=== PATIENT | female | born 2005 | race Caucasian/White ===

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

== ENCOUNTER 2024-01-24 08:57 | Outpatient (OUT) | payer OTHER, SELFPAY ==
--- NOTE | 2024-01-24 | US_ITS ---
[address] [address] Patient Name: FLAVIA TUCKER MRN: [id number] date: 2005 Sex: F Assigned Patient Location: Current Patient Location: Accession/Order Number: [id number] Exam Date: 01/24/2024 09:08 Report Date: 01/25/2024 08:09 At the request of: QUINTIN RAMIREZ Procedure: US pelvis transvaginal EXAM: Pelvic ultrasound HISTORY: . pelvic pain . COMPARISON: None. TECHNIQUE: Transvaginal scanning was performed FINDINGS: Scanning of the pelvis demonstrates a retroverted uterus measuring 7 x 5.2 x 3.6 cm. Endometrial complex measures 4 mm. Right ovary measures 3.7 x 1.7 x 1.5 cm. Color-flow is noted. No masses are noted. Small follicles are noted. Left ovary measures 2.7 x 1.1 x 1.4 cm. Color-flow is noted. Small follicles are noted. There is a small amount of free fluid in the cul-de-sac. US/US pelvis transvaginal IMPRESSION: 1. Normal-appearing uterus and endometrial complex. Uterus is retroverted. 2. Normal-appearing ovaries. The previously noted cystic area in the right ovary has resolved. 3. Small amount of fluid in the cul-de-sac. Electronically authenticated by: BRE MARADIAGA Date: 01/25/2024 08:09
== END 2024-01-24 08:58 | disposition home or self-care (01) ==
LOC: US 08:58
PROVIDERS: Visit Provider Obstetrics & Gynecology
DX: R10.2 Pelvic and perineal pain (principal)
CPT/HCPCS: 76830

== ENCOUNTER 2024-01-28 13:19 | Outpatient (OUT) | payer OTHER, SELFPAY ==
--- OUTSIDE RECORDS SUMMARY | 2024-01-28 13:39 | XMS_ITS | CCD ---
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 on 11/21/2023 10:59 AM INemesio MD have personally reviewed the image(s) and agree with and/or edited the report Finalized by Nemesio Thompson MD on 11/21/2023 11:32 AM Normal [facility] HCG ( test) Ql (U)o n 11-21-2023 Beta HCG ( test) Ql (U) Negative Normal NEG [facility] Comment on above: Performed By: #### C MARTY REED, 3040-3, 5643-2 #### [facility] ([id number]) [address] [place] [address] LIPASEon 11-21-2023 Lipase [Catalytic activity/Vol] 29 U/L Normal 17-40 [facility] Comment on above: Performed By: #### C MARTY REED, 3040-3, 5643-2 #### [facility] ([id number]) [address] [place] [address] 44929 MAGNESIUMon 11-21-2023 Magnesium [Mass/Vol] 2.2 mg/dL Normal 1.8-2.6 [facility] Comment on above: Performed By: #### C MARTY REED, 3040-3, 5643-2 #### [facility] ([id number]) [address] [place] [address] 96699 URINE CULTUREon 11-21-2023 Bacteria identified Cx Nom (U) CULTURE RESULTS 10-50,000 ORGANISMS/mL NORMAL UROGENITAL CHU Normal [facility] Comment on above: Performed By: #### C BCA, CMP, 3040-3, 5643-2 #### [facility] ([id number]) [address] [place] [address] 91453 URN MACROSCOPIC NURon 2023 BILIRUBIN JOHANA Negative Normal NEG [facility] Comment on above: Performed By: #### N UM #### [facility] ([id number]) [address] [place] [address] 20897 BLOOD/HGB JOHANA Negative Normal NEG [facility] Comment on above: Performed By: #### N UM #### [facility] ([id number]) [address] [place] [address] 88194 GLUCOSE JOHANA Negative Normal NEG [facility] Comment on above: Performed By: #### N UM #### [facility] ([id number]) [address] [place] [address] 73233 KETONES JOHANA Negative Normal NEG [facility] Comment on above: Performed By: #### N UM #### [facility] ([id number]) [address] [place] [address] 02872 LEUKOCYTE ESTERASE JOHANA Negative Normal NEG [facility] Comment on above: Performed By: #### N UM #### [facility] ([id number]) [address] [place] [address] [place] [address] NITRITE JOHANA Negative Normal NEG [facility] Comment on above: Performed By: #### N UM #### [facility] ([id number]) [address] [place] [address] 40037 PH JOHANA 6.5 Normal 5.0-8.5 [facility] Comment on above: Performed By: #### N UM #### [facility] ([id number]) [address] [place] [address] 62373 PROTEIN JOHANA Negative Normal NEG [facility] Comment on above: Performed By: #### N UM #### [facility] ([id number]) [address] [place] [address] 42869 SPECIFIC GRAVITY JOHANA 1.010 Normal 1.003-1.035 [facility] Comment on above: Performed By: #### N UM #### [facility] ([id number]) [address] [place] [address] 71907 UROBILINOGEN JOHANA 0.2 eu/dL Normal <1.1 [facility] Comment on above: Performed By: #### N UM #### [facility] ([id number]) [address] [place] [address] 51695 CBC AND AUTO DIFFon 06-21-19 24 ABSOLUTE BASOPHIL 0.1 X10E9/L Normal 0.0-0.2 [facility] Comment on above: Performed By: #### C BCA, CMP, 3040-3, 5643-2 #### [facility] ([id number]) [address] [place] [address] 31116 ABSOLUTE NEUTROPHIL 5.4 X10E9/L Normal 1.5-6.6 [facility] Comment on above: Performed By: #### C BCA, CMP, 3040-3, 5643-2 #### [facility] ([id number]) [address] [place] [address] 30903 Basophils/100 WBC (Bld) 0.6 % Normal [facility] Comment on above: Performed By: #### C BCA, CMP, 3040-3, 5643-2 #### [facility] ([id number]) [address] [place] [address] 12535 Eosinophils (Bld) [#/Vol] 0.1 10*3/uL Normal 0.0-0.4 [facility] Comment on above: Performed By: #### C BCA, CMP, 3040-3, 5643-2 #### [facility] ([id number]) [address] [place] [address] 18407 Eosinophils/100 WBC (Bld) 0.7 % Normal [facility] Comment on above: Performed By: #### Kailyn REED CMP, 3039-08, 5642-2 #### [facility] ([id number]) [address] [place] [address] 92671 Erythrocyte distribution width (RBC) [Ratio] 13.5 % Normal 11.5-15.0 [facility] Comment on above: Performed By: #### Kailyn REED [facility], 3039-08, 5642- #### [facility] ([id number]) [address] [place] [address] 97116 Hematocrit (Bld) [Volume fraction] 40.1 % Normal 35-47 [facility] Comment on above: Performed By: #### Kailyn REED CMP, 3039-08, 5642- #### [facility] ([id number]) [address] [place] [address] 23053 Hemoglobin (Bld) [Mass/Vol] 14.1 g/dL Normal 11.7-15.5 [facility] Comment on above: Performed By: #### Kailyn REED CMP, 3039-08, 5642- #### [facility] ([id number]) [address] [place] [address] 03806 Lymphocytes (Bld) [#/Vol] 4.5 10*3/uL High 1.0-3.5 [facility] Comment on above: Performed By: #### Kailyn REED CMP, 3039-08, 5642-2 #### [facility] ([id number]) [address] [place] [address] 81444 Lymphocytes/100 WBC (Bld) 43.0 % Normal [facility] Comment on above: Performed By: #### Kailyn REED CMP, 3039-08, 5642-2 #### [facility] ([id number]) [address] [place] [address] 10585 MCH (RBC) [Entitic mass] 30.1 pg Normal 27-34 [facility] Comment on above: Performed By: #### Kailyn REED, CMP, 0-3, 43-2 #### [facility] ([id number]) [address] [place] [address] 87707 MCHC (RBC) [Mass/Vol] 35.2 g/dL Normal 32-36 [facility] Comment on above: Performed By: #### Kailyn REED, CMP, 3039-, 5642-2 #### [facility] ([id number]) [address] [place] [address] 80104 MCV (RBC) [Entitic vol] 85 fL Normal 80-100 [facility] Comment on above: Performed By: #### Kailyn REED, CMP, 3039-08, 5642-2 #### [facility] ([id number]) [address] [place] [address] 62853 Monocytes (Bld) [#/Vol] 0.5 10*3/uL Normal 0-0.9 [facility] Comment on above: Performed By: #### Kailyn REED, CMP, 3039-08, 43-2 #### [facility] ([id number]) [address] [place] [address] 34318 Monocytes/100 WBC (Bld) 4.3 % Normal [facility] Comment on above: Performed By: #### Kailyn REED, CMP, 3039-08, 43-2 #### [facility] ([id number]) [address] [place] [address] 42089 Neutrophils/100 WBC (Bld) 51.4 % Normal [facility] Comment on above: Performed By: #### Kailyn BCA, CMP, 3039-3, 43-2 #### [facility] ([id number]) [address] [place] [address] 10311 Platelet mean volume (Bld) [Entitic vol] 6.5 fL Low 7-12 [facility] Comment on above: Performed By: #### C DEREK, CMP, 3040-3, 5643-2 #### [facility] ([id number]) [address] [place] [address] 90769 Platelets (Bld) [#/Vol] 286 10*3/uL Normal 150-450 [facility] Comment on above: Performed By: #### C DEREK CMP, 3040-3, 5643-2 #### [facility] ([id number]) [address] [place] [address] 18223 RBC COUNT 4.69 X10E12/L Normal 3.80-5.20 [facility] Comment on above: Performed By: #### C DEREK, CMP, 0-3, 5643-2 #### [facility] ([id number]) [address] [place] [address] 94327 WBC (Bld) [#/Vol] 10.6 10*3/uL Normal 4.0-11.0 [facility] Comment on above: Performed By: #### Kailyn REED, CMP, 3040-3, 5643-2 #### [facility] ([id number]) [address] [place] [address] 73599 COMPREHENSIVE METABOLIC PANE Grey 06-21-2023 Albumin [Mass/Vol] 4.2 g/dL Normal 3.2-5.3 [facility] Comment on above: Performed By: #### Kailyn BCA, CMP, 3040-3, 5643-2 #### [facility] ([id number]) [address] [place] [address] 00307 ALP [Catalytic activity/Vol] 69 U/L Normal 39-130 [facility] Comment on above: Performed By: #### C BCA, CMP, 3040-3, 5643-2 #### [facility] ([id number]) [address] [place] [address] 65847 ALT [Catalytic activity/Vol] 91 U/L High 0-31 [facility] Comment on above: Performed By: #### C BCA, CMP, 3040-3, 5643-2 #### [facility] ([id number]) [address] [place] [address] 02794 Anion gap [Moles/Vol] 6 mmol/L Normal 5-15 [facility] Comment on above: Performed By: #### C BCA, CMP, 0-3, 5643-2 #### [facility] ([id number]) [address] [place] [address] 34014 AST [Catalytic activity/Vol] 79 U/L High 0-41 [facility] Comment on above: Performed By: #### C BCA, CMP, 0-3, 43-2 #### [facility] ([id number]) [address] [place] [address] 64102 Bilirubin [Mass/Vol] 0.7 mg/dL Normal 0.3-1.2 [facility] Comment on above: Performed By: #### C BCA, CMP, 0-3, 5643-2 #### [facility] ([id number]) [address] [place] [address] 87081 Calcium [Mass/Vol] 8.6 mg/dL Normal 8.5-10.5 [facility] Comment on above: Performed By: #### C BCA, CMP, 0-3, 5643-2 #### [facility] ([id number]) [address] [place] [address] 82046 Chloride [Moles/Vol] 104 mmol/L Normal 98-109 [facility] Comment on above: Performed By: #### C BCA, CMP, 3040-3, 5643-2 #### [facility] ([id number]) [address] [place] [address] 52715 CO2 [Moles/Vol] 24 mmol/L Normal 22-32 [facility] Comment on above: Performed By: #### C DEREK [facility], 3039-3, 5643-2 #### [facility] ([id number]) [address] [place] [address] 65958 Creatinine [Mass/Vol] 0.70 mg/dL Normal 0.30-1.00 [facility] Comment on above: Result Comment: METH OD TRACEABLE TO IDMS STANDARD Performed By: #### C MARTY REED, 3039-08, 5643-2 #### [facility] ([id number]) [address] [place] [address] 34924 eGFR (CKD-EPI) NON-RACE DEPENDENT >90 Normal >59 [facility] Comment on above: Result Comment: Reported eGFR is based on the CKD-EPI 2020 equation that does not use a race coefficient. Performed By: #### C DEREK [facility], 3039-08, 5643-2 #### [facility] ([id number]) [address] [place] [address] 27429 Glucose [Mass/Vol] 127 mg/dL High 65-99 [facility] Comment on above: Performed By: #### C MARTY REED, 3039-08, 5643-2 #### [facility] ([id number]) [address] [place] [address] 19377 Potassium [Moles/Vol] 3.2 mmol/L Low 3.5-5.0 [facility] Comment on above: Performed By: #### C MARTY REED, 0-3, 5643-2 #### [facility] ([id number]) [address] [place] [address] 58567 Protein [Mass/Vol] 7.8 g/dL Normal 6.0-8.0 [facility] Comment on above: Performed By: #### C BCA, CMP, 3040-3, 5643-2 #### [facility] ([id number]) [address] [place] [address] 48548 Sodium [Moles/Vol] 134 mmol/L Normal 134-146 [facility] Comment on above: Performed By: #### C BCA, CMP, 3040-3, 5643-2 #### [facility] ([id number]) [address] [place] [address] 39231 Urea nitrogen [Mass/Vol] 10 mg/dL Normal 5-23 [facility] Comment on above: Performed By: #### C DEREK, CMP, 3040-3, 5643-2 #### [facility] ([id number]) [address] [place] [address] ABDOMEN AND PELVIS W CONT on 06-21-2023 CT ABDOMEN AND PELVIS W CONT CT ABDOMEN AND PELVIS W CONT CT ABDOMEN AND PELVIS W CONT HISTORY: Left lower quadrant abdominal pain COMPARISON: None TECHNIQUE: CT images of abdomen and pelvis obtained following administration of contrast. Automated exposure control was utilized. All CT scans at this facility use dose modulation, iterative reconstruction, and/or weight based dosing when appropriate to reduce radiation dose to as low as reasonably achievable. CONTRAST: Oral: 24 mL oral Omnipaque IV: 100 mL Omnipaque 300 FINDINGS: LOWER CHEST: Several subcentimeter pleural-based nodule in the bilateral lower lobes. Given patient's age and risk factors, no further imaging follow-up is required. LIVER AND BILIARY: Overall noncirrhotic liver morphology. No definite hepatic mass or lesion. The portal venous system appears patent. Gallbladder is unremarkable. PANCREAS: Unremarkable SPLEEN: Unremarkable. ADRENALS: No adrenal mass or lesion. KIDNEYS, URETERS, AND BLADDER: No renal mass or lesion. No evidence of collecting system dilatation. The ureters are unremarkable. The bladder is unremarkable. GI TRACT AND PERITONEUM: Oral contrast seen within the stomach and proximal small bowel. There is no evidence of bowel obstruction. Reduced aortomesenteric angle with narrowing of the crossing left renal vein and duodenum. The appendix is not well visualized. There is no pericolonic fat stranding or free intraperitoneal gas. Trace free fluid in the pelvis, possibly physiologic. VASCULATURE: The abdominal aorta is nonaneurysmal. LYMPH NODES: Prominent borderline enlarged mesenteric lymph nodes, predominantly in the ileocolic region. REPRODUCTIVE ORGANS: Retroverted uterus. No suspicious adnexal mass or lesion. MUSCULOSKELETAL: No acute abnormality. IMPRESSION: * No acute CT findings in the abdomen/pelvis. * Nonspecific borderline enlarged mesenteric lymph nodes, predominantly in the ileocolic region. This may be related to an underlying infectious/inflammat ory process versus mesenteric adenitis. * Diminished aortomesenteric angle with reduced caliber of the crossing left renal vein and duodenum. Correlate for symptoms suggestive of SMA syndrome. Approved by Resident Feliberto Fernandez DO on 06/21/2023 9:20 AM ISuhail MD have personally reviewed the image(s) and agree with and/or edited the report Finalized by Suhail Gamez MD on 06/21/2023 9:36 AM Normal [facility] ETHANOLon 06-21-2023 Ethanol [Mass/Vol] mg/dL Normal 0.00-0.08 [facility] Comment on above: Result Comment: This report is intended for use in clinical monitoring or management of patients. Performed By: #### C MARTY REED, 3040-3, 5643-2 #### [facility] ([id number]) [address] [place] [address] 54045 HCG ( test) Ql (U)o n 06-21-2023 Beta HCG ( test) Ql (U) Negative Normal NEG [facility] Comment on above: Performed By: #### 2 106-3 #### [facility] ([id number]) [address] [place] [address] 03508 LIPASEon 06-21-2023 Lipase [Catalytic activity/Vol] 36 U/L Normal 17-40 [facility] Comment on above: Performed By: #### C MARTY REED, 3040-3, 5643-2 #### [facility] ([id number]) [address] [facility] [address] [place] [address] SARS/FLU A+B/RSV by NAAT/Mol williamon 06-21-2023 SARS/FLU A+B/RSV by NAAT/Molecular FLU A PCR Negative (qualifier value) FLU B PCR Negative (qualifier value) RSV by PCR Negative (qualifier value) SARS CoV 2 Detected (qualifier value) NOTE The Xpert Xpress SARS-CoV-2/Flu/RSV Plus test is a rapid, multiplexed real-time RT-PCR test intended for the simultaneous qualitative detection and differentiation of SARS-CoV-2, influenza A, influenza B and respiratory syncytial virus (RSV) viral RNA from individuals suspected of respiratory viral infection consistent with COVID-19 by their healthcare provider. This test has not been validated in asymptomatic patients. The Xpert Xpress SARS-CoV-2 test is intended for use by qualified and trained operators who are performing tests using either [facility] or [facility] systems and is limited to laboratories that meet the CLIA requirements to perform high and moderate complexity tests. The Xpert Xpress SARS-CoV-2/Flu/RSV Plus is only for use under the Food and Drug Administration's Emergency Use Authorization. Results are for the simultaneous detection and differentiation of SARS-CoV-2, influenza A, influenza B and RSV nucleic acids in clinical specimens. SARS-CoV-2, influenza A, influenza B and RSV RNA identified by this test are generally detectable in upper respiratory samples during the acute phase of infection. Positive results are indicative of the presence of the identified virus, but do not rule out bacterial infection or co-infection with other pathogens not detected by this test. Clinical correlation with patient history and other diagnostic information is necessary to determine patient infection status. The agent detected may not be the definite cause of disease. Negative results do not preclude SARS-CoV-2, influenza A, influenza B and RSV infection and should not be used as the sole basis for treatment or other patient management decisions. Negative results must be combined with clinical observations, patient history and epidemiological information. An Invalid result may occur with specimen-associated inhibition unable to be resolved with specimen repeat. Fact Sheet for Healthcare Providers: https://www.fda.gov/ media/474842/[place] d Fact Sheet for Patients: https://www.fda.gov/ media/148515/downloa d Normal [facility] Comment on above: Performed By: #### C OVFLR #### [facility] ([id number]) [address] [place] [address] 43704 URN MACROSCOPIC NURon 2023 BILIRUBIN JOHANA Negative Normal NEG [facility] Comment on above: Performed By: #### N UM #### [facility] ([id number]) [address] [place] [address] 26142 BLOOD/HGB JOHANA Large Abnormal NEG [facility] Comment on above: Performed By: #### N UM #### [facility] ([id number]) [address] [place] [address] 97962 GLUCOSE JOHANA Negative Normal [facility] Comment on above: Performed By: #### N UM #### [facility] ([id number]) [address] [place] [address] 03009 KETONES JOHANA Negative Normal NEG [facility] Comment on above: Performed By: #### N UM #### [facility] ([id number]) [address] [place] [address] 08550 LEUKOCYTE ESTERASE JOHANA Negative Normal [facility] Comment on above: Performed By: #### N UM #### [facility] ([id number]) [address] [place] [address] 39797 NITRITE JOHANA Negative Normal NEG [facility] Comment on above: Performed By: #### N UM #### [facility] ([id number]) [address] [place] [address] 37469 PH JOHANA 8.5 Normal 5.0-8.5 [facility] Comment on above: Performed By: #### N UM #### [facility] ([id number]) [address] [place] [address] 67680 PROTEIN JOHANA 100 mg/dL Abnormal NEG [facility] Comment on above: Performed By: #### N UM #### [facility] ([id number]) [address] [place] [address] SPECIFIC GRAVITY JOHANA 1.015 Normal 1.003-1.035 [facility] Comment on above: Performed By: #### N UM #### [facility] ([id number]) [address] [place] [address] UROBILINOGEN JOHANA 0.2 eu/dL Normal <1.1 [facility] Comment on above: Performed By: #### N UM #### [facility] ([id number]) [address] [place] [id number] XR RIBS RT PA Chery 3 XR RIBS RT PA CH COMPARISON: Chest radiograph 09/07/2012. CLINICAL HISTORY: Pain after injury. TECHNIQUE: 2 views of the right ribs obtained with AP and oblique positioning. FINDINGS: There is no evidence of acute rib fracture. Underlying lung appears grossly normal, no significant pleural fluid or pneumothorax. IMPRESSION: No evidence of acute rib fracture. Electronically authenticated by: CATA HERNANDEZ Date: 2022-09-29 00:50 Normal [facility] XR wrist LT min 3V*on 2021 XR wrist LT min 3V* [facility] [place] [address] XRay Report Signed Patient: Flavia Tucker MR#: [id number] : 2005 Acct:[id number] Age/Sex: 16 / F ADM Date: 04/21/22 Loc: [facility] Room: Type: [facility] Attending Dr: Deb BRAN Copies to: DEB PRESSLEY Ordering Provider: DEB PRESSLEY Date of Service: 04/21/22 XR/XR wrist LT min 3V*: Injury of left wrist, subsequent encounter 4 viewsLEFT wrist plain film COMPARISON:None HISTORY:Follow-up assessment of LEFT wrist injury. No fracture, dislocation or focal soft tissue abnormality seen. XR/XR wrist LT min 3V* IMPRESSION:No acute findings. Impression dictated by: Jan Gastelum M.D.04/21/2022 4:02 PM Dictation Location: [place] [address] Transcribed By: [facility] 04/21/22 1602 Dictated By: Jan Gastelum DO 04/21/22 160 Signed By: 04/21/22 160 Normal [facility] XR wrist LT min 3V* [facility] [employer] Other XR wrist LT min 3V* [facility] [employer] Other XR wrist LT min 3V* [address] [place] [address] [employer] Other XR wrist LT min 3V* [place] [address] [employer] Other XR wrist LT min 3V* XRay Report [facility] [employer] Other XR wrist LT min 3V* Signed [employer] Other XR wrist LT min 3V* Patient: Flavia Tucker MR#: [id number] [employer] Other XR wrist LT min 3V* : 2005 Acct:[id number] [employer] Other XR wrist LT min 3V* Age/Sex: 16 / F ADM Date: 04/21/22 [employer] Other XR wrist LT min 3V* Loc: [facility] Room: Type: [facility] [employer] Other XR wrist LT min 3V* Attending Dr: Deb Pressley [employer] Other XR wrist LT min 3V* Copies to: DEB PRESSLEY [employer] Other XR wrist LT min 3V* Ordering Provider: DEB PRESSLEY [employer] Other XR wrist LT min 3V* Date of Service: 04/21/22 [employer] Other XR wrist LT min 3V* XR/XR wrist LT min 3V*: Injury of left wrist, subsequent encounter [employer] Other XR wrist LT min 3V* 4 viewsLEFT wrist plain film [employer] Other XR wrist LT min 3V* COMPARISON:None [employer] Other XR wrist LT min 3V* HISTORY:Follow-up assessment of LEFT wrist injury. [employer] Other XR wrist LT min 3V* No fracture, dislocation or focal soft tissue abnormality seen. [employer] Other XR wrist LT min 3V* XR/XR wrist LT min 3V* [employer] Other XR wrist LT min 3V* IMPRESSION:No acute findings. [employer] Other XR wrist LT min 3V* Impression dictated by: Jan Gastelum M.D.04/21/2022 4:02 PM [employer] Other XR wrist LT min 3V* Dictation Location: [place] [address] [employer] Other XR wrist LT min 3V* Transcribed By: [facility] 04/21/22 1602 [employer] Other XR wrist LT min 3V* Dictated By: Jan Gastelum DO 04/21/22 1601 [employer] Other XR wrist LT min 3V* Signed By: [employer] Other XR wrist LT min 3V* 04/21/22 1602 No [employer]Animating Touch Other Quick Strepon 03-24-2022 S. pyogenes Org specific cx Ql (Throat) Negative [employer] Other [employer] Other SARS-CoV-2 (COVID-19) RNA NA A+probe Ql (Resp)on 03-24-2022 SARS-CoV-2 (COVID-19) RNA KELLY+probe Ql (Unsp spec) Negative [employer] Other Progress Noteon 03-10-2018 HIM IP Note OR [employer] [facility] Progress Noteon 02-24-2018 HIM IP Note OR [employer] [facility] Progress Noteon 02-16-2018 HIM IP Note OR [employer] [facility] Vital Signs Date Time Vital Sign Value Performing Clinician Facility 12-27-2023 09:17-0400 Body height 165.1 cm [facility] 12-27-2023 09:17-0400 Body mass index (BMI) [Percentile] Per age and sex 31 % [facility] 12-27-2023 09:17-0400 Body mass index (BMI) [Ratio] 20.2 kg/m2 [facility] 12-27-2023 09:17-0400 Body temperature 100.3 [degF] [facility] 12-27-2023 09:17-0400 Body weight 55.05 kg [facility] 12-27-2023 09:17-0400 Heart rate 75 /min [facility] 12-27-2023 09:17-0400 Respiratory rate 18 /min [facility] 12-27-2023 09:17-0400 SaO2% (BldA) [Mass fraction] 99 % [facility] 04-21-2022 15:30-0400 Body height 162.56 cm Deb Pressley Other [employer] Other 04-21-2022 15:30-0400 Body mass index (BMI) [Ratio] 22.31 kg/m2 Deb Pressley Other [employer] Other 04-21-2022 15:30-0400 Body temperature 98.6 [degF] Deb Pressley Other [employer] Other 04-21-2022 15:30-0400 Body weight 58.97 kg Deb Pressley Other [employer] Other 04-21-2022 15:30-0400 Diastolic blood pressure 71 mm[Hg] Deb Pressley Other [employer] Other 04-21-2022 15:30-0400 Respiratory rate 18 /min Deb Pressley Other [employer] Other 04-21-2022 15:30-0400 SaO2% (BldA) [Mass fraction] 99 % Deb Pressley Other [employer] Other 04-21-2022 15:30-0400 Systolic blood pressure 114 mm[Hg] Deb Pressley Other [employer] Other 03-24-2022 16:00-0400 Body height 163.83 cm Deb Pressley Other [employer] Other 03-24-2022 16:00-0400 Body mass index (BMI) [Ratio] 22.64 kg/m2 Deb Pressley Other [employer] Other 03-24-2022 16:00-0400 Body temperature 98.2 [degF] Deb Almanzaault Other [employer] Other 03-24-2022 16:00-0400 Body weight 60.78 kg Deb Almanzaault Other [employer] Other 03-24-2022 16:00-0400 Diastolic blood pressure 79 mm[Hg] Deb Pressley Other [employer] Other 03-24-2022 16:00-0400 Respiratory rate 18 /min Deb Almanzaault Other [employer] Other 03-24-2022 16:00-0400 SaO2% (BldA) [Mass fraction] 100 % Deb Pressley Other [employer] Other 03-24-2022 16:00-0400 Systolic blood pressure 121 mm[Hg] Deb Pressley Other [employer] Other 04-29-2021 15:30-0500 Body height 163.83 cm Deb Almanzaault Other [employer] Other 04-29-2021 15:30-0500 Body mass index (BMI) [Ratio] 21.97 kg/m2 Deb Pressley Other [employer] Other 04-29-2021 15:30-0500 Body temperature 97.8 [degF] Deb Almanzaault Other [employer] Other 04-29-2021 15:30-0500 Body weight 58.97 kg Deb Almanzaault Other [employer] Other 04-29-2021 15:30-0500 Diastolic blood pressure 72 mm[Hg] Deb Wendie Other [employer] Other 04-29-2021 15:30-0500 Respiratory rate 18 /min Deb Pressley Other [employer] Other 04-29-2021 15:30-0500 SaO2% (BldA) [Mass fraction] 98 % Deb Pressley Other [employer] Other 04-29-2021 15:30-0500 Systolic blood pressure 130 mm[Hg] Deb Pressley Other [employer] Other Encounters Encounter Date Encounter Type Care Provider Facility Start: 01-25-2024 End: 01-25-2024 ambulatory QUINTIN ASHLEY Not Available Start: 12-27-2023 End: 12-27-2023 ambulatory [facility] Work Phone: Start: 12-27-2023 End: 12-27-2023 Patient encounter procedure [facility] Work Phone: Start: 12-24-2023 End: 12-24-2023 ambulatory [facility] Start: 12-24-2023 Encounter for genera l adult medical examination without abnormal findings [facility] Start: 12-21-2023 End: 12-21-2023 ambulatory QUINTIN ASHLEY Not Available Start: 12-20-2023 End: 12-20-2023 [facility] Start: 11-21-2023 End: 11-22-2023 Emergency department patient visit BALDOMERO SMITH [facility] Start: 11-10-2023 End: 11-10-2023 ambulatory [facility] Start: 06-21-2023 End: 06-22-2023 Emergency department patient visit JUAN DEE [facility] Start: 06-21-2023 End: 06-21-2023 Emergency department patient visit [facility] Start: 06-21-2023 End: 06-22-2023 Emergency department patient visit JUAN DEE [facility] Start: 09-29-2022 End: 09-29-[address] FRANCISCO PERSON . Facility: Start: 04-21-2022 End: 04-21-2022 ambulatory Deb Wendie Facility:[facility] Start: 04-21-2022 End: 04-21-2022 Patient encounter procedure [employer] Deb Pressley Work Phone: [facility] Start: 04-21-2022 End: 04-21-2022 ambulatory [employer] Debrosalba Pressley Work Phone: [facility] Work Phone: Start: 04-21-2022 Office outpatient vi sit 15 minutes Deb Wendie [facility] Start: 03-24-2022 End: 03-24-2022 ambulatory Deb Wendie Other [employer] Other Start: 03-24-2022 Office outpatient vi sit 15 minutes Deb Wendie [facility] Start: 02-06-2022 End: 02-06-2022 ambulatory Deb Wendie Other [employer] Other Start: 02-06-2022 Telephone encounter Deb Breaul t [facility] Start: 04-29-2021 End: 04-29-2021 ambulatory Deb Wendie Other [employer] Other Start: 04-29-2021 Office outpatient vi sit 15 minutes Deb Wendie [facility] Procedures Date Procedure Procedure Detail Performing Clinician Start: 04-21-2022 Plain X-ray of left wrist [employer] Debrosalba Pressley Work Phone: Payers Date Payer Category Payer Self-pay [id number] 2005 Unknown [id number] 2.16.84 [id number] 2004 Unknown [id number] 2.16.8 [id number] 2004 Unknown [id number] 2.16.8 40.1.341238.3.579.2.6 2004 Unknown [id number] 2.16.8 40.1.670660.3.579.2.6 2004 Unknown [id number] 2.16.8 [id number] 2004 Unknown [id number] 2.16.8 40.1.812044.3.579.2.6 2004 Unknown [id number] 2.16.8 40.1.763940.3.579.2.1285 2004 Unknown [id number] 2.16.84 0.1.679852.3.579.2.6 2004 Unknown [id number] 2.16.84 0.1.140556.3.579.2.1286 2004 Unknown [id number] 2.16.84 0.1.380640.3.579.2.6 2004 Unknown [id number] 2.16.84 0.1.150443.3.579.2.9 2004 Unknown [id number] 2.16.84 0.1.035245.3.579.2.1259 1959 Unknown [id number] 2.16.8 40.1.982909.19 Medicaid [id number] Unknown [id number] 2.16.8 [id number] Unknown [id number] Social History Date Type Detail Facility Sex Assigned At [employer] Other Start: 2005 Sex Assigned At Female F [facility] Start: 12-27-2023 Tobacco smoking stat us NJIS Never smoked tobacco (finding) [facility] Clinical Note 11-10-2023 Note Date & Type Note Facility 11-10-2023 Note XR CHEST 2 VWS Procedure: Chest x-ray performed Number of views:2 History:Shortness of breath Comparison:09/07/2012 Findings: The heart and lungs show no acute findings, and the mediastinum and fabienne are grossly negative . Impression: 1. No acute change. Finalized by Bola Dang MD on 11/10/2023 9:58 AM [facility] Evaluation note 04-21-2022 Note Date & Type Note Facility 04-21-2022 Evaluation note Encounter Date Diagnosis Assessment Notes Apr, Injury of left wrist, subsequent encounter (ICD-10 - S69.92XD) Use RICE therapy as discussed: Rest, Ice Compression, Elevate. Apply ice to affected area 3-4 times daily (Do not place ice source directly on skin, must cover with towel-like material). Use OTC as directed for pain if needed. Contact office if symptoms are not improved within the next few weeks and we will help you get into specialist. [employer] Other Evaluation note 03-24-2022 Note Date & Type Note Facility 03-24-2022 Evaluation note Encounter Date Diagnosis Assessment Notes Mar, Contact with and (suspected) exposure to other viral communicable diseases (ICD-10 - Z20.828) Your Covid PCR test is negative. This means at this time you do not have COVID. Mar, Seasonal allergic rhinitis, unspecified trigger (ICD-10 - J30.2) Take medication as directed. Use saline nasal spray may help with symptom relief. OTC medications such as Zyrtec, Deandra or Claritin can help with symptoms during the peak of allergy season. Follow up with primary care provider if symptoms persist as a therapy plan may need to be made. [employer] Other Evaluation note 04-29-2021 Note Date & Type Note Facility 04-29-2021 Evaluation note Encounter Date Diagnosis Assessment Notes Apr, Tinea pedis of both feet (ICD-10 - B35.3) Use medication as directed. Shows need to be cleaned and clean socks need to be worn daily. Education handout printed on [employer] Other Evaluation note Note Date & Type Note Facility Evaluation note No Information [facility] [employer] Other Evaluation note Note Date & Type Note Facility Evaluation note No assessment information availa ble [facility] Work Phone: Evaluation note Note Date & Type Note Facility Evaluation note Diagnosis Onset Date Acute bilateral otitis media acute [facility] Work Phone: History general Narrative - Reported Note Date & Type Note Facility History general Narrative - Reported Type Medical History acid reflux Surgical History caps on teeth when younger Hospitalization History [facility] Other History general Narrative - Reported Note Date & Type Note Facility History general Narrative - Reported Type Medical History acid reflux Medical History headache Medical History seizures Surgical History caps on teeth when younger Hospitalization History [facility] Other Summary Purpose Family History No Family History Records FoundNo Family History Records FoundNo Family History Records FoundNo Family History Records FoundNo Family History Records FoundNo Family History Records Found Advance Directives No Advanced Directives Records Found Advance Directive Response Recorded Date/ Time Advance Directives No April 27, 2022 2:57pm Chief Complaint and Reason for Visit Chief Complaint right ear pain, sore throat Reason for Visit Acute bilateral otit is media Additional Source Comments INFORMATION SOURCE (unrecogn ized section and content) DATE CREATED AUTHOR 04/09/[facility] DATE CREATED AUTHOR AUTHOR'S ORGANIZ ATION 04/27/2022 [facility] DATE CREATED AUTHOR AUTHOR'S ORGANIZ ATION 09/30/2022 [facility] DATE CREATED AUTHOR AUTHOR'S ORGANIZ ATION 12/21/2023 [facility] DATE CREATED AUTHOR AUTHOR'S ORGANIZ ATION 12/25/2023 [facility] DATE CREATED AUTHOR AUTHOR'S ORGANIZ ATION 01/27/2024 [facility] EPIC REASON FOR VISIT (unrecogniz ed section and content) PT GETTING CUTS IN [facility] LETTERSORE THROAT, NASAL CONGESTIONFOLLOW UP [facility] 04/09/2022, LEFT WRIST INJURY Care Teams (unrecognized sec tion and content) Team Status: Inactive Member Role Status Dates YINA Chua Attending Provider Active Team Status: Active Member Role Status Dates PHYSICIAN NO FAMILY Primary Care Provider Active Team Status: Inactive Member Role Status Dates PHYSICIAN NO FAMILY Primary Care Provider Active Start: December 27, 2023 End: December 27, 2023 Binta Joy APRN Attending Provider Active S tart: December 27, 2023 End: December 27, 2023 Goals (unrecognized section and content) Goals may be documented in a n alternate section FOR RECORDS PERTAINING TO PATIENTS WHO ARE OR HAVE BEEN ENROLLED IN A CHEMICAL DEPENDENCY/SUBSTANCEABUSE PROGRAM, SOME INFORMATION MAY BE OMITTED. This clinical summary was aggregated from multiple sources. Caution should be exercised in using it in the provision of clinical care. This summary normalizes information from multiple sources, and as a consequence, information in this document may materially change the coding, format and clinical context of patient data. In addition, data may be omitted in some cases. CLINICAL DECISIONS SHOULD BE BASED ON THE PRIMARY CLINICAL RECORDS. [facility]. provides no warranty or guarantee of the accuracy or completeness of information in this document.
== END 2024-01-28 13:20 | disposition home or self-care (01) ==
LOC: PST 13:20
PROVIDERS: Visit Provider Obstetrics & Gynecology
DX: Z01.818 Encounter for other preprocedural examination (principal); R10.2 Pelvic and perineal pain

== ENCOUNTER 2024-02-11 08:59 | Day surgery (SDC) | payer OTHER, SELFPAY ==
[2024-01-28 14:01] VITALS: BP 116/73; PULSE 68; TEMP 36.5; O2SAT 100; BMI 22.0
[2024-02-11] VITALS (15 sets, daily range): BP systolic 99–118; BP diastolic 62–81; PULSE 51–74; TEMP 36.4–36.9; O2SAT 98–100; BMI 22.6
--- OUTSIDE RECORDS SUMMARY | 2024-02-11 09:09 | XMS_ITS | CCD ---
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 ([id number]) [address] [place] [address] 81358 eGFR (CKD-EPI) NON-RACE DEPENDENT >90 Normal >59 [facility] Comment on above: Result Comment: Reported eGFR is based on the CKD-EPI 2020 equation that does not use a race coefficient. Performed By: #### C DEREK [facility], 3039-08, 5643-2 #### [facility] ([id number]) [address] [place] [address] 55773 Glucose [Mass/Vol] 127 mg/dL High 65-99 [place] Comment on above: Performed By: #### C MARTY REED, 3039-08, 5643-2 #### [facility] ([id number]) [address] [place] [address] 69863 Potassium [Moles/Vol] 3.2 mmol/L Low 3.5-5.0 [facility] Comment on above: Performed By: #### C MARTY REED, 0-3, 5643-2 #### [facility] ([id number]) [address] [place] [address] 17120 Protein [Mass/Vol] 7.8 g/dL Normal 6.0-8.0 [place] Comment on above: Performed By: #### C BCA, CMP, 3040-3, 5643-2 #### [facility] ([id number]) [address] [place] [address] 16648 Sodium [Moles/Vol] 134 mmol/L Normal 134-146 [place] Comment on above: Performed By: #### C BCA, CMP, 3040-3, 5643-2 #### [facility] ([id number]) [address] [place] [address] 49469 Urea nitrogen [Mass/Vol] 10 mg/dL Normal 5-23 [facility] Comment on above: Performed By: #### C DEREK, CMP, 3040-3, 5643-2 #### [facility] ([id number]) [address] [place] [address] ABDOMEN AND PELVIS W CONT on [...] Gamez MD on 06/21/2023 9:36 AM Normal [facility] ETHANOLon 06-21-2023 Ethanol [Mass/Vol] mg/dL Normal 0.00-0.08 [place] Comment on above: Result Comment: This report is intended for use in clinical monitoring or management of patients. Performed By: #### C MARTY REED, 3040-3, 5643-2 #### [facility] ([id number]) [address] [place] [address] 36174 HCG ( test) Ql (U)o n 06-21-2023 Beta HCG ( test) Ql (U) Negative Normal NEG [facility] Comment on above: Performed By: #### 2 106-3 #### [facility] ([id number]) [address] [place] [address] 53088 LIPASEon 06-21-2023 Lipase [Catalytic activity/Vol] 36 U/L Normal 17-40 [facility] Comment on above: Performed By: #### C MARTY REED, 3040-3, 5643-2 #### [facility] ([id number]) [address] [facility] [place] [address] SARS/FLU A+B/RSV by NAAT/Mol williamon 06-21-2023 SARS/FLU [...] operators who are performing tests using either [employer] or [employer] systems and is limited to laboratories that [...] repeat. Fact Sheet for Healthcare Providers: https://www.fda.gov/ media/452313/[place] d Fact Sheet for Patients: https://www.fda.gov/ media/467375/downloa d Normal [facility] Comment on above: Performed By: #### C OVFLR #### [facility] ([id number]) [address] [place] [address] 23251 URN MACROSCOPIC NURon 2023 BILIRUBIN JOHANA Negative Normal NEG [facility] Comment on above: Performed By: #### N UM #### [facility] ([id number]) [address] [place] [address] 51520 BLOOD/HGB JOHANA Large Abnormal NEG [facility] Comment on above: Performed By: #### N UM #### [facility] ([id number]) [address] [place] [address] 54681 GLUCOSE JOHANA Negative Normal [facility] Comment on above: Performed By: #### N UM #### [facility] ([id number]) [address] [place] [address] 97860 KETONES JOHANA Negative Normal NEG [facility] Comment on above: Performed By: #### N UM #### [facility] ([id number]) [address] [place] [address] 04789 LEUKOCYTE ESTERASE JOHANA Negative Normal [facility] Comment on above: Performed By: #### N UM #### [facility] ([id number]) [address] [place] [address] 78651 NITRITE JOHANA Negative Normal NEG [facility] Comment on above: Performed By: #### N UM #### [facility] ([id number]) [address] [place] [address] 00761 PH JOHANA 8.5 Normal 5.0-8.5 [facility] Comment on above: Performed By: #### N UM #### [facility] ([id number]) [address] [place] [address] 84074 PROTEIN JOHANA 100 mg/dL Abnormal NEG [facility] Comment on above: Performed By: #### N UM #### [facility] ([id number]) [address] [place] [address] SPECIFIC GRAVITY JOHANA 1.015 Normal 1.003-1.035 [facility] Comment on above: Performed By: #### N UM #### [facility] ([id number]) [address] [place] [address] UROBILINOGEN JOHANA 0.2 eu/dL Normal <1.1 [facility] Comment on above: Performed By: #### N UM #### [facility] ([id number]) [address] [place] [address] 24977 XR RIBS RT PA Chery 3 XR [...] CATA HERNANDEZ Date: 2022-09-29 00:50 Normal [facility] XR wrist LT min 3V*on 2021 XR wrist LT min 3V* [facility] [place] [address] XRay Report Signed Patient: Flavia Tucker MR#: [id number] : 2005 Acct:[id number] Age/Sex: 16 / F ADM Date: 04/21/22 [facility] Type[facility] Attending Dr: Deb BRAN Copies to: DEB [...] Jan Gastelum M.D.04/21/2022 4:02 PM Dictation Location: [place] [address] Transcribed By: [facility] 04/21/22 1602 Dictated By: Jan Gastelum DO 04/21/22 160 Signed By: 04/21/22 160 Normal [facility] XR wrist LT min 3V* [facility] [employer] Other XR wrist LT min 3V* [facility] [employer] Other XR wrist LT min 3V* [address] [place] [address] [employer] Other XR wrist LT min 3V* [place] [address] [employer] Other XR wrist LT min 3V* XRay Report [facility] [employer] Other XR wrist LT min 3V* Signed [employer] Other XR wrist LT min 3V* Patient: Flavia Tucker MR#: [id number] [employer] Other XR wrist LT min 3V* : 2005 Acct:[id number] [employer] Other XR wrist LT min 3V* Age/Sex: 16 / F ADM Date: 04/21/22 [employer] Other XR wrist LT min 3V* Loc: XDCLY Room: Type: [facility] [employer] Other XR wrist LT min 3V* Attending Dr: Deb Pressley DIRECTOR IT PROJECTLaticínios Bom Gosto/LBR [employer] Other XR wrist LT min 3V* Copies to: DEB PRESSLEY DIRECTOR IT PROJECTAttune RTD Other XR wrist LT min 3V* Ordering Provider: DEB PRESSLEY DIRECTOR IT PROJECT-C [employer] Other XR wrist LT min 3V* Date of Service: 04/21/22 [employer] Other XR wrist LT min 3V* XR/XR wrist LT min 3V*: Injury of left wrist, subsequent encounter [employer] Other XR wrist LT min 3V* 4 viewsLEFT wrist plain film [employer] Other XR wrist LT min 3V* COMPARISON:None [employer] Other XR wrist LT min 3V* HISTORY:Follow-up assessment of LEFT wrist injury. [employer] Other XR wrist LT min 3V* No fracture, dislocation or focal soft tissue abnormality seen. [employer] Other XR wrist LT min 3V* XR/XR wrist LT min 3V* [employer] Other XR wrist LT min 3V* IMPRESSION:No acute findings. [employer] Other XR wrist LT min 3V* Impression dictated by: Jan Gastelum M.D.04/21/2022 4:02 PM [employer] Other XR wrist LT min 3V* Dictation Location: [place] [address] [employer] Other XR wrist LT min 3V* Transcribed By: PWS 04/21/22 1602 [employer] Other XR wrist LT min 3V* Dictated By: Jan Gastelum DO 04/21/22 1601 [employer] Other XR wrist LT min 3V* Signed By: [employer] Other XR wrist LT min 3V* 04/21/22 1602 No [employer] Other [employer] St[employer] 03-24-2022 S. pyogenes Org specific cx Ql (Throat) Negative Yo que Vos [employer] Other [employer] Other SARS-CoV-2 (COVID-19) RNA NA A+probe Ql (Resp)on 03-24-2022 SARS-CoV-2 (COVID-19) RNA KELLY+probe Ql (Unsp spec) Negative [employer] Other Progress Noteon 03-10-2018 HIM IP Note OR Chemical Detection Expert Normal [facility] Progress Noteon 02-24-2018 HIM IP Note OR Chemical Detection Expert [facility] Progress Noteon 02-16-2018 HIM IP Note OR Chemical Detection Expert [facility] Vital Signs Date Time Vital Sign Value Performing Clinician Facility 12-27-2023 09:17-0400 Body height 165.1 cm [facility] 12-27-2023 09:17-0400 Body mass index (BMI) [Percentile] Per age and sex 31 % [facility] 12-27-2023 09:17-0400 Body mass index (BMI) [Ratio] 20.2 kg/m2 [facility] 12-27-2023 09:17-0400 Body temperature 100.3 [degF] [facility] 12-27-2023 09:17-0400 Body weight 55.05 kg [facility] 12-27-2023 09:17-0400 Heart rate 75 /min [facility] 12-27-2023 09:17-0400 Respiratory rate 18 /min [facility] 12-27-2023 09:17-0400 SaO2% (BldA) [Mass fraction] 99 % [facility] 04-21-2022 15:30-0400 Body height 162.56 cm Deb Pressley Other [employer] Other 04-21-2022 15:30-0400 Body mass index (BMI) [Ratio] 22.31 kg/m2 Deb Pressley Other [employer] Other 04-21-2022 15:30-0400 Body temperature 98.6 [degF] Deb Pressley Other [employer] Other 04-21-2022 15:30-0400 Body weight 58.97 kg Deb Pressley Other [employer] Other 04-21-2022 15:30-0400 Diastolic blood pressure 71 mm[Hg] Deb Pressley Other [employer] Other 04-21-2022 15:30-0400 Respiratory rate 18 /min Deb Pressley Other [employer] Other 04-21-2022 15:30-0400 SaO2% (BldA) [Mass fraction] 99 % Deb Pressley Other [employer] Other 04-21-2022 15:30-0400 Systolic blood pressure 114 mm[Hg] Deb Pressley Other [employer] Other 03-24-2022 16:00-0400 Body height 163.83 cm Deb Pressley Other [employer] Other 03-24-2022 16:00-0400 Body mass index (BMI) [Ratio] 22.64 kg/m2 Deb Pressley Other [employer] Other 03-24-2022 16:00-0400 Body temperature 98.2 [degF] Deb Almanzaault Other [employer] Other 03-24-2022 16:00-0400 Body weight 60.78 kg Deb Almanzaault Other [employer] Other 03-24-2022 16:00-0400 Diastolic blood pressure 79 mm[Hg] Deb Pressley Other [employer] Other 03-24-2022 16:00-0400 Respiratory rate 18 /min Deb Almanzaault Other [employer] Other 03-24-2022 16:00-0400 SaO2% (BldA) [Mass fraction] 100 % Deb Pressley Other [employer] Other 03-24-2022 16:00-0400 Systolic blood pressure 121 mm[Hg] Deb Pressley Other [employer] Other 04-29-2021 15:30-0500 Body height 163.83 cm Deb Almanzaault Other [employer] Other 04-29-2021 15:30-0500 Body mass index (BMI) [Ratio] 21.97 kg/m2 Deb Pressley Other [employer] Other 04-29-2021 15:30-0500 Body temperature 97.8 [degF] Deb Almanzaault Other [employer] Other 04-29-2021 15:30-0500 Body weight 58.97 kg Deb Almanzaault Other [employer] Other 04-29-2021 15:30-0500 Diastolic blood pressure 72 mm[Hg] Deb Wendie Other [employer] Other 04-29-2021 15:30-0500 Respiratory rate 18 /min Deb Pressley Other [employer] Other 04-29-2021 15:30-0500 SaO2% (BldA) [Mass fraction] 98 % Deb Pressley Other [employer] Other 04-29-2021 15:30-0500 Systolic blood pressure 130 mm[Hg] Deb Pressley Other [employer] Other Encounters Encounter Date Encounter Type Care Provider Facility Start: 01-25-2024 End: 01-25-2024 ambulatory QUINTIN ASHLEY Not Available Start: 12-27-2023 End: 12-27-2023 ambulatory [facility] Work Phone: Start: 12-27-2023 End: 12-27-2023 Patient encounter procedure [facility] Work Phone: Start: 12-24-2023 End: 12-24-2023 ambulatory [facility] Start: 12-24-2023 Encounter for genera l adult medical examination without abnormal findings [facility] Start: 12-21-2023 End: 12-21-2023 ambulatory QUINTIN ASHLEY Not Available Start: 12-20-2023 End: [facility] Start: 11-21-2023 End: 11-22-2023 Emergency department patient visit BALDOMERO SMITH [facility] Start: 11-10-2023 End: 11-10-2023 ambulatory [facility] Start: 06-21-2023 End: 06-22-2023 Emergency department patient visit JUAN DEE [facility] Start: 06-21-2023 End: 06-21-2023 Emergency department patient visit DEB [facility] Start: 06-21-2023 End: 06-22-2023 Emergency department patient visit JUAN DEE [facility] Start: 09-29-2022 End: 09-29-[address] FRANCISCO PERSON . Facility: Start: 04-21-2022 End: 04-21-2022 ambulatory Deb Wendie Facility:[facility] Start: 04-21-2022 End: 04-21-2022 Patient encounter procedure DIRECTOR IT PROJECT-C Deb Pressley Work Phone: [facility] Start: 04-21-2022 End: 04-21-2022 ambulatory DIRECTOR IT PROJECT-C Debrosalba Pressley Work Phone: [facility] Work Phone: Start: 04-21-2022 Office outpatient vi sit 15 minutes Deb Wendie [facility] Start: 03-24-2022 End: 03-24-2022 ambulatory Deb Wendie Other [employer] Other Start: 03-24-2022 Office outpatient vi sit 15 minutes Deb Wendie [facility] Start: 02-06-2022 End: 02-06-2022 ambulatory Deb Wendie Other [facility] Other Start: 02-06-2022 Telephone encounter Deb Breaul t [facility] Start: 04-29-2021 End: 04-29-2021 ambulatory Deb Wendie Other [facility] Other Start: 04-29-2021 Office outpatient vi sit 15 minutes Deb Wendie [facility] Procedures Date Procedure Procedure Detail Performing Clinician Start: 04-21-2022 Plain X-ray of left wrist DIRECTOR IT PROJECT-C Debrosalba Pressley Work Phone: Payers Date Payer Category Payer Self-pay [id number] 2005 Unknown [id number] 2.16.84 [id number] 2004 Unknown [id number] 2.16.8 40.1.790218.3.579.2.1286 2004 Unknown [id number] 2.16.8 40.1.769086.3.579.2.6 2004 Unknown [id number] 2.16.8 40.1.358249.3.579.2.6 2004 Unknown [id number] 2.16.8 40.1.102493.3.579.2.1285 2004 Unknown [id number] 2.16.8 40.1.415025.3.579.2.6 2004 Unknown [id number] 2.16.8 40.1.093685.3.579.2.1285 2004 Unknown [id number] 2.16.84 0.1.625240.3.579.2.6 2004 Unknown [id number] 2.16.84 0.1.180697.3.579.2.1286 2004 Unknown [id number] 2.16.84 0.1.510467.3.579.2.6 2004 Unknown [id number] 2.16.84 0.1.243173.3.579.2.9 2004 Unknown [id number] 2.16.84 0.1.678152.3.579.2.1259 1959 Unknown [id number] 2.16.8 40.1.662840.19 Medicaid [id number] Unknown [id number] 2.16.8 40.1.832767.3.579.2.531 Unknown [id number] Social History Date Type Detail Facility Sex Assigned At [employer] Other Start: 2005 Sex Assigned At Female F [facility] Start: 12-27-2023 Tobacco smoking stat us MOIS Never smoked tobacco (finding) [facility] Clinical Note 11-10-2023 Note Date & Type Note Facility 11-10-2023 Note XR CHEST 2 VWS Procedure: Chest x-ray performed Number of views:2 History:Shortness of breath Comparison:09/07/2012 Findings: The heart and lungs show no acute findings, and the mediastinum and fabienne are grossly negative . Impression: 1. No acute change. Finalized by Bola Dang MD on 11/10/2023 9:58 AM [facility] Evaluation note 04-21-2022 Note Date & Type [...] we will help you get into specialist. [employer] Other Evaluation note 03-24-2022 Note Date & [...] therapy plan may need to be made. [employer] Other Evaluation note 04-29-2021 Note Date & Type Note Facility 04-29-2021 Evaluation note Encounter Date Diagnosis Assessment Notes Apr, Tinea pedis of both feet (ICD-10 - B35.3) Use medication as directed. Shows need to be cleaned and clean socks need to be worn daily. Education handout printed on [employer] Other Evaluation note Note Date & Type Note Facility Evaluation note No Information [facility] [employer] Other Evaluation note Note Date & Type Note Facility Evaluation note No assessment information availa ble [facility] Work Phone: Evaluation note Note Date & Type Note Facility Evaluation note Diagnosis Onset Date Acute bilateral otitis media acute [facility] Work Phone: History general Narrative - Reported Note Date & Type Note Facility History general Narrative - Reported Type Medical History acid reflux Surgical History caps on teeth when younger Hospitalization History [facility] Other History general Narrative - Reported Note Date & Type Note Facility History general Narrative - Reported Type Medical History acid reflux Medical History headache Medical History seizures Surgical History caps on teeth when younger Hospitalization History [facility] Other Summary Purpose Family History No Family [...] section and content) DATE CREATED AUTHOR 04/09/2018 [facility] DATE CREATED AUTHOR AUTHOR'S ORGANIZ ATION 04/27/2022 [facility] DATE CREATED AUTHOR AUTHOR'S ORGANIZ ATION 09/30/2022 [facility] DATE CREATED AUTHOR AUTHOR'S ORGANIZ ATION 12/21/2023 [facility] DATE CREATED AUTHOR AUTHOR'S ORGANIZ ATION 12/25/2023 [facility] DATE CREATED AUTHOR AUTHOR'S ORGANIZ ATION 01/27/2024 [facility] EPIC REASON FOR VISIT (unrecogniz ed section and content) PT GETTING CUTS IN [facility] LETTERSORE THROAT, NASAL CONGESTIONFOLLOW UP [facility] 04/09/2022, LEFT WRIST INJURY Care Teams (unrecognized [...] BE BASED ON THE PRIMARY CLINICAL RECORDS. [facility]. provides no warranty or guarantee of the accuracy or completeness of information in this document.
[2024-02-11 09:10] LABS: Basophils Percent Auto 0.5 % (0.2-2.0); Eosinophils Absolute Auto 0.2 10^3/uL (0.0-0.7); Eosinophils Percent Auto 2.9 % (0.9-7.0); Hematocrit 40.2 % (36.0-48.0); Hemoglobin 14.1 g/dL (12.0-16.0); Immature Granulocytes Abs Auto 0.01 10^3/uL (0.00-0.03); Immature Granulocytes Pct Auto 0.2 % (0.0-0.5); Lymphocytes Absolute Auto 2.4 10^3/uL (1.2-3.8); Mean Corpuscular HGB Conc 35.1 g/dL (29.9-35.2); Mean Corpuscular Hemoglobin 30.8 pg (26.7-34.0); Mean Corpuscular Volume 87.8 fL (81.0-99.0); Mean Platelet Volume 8.6 fL (9.5-13.5); Monocytes Absolute Auto 0.4 10^3/uL (0.3-0.8); Monocytes Percent Auto 7.1 % (1.7-12.0); Neutrophils Absolute Auto 2.6 10^3/uL (1.4-6.5); Neutrophils Percent Auto 46.3 % (43.0-75.0); Platelet Count 232 10^3/uL (150-450); Red Blood Count 4.58 10^6/uL (4.20-5.40); White Blood Count 5.5 10^3/uL (4.0-11.0)
[2024-02-11] MEDS: LACTATED RINGER'S SOLUTION 1,000 ML 50 ML IV (09:36)
[2024-02-11 09:42] LABS: HCG Quantitative <1 mIU/mL
--- NOTE | 2024-02-11 10:46 | P.ON_ITS ---
Brief Operative Note Date of procedure: 02/11/24 Pre-op diagnosis general: pelvic pain Post-op diagnosis: same as pre-op Procedure: NAME OF PROCEDURE: [diagnostic laparoscopy ] PROCEDURE: The patient was taken back to the Operating Room where she was placed in dorsal lithotomy position after given general anesthesia. The patient was prepped and draped in normal sterile fashion. A sponge stick was placed into the patient's vagina. Attention was turned to the patient's abdomen, where a small umbilical incision was made. The fascia was tented using Vadim clamps and the fascia was entered sharply. Confirmation of intraabdominal placement of the 10 mm port was confirmed under direct visualization using a laparoscope. The patient's abdomen was then insufflated using CO2 gas with approximately 4 liters. A second port was placed left laterally, this was done under direct visualization with a 5 mm port. Survey of the patient's abdomen demonstrated normal liver and gallbladder. Survey of the patient's pelvic anatomy demonstrated normal appearing rt and lt ovary and tubes as well as normal appearing uterus. No endometrial implants could be noted, no evidence of any pelvic disease was seen, normal appearing pelvic cavity. All instruments were removed from the patient's abdomen. The patient's abdomen was deinsufflated of CO2 gas. The patient tolerated the procedure well. Sponge stick was removed from the patient's vagina. The patient's infraumbilical fascia was closed using #0 Vicryl on a GI needle. The patient's skin was closed laterally and infraumbilically using 4-0 Vicryl. The patient tolerated the procedure well. Sponge, lap and needle counts were correct x 2. The patient was taken to Recovery Room in stable condition. Anesthesia: DANNY Surgeon: Collin Barraza Journeyman Apprentice Electricians: Becky Eagle Estimated blood loss (mL): 5 Pathology: none sent Condition: stable Disposition: PACU
[2024-02-11] MEDS: HYDROMORPHONE HCL 0.5 MG/0.5 ML SYRINGE IV (11:50)
--- NOTE | 2024-02-11 12:37 | PC.NURSE ---
Patient was able to urinate post procedure at this time .
== END 2024-02-11 12:50 | disposition home or self-care (01) ==
PROVIDERS: Visit Provider Obstetrics & Gynecology
PROC: (CPT 840; principal; 2024-02-11 10:25)
DX: R10.2 Pelvic and perineal pain (principal)
CPT/HCPCS: 49320; 36415; 84702; 85025; J0131; J1100; J1170; J2250; J2405; J2704; J3010

== ENCOUNTER 2024-06-30 13:18 | Outpatient (OUT) | payer OTHER, SELFPAY ==
--- OUTSIDE RECORDS SUMMARY | 2024-06-30 13:37 | XMS_ITS | CCD ---
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 [address] 71685 Hemoglobin (Bld) [Mass/Vol] 13.7 g/dL Normal 11.7-15.5 [facility] Comment on above: Performed By: #### C DEREK, CMP, 3039-3, 5643-2 #### [facility] ([id number]) [address] [place] [address] 85982 Lymphocytes (Bld) [#/Vol] 2.3 10*3/uL Normal 1.0-3.5 [facility] Comment on above: Performed By: #### C BCA, CMP, 0-3, 5643-2 #### [facility] ([id number]) [address] [place] [address] 19009 Lymphocytes/100 WBC (Bld) 52.0 % Normal [facility] Comment on above: Performed By: #### C DEREK, CMP, 0-3, 5642-2 #### [facility] ([id number]) [address] [place] [address] 38136 MCH (RBC) [Entitic mass] 30.6 pg Normal 27-34 [facility] Comment on above: Performed By: #### C BCA, CMP, 0-3, 43-2 #### [facility] ([id number]) [address] [place] [address] 15544 MCHC (RBC) [Mass/Vol] 35.9 g/dL Normal 32-36 [facility] Comment on above: Performed By: #### Kailyn REED, CMP, 3039-3, 5642-2 #### [facility] ([id number]) [address] [place] [address] 44620 MCV (RBC) [Entitic vol] 85 fL Normal 80-100 [facility] Comment on above: Performed By: #### C BCA, CMP, 0-3, 43-2 #### [facility] ([id number]) [address] [place] [address] 16722 Monocytes (Bld) [#/Vol] 0.4 10*3/uL Normal 0-0.9 [facility] Comment on above: Performed By: #### Kailyn REED, CMP, 3039-3, 43-2 #### [facility] ([id number]) [address] [place] [address] 39049 Monocytes/100 WBC (Bld) 9.7 % Normal [facility] Comment on above: Performed By: #### Kailyn BCA, CMP, 0-3, 43-2 #### [facility] ([id number]) [address] [place] [address] 04285 Neutrophils/100 WBC (Bld) 33.4 % Normal [facility] Comment on above: Performed By: #### Kailyn BCA, CMP, 0-3, 43-2 #### [facility] ([id number]) [address] [place] [address] 80267 Platelet mean volume (Bld) [Entitic vol] 6.9 fL Low 7-12 [facility] Comment on above: Performed By: #### C DEREK, CMP, 3040-3, 5643-2 #### [facility] ([id number]) [address] [place] [address] 70016 Platelets (Bld) [#/Vol] 236 10*3/uL Normal 150-450 [facility] Comment on above: Performed By: #### Kailyn REED CMP, 0-3, 5643-2 #### [facility] ([id number]) [address] [place] [address] 87853 RBC COUNT 4.48 X10E12/L Normal 3.80-5.20 [facility] Comment on above: Performed By: #### C DEREK, CMP, 0-3, 5643-2 #### [facility] ([id number]) [address] [place] [address] 31638 WBC (Bld) [#/Vol] 4.5 10*3/uL Normal 4.0-11.[address] [facility] Comment on above: Performed By: #### Kailyn REED CMP, 0-3, 5643-2 #### [facility] ([id number]) [address] [place] [address] 12207 COMPREHENSIVE METABOLIC PANE Grey 11-21-2023 Albumin [Mass/Vol] 4.5 g/dL Normal 3.2-5.[address] [facility] Comment on above: Performed By: #### Kailyn REED, CMP, 3040-3, 5643-2 #### [facility] ([id number]) [address] [place] [address] 73793 ALP [Catalytic activity/Vol] 55 U/L Normal 39-130 [facility] Comment on above: Performed By: #### C BCA, CMP, 0-3, 5643-2 #### [facility] ([id number]) [address] [place] [address] 84382 ALT [Catalytic activity/Vol] 28 U/L Normal 0-31 [facility] Comment on above: Performed By: #### C BCA, CMP, 0-3, 5643-2 #### [facility] ([id number]) [address] [place] [address] 87338 Anion gap [Moles/Vol] 5 mmol/L Normal 5-15 [facility] Comment on above: Performed By: #### C BCA, CMP, 3, 5643-2 #### [facility] ([id number]) [address] [place] [address] 95676 AST [Catalytic activity/Vol] 22 U/L Normal 0-41 [facility] Comment on above: Performed By: #### C BCA, CMP, 3, 5643-2 #### [facility] ([id number]) [address] [place] [address] 66316 Bilirubin [Mass/Vol] 0.6 mg/dL Normal 0.3-1.2 [facility] Comment on above: Performed By: #### C BCA, CMP, 3, 5643-2 #### [facility] ([id number]) [address] [place] [address] 05106 Calcium [Mass/Vol] 8.9 mg/dL Normal 8.5-10.[address] [facility] Comment on above: Performed By: #### C BCA, CMP, 0-3, 5643-2 #### [facility] ([id number]) [address] [place] [address] 32711 Chloride [Moles/Vol] 104 mmol/L Normal 98-109 [facility] Comment on above: Performed By: #### C BCA, CMP, 3039-3, 5643-2 #### [facility] ([id number]) [address] [place] [address] 91652 CO2 [Moles/Vol] 24 mmol/L Normal 22-32 [facility] Comment on above: Performed By: #### C MARTY REED, 3039-3, 5643-2 #### [facility] ([id number]) [address] [place] [address] 01487 Creatinine [Mass/Vol] 0.69 mg/dL Normal 0.40-1.00 [facility] Comment on above: Result Comment: METH OD TRACEABLE TO IDMS STANDARD Performed By: #### C MARTY REED, 3039-08, 5643-2 #### [facility] ([id number]) [address] [place] [address] 73005 eGFR (CKD-EPI) NON-RACE DEPENDENT >90 Normal >59 [facility] Comment on above: Result Comment: Reported eGFR is based on the CKD-EPI 2020 equation that does not use a race coefficient. Performed By: #### C MARTY REED, 3039-08, 5643-2 #### [facility] ([id number]) [address] [place] [address] 73982 Glucose [Mass/Vol] 93 mg/dL Normal 65-[address] [facility] Comment on above: Performed By: #### C MARTY REED, 3039-08, 5643-2 #### [facility] ([id number]) [address] [place] [address] 81464 Potassium [Moles/Vol] 3.7 mmol/L Normal 3.5-5.0 [facility] Comment on above: Performed By: #### C MARTY REED, 0-3, 5643-2 #### [facility] ([id number]) [address] [place] [address] 23475 Protein [Mass/Vol] 7.6 g/dL Normal 6.0-8.[address] [facility] Comment on above: Performed By: #### C DEREK CMP, 3040-3, 5643-2 #### [facility] ([id number]) [address] [place] [address] 27940 Sodium [Moles/Vol] 133 mmol/L Low 134-[address] [facility] Comment on above: Performed By: #### C DEREK CMP, 3040-3, 5643-2 #### [facility] ([id number]) [address] [place] [address] 31874 Urea nitrogen [Mass/Vol] 9 mg/dL Normal 5-23 [facility] Comment on above: Performed By: #### C DEREK CMP, 3040-3, 5643-2 #### [facility] ([id number]) [address] [place] [address] ABDOMEN AND PELVIS WO CON Ton [...] Thompson MD on 11/21/2023 11:32 AM Normal [facility] HCG ( test) Ql (U)o n 11-21-2023 Beta HCG ( test) Ql (U) Negative Normal NEG [facility] Comment on above: Performed By: #### C MARTY REED, 3040-3, 5643-2 #### [facility] ([id number]) [address] [place] [address] LIPASEon 11-21-2023 Lipase [Catalytic activity/Vol] 29 U/L Normal 17-40 [facility] Comment on above: Performed By: #### Kailyn REED CMP, 3040-3, 5643-2 #### [facility] ([id number]) [address] [place] [address] MAGNESIUMon 11-21-2023 Magnesium [Mass/Vol] 2.2 mg/dL Normal 1.8-2.6 [facility] Comment on above: Performed By: #### C DEREK CMP, 3040-3, 5643-2 #### [facility] ([id number]) [address] [place] [address] URINE CULTUREon 11-21-2023 Bacteria identified Cx Nom (U) CULTURE RESULTS 10-50,000 ORGANISMS/mL NORMAL UROGENITAL CHU Normal [facility] Comment on above: Performed By: #### C DEREK CMP, 3040-3, 5643-2 #### [facility] ([id number]) [address] [place] [address] [place] [address] URN MACROSCOPIC NURon 2023 BILIRUBIN JOHANA Negative Normal NEG [facility] Comment on above: Performed By: #### N UM #### [facility] ([id number]) [address] [place] [address] 06191 BLOOD/HGB JOHANA Negative Normal NEG [facility] Comment on above: Performed By: #### N UM #### [facility] ([id number]) [address] [place] [address] [place] [address] GLUCOSE JOHANA Negative Normal NEG [facility] Comment on above: Performed By: #### N UM #### [facility] ([id number]) [address] [place] [address] [place] [address] KETONES JOHANA Negative Normal NEG [facility] Comment on above: Performed By: #### N UM #### [facility] ([id number]) [address] [place] [address] [place] [address] LEUKOCYTE ESTERASE JOHANA Negative Normal [facility] Comment on above: Performed By: #### N UM #### [facility] ([id number]) [address] [place] [address] [place] [address] NITRITE JOHANA Negative Normal NEG [facility] Comment on above: Performed By: #### N UM #### [facility] ([id number]) [address] [place] [address] [place] [address] PH JOHANA 6.5 Normal 5.0-8.5 [facility] Comment on above: Performed By: #### N UM #### [facility] ([id number]) [address] [place] [address] [place] [address] PROTEIN JOHANA Negative Normal [facility] Comment on above: Performed By: #### N UM #### [facility] ([id number]) [address] [place] [address] 82701 SPECIFIC GRAVITY JOHANA 1.010 Normal 1.003-1.035 [facility] Comment on above: Performed By: #### N UM #### [facility] ([id number]) [address] [place] [address] 50255 UROBILINOGEN JOHANA 0.2 eu/dL Normal <1.1 [facility] Comment on above: Performed By: #### N UM #### [facility] ([id number]) [address] [place] [address] 70338 CBC AND AUTO DIFFon 06-21-19 24 ABSOLUTE BASOPHIL 0.1 X10E9/L Normal 0.0-0.[address] [facility] Comment on above: Performed By: #### C DEREK CMP, 3040-3, 5643-2 #### [facility] ([id number]) [address] [place] [address] 23605 ABSOLUTE NEUTROPHIL 5.4 X10E9/L Normal 1.5-6.6 [facility] Comment on above: Performed By: #### C DEREK CMP, 3040-3, 5643-2 #### [facility] ([id number]) [address] [place] [address] 76807 Basophils/100 WBC (Bld) 0.6 % Normal [facility] Comment on above: Performed By: #### C DEREK, CMP, 3040-3, 5643-2 #### [facility] ([id number]) [address] [place] [address] 52903 Eosinophils (Bld) [#/Vol] 0.1 10*3/uL Normal 0.0-0.4 [facility] Comment on above: Performed By: #### C DEREK, CMP, 3040-3, 5643-2 #### [facility] ([id number]) [address] [place] [address] 38240 Eosinophils/100 WBC (Bld) 0.7 % Normal [facility] Comment on above: Performed By: #### Kailyn REED CMP, 0-3, 5643-2 #### [facility] ([id number]) [address] [place] [address] 50882 Erythrocyte distribution width (RBC) [Ratio] 13.5 % Normal 11.5-15.0 [facility] Comment on above: Performed By: #### Kailyn REED [facility], 0-3, 43-2 #### [facility] ([id number]) [address] [place] [address] 80588 Hematocrit (Bld) [Volume fraction] 40.1 % Normal 35-47 [facility] Comment on above: Performed By: #### Kailyn REED CMP, 3, 5643-2 #### [facility] ([id number]) [address] [place] [address] 20734 Hemoglobin (Bld) [Mass/Vol] 14.1 g/dL Normal 11.7-15.5 [facility] Comment on above: Performed By: #### Kailyn REED [facility], 3039-08, 5643-2 #### [facility] ([id number]) [address] [place] [address] 47927 Lymphocytes (Bld) [#/Vol] 4.5 10*3/uL High 1.0-3.5 [facility] Comment on above: Performed By: #### Kailyn REED CMP, 3, 5643-2 #### [facility] ([id number]) [address] [place] [address] 24711 Lymphocytes/100 WBC (Bld) 43.0 % Normal [facility] Comment on above: Performed By: #### Kailyn REED CMP, 0-3, 5643-2 #### [facility] ([id number]) [address] [place] [address] 77721 MCH (RBC) [Entitic mass] 30.1 pg Normal 27-34 [facility] Comment on above: Performed By: #### Kailyn REED CMP, 3, 5643-2 #### [facility] ([id number]) [address] [place] [address] 56868 MCHC (RBC) [Mass/Vol] 35.2 g/dL Normal 32-36 [facility] Comment on above: Performed By: #### Kailyn REED CMP, 3039-08, 43-2 #### [facility] ([id number]) [address] [place] [address] 36513 MCV (RBC) [Entitic vol] 85 fL Normal 80-100 [facility] Comment on above: Performed By: #### Kailyn REED CMP, 3039-08, 5642-2 #### [facility] ([id number]) [address] [place] [address] 32312 Monocytes (Bld) [#/Vol] 0.5 10*3/uL Normal 0-0.9 [facility] Comment on above: Performed By: #### Kailyn REED CMP, 3039-08, 5643-2 #### [facility] ([id number]) [address] [place] [address] 02042 Monocytes/100 WBC (Bld) 4.3 % Normal [facility] Comment on above: Performed By: #### Kailyn REED CMP, 3039-08, 5643-2 #### [facility] ([id number]) [address] [place] [address] 97228 Neutrophils/100 WBC (Bld) 51.4 % Normal [facility] Comment on above: Performed By: #### Kailyn REED CMP, 3039-08, 5643-2 #### [facility] ([id number]) [address] [place] [address] 78748 Platelet mean volume (Bld) [Entitic vol] 6.5 fL Low 7-12 [facility] Comment on above: Performed By: #### C BCA, CMP, 3040-3, 5643-2 #### [facility] ([id number]) [address] [place] [address] 69900 Platelets (Bld) [#/Vol] 286 10*3/uL Normal 150-450 [facility] Comment on above: Performed By: #### C BCA, CMP, 3040-3, 5643-2 #### [facility] ([id number]) [address] [place] [address] 93035 RBC COUNT 4.69 X10E12/L Normal 3.80-5.20 [facility] Comment on above: Performed By: #### C BCA, CMP, 3040-3, 5643-2 #### [facility] ([id number]) [address] [place] [address] 52059 WBC (Bld) [#/Vol] 10.6 10*3/uL Normal 4.0-11.0 [facility] Comment on above: Performed By: #### C BCA, CMP, 3040-3, 5643-2 #### [facility] ([id number]) [address] [place] [address] 00472 COMPREHENSIVE METABOLIC PANE Grey 06-21-2023 Albumin [Mass/Vol] 4.2 g/dL Normal 3.2-5.[address] [facility] Comment on above: Performed By: #### C BCA, CMP, 3040-3, 5643-2 #### [facility] ([id number]) [address] [place] [address] 26342 ALP [Catalytic activity/Vol] 69 U/L Normal 39-130 [facility] Comment on above: Performed By: #### C BCA, CMP, 3040-3, 5643-2 #### [facility] ([id number]) [address] [place] [address], [place] [address] ALT [Catalytic activity/Vol] 91 U/L High 0-31 [facility] Comment on above: Performed By: #### C BCA, CMP, 3040-3, 5643-2 #### [facility] ([id number]) [address] [place] [address] 07554 Anion gap [Moles/Vol] 6 mmol/L Normal 5-15 [facility] Comment on above: Performed By: #### C BCA, CMP, 3040-3, 5643-2 #### [facility] ([id number]) [address] [place] [address] 14033 AST [Catalytic activity/Vol] 79 U/L High 0-41 [facility] Comment on above: Performed By: #### C BCA, CMP, 0-3, 5643-2 #### [facility] ([id number]) [address] [place] [address] 50453 Bilirubin [Mass/Vol] 0.7 mg/dL Normal 0.3-1.2 [facility] Comment on above: Performed By: #### C BCA, CMP, 3040-3, 5643-2 #### [facility] ([id number]) [address] [place] [address] 89632 Calcium [Mass/Vol] 8.6 mg/dL Normal 8.5-10.[address] [facility] Comment on above: Performed By: #### C BCA, CMP, 3040-3, 5643-2 #### [facility] ([id number]) [address] [place] [address] 53810 Chloride [Moles/Vol] 104 mmol/L Normal 98-109 [facility] Comment on above: Performed By: #### C BCA, CMP, 3040-3, 5643-2 #### [facility] ([id number]) [address] [place] [address] 28222 CO2 [Moles/Vol] 24 mmol/L Normal 22-32 [facility] Comment on above: Performed By: #### C MARTY REED, 3040-3, 5643-2 #### [facility] ([id number]) [address] [place] [address] 35523 Creatinine [Mass/Vol] 0.70 mg/dL Normal 0.30-1.00 [facility] Comment on above: Result Comment: METH OD TRACEABLE TO IDMS STANDARD Performed By: #### C MARTY REED, 0-3, 5643-2 #### [facility] ([id number]) [address] [place] [address] 55309 eGFR (CKD-EPI) NON-RACE DEPENDENT >90 Normal >59 [facility] Comment on above: Result Comment: Reported eGFR is based on the CKD-EPI 2020 equation that does not use a race coefficient. Performed By: #### C MARTY REED, 0-3, 5643-2 #### [facility] ([id number]) [address] [place] [address] 15262 Glucose [Mass/Vol] 127 mg/dL High 65-[address] [facility] Comment on above: Performed By: #### C MARTY REED, 0-3, 5643-2 #### [facility] ([id number]) [address] [place] [address] 12467 Potassium [Moles/Vol] 3.2 mmol/L Low 3.5-5.0 [facility] Comment on above: Performed By: #### C MARTY REED, 3040-3, 5643-2 #### [facility] ([id number]) [address] [place] [address] 84022 Protein [Mass/Vol] 7.8 g/dL Normal 6.0-8.[address] [facility] Comment on above: Performed By: #### C MARTY REED, 3040-3, 5643-2 #### [facility] ([id number]) [address] [facility], [place] [address] Sodium [Moles/Vol] 134 mmol/L Normal 134-[address] [facility] Comment on above: Performed By: #### C BCA, CMP, 3040-3, 5643-2 #### [facility] ([id number]) [address] [facility], [place] [address] Urea nitrogen [Mass/Vol] 10 mg/dL Normal 5-23 [facility] Comment on above: Performed By: #### C BCA, CMP, 3040-3, 5643-2 #### [facility] ([id number]) [address] [facility], [place] [address] CT ABDOMEN AND PELVIS W CONT on [...] Gamez MD on 06/21/2023 9:36 AM Normal [facility] ETHANOLon 06-21-2023 Ethanol [Mass/Vol] mg/dL Normal 0.00-0.[address] [facility] Comment on above: Result Comment: This report is intended for use in clinical monitoring or management of patients. Performed By: #### C MARTY REED, 3040-3, 5643-2 #### [facility] ([id number]) [address] [place] [address] 42808 HCG ( test) Ql (U)o n 06-21-2023 Beta HCG ( test) Ql (U) Negative Normal NEG [facility] Comment on above: Performed By: #### 2 106-3 #### [facility] ([id number]) [address] [place] [address] 57986 LIPASEon 06-21-2023 Lipase [Catalytic activity/Vol] 36 U/L Normal 17-40 [facility] Comment on above: Performed By: #### C DEREK CMP, 3040-3, 5643-2 #### [facility] ([id number]) [address] [place] [address] SARS/FLU A+B/RSV by NAAT/Mol ecularon 06-21-2023 SARS/FLU A+B/RSV by NAAT/Molecular FLU A [...] operators who are performing tests using either [employer] or [employer] systems and is limited to laboratories that [...] repeat. Fact Sheet for Healthcare Providers: https://www.fda.gov/ media/631787/downloa d Fact Sheet for Patients: https://www.fda.gov/ media/332936/downloa d [facility] Comment on above: Performed By: #### C OVFLR #### [facility] ([id number]) [address] [place] [address] [place] [address] URN MACROSCOPIC NURon 2023 BILIRUBIN JOHANA Negative Normal NEG [facility] Comment on above: Performed By: #### N UM #### [facility] ([id number]) [address] [place] [address] [place] [address] BLOOD/HGB JOHANA Large Abnormal NEG [facility] Comment on above: Performed By: #### N UM #### [facility] ([id number]) [address] [place] [address] [place] [address] GLUCOSE JOHANA Negative Normal NEG [facility] Comment on above: Performed By: #### N UM #### [facility] ([id number]) [address] [place] [address] [place] [address] KETONES JOHANA Negative Normal NEG [facility] Comment on above: Performed By: #### N UM #### [facility] ([id number]) [address] [place] [address] [place] [address] LEUKOCYTE ESTERASE JOHANA Negative Normal NEG [facility] Comment on above: Performed By: #### N UM #### [facility] ([id number]) [address] [place] [address] NITRITE JOHANA Negative Normal NEG [facility] Comment on above: Performed By: #### N UM #### [facility] ([id number]) [address] [place] [address] [place] [address] PH JOHANA 8.5 Normal 5.0-8.5 [facility] Comment on above: Performed By: #### N UM #### [facility] ([id number]) [address] [place] [address] PROTEIN JOHANA 100 mg/dL Abnormal NEG [facility] Comment on above: Performed By: #### N UM #### [facility] ([id number]) [address] [place] [address] [place] [address] SPECIFIC GRAVITY JOHANA 1.015 Normal 1.003-1.035 [facility] Comment on above: Performed By: #### N UM #### [facility] ([id number]) [address] [place] [address] UROBILINOGEN JOHANA 0.2 eu/dL Normal <1.1 [facility] Comment on above: Performed By: #### N UM #### [facility] ([id number]) [address] [place] [address] XR RIBS RT PA Chery 3 XR [...] by: CATA HERNANDEZ Date: 2022-09-29 00:50 Normal [facility] XR wrist LT min 3V*on 2021 XR wrist LT min 3V* [facility] [place] [address] [place] [address] XRay Report Signed Patient: Lion Reynoso MR#: [id number] : 2005 Acct:[id number] Age/Sex: 16 / F ADM Date: 04/21/22 Loc: [facility] Room: Type: [facility] Attending Dr: Deb BRAN Copies to: DEB [...] Jan Gastelum M.D.04/21/2022 4:02 PM Dictation Location: [facility]--01 Transcribed By: [facility] 04/21/22 1602 Dictated By: Jan Gastelum DO 04/21/22 160 Signed By: 04/21/22 1602 Normal [facility] XR wrist LT min 3V* [facility] e-Tag Other XR wrist LT min 3V* [facility] e-Tag Other XR wrist LT min 3V* [address] [place] [address] [employer] Other XR wrist LT min 3V* [facility] [place] [id number] [id number] Other XR wrist LT min 3V* XRay Report [facility] [employer] Other XR wrist LT min 3V* Signed dot429 Other XR wrist LT min 3V* Patient: Lion Reynoso MR#: [id number] Other XR wrist LT min 3V* : 2005 Acct:[id number] dot429 Other XR wrist LT min 3V* Age/Sex: 16 / F ADM Date: 04/21/22 dot429 Other XR wrist LT min 3V* Loc: XDCLY Room: Type: [facility] dot429 Other XR wrist LT min 3V* Attending Dr: Deb BRAN dot429 Other XR wrist LT min 3V* Copies to: DEB PRESSLEY STEAM TABLE ASSOCIATE-C dot429 Other XR wrist LT min 3V* Ordering Provider: DEB PRESSLEY dot429 Other XR wrist LT min 3V* Date of Service: 04/21/22 dot429 Other XR wrist LT min 3V* XR/XR wrist LT min 3V*: Injury of left wrist, subsequent encounter dot429 Other XR wrist LT min 3V* 4 viewsLEFT wrist plain film dot429 Other XR wrist LT min 3V* COMPARISON:None dot429 Other XR wrist LT min 3V* HISTORY:Follow-up assessment of LEFT wrist injury. dot429 Other XR wrist LT min 3V* No fracture, dislocation or focal soft tissue abnormality seen. dot429 Other XR wrist LT min 3V* XR/XR wrist LT min 3V* dot429 Other XR wrist LT min 3V* IMPRESSION:No acute findings. dot429 Other XR wrist LT min 3V* Impression dictated by: Jan Gastelum M.D.04/21/2022 4:02 PM dot429 Other XR wrist LT min 3V* Dictation Location: [place] [address] dot429 Other XR wrist LT min 3V* Transcribed By: PWS 04/21/22 1602 dot429 Other XR wrist LT min 3V* Dictated By: Jan Gastelum DO 04/21/22 1601 dot429 Other XR wrist LT min 3V* Signed By: [id number] Other XR wrist LT min 3V* 04/21/22 1602 No rt [email or web address] Other Quick Strepon 03-24-2022 S. 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 Nurse [facility] 06-23-2024 09:14-0500 Body weight 61.[address] [facility] Nurse [facility] 05-22-2024 09:52-0500 Body height 165.1 cm Austin Beach MD Work Phone: [facility] 05-22-2024 09:52-0500 Body mass index (BMI) [Ratio] 22.83 kg/m2 Austin Beach MD Work Phone: [facility] 05-22-2024 09:52-0500 Body weight 62.23 kg Austin Beach MD Work Phone: [facility] 05-22-2024 09:52-0500 Diastolic blood pressure 72 mm[Hg] Austin Beach MD Work Phone: [facility] 05-22-2024 09:52-0500 Heart rate 88 /min Austin Beach MD Work Phone: [facility] 05-22-2024 09:52-0500 SaO2% (BldA) [Mass fraction] 99 % Austin Beach MD Work Phone: [facility] 05-22-2024 09:52-0500 Systolic blood pressure 111 mm[Hg] Austin Beach MD Work Phone: [facility] 04-22-2024 09:51-0400 Body height 165.1 cm [facility] 04-22-2024 09:51-0400 Body mass index (BMI) [Percentile] Per age and sex 66.8 % [facility] 04-22-2024 09:51-0400 Body mass index (BMI) [Ratio] 23.3 kg/m2 [facility] 04-22-2024 09:51-0400 Body temperature 98.8 [degF] [facility] 04-22-2024 09:51-0400 Body weight 63.5 kg [facility] 04-22-2024 09:51-0400 Diastolic blood pressure 79 mm[Hg] [facility] 04-22-2024 09:51-0400 Heart rate 71 /min [facility] 04-22-2024 09:51-0400 Respiratory rate 18 /min [facility] 04-22-2024 09:51-0400 SaO2% (BldA) [Mass fraction] 98 % [facility] 04-22-2024 09:51-0400 Systolic blood pressure 120 mm[Hg] [facility] 03-25-2024 09:30-0400 Body height 165.1 cm [facility] 03-25-2024 09:30-0400 Body mass index (BMI) [Percentile] Per age and sex 66.9 % [facility] 03-25-2024 09:30-0400 Body mass index (BMI) [Ratio] 23.3 kg/m2 [facility] 03-25-2024 09:30-0400 Body temperature 98.4 [degF] [facility] 03-25-2024 09:30-0400 Body weight 63.5 kg [facility] 03-25-2024 09:30-0400 Diastolic blood pressure 67 mm[Hg] [facility] 03-25-2024 09:30-0400 Heart rate 94 /min [facility] 03-25-2024 09:30-0400 Respiratory rate 18 /min [facility] 03-25-2024 09:30-0400 SaO2% (BldA) [Mass fraction] 98 % [facility] 03-25-2024 09:30-0400 Systolic blood pressure 107 mm[Hg] [facility] 02-22-2024 08:54-0400 Body height 165.1 cm Peggy ANDREWS Work Phone: [facility] 02-22-2024 08:54-0400 Body mass index (BMI) [Ratio] 23.13 kg/m2 Peggy ANDREWS Work Phone: [facility] 02-22-2024 08:54-0400 Body weight 63.05 kg Peggy ANDREWS Work Phone: [facility] 02-22-2024 08:54-0400 Diastolic blood pressure 68 mm[Hg] Peggy ANDREWS Work Phone: [facility] 02-22-2024 08:54-0400 Systolic blood pressure 110 mm[Hg] Peggy ANDREWS Work Phone: [facility] 12-27-2023 09:17-0400 Body height 165.1 cm [facility] 12-27-2023 09:17-0400 Body mass index (BMI) [Percentile] Per age and sex 31 % [facility] 12-27-2023 09:17-0400 Body mass index (BMI) [Ratio] 20.2 kg/m2 [facility] 12-27-2023 09:17-0400 Body temperature 100.3 [degF] [facility] 12-27-2023 09:17-0400 Body weight 55.05 kg [facility] 12-27-2023 09:17-0400 Heart rate 75 /min [facility] 12-27-2023 09:17-0400 Respiratory rate 18 /min [facility] 12-27-2023 09:17-0400 SaO2% (BldA) [Mass fraction] 99 % [facility] 04-21-2022 15:30-0400 Body height 162.56 cm Deb Pressley Other [id number] Other 04-21-2022 15:30-0400 Body mass index (BMI) [Ratio] 22.31 kg/m2 Deb Pressley Other dot429 Other 04-21-2022 15:30-0400 Body temperature 98.6 [degF] Deb Pressley Other dot429 Other 04-21-2022 15:30-0400 Body weight 58.97 kg Deb Pressley Other dot429 Other 04-21-2022 15:30-0400 Diastolic blood pressure 71 mm[Hg] Deb Pressley Other dot429 Other 04-21-2022 15:30-0400 Respiratory rate 18 /min Deb Pressley Other dot429 Other 04-21-2022 15:30-0400 SaO2% (BldA) [Mass fraction] 99 % Deb Pressley Other dot429 Other 04-21-2022 15:30-0400 Systolic blood pressure 114 mm[Hg] Deb Pressley Other dot429 Other 03-24-2022 16:00-0400 Body height 163.83 cm Deb Pressley Other dot429 Other 03-24-2022 16:00-0400 Body mass index (BMI) [Ratio] 22.64 kg/m2 Deb Pressley Other dot429 Other 03-24-2022 16:00-0400 Body temperature 98.2 [degF] Deb Pressley Other dot429 Other 03-24-2022 16:00-0400 Body weight 60.78 kg Deb Pressley Other dot429 Other 03-24-2022 16:00-0400 Diastolic blood pressure 79 mm[Hg] Deb Pressley Other dot429 Other 03-24-2022 16:00-0400 Respiratory rate 18 /min Deb Pressley Other dot429 Other 03-24-2022 16:00-0400 SaO2% (BldA) [Mass fraction] 100 % Deb Pressley Other dot429 Other 03-24-2022 16:00-0400 Systolic blood pressure 121 mm[Hg] Deb Pressley Other dot429 Other 04-29-2021 15:30-0500 Body height 163.83 cm Deb Pressley Other dot429 Other 04-29-2021 15:30-0500 Body mass index (BMI) [Ratio] 21.97 kg/m2 Deb Pressley Other dot429 Other 04-29-2021 15:30-0500 Body temperature 97.8 [degF] Deb Almanzaault Other dot429 Other 04-29-2021 15:30-0500 Body weight 58.97 kg Deb Almanzaault Other dot429 Other 04-29-2021 15:30-0500 Diastolic blood pressure 72 mm[Hg] Deb Almanzaault Other dot429 Other 04-29-2021 15:30-0500 Respiratory rate 18 /min Deb Pressley Other dot429 Other 04-29-2021 15:30-0500 SaO2% (BldA) [Mass fraction] 98 % Deb Pressley Other dot429 Other 04-29-2021 15:30-0500 Systolic blood pressure 130 mm[Hg] Deb Pressley Other dot429 Other Encounters Encounter Date Encounter Type Care Provider Facility Start: 06-23-2024 End: 06-23-2024 Office outpatient visit 5 minutes [facility] Comment on above: GA: 9w0d Start: 05-22-2024 End: 05-22-2024 Office outpatient visit 25 minutes Austin Beach MD Work Phone: [facility] Comment on above: Mild persistent asth ma without complication (Primary Dx); Multiple pulmonary nodules Start: 05-22-2024 End: [facility] Start: 04-22-2024 End: 04-22-2024 ambulatory [facility] Work Phone: Start: 04-22-2024 End: 04-22-2024 Patient encounter procedure [facility] Work Phone: Start: 03-25-2024 End: 03-25-2024 ambulatory [facility] Work Phone: Start: 03-25-2024 End: 03-25-2024 Patient encounter procedure [facility] Work Phone: Start: 02-22-2024 End: 02-22-2024 Jonatan ANDREWS Work Phone: [facility] Start: 02-22-2024 End: 02-22-2024 Bamboo flowsheet Peggy ANDREWS Work Phone: [facility] Start: 02-22-2024 End: 02-22-2024 Postop follow up visit related to original px Peggy ANDREWS Work Phone: [facility] Comment on above: Pelvic pain in femal e (Primary Dx) Start: 02-22-2024 End: 02-22-2024 ambulatory PEGGY RODRIGUEZ Not Available Start: 02-11-2024 End: 02-11-2024 Clinisync Result Encounter Quintin Christi DO Work Phone: [facility] Unsolicited Start: 02-11-2024 End: 02-11-2024 Clinisync Result Encounter Quintin Christi DO Work Phone: [facility] Unsolicited Start: 01-25-2024 End: 01-25-2024 ambulatory QUINTIN CHRISTI Not Available Start: 12-27-2023 End: 12-27-2023 ambulatory [facility] Work Phone: Start: 12-27-2023 End: 12-27-2023 Patient encounter procedure [facility] Work Phone: Start: 12-24-2023 End: 12-24-2023 ambulatory [facility] Start: 12-24-2023 Encounter for genera l adult medical examination without abnormal findings DEB PRESSLEY [facility] Start: 12-21-2023 End: 12-21-2023 ambulatory QUINTIN CHRISTI Not Available Start: 12-20-2023 End: 12-20-2023 [facility] Start: 11-21-2023 End: 11-22-2023 Emergency department patient visit BALDOMERO SMITH [facility] Start: 11-10-2023 End: 11-10-2023 ambulatory [facility] Start: 06-21-2023 End: 06-22-2023 Emergency department patient visit JUAN DEE [facility] Start: 06-21-2023 End: 06-21-2023 Emergency department patient visit DEB PRESSLEY [facility] Start: 06-21-2023 End: 06-22-2023 Emergency department patient visit JUAN Peterson LUIZ [facility] Start: 09-29-2022 End: 09-29-[address] FRANCISCO PERSON . Facility: Start: 04-21-2022 End: 04-21-2022 ambulatory Deb Almanzaault Facility:[facility] Start: 04-21-2022 End: 04-21-2022 Patient encounter procedure STE[employer] TABLE ASSOCIATE-C Deb Wendie Work Phone: [facility] Start: 04-21-2022 End: 04-21-2022 ambulatory [employer] ASSOCIATE-C Deb Almanzaault Work Phone: [facility] Work Phone: Start: 04-21-2022 Office outpatient vi sit 15 minutes Deb Wendie [facility] Start: 03-24-2022 End: 03-24-2022 ambulatory Deb Wendie Other [id number] Other Start: 03-24-2022 Office outpatient vi sit 15 minutes Deb Wendie [facility] Start: 02-06-2022 End: 02-06-2022 ambulatory Deb Wendie Other [id number] Other Start: 02-06-2022 Telephone encounter Deb Breaul t [facility] Start: 04-29-2021 End: 04-29-2021 ambulatory Deb Wendie Other [id number] Other Start: 04-29-2021 Office outpatient vi sit 15 minutes Debrosalba Pressley [facility] Procedures Date Procedure Procedure Detail Performing Clinician Start: 06-23-2024 End: 06-23-2024 Urnls dip stick/tablet rgnt non-auto w/o micrscp Quintin Christi DO Work Phone: Start: 05-22-2024 Follow-up visit Follow-up ZEN BEACH Start: 02-11-2024 ALL CBC WITH AUTO DIFF Quintin Christi DO Work Phone: Start: 04-21-2022 Plain X-ray of left wrist [employer]AM TABLE ASSOCIATE-C Deb Wendie Work Phone: Plan of Treatment Date Care Activity Detail Author Start: 12-23-2033 DTaP,Tdap and Td Vaccines (7 - Td or Tdap) DTaP,Tdap and Td Vaccines (7 - Td or Tdap) [facility] Start: 12-19-2024 Adult BMI Screening Adult BMI Screen ing [facility] Start: 11-20-2024 Tobacco Screening Tobacco Screening [facility] Start: 09-25-2024 End: 09-25-2024 Patient encounter procedure 09/25/2024 10:45 AM EDT Office Visit [facility] [address] [address] [place] [address] [place] [address], [address] [place] [address] [facility] Start: 07-13-2024 End: 07-13-2024 Patient encounter procedure 07/13/2024 8:50 AM EST Routine [facility] [address] [place] [address] Quintin Barraza, DO [address] [place], [place] [id number] [facility] Start: 06-23-2024 End: 06-23-2025 ABO/Rh ABO/Rh Lab Routine Missed menses , unspecified gestational age Expected: 06/23/2024 (Approximate), Expires: 06/23/2025 [facility] Comment on above: Expected: 06/23/2024 (Approximate), Expires: 06/23/2025 Start: 06-23-2024 End: 06-23-2025 Blood type and Indirect antibody screen panel - Blood Type and screen Lab Routine Missed menses , unspecified gestational age Expected: 06/23/2024 (Approximate), Expires: 06/23/2025 [facility] Work Phone: Comment on above: Expected: 06/23/2024 (Approximate), Expires: 06/23/2025 Start: 06-23-2024 End: 06-23-2025 Drugs of abuse panel - Urine by Screen method Rapid drug screen, urine Lab Routine , unspecified gestational age Encounter for supervision of normal first in first trimester Expected: 06/23/2024 (Approximate), Expires: 06/23/2025 [facility] Comment on above: Expected: 06/23/2024 (Approximate), Expires: 06/23/2025 Start: 03-21-2024 End: 03-21-2024 Patient encounter procedure 03/21/2024 8:50 AM EDT Office Visit [facility] [address] [place] [id number] Peggy Rodriguez PA [address] [place] [address] [facility] Start: 02-22-2024 End: 02-22-2024 Patient encounter procedure [facility] Comment on above: Arrived Start: 02-20-2024 Influenza vaccination Influenza Vacc ine [facility] Start: 2016 Depression Screening Depression Scre ening [facility] Start: 2004 Screening for Chlamy damon trachomatis Chlamydia Screening [facility] Bacteria identified in Urine by Culture Urine culture Microbiology Routine Missed menses Ordered: 06/23/2024 [facility] Comment on above: Ordered: 06/23/2024 CBC W Auto Different ial panel - Blood CBC and differential Lab Routine Missed menses , unspecified gestational age Ordered: 06/23/2024 [facility] Comment on above: Ordered: 06/23/2024 Hemoglobin A1c/Hemoglobin.total in Blood Hemoglobin A1c Lab Routine Missed menses , unspecified gestational age Ordered: 06/23/2024 [facility] Comment on above: Ordered: 06/23/2024 Hepatitis B virus surface Ag [Presence] in Serum or Plasma by Immunoassay Hepatitis B surface antigen Lab Routine Missed menses , unspecified gestational age Ordered: 06/23/2024 [facility] Comment on above: Ordered: 06/23/2024 Hepatitis C virus Ab [Presence] in Serum or Plasma by Immunoassay Hepatitis C antibody Lab Routine Missed menses , unspecified gestational age Ordered: 06/23/2024 [facility] Comment on above: Ordered: 06/23/2024 HIV-1/HIV-2 antigen/antibody combination immunoassay HIV-1 and HIV-2 antibodies Lab Routine Missed menses , unspecified gestational age Ordered: 06/23/2024 [facility] Comment on above: Ordered: 06/23/2024 Reagin Ab [Presence] in Serum by RPR RPR Lab Routine Missed menses , unspecified gestational age Ordered: 06/23/2024 [facility] Comment on above: Ordered: 06/23/2024 Rubella antibody, IgG Rubella an tibody, IgG Lab Routine Missed menses , unspecified gestational age Ordered: 06/23/2024 [facility] Comment on above: Ordered: 06/23/2024 [facility] Payers Date Payer Category Payer Self-pay [id number] 2019 Managed Care Other (unspecified) [facility] [id number] 2019 Private Health Insurance [id number] 2004 Unknown [id number] 2.16.840.1.615797.3.579.2. 593 2004 Unknown [id number] 2.16.840.1.560060.3.579.2. 6 2004 Unknown [id number] 2.16.840.1.157485.3.579.2. 128 2004 Unknown [id number] 2.16.840.1.458805.3.579.2. 1285 2004 Unknown [id number] 2.16.840.1.266200.3.579.2. 1285 2004 Unknown [id number] 2.16.840.1.037081.3.579.2. 1285 2004 Unknown [id number] 2.16.840.1.204370.3.579.2. 1285 2004 Unknown [id number] 2.16.840.1.298737.3.579.2. 1285 2004 Unknown [id number] 2.16.840.1.484489.3.579.2. 1286 2004 Unknown [id number] 2.16.840.1.860505.3.579.2. 9 2004 Unknown [id number] 2.16.840.1.231021.3.579.2. 9 2004 Unknown [id number] 2.16.840.1.774345.3.579.2. 9 2004 Unknown [id number] 2.16.840.1.456320.3.579.2. 6 2004 Unknown [id number] 2.16.840.1.583808.3.579.2. 1286 1959 Unknown [id number] 2.16.840.1.753463.19 Medicaid [id number] Unknown [id number] 2.16.840.1.611223.3.579.2. 531 Unknown [id number] Social History Date Type Detail Facility Start: 12-21-2023 End: 05-22-2024 Sex Assigned At [facility] Start: 2005 Sex Assigned At Female F [facility] Start: 12-21-2023 End: 12-27-2023 Tobacco smoking status NHIS Never smoked tobacco (finding) [facility] Start: 12-20-2023 End: 12-21-2023 Tobacco use and exposure Smokeless tobacco non-user [facility] Start: 05-22-2024 Alcoholic beverage intake Current non-drinker of alcohol (finding) [facility] Start: 12-21-2023 End: 05-22-2024 History of Social function [facility] Childcare Unknown [facility] Start: 2004 Sex assigned at Not on file [facility] Start: 01-28-2015 Sex Female (finding) [facility] Start: 01-25-2024 End: 06-23-2024 Alcoholic beverage intake Lifetime non-drinker (finding) [facility] Start: [facility] 04-29-2021 to 06-23-2024 Luciana Fisher LPN - 06/23/2024 9:00 AM Zeynep Beach MD - 05/22/2024 9:45 AM JULIANA Ridley - 02/22/2024 8:40 AM EDT Note Date & Type Note Facility 06-23-2024 History of Present illness Narrative Reason for Appointment: Patient ID: Lion Reynoso is a 18 y.o. female who presents for Amenorrhea Patient presents today for a Nurse OB Intake appointment. Patient is 9w0d with a Estimated Date of Delivery: 01/26/25 OB History Para Term AB Living 1 SAB IAB Ectopic Multiple Live Births # Outcome Date GA Lbr Buck/2nd Weight Sex Type Anes PTL Lv 1 Current Current Medications: has a current medication list which includes the following prescription(s): famotidine, albuterol hfa, ondansetron odt, and promethazine. Medical History: Active Ambulatory Problems Diagnosis Date Noted Nausea 05/29/2024 Resolved Ambulatory Problems Diagnosis Date Noted No Resolved Ambulatory Problems Past Medical History: Diagnosis Date Asthma (CMS/HCC) Lung nodules Family History Problem Relation Name Age of Onset Endometriosis Mother robyn Thyroid disease Mother robyn Breast cancer Maternal Grandmother alan Stroke Maternal Grandmother alan Cancer Paternal Grandmother september Social History Tobacco Use Smoking status: Never Smokeless tobacco: Never Substance Use Topics Alcohol use: Never Drug use: Never Past Surgical History: Procedure Laterality Date LAPAROSCOPY DIAGNOSTIC / BIOPSY / ASPIRATION / LYSIS Allergies Allergen Reactions Keflex [Cephalexin] Hives Mite (D. Farinae) Other Reaction(s): Unknown Sulfa Antibiotics Hives Cat Hair Extract Rash Other Reaction(s): Unknown Dust Mite Extract Rash Milk (Cow) Rash Other Rash Vitals: Estimated body mass index is 22.6 kg/m as calculated from the following: Height as of 02/22/24: 5' 5 . Weight as of this encounter: 135 lb 12.8 oz. BP: Patient's last menstrual period was 04/21/2024. Assessment/Plan Diagnoses and all orders for this visit: Missed menses - Type and screen; Future - ABO/Rh; Future - CBC and differential - Hemoglobin A1c - RPR - Rubella antibody, IgG - Hepatitis B surface antigen - Hepatitis C antibody - HIV-1 and HIV-2 antibodies - Urine culture - POCT , urine manually resulted - POCT urinalysis dipstick manually resulted , unspecified gestational age - Type and screen; Future - ABO/Rh; Future - CBC and differential - Hemoglobin A1c - RPR - Rubella antibody, IgG - Hepatitis B surface antigen - Hepatitis C antibody - HIV-1 and HIV-2 antibodies - Rapid drug screen, urine; Future Encounter for supervision of normal first in first trimester - Rapid drug screen, urine; Future Nausea and vomiting in - promethazine (Phenergan) 12.5 MG tablet; Take 1 tablet (12.5 mg) by mouth every 6 (six) hours if needed for nausea or vomiting for up to 30 doses Take 1 tablet by mouth every 6 hours as needed for nausea. Nurse Note: OB Intake: Patient presents today for first OB visit. Patients history has been reviewed in great detail including any potential risks. Patient signed consent forms and patient desires testing in both trimesters. Patient currently has no complaints and has been advised to drink 6-8 glasses of water a day, eat no raw or undercooked meat, and stay away from [facility]. Patient has also been advised to not change litter boxes and eat 6 small meals a day. Patient has been consulted regarding the do's and don'ts of . Patient was given labs and all questions and concerns were answered. Follow Up: Patient is to return in 4 weeks for routine OB appointment. Follow Up: Patient is to have labs drawn at directed and return to office for initial OB appointment with provider. Patient may call office as needed with any concerns or questions. Nurse Visit Completed by: Luciana Fisher LPN documented in this encounter [facility] 05-22-2024 History of Present illness Narrative Images from the original note were not included. [facility] [address] [address] Subjective: Chief Complaint Asthma HPI The patient is a 18-year-old female with past medical history of asthma since childhood. She was seen as a new patient in December 2023. She stated she was diagnosed at age of 2-3 and she continues to use breathing treatment until the age of 5. She stated that she was doing great since then with no significant respiratory issues until 2023. The patient started to have increasing shortness a breath.. She was given albuterol inhaler that she used very often before she sees us. She feels improvement with albuterol inhaler. She stated that she does not get wheezing unless it is hot and muggy outside when she starts to hear wheezing. She usually stays inside when the weather is hot and muggy. When it is called, she gets wheezing and shortness a breath when exposed to cold air. We started her on QVAR in December 2003. She felt improvement and back to normal during the summer, however now she is having more short of breath with a change of the weather and exposure to cold air. She gets short of breath when she goes outside. She is using albuterol now up to 4 times a day. The patient is concerned regarding the pulmonary nodules that appeared on the CT scan of the abdomen The patient had visit to the ER in June and had CT scan of the abdomen, the lower portion of the lungs showed small pulmonary nodules. She had also another visit recently and repeat CT scan of the abdomen showed resolution to these nodules and development of live near atelectasis. These changes are most likely secondary to mucus because of asthma Patient vaped for around 6 months and quit completely in June 2023 She had pulmonary function test, the results are difficult to interpret however there was no clear obstructive disease Absolute eosinophils 200 on 11/21/2023 Chest x-ray on 11/10/2023 is unremarkable. 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 She got SOB there. Now in cleaning services. Review of Systems Constitutional: Negative. Negative for appetite change, chills and fever. HENT: Negative for congestion and rhinorrhea. Eyes: Negative for itching. Respiratory: Negative for cough, chest tightness and shortness of breath. Genitourinary: Negative for dysuria. Musculoskeletal: Negative for back pain. Skin: Negative for color change and pallor. Neurological: Negative for dizziness. Psychiatric/Behavioral: Negative for agitation and confusion. Allergies: Keflex [cephalexin] and Sulfa (sulfonamide antibiotics) Past Medical History: Diagnosis Date Allergic Asthma Past Surgical History: Procedure Laterality Date DENTAL SURGERY ? Social History Tobacco Use Smoking Status Never Smokeless Tobacco Never Social History Substance and Sexual Activity Alcohol Use No Social History Substance and Sexual Activity Drug Use No Social History Substance and Sexual Activity Sexual Activity Yes Partners: Male control/protection: None ? Family History Problem Relation Age of Onset Asthma Mother Breast cancer Maternal Grandmother Stroke Maternal Grandmother Stroke Maternal Aunt Social History Tobacco Use Smoking status: Never Smokeless tobacco: Never Substance Use Topics Alcohol use: No Objective: There were no vitals filed for this visit. Physical Exam Vitals and nursing note reviewed. Constitutional: General: She is not in acute distress. Appearance: Normal appearance. She is not ill-appearing or toxic-appearing. HENT: Head: Normocephalic and atraumatic. Nose: Nose normal. No rhinorrhea. Mouth/Throat: Mouth: Mucous membranes are moist. Eyes: Extraocular Movements: Extraocular movements intact. Cardiovascular: Rate and Rhythm: Normal rate and regular rhythm. Heart sounds: Normal heart sounds. No murmur heard. Pulmonary: Effort: Pulmonary effort is normal. No respiratory distress. Breath sounds: Normal breath sounds. No stridor. No wheezing, rhonchi or rales. Chest: Chest wall: No tenderness. Abdominal: Palpations: Abdomen is soft. Musculoskeletal: Cervical back: Neck supple. Skin: General: Skin is warm and dry. Coloration: Skin is not jaundiced or pale. Neurological: Mental Status: She is alert. Most recent Labs, images were reviewed and independently verified. Assessment/Plan: Impression Mild persistent asthma Small bilateral pulmonary nodules. No need for follow-up Recommendations Discontinue QVAR. Start Dulera 100/5 twice a day. Continue albuterol inhaler 2 puffs q.6 hours p.r.n.. The patient was told if she does not improve in 1 months to give us a call back Discussed with the patient importance to stay away from smoking or vaping. Regarding the pulmonary nodules, no need to follow-up. These are most likely secondary to mucus. Patient was advised to stay active. Discussed the plan of care in details with the patient. Follow-up after 4 months. Thank you for involving me in this patient's care. Austin Beach MD. Pulmonary and Critical Care Physician 05/22/24. Please note that portions of this note were generated using voice recognition [employer] dictation software. Although every effort was made to ensure the accuracy of this automated terrazzo finisher, some errors in terrazzo finisher may have occurred. documented in this encounter [employer] 02-22-2024 History of Present illness Narrative Reason for Appointment: Patient ID: Lion Reynoso is a 18 y.o. female who presents for Post-op Visit Patient presents today for 1 Week Post Op Follow Up appointment. MEDICATIONS Current Outpatient Medications Medication Instructions albuterol HFA 90 mcg/act inhaler 2 puffs, Inhalation, Every 6 hours PRN Beclomethasone Diprop HFA (Qvar) 80 MCG/ACT inhaler 1 puff, Inhalation, 2 times daily doxycycline (Vibramycin) 100 MG capsule ALLERGIES Allergies Allergen Reactions Keflex [Cephalexin] Hives Sulfa Antibiotics Hives PROBLEMS Active Ambulatory Problems Diagnosis Date Noted No Active Ambulatory Problems Resolved Ambulatory Problems Diagnosis Date Noted No Resolved Ambulatory Problems Past Medical History: Diagnosis Date Asthma (CMS/HCC) Lung nodules HISTORY PAST MEDICAL HISTORY SOCIAL HISTORY Past Medical History: Diagnosis Date Asthma (CMS/HCC) Lung nodules Social History Tobacco Use Smoking status: Never Smokeless tobacco: Never Substance Use Topics Alcohol use: Never Drug use: Never FAMILY HISTORY Family History Problem Relation Name Age of Onset Endometriosis Mother robyn Thyroid disease Mother robyn Breast cancer Maternal Grandmother alan Stroke Maternal Grandmother alan Cancer Paternal Grandmother september SURGICAL HISTORY Past Surgical History: Procedure Laterality Date LAPAROSCOPY DIAGNOSTIC / BIOPSY / ASPIRATION / LYSIS REVIEW OF SYSTEMS Review of Systems: Review of Systems OBJECTIVE Objective: OBGyn Exam Vitals: Estimated body mass index is 23.13 kg/m as calculated from the following: Height as of this encounter: 5' 5 . Weight as of this encounter: 139 lb. BP: 110/68 Patient's last menstrual period was 12/31/2023. ASSESSMENT & PLAN No diagnosis found. Post Op Follow Up: Patient presents today for a postop follow up after having a Diagnostic laproscopy due to pelvic pain performed at [facility] with Dr. Barraza. Patient doing well, steri strips removed, restrictions lifted Follow Up: Patient is to return to the office for annual exam unless needed otherwise. Documented by JULIANA Dubois on behalf of: JULIANA Dubois documented in this encounter [facility] 11-10-2023 Note XR CHEST 2 VWS Procedure: Chest x-ray performed Number of views:2 History:Shortness of breath Comparison:09/07/2012 Findings: The heart and lungs show no acute findings, and the mediastinum and fabienne are grossly negative . Impression: 1. No acute change. Finalized by Bola Dang MD on 11/10/2023 9:58 AM [facility] 04-21-2022 Evaluation note Encounter Date Diagnosis Assessment [...] we will help you get into specialist. [id number] Other 10-04-2022 Evaluation note* Encounter Date Diagnosis Assessment Notes Treatment Notes Treatment Clinical Notes Mar, Contact with and (suspected) exposure [...] therapy plan may need to be made. [id number] Other 11-09-2021 Evaluation note* Encounter Date Diagnosis Assessment Notes Treatment Notes Treatment Clinical Notes Apr, Tinea pedis of both feet (ICD-10 - B35.3) Use medication as directed. Shows need to be cleaned and clean socks need to be worn daily. Education handout printed on [id number] Other evaluklruz noteNo InformationNort hurleypalmerflatt Other evaluzjtct noteNo assessment information available [facility] Work Phone: evaluation note* Diagnosis Onset Date Resolution Status Acute bilateral otitis media acute [facility] Work Phone: Evaluation note* Diagnosis Onset Date Resolution Status Acute bilateral otitis media acute Acute maxillary sinusitis, unspecified acute [facility] Work Phone: Evaluation note* Diagnosis Onset Date Resolution Status Acute maxillary sinusitis, unspecified acute [facility] Work Phone: Evaluation note* Diagnosis Mild persistent asthma without complication- Primary Multiple pulmonary nodules Other diseases of lung, not elsewhere classified [facility] Diagnosis Pelvic pain in female- Primary Unspecified symptom associated with female genital organs documented in this encounter [facility]* Diagnosis Missed menses , unspecified gestational age Encounter for supervision of normal first in first trimester Nausea and vomiting in Unspecified vomiting of , unspecified as to episode of care documented in this encounter [facility] Healthcare[facility] general Narrative - Reported* Type Description Date Medical History acid reflux Surgical History caps on teeth when younger Hospitalization History [facility] Other History general Narrative - Reported* Type Description Date Medical History acid reflux Medical History headache Medical History seizures Surgical History caps on teeth when younger Hospitalization History [facility] Other InstructionsNot on filedocumented in this encounter [facility] Summary Purpose Family History No Family History Records FoundNo Family History Records FoundNo Family History Records FoundNo Family History Records FoundNo Family History Records FoundNo Family History Records Found Advance Directives Advance Directive Response Recorded Date/ Time Advance Directives No April 27, 2022 2:57pm Chief Complaint and Reason for Visit Chief Complaint right ear pain, sore throat Reason for Visit Acute bilateral otit is media Chief Complaint right ear pain, sore throat Sore throat, ear pain Reason for Visit Acute bilateral otit is media Acute maxillary sinusitis, unspecified Chief Complaint Sore throat, ear lazara n stomach ache for a week Reason for Visit Acute maxillary sinu sitis, unspecified Additional Source Comments INFORMATION SOURCE (unrecogn ized section and content) DATE CREATED AUTHOR 04/09/2018 [facility] DATE CREATED AUTHOR AUTHOR'S ORGANIZ ATION 04/27/2022 [facility] DATE CREATED AUTHOR AUTHOR'S ORGANIZ ATION 09/30/2022 [facility] DATE CREATED AUTHOR AUTHOR'S ORGANIZ ATION 12/25/2023 [facility] DATE CREATED AUTHOR AUTHOR'S ORGANIZ ATION 02/22/[address] [facility] DATE CREATED AUTHOR AUTHOR'S ORGANIZ ATION 05/23/2024 [facility] REASON FOR VISIT (unrecogniz ed section and content) Reason Comments Follow-up Asthma CXR 11/10/23PF T 11/10/23 Reason Comments Post-op Visit Reason Comments Amenorrhea Care Teams (unrecognized sec tion and content) [...] December 27, 2023 End: December 27, 2023 Team Status: Inactive Member Role Status Dates PHYSICIAN NO FAMILY Primary Care Provider Active Start: March 25, 2024 End: March 25, 2024 Shey Garay APRN Attending Provider Active Start: March 25, 2024 End: March 25, 2024 Team Status: Inactive Member Role Status Dates PHYSICIAN NO FAMILY Primary Care Provider Active Start: April 22, 2024 End: April 22, 2024 Shey Garay APRN Attending Provider Active Start: April 22, 2024 End: April 22, 2024 Shirt Folding Machine Operator Relationship Specialty Start Date End Date Virginia Robins APRN-ESTELLE [address] [place] [address] PCP - General Family Medicine 11/21/23 Goals (unrecognized section and content) Goals may [...] BE BASED ON THE PRIMARY CLINICAL RECORDS. [facility]. provides no warranty or guarantee of the accuracy or completeness of information in this document.
[2024-06-30 14:05] LABS: BOX Test Reference Lab UNITY; BOX Test Sent Out UNITY
== END 2024-06-30 13:19 | disposition home or self-care (01) ==
LOC: LAB 13:18
PROVIDERS: Visit Provider Obstetrics & Gynecology
DX: Z36.0 Encounter for antenatal screening for chromosomal anomalies (principal)
CPT/HCPCS: 36415

== ENCOUNTER 2024-08-23 12:26 | Outpatient (OUT) | payer OTHER, SELFPAY ==
--- NOTE | 2024-08-23 | US_ITS ---
The [address] [address] Patient Name: FLAVIA TUCKER MRN: [id number] date: 2005 Sex: F Assigned Patient Location: US Current Patient Location: US Accession/Order Number: [id number] Exam Date: 08/23/2024 22:46 Report Date: 08/23/2024 22:55 At the request of: QUINTIN RAMIREZ DO Procedure: US OB anatomy Anatomy ultrasound. Cervical length ultrasound. Reason for exam: Anatomy survey. COMPARISON: None. TECHNIQUE: Transabdominal as well as transvaginal imaging of the gravid uterus was obtained. FINDINGS: Single live intrauterine 18 weeks 4 days by anatomic measurements. Appropriate growth by dating. heart rate 149 bpm. JOYCELYN is subjectively normal. Placenta is posterior in location with tip approximately 1.3 cm from the internal os. Cervical length measures 4 cm without evidence of funneling. Anatomic survey demonstrates no abnormality of the cranial structures. Four-chamber heart is noted. Outflow tracts are grossly unremarkable. Normal Three-vessel umbilical cord is noted. Kidneys appear unremarkable. 4 extremities are noted. Nasal bone appears present. No gross spinal abnormality is seen. US/US OB cervical length IMPRESSION: Normal anatomic survey. Single live intrauterine 18 weeks 4 days by anatomic measurements. Cervical length measures 4 cm without evidence of funneling. Tip of the placenta is approximately 1.3 cm from the internal os. Attention on follow-up is suggested. Impression dictated by: Idris Rivera Jr., D.O.08/23/2024 10:55 PM Dictation Location: [employer] Electronically authenticated by: [id number] Y Date: 08/23/2024 22:55
--- NOTE | 2024-08-23 | US_ITS ---
The [address] [address] Patient Name: FLAVIA TUCKER MRN: [id number] date: 2005 Sex: F Assigned Patient Location: US Current Patient Location: US Accession/Order Number: [id number] Exam Date: 08/23/2024 22:46 Report Date: 08/23/2024 22:55 At the request of: QUINTIN RAMIREZ DO Procedure: US OB anatomy Anatomy ultrasound. Cervical length ultrasound. Reason for exam: Anatomy survey. COMPARISON: None. TECHNIQUE: Transabdominal as well as transvaginal imaging of the gravid uterus was obtained. FINDINGS: Single live intrauterine 18 weeks 4 days by anatomic measurements. Appropriate growth by dating. heart rate 149 bpm. JOYCELYN is subjectively normal. Placenta is posterior in location with tip approximately 1.3 cm from the internal os. Cervical length measures 4 cm without evidence of funneling. Anatomic survey demonstrates no abnormality of the cranial structures. Four-chamber heart is noted. Outflow tracts are grossly unremarkable. Normal Three-vessel umbilical cord is noted. Kidneys appear unremarkable. 4 extremities are noted. Nasal bone appears present. No gross spinal abnormality is seen. US/US OB anatomy IMPRESSION: Normal anatomic survey. Single live intrauterine 18 weeks 4 days by anatomic measurements. Cervical length measures 4 cm without evidence of funneling. Tip of the placenta is approximately 1.3 cm from the internal os. Attention on follow-up is suggested. Impression dictated by: Idris Rivera Jr., D.O.08/23/2024 10:55 PM Dictation Location: [employer] Electronically authenticated by: [id number] Y Date: 08/23/2024 22:55
[2024-08-25 02:07] LABS: AFP Value 38.7 ng/mL (.); Gest. Age on Collection Date 17.7 weeks (.); Insulin Dep Diabetes No (.); Maternal Age At EDD 20.5 yr (.); OSBR Risk 1 IN 10000 (.); Results Report (.)
== END 2024-08-23 12:27 | disposition home or self-care (01) ==
LOC: US 12:28
PROVIDERS: Visit Provider Obstetrics & Gynecology
DX: Z34.92 Encounter for supervision of normal pregnancy, unspecified, second trimester (principal); Z36.1 Encounter for antenatal screening for raised alphafetoprotein level; Z36.89 Encounter for other specified antenatal screening; Z3A.18 18 weeks gestation of pregnancy
CPT/HCPCS: 36415; 76805; 76817; 82105

== ENCOUNTER 2024-09-19 10:36 | Outpatient (OUT) | payer OTHER, SELFPAY ==
--- NOTE | 2024-09-19 | US_ITS ---
[address] [address] Patient Name: FLAVIA TUCKER MRN: [id number] date: 2005 Sex: F Assigned Patient Location: US Current Patient Location: US Accession/Order Number: [id number] Exam Date: 09/19/2024 11:48 Report Date: 09/19/2024 11:53 At the request of: QUINTIN RAMIREZ DO Procedure: US OB cervical length CLINICAL DATA: Low lying placenta OB ULTRASOUND PLACENTA COMPARISON: 08/23/2024 There is a single live intrauterine gestation in cephalic presentation. There is cardiac and somatic activity with heart rate of 153 bpm. There is a posterior placenta which is within normal limits for appearance and position. The placenta is approximately 3 cm from the internal cervical os. The amniotic fluid volume appears subjectively normal. US/US OB cervical length IMPRESSION: NO SIGNIFICANT PLACENTAL ABNORMALITIES. OB ULTRASOUND CERVIX COMPARISON: 08/23/2024 The cervix is closed. The estimated length with the transvaginal probe is approximately 5.9 cm. IMPRESSION: NORMAL CLOSED CERVIX. Impression dictated by: Clarisse Reza M.D.09/19/2024 11:53 AM Dictation Location: [place] [address] Electronically authenticated by: [id number] Y Date: 09/19/2024 11:53
--- NOTE | 2024-09-19 10:40 | US_ITS ---
The [address] [address] Patient Name: FLAVIA TUCKER MRN: [id number] date: 2005 Sex: F Assigned Patient Location: US Current Patient Location: US Accession/Order Number: [id number] Exam Date: 09/19/2024 11:48 Report Date: 09/19/2024 11:53 At the request of: QUINTIN RAMIREZ DO Procedure: US OB cervical length CLINICAL DATA: Low lying placenta OB ULTRASOUND PLACENTA COMPARISON: 08/23/2024 There is a single live intrauterine gestation in cephalic presentation. There is cardiac and somatic activity with heart rate of 153 bpm. There is a posterior placenta which is within normal limits for appearance and position. The placenta is approximately 3 cm from the internal cervical os. The amniotic fluid volume appears subjectively normal. US/US OB placenta IMPRESSION: NO SIGNIFICANT PLACENTAL ABNORMALITIES. OB ULTRASOUND CERVIX COMPARISON: 08/23/2024 The cervix is closed. The estimated length with the transvaginal probe is approximately 5.9 cm. IMPRESSION: NORMAL CLOSED CERVIX. Impression dictated by: Clarisse Reza M.D.09/19/2024 11:53 AM Dictation Location: [place] [address] Electronically authenticated by: [id number] Y Date: 09/19/2024 11:53
== END 2024-09-19 10:37 | disposition home or self-care (01) ==
LOC: US 10:37
PROVIDERS: Visit Provider Obstetrics & Gynecology
DX: O44.42 Low lying placenta NOS or without hemorrhage, second trimester (principal)
CPT/HCPCS: 76815; 76817

== ENCOUNTER 2024-11-10 07:40 | Outpatient (RCR) | payer OTHER, SELFPAY ==
[2024-11-10 09:18] VITALS: BP 130/76; PULSE 82; TEMP 36.9; O2SAT 98
[2024-11-10] MEDS: RHO(D) IMMUNE GLOBULIN 1,500 UNIT SYRINGE 1500 UNIT IM (09:24)
== END 2024-11-14 07:52 | disposition home or self-care (01) ==
LOC: INF 07:40
PROVIDERS: Visit Provider Obstetrics & Gynecology
DX: O26.893 Other specified pregnancy related conditions, third trimester (principal); Z67.41 Type O blood, Rh negative; Z3A.00 Weeks of gestation of pregnancy not specified
CPT/HCPCS: 36415; 86850; 86900; 86901; 96372; J2791

== ENCOUNTER 2025-01-02 19:44 | Outpatient (REF) | payer OTHER, SELFPAY ==
--- OUTSIDE RECORDS SUMMARY | 2024-12-25 08:30 | XMS_ITS | Encounter Summary ---
Author Organization [facility] Address [address] [place] [address] Care Team Providers Care Counter Tacker Name Role Phone Unavailable Primary Care Provider Unavailabl e Reason for Visit * Reason Comments Routine Visit Encounter Details Date Type Department Care Team (Late st Contact Info) Description 12/25/2024 8:30 AM EDT Routine [facility] [address] [place] [address] Collin Barraza, DO [address] [place] [address] Third trimester ([facility]); 35 weeks gestation of ([facility]) Social History Tobacco Use Types Packs/Day Years Used Date Smoking Tobacco: Never Smokeless Tobacco: Never Alcohol Use Standard Drinks/Week Comments Never 0 (1 standard drink = 0.6 oz pur e alcohol) Estimated Date of Delivery Comme nts Yes 01/26/2025 Based on last me nstrual period of 04/21/2024 Sex and Gender Information Value Date Recorded Sex Assigned at Not on file Legal Sex Female 6:53 PM EDT Gender Identity Not on file Sexual Orientation Not on file documented as of this encounter Progress Notes * Rox Ferreira NP - 12/25/2024 8:30 AM EDT Reason for Appointment: Patient ID: Lion Reynoso is a 19 y.o. female who presents for Routine Visit Patient presents today for Return OB appointment. MEDICATIONS Current Outpatient Medications Medication Instructions albuterol HFA 90 mcg/act inhaler 2 puffs, Every 6 hours PRN ondansetron ODT (ZOFRAN-ODT) 4 mg, Oral, Every 6 hours PRN promethazine (PHENERGAN) 12.5 mg, Oral, Every 6 hours PRN, Take 1 tablet by mouth every 6 hours as needed for nausea. ALLERGIES Allergies Allergen Reactions Cephalexin Hives Other Reaction(s): Unknown Other Rash and Hives Mother states child has an allergy to seafood, cheese ball, cat and some dogs, dust mites. Mite (D. Farinae) Other Reaction(s): Unknown Soybean-Containing Drug Products Other Reaction(s): Unknown Sulfa Antibiotics Hives Other Reaction(s): Unknown Cat Dander Rash Other Reaction(s): Unknown Dust Mite Extract Rash Milk (Cow) Rash PROBLEMS Active Ambulatory Problems Diagnosis Date Noted Nausea 05/29/2024 Resolved Ambulatory Problems Diagnosis Date Noted No Resolved Ambulatory Problems Past Medical History: Diagnosis Date Asthma (HCC) Lung nodules HISTORY PAST MEDICAL HISTORY SOCIAL HISTORY Past Medical History: Diagnosis Date Asthma (HCC) Lung nodules Social History Tobacco Use Smoking status: Never Smokeless tobacco: Never Substance Use Topics Alcohol use: Never Drug use: Never FAMILY HISTORY Family History Problem Relation Name Age of Onset Endometriosis Mother raffi Thyroid disease Mother raffi Breast cancer Maternal Grandmother alan Stroke Maternal Grandmother alan Cancer Paternal Grandmother september SURGICAL HISTORY Past Surgical History: Procedure Laterality Date LAPAROSCOPY DIAGNOSTIC / BIOPSY / ASPIRATION / LYSIS REVIEW OF SYSTEMS Review of Systems: Review of Systems Constitutional: Negative. HENT: Negative. Eyes: Negative. Respiratory: Negative. Cardiovascular: Negative. Gastrointestinal: Negative. Genitourinary: Negative. Musculoskeletal: Negative. Skin: Negative. Neurological: Negative. All other systems reviewed and are negative. Hematological: Negative. Endocrine: Negative. Allergic/Immunologic: Negative. OBJECTIVE Objective: Physical Exam Constitutional: Appearance: Normal appearance. She is well-developed. Cardiovascular: Rate and Rhythm: Normal rate and regular rhythm. Pulmonary: Effort: Pulmonary effort is normal. Breath sounds: Normal breath sounds. Abdominal: General: Bowel sounds are normal. There is no distension. Palpations: Abdomen is soft. Tenderness: There is no abdominal tenderness. There is no guarding or rebound. Musculoskeletal: General: No swelling. Normal range of motion. Right lower leg: No edema. Left lower leg: No edema. Neurological: Mental Status: She is alert and oriented to person, place, and time. Skin: General: Skin is warm and dry. Psychiatric: Mood and Affect: Mood normal. Behavior: Behavior normal. Vitals and nursing note reviewed. Exam conducted with a head silverman present. Vitals: Estimated body mass index is 26.96 kg/m?? as calculated from the following: Height as of 02/22/24: 5' 5 . Weight as of 12/18/24: 162 lb. BP: Patient's last menstrual period was 04/21/2024. ASSESSMENT & PLAN ICD-10-CM 1. Third trimester ([facility]) Z34.93 POCT urinalysis dipstick manually resulted CANCELED: CULTURE, GROUP B STREP WITH SUSCEPTIBLITY CANCELED: CULTURE, GROUP B STREP WITH SUSCEPTIBLITY 2. 35 weeks gestation of ([facility]) Z3A.35 Return OB: Patient presents today for a routine obstetrics appointment. Patient is currently 35w3d . Patient states she is doing well but has complaints of being tired due to current . Patient has verbalizes frequent movement. labor precautions was discussed/given and patient was instructed to perform kick counts three times a day. Orders Placed This Encounter Procedures POCT urinalysis dipstick manually resulted Follow Up: Patient is to return to office in 1 week for routine OB appointment. Documented by Rox Ferreira NP on behalf of: Collin Barraza DO documented in this encounter Plan of Treatment Upcoming Encounters Date Type Department Care Team (Late st Contact Info) Description 01/09/2025 8:40 AM EDT Routine [facility] [address] [place] [address] Peggy Morgan PA [address] [place] [address] documented as of this encounter Procedures Procedure Name Priority Date/Time Associated Diagnosis Comments POCT URINALYSIS DIPSTICK Routine 12/25/2024 9:02 AM EDT Third trimester ([facility]) documented in this encounter Results * POCT urinalysis dipstick manually resulted (12/25/2024 9:02 AM EDT) Color, UA Yellow Clarity, UA Clear Glucose, UA Negative Negative - 2000(110) ++++ mg/dL Bilirubin, UA Negative Negative - 4(70) +++ mg/dL Ketones, UA Negative Negative - 160(16) ++++ mg/dL Spec Grav, UA 1.010 1 - 1.03 Blood, UA Negative Negative - 50 Francois/mcL pH, UA 7.0 5 - 9 Protein, UA Negative Negative - 2000(20) ++++ mg/dL Urobilinogen, UA 0.2 0.2 - 12 mg/dL Leukocytes, UA Positive Negative - 500+++ Héctor/mcL Nitrite, UA Negative Negative - Positive Urine 12/25/2024 9:02 AM EDT Collin Barraza DO POINT OF CARE TEST ENTER/EDIT OR DERABLES Final Result documented in this encounter Visit Diagnoses Diagnosis Third trimester ([facility]) state, incidental 35 weeks gestation of ([facility]) documented in this encounter
--- OUTSIDE RECORDS SUMMARY | 2025-01-02 11:40 | XMS_ITS | Encounter Summary ---
Author Organization [facility] Address [address] [place] [address] Care Team Providers Care Aircraft Pneudraulic Systems Mechanic Name Role Phone Unavailable Primary Care Provider Unavailabl e Reason for Visit * Reason Comments Routine Visit Encounter Details Date Type Department Care Team (Late st Contact Info) Description 01/02/2025 11:40 AM EDT Routine [facility] [address] [place] [address] Collin Barraza, DO [address] [place] [address] Third trimester ([facility]); 36 weeks gestation of ([facility]) Social History Tobacco Use Types Packs/Day Years [...] on file documented as of this encounter Last Filed Vital Signs Vital Sign Reading Time Taken Comments Blood Pressure 112/60 01/02/2025 11:38 AM EDT Pulse - - Temperature - - Respiratory Rate - - Oxygen Saturation - - Inhaled Oxygen Concentration - - Weight 74.4 kg (164 lb) 01/02/2025 11:38 AM EDT Height - - Body Mass Index 27.29 02/22/2024 8:54 AM EDT documented in this encounter Plan of Treatment Upcoming Encounters Date Type Department Care Team (Late st Contact Info) Description 01/09/2025 8:40 AM EDT Routine [facility] [address] [place] [phone] Peggy Morgan PA [address] [place], [place] [id number] Scheduled Orders Name Type Priority Associated Diagnoses Orde r Schedule CULTURE, GROUP B STREP WITH SUSCEPTIBLITY Lab Routine Third trimester ([facility]) Expected: 01/02/2025, Expires: 01/02/2026 documented as of this encounter Procedures Procedure Name Priority Date/Time Associated Diagnosis Comments POCT URINALYSIS DIPSTICK Routine 01/02/2025 11:39 AM EDT Third trimester ([facility]) documented in this encounter Results * POCT urinalysis dipstick manually resulted (01/02/2025 11:39 AM EDT) Color, UA Yellow Clarity, UA Clear Glucose, UA Negative Negative - 2000(110) ++++ mg/dL Bilirubin, UA Negative Negative - 4(70) +++ mg/dL Ketones, UA Negative Negative - 160(16) ++++ mg/dL Spec Grav, UA 1.000 1 - 1.03 Blood, UA Negative Negative - 50 Francois/mcL pH, UA 6.5 5 - 9 Protein, UA Negative Negative - 2000(20) ++++ mg/dL Urobilinogen, UA 0.2 0.2 - 12 mg/dL Leukocytes, UA Negative Negative - 500+++ Héctor/mcL Nitrite, UA Negative Negative - Positive Urine 01/02/2025 11:3 9 AM EDT Collin Barraza DO POINT OF CARE TEST ENTER/EDIT OR DERABLES Final Result documented in this encounter Visit Diagnoses Diagnosis Third trimester ([facility]) state, incidental 36 weeks gestation of ([facility]) documented in this encounter
--- OUTSIDE RECORDS SUMMARY | 2025-01-02 19:52 | XMS_ITS | Encounter Summary ---
Author Organization [facility] Address [address] [place] [address] Care Team Providers Care Transfer Iron Operator Name Role Phone Unavailable Primary Care Provider Unavailabl e Encounter Details Date Type Department Care Team (Late st Contact Info) Description 10/24/2024 Abstract [facility] [address] [place] [address] Collin Barraza DO [address] [place], [facility] Social History Tobacco Use Types Packs/Day Years [...] on file documented as of this encounter Plan of Treatment Upcoming Encounters Date Type Department Care Team (Late st Contact Info) Description 01/09/2025 8:40 AM EDT Routine [facility] OB [address] [place] [address] Peggy Morgan PA [address] [place], [place] [id number] documented as of this encounter Visit Diagnoses Not on filedocumented in this encounter
--- OUTSIDE RECORDS SUMMARY | 2025-01-02 19:52 | XMS_ITS | Encounter Summary ---
Author Organization [facility] Address [address] [place] [address] Care Team Providers Care Video Game Programmer Name Role Phone Unavailable Primary Care Provider Unavailabl e Encounter Details Date Type Department Care Team (Late st Contact Info) Description 12/25/2024 Bamboo flowsheet [facility] [address] [place] [address] Collin Barraza DO [address] [place], [place] [address] Social History Tobacco Use Types Packs/Day Years [...] [address] [place] [address] Peggy Morgan PA [address] [place], [place] [address] documented as of this encounter Visit Diagnoses Not on filedocumented in this encounter
--- OUTSIDE RECORDS SUMMARY | 2025-01-02 19:52 | XMS_ITS | Encounter Summary ---
Author Organization [facility] Address [address] [place] [address] Care Team Providers Care Import Manager Name Role Phone Unavailable Primary Care Provider Unavailabl e Encounter Details Date Type Department Care Team (Late Contact Info) Description 12/23/2023 Clinisync Result Encounter [facility] External Department Unsolicited Quintin Barraza DO [address] [place], [place] [address] Social History Tobacco Use Types Packs/Day Years Used Date Smoking Tobacco: Never Smokeless Tobacco: Never Alcohol Use Standard Drinks/Week Comments Never 0 (1 standard drink = 0.6 oz pur e alcohol) Comments No Sex and Gender Information Value Date Recorded Sex Assigned at Not on file Legal Sex Female 6:53 PM EDT Gender Identity Not on file Sexual Orientation Not on file documented as of this encounter Plan of Treatment Upcoming Encounters Date Type Department Care Team (Late st Contact Info) Description 01/09/2025 8:40 AM EDT Routine [facility] [address] [place] [address] Peggy Morgan PA [address] [place] [address] documented as of this encounter Procedures Procedure Name Priority Date/Time Associated Diagnosis Comments US PELVIS W/ TRANSVAGINAL 12/23/2023 6:21 AM EDT documented in this encounter Results * US PELVIS W/ TRANSVAGINAL (12/23/2023 6:21 AM EDT) Anatomical Region Laterality Modality Other 12/23/2023 6:21 AM EDT Narrative 12/23/2023 6:23 AM EDT [address] [address] Ultrasound Report Signed Patient: Flavia Reynoso MR#: [id number] : 2005 Acct:[id number] Age/Sex: 18 / F ADM Date: 12/22/23 Loc: US Attending Dr: Quintin Barraza D.O. Ordering Physician: Quintin Barraza D.O. Date of Service: 12/22/23 Procedure(s): US pelvis w/ transvaginal Accession Number(s): [id number] cc: Quintin Barraza D.O.; Physician,Non-Staff Marquez [address] [address] Patient Name: FLAVIA REYNOSO MRN: [id number] date: 2005 Sex: F Assigned Patient Location: US Current Patient Location: Accession/Order Number: [id number] Exam Date: 12/22/2023 11:00 Report Date: 12/23/2023 06:21 At the request of: QUINTIN BARRAZA Procedure: US pelvis w/ transvaginal EXAMINATION: US pelvis w/ transvaginal HISTORY: Pelvic Pain R10.2 COMPARISON: No relevant comparison available. TECHNIQUE: Transabdominal and/or transvaginal sonographic examination was performed as indicated by examination type. FINDINGS: UTERUS: Normal size and appearance. Uterus size: 6.9 x 4.9 x 3.8 cm ENDOMETRIUM: Normal homogeneous appearance. Endometrial thickness: 4 mm RIGHT OVARY: Contains a 2.3 x 1.3 x 1.1 cm hypoechoic complex cyst versus mass with surrounding ring of increased blood flow; nonspecific. Benign-appearing 1.4 cm cyst within ovary. Trace amount of free fluid adjacent the ovary. Duplex Doppler demonstrates normal waveform and flow; resistive index 0.6. Ovary size: 3.8 x 3.1 x 1.9 cm LEFT OVARY: Normal size and appearance. Duplex Doppler demonstrates normal waveform and flow; resistive index 0.6. Ovary size: 2.6 x 1.5 x 1.2 cm CUL-DE-SAC: Unremarkable. No significant free fluid. BLADDER: Unremarkable. OTHER: None. US/US pelvis w/ transvaginal IMPRESSION: 1. Complex cyst versus mass within right ovary of uncertain etiology. Follow-up ultrasound evaluation in 6 weeks is recommended to document regression. Electronically authenticated by: BULMARO ASH Date: 12/23/2023 06:21 Dictated By: Bulmaro Ash M.D. Signed By: 12/23/23622 DD/ 0 TD/TT: Design Eng: Procedure Note Radiology, Radiologist, MD - 12/23/2023 [place] [address] Ultrasound Report Signed Patient: Flavia Reynoso MMR#: [id number] : 2005Acct:[id number] Age/Sex: 18 / FADM Date: 12/22/23 Loc: US Attending Dr: Quintin Barraza D.O. Ordering Physician: Quintin Barraza D.O. Date of Service: 12/22/23 Procedure(s): US pelvis w/ transvaginal Accession Number(s): [id number] cc: Quintin Barraza D.O.; Physician,Non-Staff [place] [id number] Patient Name: FLAVIA REYNOSO MRN: [id number] date: 2005 Sex: F Assigned Patient Location: Current Patient Location: Accession/Order Number: [id number] Exam Date: 12/22/2023 11:00 Report Date: 12/23/2023 06:21 At the request of: QUINTIN BARRAZA Procedure: US pelvis w/ transvaginal EXAMINATION: US pelvis w/ transvaginal HISTORY: Pelvic Pain R10.2 COMPARISON: No relevant comparison available. TECHNIQUE: Transabdominal and/or transvaginal sonographic examination was performed as indicated by examination type. FINDINGS: UTERUS: Normal size and appearance. Uterus size: 6.9 x 4.9 x 3.8 cm ENDOMETRIUM: Normal homogeneous appearance. Endometrial thickness: 4 mm RIGHT OVARY: Contains a 2.3 x 1.3 x 1.1 cm hypoechoic complex cyst versusmass with surrounding ring of increased blood flow; nonspecific.Benign-appearing 1.4 cm cyst within ovary. Trace amount of free fluid adjacent the ovary. Duplex Doppler demonstrates normal waveform and flow; resistive index 0.6. Ovary size: 3.8 x 3.1 x 1.9 cm LEFT OVARY: Normal size and appearance. Duplex Doppler demonstrates normal waveform and flow; resistive index 0.6. Ovary size: 2.6 x 1.5 x 1.2 cm CUL-DE-SAC: Unremarkable. No significant free fluid. BLADDER: Unremarkable. OTHER: None. US/US pelvis w/ transvaginal IMPRESSION: 1. Complex cyst versus mass within right ovary of uncertain etiology. Follow-up ultrasound evaluation in 6 weeks is recommended to document regression. Electronically authenticated by: BULMARO ASH Date: 12/23/2023 06:21 Dictated By: Bulmaro Ash M.D. Signed By:12/23/23 0623 DD/ 0621 TD/TT: Design Eng: [facility] Final Result documented in this encounter Visit Diagnoses Not on filedocumented in this encounter
--- OUTSIDE RECORDS SUMMARY | 2025-01-02 19:52 | XMS_ITS | Clinical Summary ---
Author Organization [facility] Address [address] [place] [address] Care Team Providers Care Teller Head Name Role Phone Unavailable Primary Care Provider Unavailabl e Allergies Active Allergy Reactions Criticality Noted Date Comments Cat Dander Rash Low 02/18/2005 Other Reaction(s): Unknown Cephalexin Hives High 02/24/2018 Other Reaction(s): Unknown Dust Mite Extract Rash Low 02/18/2005 Milk (Cow) Rash Low 02/18/2005 Mite (D. Farinae) 06/23/2024 Other Reaction(s): Unknown Other Rash,Hives High 02/18/2005 Mother states child has an allergy to seafood, cheese ball, cat and some dogs, dust mites. Soybean-Containing Drug Products 11/16/2024 Other Reaction(s): Unknown Sulfa Antibiotics Hives 12/23/2022 Other Reaction(s): Unknown Medications albuterol HFA 90 mcg/act inhaler Inhale 2 puffs every 6 (six) hours if needed 4 Active ondansetron ODT (Zofran-ODT) 4 MG disintegrating tabletIndications:N ausea Take 1 tablet (4 mg) by mouth every 6 (six) hours if needed for nausea or vomiting for up to 30 doses 30 tablet 3 4 Active promethazine (Phenergan) 12.5 MG tabletIndications:N ausea and vomiting in ([facility]) Take 1 tablet (12.5 mg) by mouth every 6 (six) hours if needed for nausea or vomiting for up to 30 doses Take 1 tablet by mouth every 6 hours as needed for nausea. 30 tablet 2 Active Active Problems Problem Noted Date Diagnosed Date Nausea 05/29/2024 Estimated Date of Delivery Comme nts Yes 01/26/2025 Based on last me nstrual period of 04/21/2024 Encounters Date Type Department Care Team Description 01/02/2025 11:40 AM EDT Routine [facility] [address] [place] [address] Collin Barraza DO Third trimester ([facility]); 36 weeks gestation of ([facility]) 01/02/2025 Bamboo flowsheet [facility] [address] [place] [address] Collin Barraza DO 12/25/2024 8:30 AM EDT Routine [facility] [address] [facility] [place] [address] Collin Barraza, Third trimester ([facility]); 35 weeks gestation of ([facility]) 12/25/2024 Bamboo flowsheet [facility] [address] [facility] [place] [address] Collin Barraza DO 12/18/2024 8:50 AM EDT Routine [facility] OB [address] [place] [address] Peggy Morgan PA Third trimester ([facility]); 34 weeks gestation of ([facility]) 12/18/2024 Bamboo flowsheet [facility] OB [address] [facility] [place] [address] Peggy Morgan PA 12/04/2024 11:10 AM EDT Routine [facility] OB [address] [place] [address] [place] [address] Collin Barraza DO Third trimester ([facility]); 31 weeks gestation of ([facility]) 12/04/2024 10:30 AM EDT Ancillary Procedure [facility] [address] [facility] [place] [address] Size of fetus inconsistent with dates in first trimester ([facility]) 11/16/2024 9:30 AM EDT Routine [facility] [address] [place] [address] Peggy Morgan PA Size of fetus inconsistent with dates in first trimester ([facility]) (Primary Dx); Third trimester ([facility]); 29 weeks gestation of ([facility]) 11/16/2024 Bamboo flowsheet [facility] [address] [place] [address] Peggy Morgan PA 10/31/2024 10:30 AM EDT Routine [facility] [address] [place] [address] Collin Barraza, 27 weeks gestation of ([facility]); Second trimester ([facility]) 10/31/2024 Telephone [facility] [address] [place] [address] Claire Mccray MA 10/25/2024 Abstract [facility] [address] [place] [address] Collin Barraza, 10/24/2024 Abstract [facility] [address] [place] [address] Collin Barraza, 10/17/2024 11:20 AM EDT Routine [facility] [address] [place] [address] Collin Barraza, Second trimester ([facility]); 25 weeks gestation of ([facility]); Diabetes mellitus screening 10/17/2024 Bamboo flowsheet [facility] [address] [place] [address] Collin Barraza, 10/13/2024 Abstract [facility] [address] [place] [phone] Collin Barraza DO 10/03/2024 Telephone [facility] [address] [facility] [place] [address] Collin Barraza DO from Last 3 Months Family History Medical History Relation Name Comments Breast cancer Maternal Grandmother alan Stroke Maternal Grandmother alan Endometriosis Mother robyn Thyroid disease Mother robyn Cancer Paternal Grandmother september Relation Name Status Comments Maternal Grandmother alan Mother robyn Paternal Grandmother september Social History Tobacco Use Types Packs/Day Years Used Date Smoking Tobacco: Never Smokeless Tobacco: Never Tobacco Cessation:Counseling Given: Not Answered Alcohol Use Standard Drinks/Week Comments Never 0 (1 standard drink = 0.6 oz pur e alcohol) Estimated Date of Delivery Comme nts Yes 01/26/2025 Based on last me nstrual period of 04/21/2024 Sex and Gender Information Value Date Recorded Sex Assigned at Not on file Legal Sex Female 6:53 PM EDT Gender Identity Not on file Sexual Orientation Not on file Last Filed Vital Signs Vital Sign Reading Time Taken Comments Blood Pressure 112/60 01/02/2025 11:38 AM EDT Pulse - - Temperature - - Respiratory Rate - - Oxygen Saturation - - Inhaled Oxygen Concentration - - Weight 74.4 kg (164 lb) 01/02/2025 11:38 AM EDT Height 165.1 cm (5' 5 ) 02/22/2024 8:54 AM EDT Body Mass Index 27.29 02/22/2024 8:54 AM EDT Plan of Treatment Upcoming Encounters Date Type Department Care Team (Late st Contact Info) Description 01/09/2025 8:40 AM EDT Routine [facility] OB [address] [place] [phone] Peggy Morgan PA [facility] [address] [place], [place] [phone] Procedures Procedure Name Priority Date/Time Associated Diagnosis Comments POCT URINALYSIS DIPSTICK Routine 01/02/2025 11:39 AM EDT Third trimester ([facility]) POCT URINALYSIS DIPSTICK Routine 12/25/2024 9:02 AM EDT Third trimester ([facility]) POCT URINALYSIS DIPSTICK Routine 12/18/2024 9:09 AM EDT Third trimester ([facility]) POCT URINALYSIS DIPSTICK Routine 12/04/2024 11:37 AM EDT Third trimester ([facility]) US OB FOLLOW UP TRANSABDOMINAL APPROACH Routine 12/04/2024 10:53 AM EDT Size of fetus inconsistent with dates in first trimester ([facility]) CBC WITH AUTO DIFFERENTIAL STAT 10/24/2024 1:02 PM EDT POCT URINALYSIS DIPSTICK Routine 10/17/2024 2:06 PM EDT Second trimester ([facility]) from Last 3 Months Results * POCT urinalysis dipstick manually resulted (01/02/2025 11:39 AM EDT) Only the most recent of5 resultswithin the time period is included. Color, UA Yellow Clarity, UA Clear Glucose, [...] Positive Urine 01/02/2025 11:3 9 AM EDT us Collin Christi DO POINT OF CARE TEST ENTER/EDIT OR DERABLES Final Result * US OB follow up transabdominal approach (12/04/2024 10:53 AM EDT) Anatomical Region Laterality Modality Body Ultrasound 12/05/2024 8:13 AM EDT Narrative 12/05/2024 8:13 AM EDT EXAM: US OB FOLLOW UP TRANSABDOMINAL APPROACH HISTORY: Inconsistent size. COMPARISON: Ob ultrasound 08/23/2024. TECHNIQUE: Two-dimensional transabdominal grayscale ultrasound imaging of the pelvis was performed. FINDINGS: Gestation: Single Presentation: Cephalic Cardiac Activity: 148 beats per minute Amniotic Fluid Index: 10.2 cm MEASUREMENTS: BPD: 8.5 cm EGA: 34 weeks 1 days HC: 30.7 cm EGA: 34 weeks 1 days AC: 29.5 cm EGA: 33 weeks 3 days FL: 6.3 cm EGA: 32 weeks 4 days HC/AC Ratio: 1.04 The gestational age by today's ultrasound is 33 weeks 4 days (+/- 16 days gestation). Estimated Weight: 2172 grams, +/- 326 grams ( 4 lb 13 oz). Weight Percentile for gestational age: 69 % IMPRESSION: 1. Single, live intrauterine gestation 32 weeks, 3 days by LMP. Today's ultrasound measurements correlate with a gestational age of 33 weeks 4 days. Estimated weight is 2172 grams, +/- 326 grams ( 4 lb 13 oz) which correlates to 69 %. BERT is 01/18/2025. Interpreted by: Electronically signed by MANJU MORALES II, MD, PHD at 05-Dec-2024 08:12:35 AM [facility] Procedure Note Manju Morales MD - 12/05/2024 EXAM: US OB FOLLOW UP TRANSABDOMINAL APPROACH HISTORY: Inconsistent size. COMPARISON: Ob ultrasound 08/23/2024. TECHNIQUE: Two-dimensional transabdominal grayscale ultrasound imaging ofthe pelvis was performed. FINDINGS: Gestation: Single Presentation: Cephalic Cardiac Activity: 148 beats per minute Amniotic Fluid Index: 10.2 cm MEASUREMENTS: BPD: 8.5 cm EGA: 34 weeks 1 days HC: 30.7 cm EGA: 34 weeks 1 days AC: 29.5 cm EGA: 33 weeks 3 days FL: 6.3 cm EGA: 32 weeks 4 days HC/AC Ratio: 1.04 The gestational age by today's ultrasound is 33 weeks 4 days (+/- 16 daysgestation). Estimated Weight: 2172 grams, +/- 326 grams ( 4 lb 13 oz). Weight Percentile for gestational age: 69 % IMPRESSION: 1. Single, live intrauterine gestation 32 weeks, 3 days by LMP. Today'sultrasound measurements correlate with a gestational age of 33 weeks 4days. Estimated weight is 2172 grams, +/- 326 grams ( 4 lb 13 oz)which correlates to 69 %. BERT is 01/18/2025. Interpreted by: Electronically signed by MANJU MORALES II, MD, PHD 08:12:35 AM [facility] us Peggy ANDREWS IMG OB US PROCEDURES Final Resul t * (ABNORMAL) CBC auto differential (10/24/2024 1:02 PM EDT) WHITE BLOOD CELL COUNT, WBC 11.7(H) 4 - 11 x10E9/L [facility] RED BLOOD CELL COUNT, RBC 3.67(L) 3.8 - 5.2 X10E12/L [facility] HEMOGLOBIN 12.1 11.7 - 15.5 g/dL [facility] HEMATOCRIT 33.7(L) 35 - 47 % [facility] MEAN CELL VOLUME, MCV 92 80 - 100 fL [facility] MEAN CELL HEMOGLOBIN, MCH 33.0 27 - 34 pg [facility] MEAN CELL HEMOGLOGIN CONCENTRATION, MCHC 36.0 32 - 36 g/dL [facility] RED CELL DISTRIBUTION WIDTH, RDW 12.9 11.5 - 15 % [facility] PLATELET COUNT 226 150 - 450 X10E9/L [facility] MEAN PLATELET VOLUME, MPV 8.4 7 - 12 fL [facility] % NEUTROPHILS 76.1 % [facility] % LYMPHOCYTES 18.1 % [facility] % MONOCYTES 4.9 % [facility] % EOSINOPHILS 0.8 % [facility] % BASOPHILS 0.1 % [facility] ABSOLUTE NEUTROPHIL 8.9 10*3/uL [facility] ABSOLUTE LYMPHOCYTE 2.1 10*3/uL [facility] ABSOLUTE MONOCYTE 0.6 10*3/uL [facility] ABSOLUTE EOSINOPHIL 0.1 10*3/uL [facility] ABSOLUTE BASOPHIL 0.0 10*3/uL [facility] DIFFERENTIAL TYPE AUTOMATED DIFFERENTIAL [facility] Comment: PERFORMED AT [address] [place] [address] 10/24/2024 1:02 PM EDT 10/24/2024 1:02 PM EDT us Collin Christi DO LAB BLOOD ORDERABLES Final Resul t [facility] from Last 3 Months Insurance
--- OUTSIDE RECORDS SUMMARY | 2025-01-02 19:52 | XMS_ITS | Encounter Summary ---
Author Organization [facility] Address [address] [place] [address] Care Team Providers Care Teaching Manager Name Role Phone Unavailable Primary Care Provider Unavailabl e Encounter Details Date Type Department Care Team (Late st Contact Info) Description 06/01/2024 Abstract [facility] [address] [facility] [address] Collin Barraza DO [address] [place] [address] Dr Kayy Mark, [facility] Social History Tobacco Use Types Packs/Day Years [...] AM EDT Routine [facility] [address] [facility] [address] Peggy Morgan PA [address] [place], [place] [phone] documented as of this encounter Visit Diagnoses Not on filedocumented in this encounter
--- OUTSIDE RECORDS SUMMARY | 2025-01-02 19:52 | XMS_ITS | Encounter Summary ---
Author Organization [facility] Address [address] [place] [address] Care Team Providers Care Electric Car Operator Name Role Phone Unavailable Primary Care Provider Unavailabl e Encounter Details Date Type Department Care Team (Late Contact Info) Description 01/25/2024 Clinisync Result Encounter [facility] External Department Unsolicited Quintin Barraza DO [address], [place] [address] Social History Tobacco Use Types Packs/Day Years [...] AM EDT Routine [facility] [address] [facility] [place] [address] Peggy Morgan PA [address] [facility] [place] [address] documented as of this encounter Procedures Procedure Name Priority Date/Time Associated Diagnosis Comments US PELVIS TRANSVAGINAL 01/25/2024 8:09 AM EDT documented in this encounter Results * US PELVIS TRANSVAGINAL (01/25/2024 8:09 AM EDT) Anatomical Region Laterality Modality Other 01/25/2024 8:09 AM EDT Narrative 01/25/2024 8:11 AM EDT [address] [address] Ultrasound Report Signed Patient: Flavia Reynoso MR#: [id number] : 2005 Acct:[id number] Age/Sex: 18 / F ADM Date: 01/24/24 Loc: US Attending Dr: Quintin Barraza D.O. Ordering Physician: Quintin Barraza D.O. Date of Service: 01/24/24 Procedure(s): US pelvis transvaginal Accession Number(s): [id number] cc: Quintin Barraza D.O.; Physician,Non-Staff Marquez [address] [id number] Patient Name: FLAVIA REYNOSO MRN: [id number] date: 2005 Sex: F Assigned Patient Location: US Current Patient Location: Accession/Order Number: [id number] Exam Date: 01/24/2024 09:08 Report Date: 01/25/2024 08:09 At the request of: QUINTIN BARRAZA Procedure: US pelvis transvaginal EXAM: Pelvic ultrasound HISTORY: . pelvic pain . COMPARISON: None. TECHNIQUE: Transvaginal scanning was performed FINDINGS: Scanning of the pelvis demonstrates a retroverted uterus measuring 7 x 5.2 x 3.6 cm. Endometrial complex measures 4 mm. Right ovary measures 3.7 x 1.7 x 1.5 cm. Color-flow is noted. No masses are noted. Small follicles are noted. Left ovary measures 2.7 x 1.1 x 1.4 cm. Color-flow is noted. Small follicles are noted. There is a small amount of free fluid in the cul-de-sac. US/US pelvis transvaginal IMPRESSION: 1. Normal-appearing uterus and endometrial complex. Uterus is retroverted. 2. Normal-appearing ovaries. The previously noted cystic area in the right ovary has resolved. 3. Small amount of fluid in the cul-de-sac. Electronically authenticated by: BRE BUNCH Date: 01/25/2024 08:09 Dictated By: Bre Bunch M.D. Signed By: 01/25/24810 DD/ 8 TD/TT: Sexual Abuse Counsellor: Procedure Note Radiology, Radiologist, - 01/25/2024 [place] [address] Ultrasound Report Signed Patient: Flavia Reynoso MMR#: [id number] : 2005Acct:[id number] Age/Sex: 18 / FADM Date: 01/24/24 Loc: US Attending Dr: Quintin Barraza D.O. Ordering Physician: Quintin Barraza D.O. Date of Service: 01/24/24 Procedure(s): US pelvis transvaginal Accession Number(s): [id number] cc: Quintin Barraza D.O.; Physician,Non-Staff [place] [id number] Patient Name: FLAVIA REYNOSO MRN: [id number] date: 2005 Sex: F Assigned Patient Location: Current Patient Location: Accession/Order Number: [id number] Exam Date: 01/24/2024 09:08 Report Date: 01/25/2024 08:09 At the request of: QUINTIN BARRAZA Procedure: US pelvis transvaginal EXAM: Pelvic ultrasound HISTORY: . pelvic pain . COMPARISON: None. TECHNIQUE: Transvaginal scanning was performed FINDINGS: Scanning of the pelvis demonstrates a retroverted uterusmeasuring 7 x 5.2 x 3.6 cm. Endometrial complex measures 4 mm. Right ovary measures 3.7 x 1.7 x 1.5 cm. Color-flow is noted. No massesare noted. Small follicles are noted. Left ovary measures 2.7 x 1.1 x 1.4 cm. Color-flow is noted. Smallfollicles are noted. There is a small amount of free fluid in the cul-de-sac. US/US pelvis transvaginal IMPRESSION: 1. Normal-appearing uterus and endometrial complex. Uterus is retroverted. 2. Normal-appearing ovaries. The previously noted cystic area in the right ovary has resolved. 3. Small amount of fluid in the cul-de-sac. Electronically authenticated by: BRE BUNCH Date: 01/25/2024 08:09 Dictated By: Bre Bunch M.D. Signed By:01/25/24 0811 DD/ 0809 TD/TT: Sexual Abuse Counsellor: us Quintin Christi DO [facility] Final Result documented in this encounter Visit Diagnoses Not on filedocumented in this encounter
--- OUTSIDE RECORDS SUMMARY | 2025-01-02 19:52 | XMS_ITS | Encounter Summary ---
Author Organization [facility] Address [address] [place] [address] Care Team Providers Care Nodulizer Name Role Phone Unavailable Primary Care Provider Unavailabl e Encounter Details Date Type Department Care Team (Late st Contact Info) Description 10/25/2024 Abstract [facility] OB [address] [facility] [place] [address] Collin Barraza DO [address] [facility] [address] Kayy Mark, [facility]11 Social History Tobacco Use Types Packs/Day [...] Description 01/09/2025 8:40 AM EDT Routine [facility] OB [address] [facility] [place] [address] Peggy Morgan PA [address] [facility] [address] [place], [place] [phone] documented as of this encounter Visit Diagnoses Not on filedocumented in this encounter
--- OUTSIDE RECORDS SUMMARY | 2025-01-02 19:52 | XMS_ITS | Encounter Summary ---
Author Organization [facility] Address [address] [place] [address] Care Team Providers Care Dining Room Cashier Name Role Phone Unavailable Primary Care Provider Unavailabl e Encounter Details Date Type Department Care Team (Late st Contact Info) Description 07/10/2024 Abstract [facility] OB [address] [facility] [place] [address] Collin Barraza DO [address] [facility] [address] Kayy Mark, [id number] Social History Tobacco Use Types Packs/Day Years [...] Description 01/09/2025 8:40 AM EDT Routine [facility] OB [address] [facility] [place] [address] Peggy Morgan PA [address] [facility] [address] [place], [place] [phone] documented as of this encounter Visit Diagnoses Not on filedocumented in this encounter
--- OUTSIDE RECORDS SUMMARY | 2025-01-02 19:52 | XMS_ITS | Encounter Summary ---
Author Organization [facility] Address [address] [place] [address] Care Team Providers Care Medical Scientific Liaison Name Role Phone Unavailable Primary Care Provider Unavailabl e Encounter Details Date Type Department Care Team (Late st Contact Info) Description 10/13/2024 Abstract [facility] OB [address] [facility] [place] [address] Collin Barraza DO [address] [facility] [address] Kayy Mark, [facility]11 Social History Tobacco Use Types Packs/Day Years [...] Description 01/09/2025 8:40 AM EDT Routine [facility] OB [address] [facility] [place] [address] Peggy Morgan PA [address] [facility] [address] [place], [place] [phone] documented as of this encounter Visit Diagnoses Not on filedocumented in this encounter
--- OUTSIDE RECORDS SUMMARY | 2025-01-02 19:52 | XMS_ITS | Patient Health Record ---
Author Organization [facility] vices Address [address] [place], [place] [id number] Care Team Providers Care Snuff Box Finisher Name Role Phone Virginia Robins Primary Care Provider Reyna Camacho Unavailable [phone] Allergies Allergen (clinical drug ingredient) Drug/Non Drug Allergy documented on EMR Reaction Allergy Type Onset Date Status CHEESEBALLS (uncoded) Unknown Allergy Active Dust Mite Mixed Allergen Ext Unknown Drug Allergy Active Cat dander Cat Dander Unknown Allergy Active Soybean-containing Drug Products Unknown Drug Allergy Active Substance with sulfonamide structure and antibacterial mechanism of action (substance) Sulfa Antibiotics Unknown Drug Allergy Active Results Component Value Reference Range Notes CBC W/AUTO DIFF Reviewed date:05/30/2024 05:38:51 PM Interpretation: Performing Lab: Notes/Report: WBC 8.2 3.6-11.0 THDS/CMM RBC 4.82 3.80-5.20 MILL/CMM HGB 15.2 11.9-16.0 G/DL HCT 41.9 35-47 % MCV 87 75-100 fL MCH 31.5 26.0-33.0 pg MCHC 36.3 32.0-35.0 g/dl RDW 12.9 11.2-14.8 % PLATELET 312 140-440 THOUS/CMM NEUTROPHILS 52.7 45-75 % LYMPHOCYTES 39.0 20-45 % MONOCYTES 6.4 0-13 % EOSINOPHILS 1.1 0-5 % BASOPHILS 0.6 0-2 % IMMATURE GRAN 0.2 0-2 % ABS NEUTROPHILS 4.30 1.9-8.0 K/uL ABS LYMPHOCYTES 3.18 0.9-5.2 K/uL ABS MONOCYTES 0.52 0.1-1.0 K/uL ABS EOSINOPHILS 0.09 0.0-0.80 K/uL ABS BASOPHILS 0.05 0.0-0.2 K/uL ABS IMMATURE GRAN 0.02 0.00-0.06 K/uL TOTAL HCG Reviewed date:05/30/2024 05:38:51 PM Interpretation: Performing Lab: Notes/Report: TOTAL HCG 5317 NON <5 Weeks of Gestation 3 6 - 71 4 10 - 750 5 217 - 6034 6 158 - 83987 7 7237 - 126915 8 82628 - 325993 9 38875 - 503352 10 66281 - 267869 12 16352 - 368764 14 07225 - 84481 15 46572 - 72561 16 7522 - 54900 17 6197 - 93849 18 4541 - 81235 Persistent serum HCG elevations in the absence of other confirmatory clinical or diagnostic information should be carefully evaluated. UNLESS OTHERWISE INDICATED, ALL TESTING PERFORMED AT: [facility] [address] [place] [address] BEN DAY ARTIST: GRUPO VALLES M.D. CLIA NUMBER [id number] CAP ACCREDITATION AUID [id number] Changes in testing location may be associated with reference range changes for a number of analytes. Please review reference intervals carefully. FERRITIN Reviewed date:05/30/2024 05:38:51 PM Interpretation: Performing Lab: Notes/Report: FERRITIN 78 13-200 ng/mL IRON BINDING CAPACITY (IBC) IRON AND % SATURATION Reviewed date:05/30/2024 05:38:51 PM Interpretation: Performing Lab: Notes/Report: UNSATURATED IBC 218 112-347 ug/dL IRON BINDING 286 250-450 ug/dL IRON SATURATION 24 13-45 % IRON 68 37-145 ug/dL COMPREHENSIVE METABOLIC PANE L (AMA) Reviewed date:05/30/2024 05:38:51 PM Interpretation: Performing Lab: Notes/Report: GLUCOSE 79 65-125 mg/dL SODIUM 139 135-148 mmol/L POTASSIUM 3.6 3.5-5.4 mmol/L CHLORIDE 98 96-107 mmol/L CO2 20 18-32 mmol/L BUN 7 6-20 mg/dL CREATININE, BLOOD 0.59 0.51-1.15 mg/dL eGFR (2020 CKD-EPI) 133 >59 mL/min/1.73m2 CALCIUM 9.3 8.6-10.5 mg/dL T. PROTEIN 7.5 6.0-8.3 g/dL ALBUMIN 4.8 3.5-5.2 g/dL GLOBULIN 2.7 1.8-3.8 g/dL A/G RATIO 1.8 1.0-2.5 RATIO ALK PHOS 77 38-148 U/L AST-SGOT 20 9-40 U/L ALT-SGPT 15 5-33 U/L T. BILIRUBIN 0.5 <1.3 mg/dL Urine Test Reviewed date:05/29/2024 02:28:46 PM Interpretation: Performing Lab: Notes/Report: Result positive Reason For Referral Reason recurring wart Diagnosis 1 Wart of hand (B07.9) Referral Organization [facility] Referring Provider First Name Virginia Referring Provider Last Name Julienne Referring Provider Speciality Nurse Hannah bonds Referred Provider [facility] Referred Provider Specialty Dermatology General Notes Divina Wright 05/2024 08:54:48 AM >{{TOFIRSTNAME}} This is [facility] following up on multiple outstanding orders and/or referrals that were ordered by your provider. Please call our office at so we can _update our records., Divina Wright 02/25/2024 09:05:30 AM >No response from patient, closing referral per protocol. Referral Priority Routine Medications Medication SIG (Take, Route, Frequency, Duration) Notes Start Date End Date Status Albuterol Sulfate HFA 108 (90 Base) MCG/ACT 1 puff Inhalation every 6 hrs as needed for 30 days As needed 11/03/2023 Active Cephalexin 500 MG 1 capsule Orally charissa ry 6 hrs 05/25/2024 Active Qvar RediHaler 80 MCG/ACT Inhalation for 60 Days Active Ibuprofen 200 MG 1 tablet with food o r milk as needed Oral Three times a day for 8 days Active Immunizations Vaccine Route Administration Date Status Comme nts *Tdap (Adacel)-Private IM Intramuscular 12/24/2023 Adminis tered Social History Tobacco Use: Social History Observation Description Date Details (start date - stop date) Never Smoker NA - NA Sex Assigned At : Social History Observation Description Sex Assigned At Female Tobacco Use/Smoking Question Answer Notes Tobacco use: nonsmoker patient enter ed data CAGE-AID Questionnaire (2018 Edition) Question Answer Notes Have you ever felt that you ought to cut down on your drinking or drug use? No patient entered data Have people annoyed you by c riticizing your drinking or drug use? No patient entered data Have you ever felt bad or gu ilty about your drinking or drug use? No patient entered data Have you ever had a drink or used drugs first thing in the morning to steady your nerves or to get rid of a hangover? No patient entered data CAGE-AID Score 0 Interpretation Negative PRAPARE Question Answer Notes Date Completed/Updated: 11/03/2023 silvia nt entered data What is your current housing situation? I have housing patient entered data Are you worried about losing your housing? No patient entered data What is the highest level of school that you have finished? 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 Check all that apply I do not have problems meeting my needs Has lack of transportation k ept you from medical appointments, meetings, work or from getting things needed for daily living? No How often do you see or talk to people that you care about and feel close to? (For example: talking to friends on the phone, visiting friends or family, going to yazidi or club meetings) More than 5 times a week patient entered data How stressed are you? Stress is when someone feels tense, nervous, anxious, or can't sleep at night because their mind is troubled A little bit patient entered data In the past year have you sp ent more than 2 nights in a row in a retirement, half-way, fdc center, or juvenile correctional facility? No patient entered data Are you a refugee? No patient en tered data What country are you from? [place] esther ledesma entered data Do you feel physically and emotionally safe where you currently live? Yes patient entered data In the past year, have you b een afraid of your partner or ex-partner? No patient entered data PRAPARE Score: 4 Problems Problem Type SNOMED Code ICD Code Onset Dates Problem Status W/U Status Risk Notes Problem Asthma (070442199) Asthma (J45.909) Active confirmed Problem Mild intermittent asthma (776229740) Mild intermittent asthma in adult without complication (J45.20) Active confirmed -CW rescue inhaler as needed, refilled, avoid known triggers and f/u as needed Vital Signs Heart Rate 88 /min 05/29/2024 Hernández, Ser vando 05/29/2024 02:21:21 PM EST > Temperature 97.0 degrees Fahrenheit 05/29/2024 Tamara tyler Navjot 05/29/2024 02:21:21 PM EST > Respiratory Rate 18 /min 05/29/2024 Hernández, Navjot 05/29/2024 02:21:21 PM EST > Blood pressure diastolic 82 mm Hg 05/29/2024 Jyoti doanaly, Navjot 05/29/2024 02:21:21 PM EST > Oximetry 97 % 05/29/2024 Hernández, Ser vando 05/29/2024 02:21:21 PM EST > Height-cm 162.56 cm 05/29/2024 Hernández, Ser vando 05/29/2024 02:21:21 PM EST > Weight-kg 60.33 kg 05/29/2024 Hernández, Ser vando 05/29/2024 02:21:21 PM EST > Height 64 in 05/29/2024 Hernández, Ser vando 05/29/2024 02:21:21 PM EST > BMI Percentile 62.4 % 05/29/2024 Hernández, S berenice 05/29/2024 02:21:21 PM EST > Blood pressure systolic 131 mm Hg 05/29/2024 Tamara tyler, Navjot 05/29/2024 02:21:21 PM EST > Weight 133 lbs 05/29/2024 Hernández, Ser vando 05/29/2024 02:21:21 PM EST > BMI 22.83 kg/m2 05/29/2024 Hernández, Ser vando 05/29/2024 02:21:21 PM EST > Encounters Encounter Location Date Provider Diagnosis Main [address] [place] [id number] 01/17/2024 Virginia Robins Wart of hand B07.9 Main [address] [place] [id number] 05/29/2024 Reyna [facility] Possible Z32.00 ; Screening for cardiovascular condition Z13.6 ; Chronic fatigue R53.82 and BMI (body mass index), pediatric, 5% to less than 85% for age Z68.52 Main [address] [place] [id number] 05/30/2024 Reyna [facility] Assessments Encounter Date Diagnosis (ICD Code) Assessment Notes Treatment Notes Treatment Clinical Notes Section Notes 01/17/2024 Wart of hand (ICD-10 - B07.9) has tried kyrotherpay in the past as well as multuple other OTC wart medicaitons with no success referral to derm placed 05/29/2024 Possible (ICD-10 - Z32.00) Pt in-office for test, positive result. Pt follows w/ Dr. Barraza for OBGYN, has appt June 23 for USN 05/29/2024 Screening for cardiovascular condition (ICD-10 - Z13.6) Pt desires labs to assess current health status 05/29/2024 Chronic fatigue (ICD-10 - R53.82) Assessing pt's iron per pt request 05/29/2024 BMI (body mass index), pediatric, 5% to less than 85% for age (ICD-10 - Z68.52) Plan Of Treatment No Information Insurance Providers Payer Name Payer Address Payer Phone Subscriber Number Group Number Insured Name Patient Relationship to Insured Coverage Start Date Coverage End Date [facility] [address] [address] [place], [place] [phone] [id number] Robyn Condon Child - Insured does not have Financial Responsibility (includes legally adopted child) 0 Medical (General) History Medical History History ICD Code Asthma Gastroesophageal reflux disease
--- OUTSIDE RECORDS SUMMARY | 2025-01-02 19:52 | XMS_ITS | Encounter Summary ---
Author Organization [facility] Address [address] [place] [address] Care Team Providers Care Traffic Signal Supervisor Maintenance Name Role Phone Unavailable Primary Care Provider Unavailabl e Encounter Details Date Type Department Care Team (Late st Contact Info) Description 06/30/2024 Abstract [facility] [address] [address] Collin Barraza DO [address] [facility] [address] Kay[address] Mark, [facility] Social History Tobacco Use Types Packs/Day [...] Description 01/09/2025 8:40 AM EDT Routine [facility] OB [address] [place] [address] Peggy Morgan PA [address] [facility] [address] [place], [place] [id number] documented as of this encounter Visit Diagnoses Not on filedocumented in this encounter
--- OUTSIDE RECORDS SUMMARY | 2025-01-02 19:52 | XMS_ITS | Clinical Summary ---
Author Organization [facility] Address [address] [place] [address] Care Team Providers Care Yoker Machine Operator Name Role Phone High, [facility] Primary Care Provider Unavailabl e Allergies Active Allergy Reactions Criticality Noted Date Comments Cephalexin Hives High 02/24/2018 Other Hives High 02/24/2018 Mother states child has an allergy to seafood, cheese ball, cat and some dogs, dust mites. Sulfa Antibiotics 02/24/2015 Medications albuterol (PROVENTIL HFA;VENTOLIN HFA) 108 (90 BASE) MCG/ACT inhaler Inhale 2 puffs into the lungs every 6 hours as needed for Wheezing Active ibuprofen (ADVIL;MOTRIN) 200 MG tablet Take 200 mg by mouth every 6 hours as needed for Pain Active amitriptyline (ELAVIL) 10 MG tablet take 1 tablet by mouth at bedtime 01/20/2021 Active norgestimate-et hinyl estradiol (ORTHO-CYCLEN) 0.25-35 MG-MCG per tablet Take 1 tablet by mouth daily Active topiramate (TOPAMAX) 25 MG tablet Take 1/2 tablet nightly for 2 weeks then increase to 1 tablet nightly to continue. 30 tablet 3 03/12/2022 Active Active Problems Problem Noted Date Diagnosed Date Concussion with no loss of consciousness 018 Post-traumatic headache, not intractable 018 Dizziness 02/16/2018 Social History Tobacco Use Types Packs/Day Years Used Date Smoking Tobacco: Passive Smo ke Exposure - Never Smoker Smokeless Tobacco: Never Comments:family smokes outsi de Alcohol Use Standard Drinks/Week Comments No 0 (1 standard drink = 0.6 oz pur e alcohol) Comments Unknown Sex and Gender Information Value Date Recorded Sex Assigned at Not on file Legal Sex Female 5:05 PM EST Gender Identity Not on file Sexual Orientation Not on file Last Filed Vital Signs Vital Sign Reading Time Taken Comments Blood Pressure 123/76 07/28/2018 8:21 AM EST Pulse 65 07/28/2018 8:21 AM EST Temperature 36.4 C (97.5 F) 02/16/2018 8:26 AM EDT Respiratory Rate 17 02/24/2015 3:34 PM EDT Oxygen Saturation 100% 02/24/2015 3:34 PM EDT Inhaled Oxygen Concentration - - Weight 61.1 kg (134 lb 9.6 oz) 07/28/2018 8:21 A M EST Height 162.6 cm (5' 4 ) 07/28/2018 8:21 AM EST Body Mass Index 23.1 07/28/2018 8:21 AM EST Plan of Treatment Health Maintenance Due Date Last Done Comments DTaP/Tdap/Td vaccine (6 - Tdap) 2015 08/01/2008, 01/20/2006, 01/03/2005, Additional history exists Depression Screen 2016 HIV screen 2019 HPV vaccine (1 - 3-dose series) 2019 Chlamydia/GC screen 2020 Meningococcal B vaccine (1 of 2 - Standard) 2020 Hepatitis C screen 2022 COVID-19 Vaccine ( season) 2024 Flu vaccine (#1) 01/19/2025 Hepatitis B vaccine Completed 01/03/2005, 2004, 2004 Hib vaccine Completed 09/07/2005, 12/19, 2004, Additional history exists Pneumococcal 0-49 years Vaccine Aged Out 09/07/2005, 01/03/2005, 2004, Additional history exists No longer eligible based on patient's age to complete this topic Measles,Mumps,Rubella (MMR) vaccine Discontinued 08/01/2008, 07/09/2005 Polio vaccine Completed 08/01/2008, 12/19, 2004, Additional history exists Varicella vaccine Completed 08/01/2008, 07/09/2005 Hepatitis A vaccine Completed 09/09/2009, 9 Meningococcal (ACWY) vaccine Aged Out 01/27/2017 No longer eligible based on patient's age to complete this topic Insurance [address] [address] [place] [address] UMR Care Teams Yoker Machine Operator Relationship Specialty Start Date End Date High, Generic NO FAMILY DOC ONLY PCP - General 02/24/18
--- OUTSIDE RECORDS SUMMARY | 2025-01-02 19:52 | XMS_ITS | Encounter Summary ---
Author Organization [facility] Address [address] [place] [address] Care Team Providers Care Stencil Sprayer Name Role Phone Unavailable Primary Care Provider Unavailabl e Encounter Details Date Type Department Care Team (Late st Contact Info) Description 01/02/2025 Bamboo flowsheet [facility] [address] [facility] [facility] [place] [address] Collin Barraza DO [address] [facility] [address] Mark, [place] [address] Social History Tobacco Use Types Packs/Day Years [...] AM EDT Routine [facility] [address] [facility] [facility] [place] [address] Peggy Morgan PA [address] [place], [place] [address] documented as of this encounter Visit Diagnoses Not on filedocumented in this encounter
--- OUTSIDE RECORDS SUMMARY | 2025-01-02 19:53 | XMS_ITS | Encounter Summary ---
Author Organization [facility] Address [address] [place] [address] Care Team Providers Care Restoration Silversmith Name Role Phone Unavailable Primary Care Provider Unavailabl e Encounter Details Date Type Department Care Team (Late st Contact Info) Description 09/11/2024 Abstract [facility] OB [address] [facility] [place] [address] Collin Barraza DO [address] [facility] [address] Kayy Mark, [facility] [...] Description 01/09/2025 8:40 AM EDT Routine [facility] OB [address] [place] [address] Peggy Morgan PA [address] [facility] [address] [place], [place] [id number] documented as of this encounter Visit Diagnoses Not on filedocumented in this encounter
--- OUTSIDE RECORDS SUMMARY | 2025-01-02 19:53 | XMS_ITS | Encounter Summary ---
Author Organization [facility] Address [address] [place] [address] Care Team Providers Care Inspector Assemblies And Installations Name Role Phone Unavailable Primary Care Provider Unavailabl e Encounter Details Date Type Department Care Team (Late st Contact Info) Description 08/23/2024 Abstract [facility] [address] [facility] [place] [address] Pia Adkins LPN Social History Tobacco Use Types Packs/Day Years [...] AM EDT Routine [facility] [address] [facility] [place] [address] Peggy Morgan PA [address] [place], [place] [id number] documented as of this encounter Visit Diagnoses Not on filedocumented in this encounter
--- OUTSIDE RECORDS SUMMARY | 2025-01-02 19:53 | XMS_ITS | Encounter Summary ---
Author Organization [facility] Address [address] [place] [address] Care Team Providers Care Certified Juvenile Probation Officer Name Role Phone Unavailable Primary Care Provider Unavailabl e Encounter Details Date Type Department Care Team (Late st Contact Info) Description 08/21/2024 Abstract [facility] OB [address] [facility] [facility] [place] [address] Collin Barraza DO [address] [facility] [address] Kay[address] Mark, [id number] Social History Tobacco Use Types Packs/Day Years [...] Description 01/09/2025 8:40 AM EDT Routine [facility] OB [address] [facility] [facility] [place] [address] Peggy Morgan PA [address] [facility] [address] [place], [place] [id number] documented as of this encounter Visit Diagnoses Not on filedocumented in this encounter
--- OUTSIDE RECORDS SUMMARY | 2025-01-02 19:53 | XMS_ITS | Encounter Summary ---
Author Organization [facility] Address [address] [place] [address] Care Team Providers Care Scanning Supervisor Name Role Phone Unavailable Primary Care Provider Unavailabl e Encounter Details Date Type Department Care Team (Late st Contact Info) Description 07/11/2024 Abstract [facility] OB [address] [facility] [address] Collin Barraza DO [address] [facility] [address] Kay[address] Mark, [facility] [...] Description 01/09/2025 8:40 AM EDT [facility] OB [address] [facility] [address] [address] Peggy Morgan PA [address] [facility] [facility] [address] [place], [place] [id number] documented as of this encounter Visit Diagnoses Not on filedocumented in this encounter
== END 2025-01-02 19:45 | disposition home or self-care (01) ==
LOC: LAB 19:44
PROVIDERS: Visit Provider Obstetrics & Gynecology
DX: Z34.93 Encounter for supervision of normal pregnancy, unspecified, third trimester (principal)
CPT/HCPCS: 87081

== ENCOUNTER 2025-01-11 00:39 | Observation (INO) | payer OTHER, SELFPAY ==
--- OUTSIDE RECORDS SUMMARY | 2025-01-11 00:44 | XMS_ITS | CCD ---
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 COMPARISON: 08/23/2024 The cervix is closed. The estimated length with the transvaginal probe is approximately 5.9 cm. IMPRESSION: NORMAL CLOSED CERVIX. Impression dictated by: Clarisse Reza M.D.09/19/2024 11:53 AM Dictation Location: [place] [address] Electronically authenticated by: [id number] Y Date: 09/19/2024 11:53 Dictated By: Clarisse Reza M.D. Signed By: 09/19/24 1156 DD/ 1153 TD/TT: Manager Long Term Care: [facility] OB PLACENTAon 09-19-2024 [place] [address] Ultrasound Report Signed Patient: FLAVIA TUCKER MR#: [id number] : 2005 Acct:[id number] Age/Sex: 19 / F ADM Date: 09/19/24 Loc: US Attending Dr: Collin Barraza D.O. Ordering Physician: Collin Barraza D.O. Date of Service: 09/19/24 Procedure(s): US OB placenta Accession Number(s): [id number] cc: Collin Barraza D.O.; Physician,Non-Staff [place] [id number] Patient Name: FLAVIA TUCKER MRN: [id number]:[id number] date: 2005 Sex: F Assigned Patient Location: Current Patient Location: US Accession/Order Number: [id number] Exam Date: 09/19/2024 11:48 Report Date: 09/19/2024 11:53 At the request of: COLLIN BARRAZA DO Procedure: US OB cervical length CLINICAL DATA: Low lying placenta OB ULTRASOUND PLACENTA COMPARISON: 08/23/2024 There is a single live intrauterine gestation in cephalic presentation. There is cardiac and somatic activity with heart rate of 153 bpm. There is a posterior placenta which is within normal limits for appearance and position. The placenta is approximately 3 cm from the internal cervical os. The amniotic fluid volume appears subjectively normal. US/US OB placenta IMPRESSION: NO SIGNIFICANT PLACENTAL ABNORMALITIES. OB ULTRASOUND CERVIX COMPARISON: 08/23/2024 The cervix is closed. The estimated length with the transvaginal probe is approximately 5.9 cm. IMPRESSION: NORMAL CLOSED CERVIX. Impression dictated by: Clarisse Reza M.D.09/19/2024 11:53 AM Dictation Location: [place] [address] Electronically authenticated by: [id number] Y Date: 09/19/2024 11:53 Dictated By: Clarisse Reza M.D. Signed By: 09/19/24 1156 DD/ 1153 TD/TT: Manager Long Term Care: [facility] Radiology, Radiologist, MD - 09/19/2024 [place] [address] Ultrasound Report Signed Patient: FLAVIA TUCKER MR#: [id number] : 2005 Acct:[id number] Age/Sex: 19 / F ADM Date: 09/19/24 Loc: US Attending Dr: Collin Barraza D.O. Ordering Physician: Collin Barraza D.O. Date of Service: 09/19/24 Procedure(s): US OB placenta Accession Number(s): [id number] cc: Collin Barraza D.O.; Physician,Non-Staff [place] [facility] [place] [id number] Patient Name: FLAVIA TUCKER MRN: [facility]:[id number] date: 2005 Sex: F Assigned Patient Location: US Current Patient Location: US Accession/Order Number: [id number] Exam Date: 09/19/2024 11:48 Report Date: 09/19/2024 11:53 At the request of: COLLIN BARRAZA DO Procedure: US OB cervical length CLINICAL DATA: Low lying placenta OB ULTRASOUND PLACENTA COMPARISON: 08/23/2024 There is a single live intrauterine gestation in cephalic presentation. There is cardiac and somatic activity with heart rate of 153 bpm. There is a posterior placenta which is within normal limits for appearance and position. The placenta is approximately 3 cm from the internal cervical os. The amniotic fluid volume appears subjectively normal. US/US OB placenta IMPRESSION: NO SIGNIFICANT PLACENTAL ABNORMALITIES. OB ULTRASOUND CERVIX COMPARISON: 08/23/2024 The cervix is closed. The estimated length with the transvaginal probe is approximately 5.9 cm. IMPRESSION: NORMAL CLOSED CERVIX. Impression dictated by: Clarisse Reza M.D.09/19/2024 11:53 AM Dictation Location: [place] [address] Electronically authenticated by: [id number] Y Date: 09/19/2024 11:53 Dictated By: Clarisse Reza M.D. Signed By: 09/19/24 1156 DD/ 1153 TD/TT: Manager Long Term Care: [facility] Urinalysis macro (dipstick) panel (U)on 09-19-2024 Bilirubin, UA Negative Negative - 4(70) +++ mg/dL [facility] Blood, UA Negative Negative - 50 Francois/mcL [facility] Clarity, UA Clear [facility] re Color, UA Yellow [facility] e Glucose, UA Negative Negative - 2000(110) ++++ mg/dL [facility] Interpretation and review of laboratory results Normal [facility] Ketones, UA Negative Negative - 160(16) ++++ mg/dL [facility] Leukocytes, UA Negative Negative - 500+++ Héctor/mcL [facility] Nitrite, UA Negative Negative - Positive [facility] pH, UA 6 5 - 9 [facility] e Protein, UA Negative Negative - 2000(20) ++++ mg/dL [facility] Spec Grav, UA 1.015 1 - 1.03 [facility] Urobilinogen, UA 0.2 0.2 - 12 [facility]/dL [facility] No Panel InformationOrdered By: Radiologist Radiology on 08-23-2024 [facility] Healthcar e Work Phone: No Panel Informationon 08-23 Radiology Study observation (narrative) [facility] US OB ANATOMYon 08-23-[address] [address] Ultrasound Report Signed Patient: FLAVIA TUCKER MR#: [id number] : 2005 Acct:[id number] Age/Sex: 19 / F ADM Date: 08/23/24 Loc: US Attending Dr: Collin Barraza D.O. Ordering Physician: Collin Barraza D.O. Date of Service: 08/23/24 Procedure(s): US OB anatomy Accession Number(s): [id number] cc: Collin Barraza D.O.; Physician,Non-Staff [place] [address] [address] Patient Name: FLAVIA TUCKER MRN: [facility]:[id number] date: 2005 Sex: F Assigned Patient Location: US Current Patient Location: US Accession/Order Number: [id number] Exam Date: 08/23/2024 22:46 Report Date: 08/23/2024 22:55 At the request of: COLLIN BARRAZA DO Procedure: US OB anatomy Anatomy ultrasound. Cervical length ultrasound. Reason for exam: Anatomy survey. COMPARISON: None. TECHNIQUE: Transabdominal as well as transvaginal imaging of the gravid uterus was obtained. FINDINGS: Single live intrauterine 18 weeks 4 days by anatomic measurements. Appropriate growth by dating. heart rate 149 bpm. JOYCELYN is subjectively normal. Placenta is posterior in location with tip approximately 1.3 cm from the internal os. Cervical length measures 4 cm without evidence of funneling. Anatomic survey demonstrates no abnormality of the cranial structures. Four-chamber heart is noted. Outflow tracts are grossly unremarkable. Normal Three-vessel umbilical cord is noted. Kidneys appear unremarkable. 4 extremities are noted. Nasal bone appears present. No gross spinal abnormality is seen. US/US OB anatomy IMPRESSION: Normal anatomic survey. Single live intrauterine 18 weeks 4 days by anatomic measurements. Cervical length measures 4 cm without evidence of funneling. Tip of the placenta is approximately 1.3 cm from the internal os. Attention on follow-up is suggested. Impression dictated by: Idris Rivera Jr., D.O.08/23/2024 10:55 PM Dictation Location: [facility] Electronically authenticated by: [id number] Y Date: 08/23/2024 22:55 Dictated By: Idris Rivera M.D. Signed By: 08/23/248 DD/ 54 TD/TT: Manager Long Term Care: [facility] Radiology, Radiologist, - 08/23/2024 [place] [address] Ultrasound Report Signed Patient: FLAVIA TUCKER MR#: [id number] : 2005 Acct:[id number] Age/Sex: 19 / F ADM Date: 08/23/24 Loc: US Attending Dr: Collin Barraza D.O. Ordering Physician: Collin Barraza D.O. Date of Service: 08/23/24 Procedure(s): US OB anatomy Accession Number(s): [id number] cc: Collin Barraza D.O.; Physician,Non-Staff [place] The [address] [address] Patient Name: FLAVIA TUCKER MRN: [facility]:[id number] date: 2005 Sex: F Assigned Patient Location: US Current Patient Location: US Accession/Order Number: [id number] Exam Date: 08/23/2024 22:46 Report Date: 08/23/2024 22:55 At the request of: COLLIN BARRAZA DO Procedure: US OB anatomy Anatomy ultrasound. Cervical length ultrasound. Reason for exam: Anatomy survey. COMPARISON: None. TECHNIQUE: Transabdominal as well as transvaginal imaging of the gravid uterus was obtained. FINDINGS: Single live intrauterine 18 weeks 4 days by anatomic measurements. Appropriate growth by dating. heart rate 149 bpm. JOYCELYN is subjectively normal. Placenta is posterior in location with tip approximately 1.3 cm from the internal os. Cervical length measures 4 cm without evidence of funneling. Anatomic survey demonstrates no abnormality of the cranial structures. Four-chamber heart is noted. Outflow tracts are grossly unremarkable. Normal Three-vessel umbilical cord is noted. Kidneys appear unremarkable. 4 extremities are noted. Nasal bone appears present. No gross spinal abnormality is seen. US/US OB anatomy IMPRESSION: Normal anatomic survey. Single live intrauterine 18 weeks 4 days by anatomic measurements. Cervical length measures 4 cm without evidence of funneling. Tip of the placenta is approximately 1.3 cm from the internal os. Attention on follow-up is suggested. Impression dictated by: Idris Rivera Jr., D.O.08/23/2024 10:55 PM Dictation Location: [facility] Electronically authenticated by: [id number] Y Date: 08/23/2024 22:55 Dictated By: Idris Rivera M.D. Signed By: 08/23/242257 DD/ 54 TD/TT: Manager Long Term Care: [facility] US OB [place] [address] Ultrasound Report Signed Patient: FLAVIA TUCKER MR#: [id number] : 2005 Acct:[id number] Age/Sex: 19 / F ADM Date: 08/23/24 Loc: US Attending Dr: Collin Barraza D.O. Ordering Physician: Collin Barraaz D.O. Date of Service: 08/23/24 Procedure(s): US OB cervical length Accession Number(s): [id number] cc: Collin Barraza D.O.; Physician,Non-Staff [place] [address] Patient Name: FLAVIA TUCKER MRN: [facility]:[id number] date: 2005 Sex: F Assigned Patient Location: Current Patient Location: Accession/Order Number: [id number] Exam Date: 08/23/2024 22:46 Report Date: 08/23/2024 22:55 At the request of: COLLIN BARRAZA DO Procedure: US OB anatomy Anatomy ultrasound. Cervical length ultrasound. Reason for exam: Anatomy survey. COMPARISON: None. TECHNIQUE: Transabdominal as well as transvaginal imaging of the gravid uterus was obtained. FINDINGS: Single live intrauterine 18 weeks 4 days by anatomic measurements. Appropriate growth by dating. heart rate 149 bpm. JOYCELYN is subjectively normal. Placenta is posterior in location with tip approximately 1.3 cm from the internal os. Cervical length measures 4 cm without evidence of funneling. Anatomic survey demonstrates no abnormality of the cranial structures. Four-chamber heart is noted. Outflow tracts are grossly unremarkable. Normal Three-vessel umbilical cord is noted. Kidneys appear unremarkable. 4 extremities are noted. Nasal bone appears present. No gross spinal abnormality is seen. US/US OB cervical length IMPRESSION: Normal anatomic survey. Single live intrauterine 18 weeks 4 days by anatomic measurements. Cervical length measures 4 cm without evidence of funneling. Tip of the placenta is approximately 1.3 cm from the internal os. Attention on follow-up is suggested. Impression dictated by: Idris Rivera Jr., D.O.08/23/2024 10:55 PM Dictation Location: [place] [address] Electronically authenticated by: [id number] Y Date: 08/23/2024 22:55 Dictated By: Idris Rivera M.D. Signed By: 08/23/242257 DD/ 54 TD/TT: Manager Long Term Care: [facility] Radiology, Radiologist, MD - 08/23/2024 [place] [address] Ultrasound Report Signed Patient: FLAVIA TUCKER MR#: [id number] : 2005 Acct:[id number] Age/Sex: 19 / F ADM Date: 08/23/24 Loc: US Attending Dr: Collin Barraza D.O. Ordering Physician: Collin Barraza D.O. Date of Service: 08/23/24 Procedure(s): US OB cervical length Accession Number(s): [id number] cc: Collin Barraza D.O.; Physician,Non-Staff Cindy.William [facility] [place] [id number] Patient Name: FLAVIA TUCKER MRN: [facility]:[id number] date: 2005 Sex: F Assigned Patient Location: US Current Patient Location: US Accession/Order Number: [id number] Exam Date: 08/23/2024 22:46 Report Date: 08/23/2024 22:55 At the request of: COLLIN BARRAZA DO Procedure: US OB anatomy Anatomy ultrasound. Cervical length ultrasound. Reason for exam: Anatomy survey. COMPARISON: None. TECHNIQUE: Transabdominal as well as transvaginal imaging of the gravid uterus was obtained. FINDINGS: Single live intrauterine 18 weeks 4 days by anatomic measurements. Appropriate growth by dating. heart rate 149 bpm. JOYCELYN is subjectively normal. Placenta is posterior in location with tip approximately 1.3 cm from the internal os. Cervical length measures 4 cm without evidence of funneling. Anatomic survey demonstrates no abnormality of the cranial structures. Four-chamber heart is noted. Outflow tracts are grossly unremarkable. Normal Three-vessel umbilical cord is noted. Kidneys appear unremarkable. 4 extremities are noted. Nasal bone appears present. No gross spinal abnormality is seen. US/US OB cervical length IMPRESSION: Normal anatomic survey. Single live intrauterine 18 weeks 4 days by anatomic measurements. Cervical length measures 4 cm without evidence of funneling. Tip of the placenta is approximately 1.3 cm from the internal os. Attention on follow-up is suggested. Impression dictated by: Idris Rivera Jr., D.O.08/23/2024 10:55 PM Dictation Location: [facility] Electronically authenticated by: [id number] Y Date: 08/23/2024 22:55 Dictated By: Idris Rivera M.D. Signed By: 08/23/242257 DD/ 54 TD/TT: Manager Long Term Care: [facility] Urinalysis macro (dipstick) panel (U)on 08-21-2024 Bilirubin, UA Negative Negative - 4(70) +++ mg/dL [facility] Blood, UA Negative Negative - 50 Francois/mcL [facility] Clarity, UA Clear [facility] re Color, UA Yellow [facility] e Glucose, UA Negative Negative - 1999(110) ++++ mg/dL [facility] Interpretation and review of laboratory results Normal [facility] Ketones, UA Negative Negative - 160(16) ++++ mg/dL [facility] Leukocytes, UA Trace Negative - 500+++ Héctor/mcL [facility] Nitrite, UA Negative Negative - Positive [facility] pH, UA 7 5 - 9 [facility] e Protein, UA Negative Negative - 1999(20) ++++ mg/dL [facility] Spec Grav, UA 1.025 1 - 1.03 [facility] Urobilinogen, UA 0.2 0.2 - 12 mg/dL [facility] Healthcar e CBC AND AUTO DIFFon 08-17-19 25 ABSOLUTE BASOPHIL 0.0 X10E9/L Normal 0.0-0.2 [facility] Comment on above: Performed By: #### N UM #### [facility] ([id number]) [address] [place] [address]4567 ABSOLUTE NEUTROPHIL 6.1 X10E9/L Normal 1.5-6.6 [facility] Comment on above: Performed By: #### N UM #### [facility] ([id number]) [address] [place] [address] 39419 Basophils/100 WBC (Bld) 0.3 % Normal [facility] Comment on above: Performed By: #### N UM #### [facility] ([id number]) [address] [place] [address] 33221 Eosinophils (Bld) [#/Vol] 0.1 10*3/uL Normal 0.0-0.4 [facility] Comment on above: Performed By: #### N UM #### [facility] ([id number]) [address] [place] [address] 75501 Eosinophils/100 WBC (Bld) 1.1 % Normal [facility] Comment on above: Performed By: #### N UM #### [facility] ([id number]) [address] [place] [address] 94381 Erythrocyte distribution width (RBC) [Ratio] 13.9 % Normal 11.5-15.0 [facility] Comment on above: Performed By: #### N UM #### [facility] ([id number]) [address] [place] [address] 68248 Hematocrit (Bld) [Volume fraction] 36.7 % Normal 35-47 [facility] Comment on above: Performed By: #### N UM #### [facility] ([id number]) [address] [place] [address] 80855 Hemoglobin (Bld) [Mass/Vol] 13.0 g/dL Normal 11.7-15.5 [facility] Comment on above: Performed By: #### N UM #### [facility] ([id number]) [address] [place] [address] 20265 Lymphocytes (Bld) [#/Vol] 2.9 10*3/uL Normal 1.0-3.5 [facility] Comment on above: Performed By: #### N UM #### [facility] ([id number]) [address] [place] [address] 02218 Lymphocytes/100 WBC (Bld) 30.1 % Normal [facility] Comment on above: Performed By: #### N UM #### [facility] ([id number]) [address] [place] [address] 67189 MCH (RBC) [Entitic mass] 31.8 pg Normal 27-34 [facility] Comment on above: Performed By: #### N UM #### [facility] ([id number]) [address] [place] [address] 89135 MCHC (RBC) [Mass/Vol] 35.6 g/dL Normal 32-36 [facility] Comment on above: Performed By: #### N UM #### [facility] ([id number]) [address] [place] [address] 11470 MCV (RBC) [Entitic vol] 89 fL Normal 80-100 [facility] Comment on above: Performed By: #### N UM #### [facility] ([id number]) [address] [place] [address] 09497 Monocytes (Bld) [#/Vol] 0.5 10*3/uL Normal 0-0.9 [facility] Comment on above: Performed By: #### N UM #### [facility] ([id number]) [address] [place] [address] 14011 Monocytes/100 WBC (Bld) 4.8 % Normal [facility] Comment on above: Performed By: #### N UM #### [facility] ([id number]) [address] [place] [address] 70608 Neutrophils/100 WBC (Bld) 63.7 % Normal [facility] Comment on above: Performed By: #### N UM #### [facility] ([id number]) [address] [place] [address] 82514 Platelet mean volume (Bld) [Entitic vol] 7.8 fL Normal 7-12 [facility] Comment on above: Performed By: #### N UM #### [facility] ([id number]) [address] [place] [address] 16398 Platelets (Bld) [#/Vol] 249 10*3/uL Normal 150-450 [facility] Comment on above: Performed By: #### N UM #### [facility] ([id number]) [address] [place] [address] 99602 RBC COUNT 4.10 X10E12/L Normal 3.80-5.20 [facility] Comment on above: Performed By: #### N UM #### [facility] ([id number]) [address] [place] [address] 31035 WBC (Bld) [#/Vol] 9.6 10*3/uL Normal 4.0-11.0 [facility] Comment on above: Performed By: #### N UM #### [facility] ([id number]) [address] [place] [address] 88816 DRUG SCREEN, URINEon 025 AMPHETAMINE/METHAMP Negative Normal NEG [facility] Comment on above: Result Comment: AMPH /METH screening cut off = 1000 ng/mL Performed By: #### N UM #### [facility] ([id number]) [address] [place] [address] 92519 BARBITURATES Negative Normal NEG [facility] Comment on above: Result Comment: Jessica iturates screening cut off value = 200 ng/mL Performed By: #### N UM #### [facility] ([id number]) [address] [place] [address] 67321 BENZODIAZEPINES Negative Normal NEG [facility] Comment on above: Result Comment: Maikel odiazepines screening cut off value = 200 ng/mL Performed By: #### N UM #### [facility] ([id number]) [address] [place] [address] 87230 CANNABINOIDS Positive Abnormal NEG [facility] [facility] Comment on above: Result Comment: Conf irmation available upon request. Cannabinoids/THC screening cut off value = 50 ng/mL Performed By: #### N UM #### [facility] ([id number]) [address] [place] [address] 44646 COCAINE METABOLITE Negative Normal NEG [facility] Comment on above: Result Comment: Coca ine screening cut off value = 300 ng/mL Performed By: #### N UM #### [facility] ([id number]) [address] [place] [address] 06650 ECSTASY Negative Normal NEG [facility] Comment on above: Result Comment: Ecst asy screening cut off value = 500 ng/mL This report is intended for use in clinical monitoring or management of patients. Performed By: #### N UM #### [facility] ([id number]) [address] [place] [address] 60805 METHADONE Negative Normal NEG [facility] Comment on above: Result Comment: Meth adone screening cut off value = 300 ng/mL. Performed By: #### N UM #### [facility] ([id number]) [address] [place] [address] 14693 OPIATES Negative Normal NEG [facility] Comment on above: Result Comment: Opia reid screening cut off value = 300 ng/mL NOTE: This test is used for the detection of codeine, hydrocodone (>1000 ng/mL), morphine and hydromorphone (>900 ng/mL) in urine. Performed By: #### N UM #### [facility] ([id number]) [address] [place] [address] 06282 OXYCODONE Negative Normal NEG [facility] Comment on above: Result Comment: Oxyc odone screening cut off value = 300 ng/mL NOTE: This test is used for the detection of oxycodone and oxymorphone in urine. Performed By: #### N UM #### [facility] ([id number]) [address] [place] [address] 69754 PHENCYCLIDINE Negative Normal NEG [facility] Comment on above: Result Comment: Phen cyclidine screening cut off value = 25 ng/mL Performed By: #### N UM #### [facility] ([id number]) [address] [place] [address] 65783 HBV surface Ag IA Qlon 08-17 HEPATITIS B SURF AG Non-Reactive Normal NRCT [facility] Comment on above: Result Comment: NEW TEST METHOD Performed By: #### N UM #### [facility] ([id number]) [address] [place] [address] 82026 HCV Ab IA Qlon 08-17-2024 ANTI HCV W/PCR REFLX Non-Reactive Normal NRCT [facility] Comment on above: Result Comment: NEW TEST METHOD NOTE If recent infection suspected, recommend repeat testing (>2 months). Pxjgeu-nb-xfpstl ratio is <1.00. Performed By: #### N UM #### [facility] ([id number]) [address] [place] [address] 17448 HGB A1C (GLYCO-HGB)on 2024 Glucose [Mass/Vol] 85 mg/dL Normal [facility] Comment on above: Performed By: #### N UM #### [facility] ([id number]) [address] [place] [address] 28852 HbA1c (Bld) [Mass fraction] 4.6 % Normal 4.4-5.6 [facility] Comment on above: Result Comment: NOTE ADA Guidelines Result HgbA1c Normal : less than 5.7 % Prediabetes : 5.7 % to 6.4 % Diabetes : > 6.4 % Use with caution in patients with abnormal hemoglobin variants as the half-life of red blood cells and in vivo glycation rates are affected. Performed By: #### N UM #### [facility] ([id number]) [address] [place] [address] HIV 1+2 Ab+HIV1 p24 Ag IA Ql on 08-17-2024 HIV 1 and 2 Ab/Ag Screen Non-Reactive Normal NRCT [facility] Comment on above: Result Comment: NEW TEST METHOD NOTE This information has been disclosed to you [...] test results or diagnoses. Performed By: #### 2 106-3 #### [facility] ([id number]) [address] [place] [address] 29085 Rubella virus IgG Qn (S)on 0 08-17-2024 RUBELLA IgG 6 IU/mL Normal [facility] Comment on above: Result Comment: Interpretation-------- <8 NEGATIVE-considered Not Immune 8-9 EQUIVOCAL-consider retesting with new specimen >9 POSITIVE-considered Immune Performed By: #### 2 106-3 #### [facility] ([id number]) [address] [place] [address] T. pallidum IgG+IgM IA Ql (S )on 08-17-2024 Syphilis Total <0.2 Normal 0.0-0.8 [facility] Comment on above: Result Comment: NON REACTIVE No serologic evidence of infection to Treponema pallidum (syphilis). Repeat testing may be considered in patients with suspected acute or primary syphilis in 2 to 4 weeks. Performed By: #### 2 106-3 #### [facility] ([id number]) [address] [place] [address] 74295 URINE CULTUREon 08-17-2024 Bacteria identified Cx Nom (U) SPECIMEN NOTES URINE RECEIVED WITHOUT PRESERVATIVE CULTURE RESULTS <10,000 ORGANISMS/ML NORMAL URO GENITAL CHU Normal [facility] Comment on above: Performed By: #### 2 106-3 #### [facility] ([id number]) [address] [place] [address] 86558 Urinalysis macro (dipstick) panel (U)on 07-13-2024 Bilirubin, UA Negative Negative - 4(70) +++ mg/dL [facility] Blood, UA Negative Negative - 50 Francois/mcL [facility] Clarity, UA Clear [facility] Color, UA Yellow [facility] Glucose, UA Negative Negative - 1999(110) ++++ mg/dL [facility] Interpretation and review of laboratory results Abnormal [facility] Ketones, UA Negative Negative - 160(16) ++++ mg/dL [facility] Leukocytes, UA Negative Negative - 500+++ Héctor/mcL [facility] Nitrite, UA Negative Negative - Positive [facility] pH, UA 7 5 - 9 [facility] Protein, UA Trace Negative - 1999(20) ++++ mg/dL [facility] Spec Grav, UA 1.02 1 - 1.03 [facility] care Urobilinogen, UA 0.2 0.2 - 12 mg/dL [facility] BOX TESTon 06-30-2024 BOX TEST SENT OUT [facility] BOX1 [facility] B[facility]2 06/30/2024 [facility] HCG ( test) Ql (U)o n 06-23-2024 Interpretation and review of laboratory results Abnormal [facility] Preg Test, Ur Positive Negative [facility] US OB TRANSVAGINALon 025 US OB TRANSVAGINAL TITLE OF EXAM: US OB TRANSVAGINAL REASON FOR EXAM: Dating TECHNIQUE: Grayscale, color, and M-mode Doppler evaluation of the pelvis. COMPARISON: None. PATIENT : 2005 PREGNANCIES: : 1, Para: 0, Aborta: 0 LMP: 04/21/2024 BERT by LMP: 01/26/2025 GA by LMP: 9 weeks, 0 days FINDINGS: AUA: 9 weeks, 0 days (+/-6 days) BERT by US: 01/26/2025 Uterus: There is a gestational sac and 0.5 cm yolk sac within the uterine body/fundus. Live embryo within the gestational sac without evident abnormality. Gestational sac 3.7 x 2.8 x 3.8 cm (8 weeks, 4 days). [place] rump length is 2.2-2.3 cm (8 weeks, 6 days to 9 weeks, 0 days). heart rate is 168 bpm. No appreciable subchorionic hemorrhage or other abnormality. Cervical length 4.1 cm. Right ovary: 2.8 x 1.8 x 1.6 cm. Present color flow. No appreciable nodule/mass. Left ovary not visualized. IMPRESSION: Single live intrauterine gestation sonographically measuring 9 weeks, 0 days. No appreciable abnormality of the observed and maternal structures. DICTATED ON: 06/23/2024 9:04 AM This report has been electronically signed and approved by the interpreting radiologist. Normal Not Available Comment on above: Order Comment: US OB TRANSVAGINAL No LMP recorded. Urinalysis macro (dipstick) panel (U)on 06-23-2024 Bilirubin, UA Negative Negative - 4(70) +++ mg/dL [facility] Blood, UA Negative Negative - 50 Francois/mcL [facility] Clarity, UA Clear [facility] re Color, UA Yellow [facility] Glucose, UA Negative Negative - 1999(110) ++++ mg/dL [facility] Interpretation and review of laboratory results Abnormal [facility] Ketones, UA Positive Negative - 160(16) ++++ mg/dL [facility] Leukocytes, UA Negative Negative - 500+++ Héctor/mcL [facility] Nitrite, UA Negative Negative - Positive [facility] pH, UA 6.5 5 - 9 [facility] e Protein, UA Negative Negative - 1999(20) ++++ mg/dL [facility] Spec Grav, UA 1.03 1 - 1.03 [facility] Urobilinogen, UA 1.0 0.2 - 12 mg/dL [facility] Influenza virus B Ag [Presen ce] in Upper respiratory specimen by Rapid immunoassayon 03-25-2024 FLUBV Ag IA.rapid Ql (Nph) Negative [facility] No Panel Informationon 03-25 Influenza Type A (Rapid) Negative [facility] POC SARS CoV-[address] [facility] ALL CBC WITH AUTO DIFFon BASOPHILS ABSOLUTE AUTO 0.0 [facility] Basophils/100 WBC (Bld) 0.5 % 0.2 - 2.0 % [facility] Eosinophils/100 WBC (Bld) 2.9 % 0.9 - 7.0 % [facility] Erythrocyte distribution width (RBC) [Ratio] 12.0 % 11.0 - 15.0 % [facility] Hematocrit (Bld) [Volume fraction] 40.2 % 36.0 - 48.0 % [facility] e Hemoglobin (Bld) [Mass/Vol] 14.1 g/dL 12.0 - 16.0 g/dL [facility] IMMATURE GRANULOCYTES ABS AUTO 0.01 [facility] Immature granulocytes/100 WBC (Bld) 0.2 % 0.0 - 0.5 % [facility] Interpretation and review of laboratory results Abnormal [facility] LYMPHOCYTES ABSOLUTE AUTO 2.4 [facility] Lymphocytes/100 WBC (Bld) 43.0 % 20.5 - 60.0 % [facility] MCH (RBC) [Entitic mass] 30.8 pg 26.7 - 34.0 pg [facility] MCHC (RBC) [Mass/Vol] 35.1 g/dL 29.9 - 35.2 g/dL [facility] MCV (RBC) [Entitic vol] 87.8 fL 81.0 - 99.0 fL [facility] MONOCYTES ABSOLUTE AUTO 0.4 [facility] Monocytes/100 WBC (Bld) 7.1 % 1.7 - 12.0 % [facility] NEUTROPHILS ABSOLUTE AUTO 2.6 [facility] Neutrophils/100 WBC (Bld) 46.3 % 43.0 - 75.0 % [facility] Platelet mean volume (Bld) [Entitic vol] 8.6 fL Low 9.5 - 13.5 fL [facility] EO # 0.2 [facility] PLT 232 [facility] RBC 4.58 [facility] WBC 5.5 [facility] COMPLETE BLOOD COUNTon 12-23 Erythrocyte distribution width (RBC) [Ratio] 13.5 % Normal 11.5-15.0 [facility] Comment on above: Performed By: #### C MARTY THOMPSON, 45666-4, THYR, 66154-1, 85019-4 #### [facility] ([id number]) [address], [address] [place] [address] Hematocrit (Bld) [Volume fraction] 37.1 % Normal 35-47 [facility] Comment on above: Performed By: #### Kailyn THOMPSON CMP, 95508-5, THYR, 53661-5, 58748-4 #### [facility] ([id number]) [address], [address] [place] [address] Hemoglobin (Bld) [Mass/Vol] 13.1 g/dL Normal 11.7-15.5 [facility] Comment on above: Performed By: #### Kailyn THOMPSON CMP, 78918-0, THYR, 42838-7, 89912-9 #### [facility] ([id number]) [address], [address] [place] [address] MCH (RBC) [Entitic mass] 31.6 pg Normal 27-34 [facility] Comment on above: Performed By: #### C BC, CMP, 57049-3, THYR, 25526-7, 47371-7 #### [facility] ([id number]) [address], [facility] [address] [place] [address] MCHC (RBC) [Mass/Vol] 35.3 g/dL Normal 32-36 [facility] Comment on above: Performed By: #### C BC, CMP, 56195-0, THYR, 13297-2, 94251-3 #### [facility] ([id number]) [address] [place] [address] MCV (RBC) [Entitic vol] 90 fL Normal 80-100 [facility] Comment on above: Performed By: #### C BC, CMP, 75220-0, THYR, 23796-8, 86154-8 #### [facility] ([id number]) [address], [facility] [address] [place] [address] Platelet mean volume (Bld) [Entitic vol] 7.7 fL Normal 7-12 [facility] Comment on above: Performed By: #### C BC, CMP, 91434-4, THYR, 45433-6, 81519-6 #### [facility] ([id number]) [address] [place] [address] Platelets (Bld) [#/Vol] 242 10*3/uL Normal 150-450 [facility] Comment on above: Performed By: #### C BC, CMP, 58952-3, THYR, 33706-3, 06727-5 #### [facility] ([id number]) [address] [place] [address] RBC COUNT 4.13 X10E12/L Normal 3.80-5.20 [facility] Comment on above: Performed By: #### C BC, CMP, 69344-0, THYR, 46682-9, 29627-3 #### [facility] ([id number]) [address] [place] [address] WBC (Bld) [#/Vol] 6.7 10*3/uL Normal 4.0-11.0 [facility] Comment on above: Performed By: #### C BC, CMP, 01847-3, THYR, 63318-0, 49438-2 #### [facility] ([id number]) [address] [place] [address] COMPREHENSIVE METABOLIC PANE Grey 12-24-2023 Albumin [Mass/Vol] 4.4 g/dL Normal 3.2-5.3 [facility] Comment on above: Performed By: #### N UM #### [facility] ([id number]) [address] [place] [address] 31939 ALP [Catalytic activity/Vol] 64 U/L Normal 39-130 [facility] Comment on above: Performed By: #### N UM #### [facility] ([id number]) [address] [place] [address] 38778 ALT [Catalytic activity/Vol] 35 U/L High 0-31 [facility] Comment on above: Performed By: #### N UM #### [facility] ([id number]) [address] [place] [address] 66840 Anion gap [Moles/Vol] 10 mmol/L Normal 5-15 [facility] Comment on above: Performed By: #### N UM #### [facility] ([id number]) [address] [place] [address] 92732 AST [Catalytic activity/Vol] 23 U/L Normal 0-41 [facility] Comment on above: Performed By: #### N UM #### [facility] ([id number]) [address] [place] [address] 30291 Bilirubin [Mass/Vol] 0.6 mg/dL Normal 0.3-1.2 [facility] Comment on above: Performed By: #### N UM #### [facility] ([id number]) [address] [place] [address] 47801 Calcium [Mass/Vol] 9.3 mg/dL Normal 8.5-10.5 [facility] Comment on above: Performed By: #### N UM #### [facility] ([id number]) [address] [place] [address] 21684 Chloride [Moles/Vol] 104 mmol/L Normal 98-109 [facility] Comment on above: Performed By: #### N UM #### [facility] ([id number]) [address] [place] [address] 18764 CO2 [Moles/Vol] 24 mmol/L Normal 22-32 [facility] Comment on above: Performed By: #### N UM #### [facility] ([id number]) [address] [place] [address] 60390 Creatinine [Mass/Vol] 0.53 mg/dL Normal 0.40-1.00 [facility] Comment on above: Result Comment: METH OD TRACEABLE TO IDMS STANDARD Performed By: #### N UM #### [facility] ([id number]) [address] [place] [address] 81159 eGFR (CKD-EPI) NON-RACE DEPENDENT >90 Normal >59 [facility] Comment on above: Result Comment: Reported eGFR is based on the CKD-EPI 2020 equation that does not use a race coefficient. Performed By: #### N UM #### [facility] ([id number]) [address] [place] [address] 39136 Glucose [Mass/Vol] 61 mg/dL Low 65-99 [facility] Comment on above: Performed By: #### N UM #### [facility] ([id number]) [address] [place] [address] 64349 Potassium [Moles/Vol] 3.8 mmol/L Normal 3.5-5.0 [facility] Comment on above: Performed By: #### N UM #### [facility] ([id number]) [address] [place] [address] 11192 Protein [Mass/Vol] 7.2 g/dL Normal 6.0-8.0 [facility] Comment on above: Performed By: #### N UM #### [facility] ([id number]) [address] [place] [address] 93556 Sodium [Moles/Vol] 138 mmol/L Normal 134-146 [facility] Comment on above: Performed By: #### N UM #### [facility] ([id number]) [address] [place] [address] 50622 Urea nitrogen [Mass/Vol] 8 mg/dL Normal 5-23 [facility] Comment on above: Performed By: #### N UM #### [facility] ([id number]) [address] [place] [address] 11191 HCV Ab IA Qlon 12-24-2023 ANTI HCV W/PCR REFLX Non-Reactive Normal NRCT [facility] Comment on above: Result Comment: If recent infection suspected, recommend repeat testing (>2 months). Xbucrc-pk-byfbjx ratio is <0.80. Performed By: #### N UM #### [facility] ([id number]) [address] [place] [address] 09875 HIV 1+2 Ab+HIV1 p24 Ag IA Ql on 12-24-2023 HIV 1 and 2 Ab/Ag Screen Non-Reactive Normal NRCT [facility] Comment on above: Result Comment: This information [...] test results or diagnoses. Performed By: #### N UM #### [facility] ([id number]) [address] [place] [address] 43242 Lipid 1996 panelon 4 Cholesterol [Mass/Vol] 164 mg/dL Normal 150-200 [facility] Comment on above: Performed By: #### N UM #### [facility] ([id number]) [address] [place] [address] 70571 Cholesterol in HDL [Mass/Vol] 56 mg/dL Normal >39 [facility] Comment on above: Result Comment: HDL <40 mg/dL - High Risk HDL > or = 40mg/dL- Desirable HDL >60 mg/dL - Negative Risk Performed By: #### N UM #### [facility] ([id number]) [address] [place] [address] 44658 Cholesterol in LDL [Mass/Vol] 87 mg/dL Normal <130 [facility] Comment on above: Result Comment: LDL <100 mg/dL - Desirable LDL >160 mg/dL - High Risk Performed By: #### N UM #### [facility] ([id number]) [address] [place] [address] 02576 Cholesterol in VLDL [Mass/Vol] 21 mg/dL Normal 0-30 [facility] Comment on above: Performed By: #### N UM #### [facility] ([id number]) [address] [place] [address] 85576 CHOLESTEROL:HDL 2.9 Normal 1.0-5.0 [facility] Comment on above: Performed By: #### N UM #### [facility] ([id number]) [address] [place] [address] 13097 Triglyceride [Mass/Vol] 103 mg/dL Normal 27-150 [facility] Comment on above: Performed By: #### N UM #### [facility] ([id number]) [address] [place] [address] 64965 THYROID PROFILEon 12-24-2023 Free T4 [Mass/Vol] 0.83 ng/dL Normal 0.61-1.60 [facility] Comment on above: Performed By: #### N UM #### [facility] ([id number]) [address] [place] [address] 34263 TSH 1.00 uIU/mL Normal 0.49-4.67 [facility] Comment on above: Performed By: #### N UM #### [facility] ([id number]) [address] [place] [address] 88944 CBC AND AUTO DIFFon 11-21-19 24 ABSOLUTE BASOPHIL 0.0 X10E9/L Normal 0.0-0.2 [facility] Comment on above: Performed By: #### C BCA, CMP, 3040-3, 04221-4 #### [facility] ([id number]) [address] [place] [address] 73155 ABSOLUTE NEUTROPHIL 1.5 X10E9/L Normal 1.5-6.6 [facility] Comment on above: Performed By: #### C BCA, CMP, 3040-3, 19892-7 #### [facility] ([id number]) [address] [place] [address] 34297 Basophils/100 WBC (Bld) 1.0 % Normal [facility] Comment on above: Performed By: #### Kailyn REED CMP, 3039-08, #### [facility] ([id number]) [address] [place] [address] 39666 Eosinophils (Bld) [#/Vol] 0.2 10*3/uL Normal 0.0-0.4 [facility] Comment on above: Performed By: #### Kailyn REED CMP, 3039-08, #### [facility] ([id number]) [address] [place] [address] 75541 Eosinophils/100 WBC (Bld) 3.9 % Normal [facility] Comment on above: Performed By: #### Kailyn REED CMP, 3039-08, #### [facility] ([id number]) [address] [place] [address] 51179 Erythrocyte distribution width (RBC) [Ratio] 13.7 % Normal 11.5-15.0 [facility] Comment on above: Performed By: #### Kailyn REED CMP, 3039-08, #### [facility] ([id number]) [address] [place] [address] 20636 Hematocrit (Bld) [Volume fraction] 38.2 % Normal 35-47 [facility] Comment on above: Performed By: #### Kailyn REED, CMP, 3039-08, #### [facility] ([id number]) [address] [place] [address] 97868 Hemoglobin (Bld) [Mass/Vol] 13.7 g/dL Normal 11.7-15.5 [facility] Comment on above: Performed By: #### Kailyn REED CMP, 3039-08, #### [facility] ([id number]) [address] [place] [address] 03546 Lymphocytes (Bld) [#/Vol] 2.3 10*3/uL Normal 1.0-3.5 [facility] Comment on above: Performed By: #### Kailyn REED CMP, 3, #### [facility] ([id number]) [address] [place] [address] 68214 Lymphocytes/100 WBC (Bld) 52.0 % Normal [facility] Comment on above: Performed By: #### Kailyn REED CMP, 3039-08, #### [facility] ([id number]) [address] [place] [address] 38958 MCH (RBC) [Entitic mass] 30.6 pg Normal 27-34 [facility] Comment on above: Performed By: #### Kailyn REED [facility], 3039-08, #### [facility] ([id number]) [address] [place] [address] 30160 MCHC (RBC) [Mass/Vol] 35.9 g/dL Normal 32-36 [facility] [facility] Comment on above: Performed By: #### Kailyn REED CMP, 3039-08, #### [facility] ([id number]) [address] [place] [address] 60817 MCV (RBC) [Entitic vol] 85 fL Normal 80-100 [facility] Comment on above: Performed By: #### Kailyn REED CMP, 3039-08, #### [facility] ([id number]) [address] [place] [address] 94915 Monocytes (Bld) [#/Vol] 0.4 10*3/uL Normal 0-0.9 [facility] Comment on above: Performed By: #### Kailyn REED CMP, 3039-08, #### [facility] ([id number]) [address] [place] [address] 63239 Monocytes/100 WBC (Bld) 9.7 % Normal [facility] Comment on above: Performed By: #### Kailyn REED, CMP, 3, #### [facility] ([id number]) [address] [place] [address] 14825 Neutrophils/100 WBC (Bld) 33.4 % Normal [facility] Comment on above: Performed By: #### C DEREK, CMP, 3039-08, #### [facility] ([id number]) [address] [place] [address] 87379 Platelet mean volume (Bld) [Entitic vol] 6.9 fL Low 7-12 [facility] Comment on above: Performed By: #### Kailyn REED, CMP, 3039-08, #### [facility] ([id number]) [address] [place] [address] 37247 Platelets (Bld) [#/Vol] 236 10*3/uL Normal 150-450 [facility] Comment on above: Performed By: #### Kailyn BCA, CMP, 3039-08, #### [facility] ([id number]) [address] [place] [address] 25716 RBC COUNT 4.48 X10E12/L Normal 3.80-5.20 [facility] Comment on above: Performed By: #### Kailyn BCA, CMP, 3039-08, #### [facility] ([id number]) [address] [place] [address] 09624 WBC (Bld) [#/Vol] 4.5 10*3/uL Normal 4.0-11.0 [facility] Comment on above: Performed By: #### Kailyn REED, CMP, 3039-08, #### [facility] ([id number]) [address] [place] [address] 96397 COMPREHENSIVE METABOLIC PANE Grey 11-21-2023 Albumin [Mass/Vol] 4.5 g/dL Normal 3.2-5.3 [facility] Comment on above: Performed By: #### C BCA, CMP, 3040-3, 70162-2 #### [facility] ([id number]) [address] [place] [address] 94218 ALP [Catalytic activity/Vol] 55 U/L Normal 39-130 [facility] Comment on above: Performed By: #### C BCA, CMP, 3040-3, #### [facility] ([id number]) [address] [place] [address] 76439 ALT [Catalytic activity/Vol] 28 U/L Normal 0-31 [facility] Comment on above: Performed By: #### C BCA, CMP, 30403, #### [facility] ([id number]) [address] [place] [address] 65266 Anion gap [Moles/Vol] 5 mmol/L Normal 5-15 [facility] Comment on above: Performed By: #### C BCA, CMP, 30403, #### [facility] ([id number]) [address] [place] [address] 46989 AST [Catalytic activity/Vol] 22 U/L Normal 0-41 [facility] Comment on above: Performed By: #### C BCA, CMP, 3040-3, #### [facility] ([id number]) [address] [place] [address] 88572 Bilirubin [Mass/Vol] 0.6 mg/dL Normal 0.3-1.2 [facility] Comment on above: Performed By: #### C BCA, CMP, 30403, #### [facility] ([id number]) [address] [place] [address] 05067 Calcium [Mass/Vol] 8.9 mg/dL Normal 8.5-10.5 [facility] Comment on above: Performed By: #### C MARTY REED, 3040-3, 29254-7 #### [facility] ([id number]) [address] [place] [address] 02590 Chloride [Moles/Vol] 104 mmol/L Normal 98-109 [facility] Comment on above: Performed By: #### C MARTY REED, 03, 67715-5 #### [facility] ([id number]) [address] [place] [address] 84085 CO2 [Moles/Vol] 24 mmol/L Normal 22-32 [facility] Comment on above: Performed By: #### C MARTY REED, 3, 73339-3 #### [facility] ([id number]) [address] [place] [address] 75737 Creatinine [Mass/Vol] 0.69 mg/dL Normal 0.40-1.00 [facility] Comment on above: Result Comment: METH OD TRACEABLE TO IDMS STANDARD Performed By: #### C MARTY REED, 3, 51645-1 #### [facility] ([id number]) [address] [place] [address] 02181 eGFR (CKD-EPI) NON-RACE DEPENDENT >90 Normal >59 [facility] Comment on above: Result Comment: Reported eGFR is based on the CKD-EPI 2020 equation that does not use a race coefficient. Performed By: #### C DEREK CMP, 0-3, 00441-3 #### [facility] ([id number]) [address] [place] [address] 45942 Glucose [Mass/Vol] 93 mg/dL Normal 65-99 [facility] Comment on above: Performed By: #### C DEREK CMP, 3040-3, 14156-9 #### [facility] ([id number]) [address] [place] [address] 90924 Potassium [Moles/Vol] 3.7 mmol/L Normal 3.5-5.0 [facility] Comment on above: Performed By: #### C BCA, CMP, 3040-3, 47914-1 #### [facility] ([id number]) [address] [place] [address] 60211 Protein [Mass/Vol] 7.6 g/dL Normal 6.0-8.0 [facility] Comment on above: Performed By: #### C BCA, CMP, 3040-3, 00706-5 #### [facility] ([id number]) [address] [place] [address] 60910 Sodium [Moles/Vol] 133 mmol/L Low 134-146 [facility] Comment on above: Performed By: #### C BCA, CMP, 3040-3, 57854-2 #### [facility] ([id number]) [address] [place] [address] 51533 Urea nitrogen [Mass/Vol] 9 mg/dL Normal 5-23 [facility] Comment on above: Performed By: #### C BCA, CMP, 3040-3, 47484-6 #### [facility] ([id number]) [address] [place] [address] ABDOMEN AND PELVIS WO CON Ton [...] and agree with and/or edited the report 3 Finalized by Nemesio Thompson MD on 11/21/2023 11:32 AM Normal [facility] HCG ( test) Ql (U)o n 11-21-2023 Beta HCG ( test) Ql (U) Negative Normal NEG [facility] Comment on above: Performed By: #### 2 106-3 #### [facility] ([id number]) [address] [place] [address] 10699 LIPASEon 11-21-2023 Lipase [Catalytic activity/Vol] 29 U/L Normal 17-40 [facility] Comment on above: Performed By: #### C BCA, CMP, 3040-3, 50409-0 #### [facility] ([id number]) [address] [place] [address] 88200 MAGNESIUMon 11-21-2023 Magnesium [Mass/Vol] 2.2 mg/dL Normal 1.8-2.6 [facility] Comment on above: Performed By: #### C BCA, CMP, 3040-3, 61807-8 #### [facility] ([id number]) [address] [place] [address] 40715 URINE CULTUREon 11-21-2023 Bacteria identified Cx Nom (U) CULTURE RESULTS 10-50,000 ORGANISMS/mL NORMAL UROGENITAL CHU Normal [facility] Comment on above: Performed By: #### 6 30-4 #### [facility] ([id number]) [address] [place] [address], [address] [place] [address] URN MACROSCOPIC NURon 2023 BILIRUBIN JOHANA Negative Normal NEG [facility] Comment on above: Performed By: #### N UM #### [facility] ([id number]) [address] [place] [address] 91444 BLOOD/HGB JOHANA Negative Normal NEG [facility] Comment on above: Performed By: #### N UM #### [facility] ([id number]) [address] [place] [address] [place] [address] GLUCOSE JOHANA Negative Normal NEG [facility] Comment on above: Performed By: #### N UM #### [facility] ([id number]) [address] [place] [address] [place] [address] KETONES JOHANA Negative Normal NEG [facility] Comment on above: Performed By: #### N UM #### [facility] ([id number]) [address] [place] [address] [place] [address] LEUKOCYTE ESTERASE JOHANA Negative Normal NEG [facility] Comment on above: Performed By: #### N UM #### [facility] ([id number]) [address] [place] [address] [place] [address] NITRITE JOHANA Negative Normal NEG [facility] Comment on above: Performed By: #### N UM #### [facility] ([id number]) [address] [place] [address] PH JOHANA 6.5 Normal 5.0-8.5 [facility] Comment on above: Performed By: #### N UM #### [facility] ([id number]) [address] [place] [address] 31182 PROTEIN JOHANA Negative Normal NEG [facility] Comment on above: Performed By: #### N UM #### [facility] ([id number]) [address] [place] [address] 52637 SPECIFIC GRAVITY JOHANA 1.010 Normal 1.003-1.035 [facility] Comment on above: Performed By: #### N UM #### [facility] ([id number]) [address] [place] [address] 22406 UROBILINOGEN JOHANA 0.2 eu/dL Normal <1.1 [facility] Comment on above: Performed By: #### N UM #### [facility] ([id number]) [address] [place] [address] 94972 XR RIBS RT PA Chery 3 XR [...] by: CATA HERNANDEZ Date: 2022-09-29 00:50 Normal [facility] XR wrist LT min 3V*on 2021 XR wrist LT min 3V* [facility] [place] [address] [place] [address] XRay Report Signed Patient: Flavia Tucker MR#: [id number] : 2005 Acct:[id number] Age/Sex: 16 / F ADM Date: 04/21/22 Loc: XDCLY Room: Type: [facility] Attending Dr: Deb Pressley [employer]LY[employer]-C Copies to: DEB PRESSLEY Ordering Provider: DEB PRESSLEY Date of Service: 04/21/22 XR/XR wrist LT min 3V*: Injury of left wrist, subsequent encounter 4 viewsLEFT wrist plain film COMPARISON:None HISTORY:Follow-up assessment of LEFT wrist injury. No fracture, dislocation or focal soft tissue abnormality seen. XR/XR wrist LT min 3V* IMPRESSION:No acute findings. Impression dictated by: Jan Gastelum M.D.04/21/2022 4:02 PM Dictation Location: [place] [address] Transcribed By: [facility] 04/21/22 160 Dictated By: Jan Gastelum DO 04/21/22 160 Signed By: 04/21/[address] [facility] XR wrist LT min 3V* [facility] [employer] Other XR wrist LT min 3V* [facility] [employer] Other XR wrist LT min 3V* [address] [place] [address] [employer] Other XR wrist LT min 3V* [place] [address] [employer] Other XR wrist LT min 3V* XRay Report [facility] [employer] Other XR wrist LT min 3V* Signed [employer] Other XR wrist LT min 3V* Patient: Flavia Tucker MR#: [id number] [employer] Other XR wrist LT min 3V* : 2005 Acct:[id number] [employer] Other XR wrist LT min 3V* Age/Sex: 16 / F ADM Date: 04/21/22 [employer] Other XR wrist LT min 3V* Loc: XDCLY Room: Type: [facility] [employer] Other XR wrist LT min 3V* Attending Dr: Deb PITTPSamuel [employer] Other XR wrist LT min 3V* Cop[facility]: [facility]B [facility] [employer] Other XR wrist LT min 3V* Ordering Provider: [facility] [employer] Other XR wrist LT min 3V* Date of Service: 04/21/22 [employer] Other XR wrist LT min 3V* XR/XR wrist LT min 3V*: Injury of left wrist, subsequent encounter [employer] Other XR wrist LT min 3V* 4 viewsLEFT wrist plain film [employer] Other XR wrist LT min 3V* COMPARISON:None [employer] Other XR wrist LT min 3V* HISTORY:Follow-up assessment of LEFT wrist injury. [employer] Other XR wrist LT min 3V* No fracture, dislocation or focal soft tissue abnormality seen. [employer] Other XR wrist LT min 3V* XR/XR wrist LT min 3V* [employer] Other XR wrist LT min 3V* IMPRESSION:No acute findings. [employer] Other XR wrist LT min 3V* Impression dictated by: Jan Gastelum M.D.04/21/2022 4:02 PM [employer] Other XR wrist LT min 3V* Dictation Location: [place] [address] [employer] Other XR wrist LT min 3V* Transcribed By: KATY 04/21/22 [facility] [employer] Other XR wrist LT min 3V* Dictated By: Jan Gastelum DO 04/21/22 160 [employer] Other XR wrist LT min 3V* Signed By: [place] [employer] Other XR wrist LT min 3V* 04/21/22 1602 [facility] [employer] Other Quick Strepon 03-24-2022 S. pyogenes Org specific cx Ql (Throat) Negative [place] [employer] Other Quick Strep [facility] [employer] Other SARS-CoV-2 (COVID-19) RNA NA A+probe Ql (Resp)on 03-24-2022 SARS-CoV-2 (COVID-19) RNA KELLY+probe Ql (Unsp spec) Negative [place] [employer] Other Progress Noteon 03-10-2018 HIM IP Note OR Director Patient Normal [facility] Progress Noteon 02-24-2018 HIM IP Note OR Director Patient Normal [facility] Progress Noteon 02-16-2018 HIM IP Note OR Director Patient Normal [facility] Vital Signs Date Time Vital Sign Value Performing Clinician Facility 01-09-2025 08:29-0400 Body mass index (BMI) [Ratio] 26.81 kg/m2 Kimberlee ANDREWS Work Phone: [facility] 01-09-2025 08:29-0400 Body weight 73.08 kg Kimberlee ANDREWS Work Phone: [facility] 01-09-2025 08:29-0400 Diastolic blood pressure 78 mm[Hg] Kimberlee ANDREWS Work Phone: [facility] 01-09-2025 08:29-0400 Systolic blood pressure 130 mm[Hg] Kimberlee ANDREWS Work Phone: [facility] 01-02-2025 11:38-0400 Body mass index (BMI) [Ratio] 27.29 kg/m2 Collin Christi [employer] Work Phone: [facility] 01-02-2025 11:38-0400 Body weight 74.39 kg Collin Christi DO Work Phone: [facility] 01-02-2025 11:38-0400 Diastolic blood pressure 60 mm[Hg] Collin Christi DO Work Phone: [facility] 01-02-2025 11:38-0400 Systolic blood pressure 112 mm[Hg] Collin Christi DO Work Phone: [facility] 12-18-2024 09:03-0400 Body mass index (BMI) [Ratio] 26.96 kg/m2 Kimberlee Rodriguez PA Work Phone: [facility] 12-18-2024 09:03-0400 Body weight 73.48 kg Kimberlee Eddie PA Work Phone: [facility] 12-18-2024 09:03-0400 Diastolic blood pressure 64 mm[Hg] Kimberlee Rodriguez PA Work Phone: [facility] 12-18-2024 09:03-0400 Systolic blood pressure 118 mm[Hg] Kimberlee Rodriguez PA Work Phone: [facility] 12-04-2024 11:33-0400 Body mass index (BMI) [Ratio] 26.29 kg/m2 Collin Christi DO Work Phone: [facility] 12-04-2024 11:33-0400 Body weight 71.67 kg Collin Christi DO Work Phone: [facility] 12-04-2024 11:33-0400 Diastolic blood pressure 72 mm[Hg] Collin Christi DO Work Phone: [facility] 12-04-2024 11:33-0400 Systolic blood pressure 118 mm[Hg] Collin Christi DO Work Phone: [facility] 11-16-2024 09:17-0400 Body mass index (BMI) [Ratio] 26.13 kg/m2 Kimberlee Eddie PA Work Phone: [facility] 11-16-2024 09:17-0400 Body weight 71.22 kg Kimberlee Rodriguez PA Work Phone: [facility] 11-16-2024 09:17-0400 Diastolic blood pressure 70 mm[Hg] Kimberlee ANDREWS Work Phone: [facility] 11-16-2024 09:17-0400 Systolic blood pressure 122 mm[Hg] Kimberlee ANDREWS Work Phone: [facility] 10-17-2024 11:07-0400 Body mass index (BMI) [Ratio] 24.92 kg/m2 Collin Christi DO Work Phone: [facility] 10-17-2024 11:07-0400 Body weight 67.93 kg Collin Christi DO Work Phone: [facility] 10-17-2024 11:07-0400 Diastolic blood pressure 64 mm[Hg] Collin Christi DO Work Phone: [facility] 10-17-2024 11:07-0400 Systolic blood pressure 120 mm[Hg] Collin Christi DO Work Phone: [facility] 09-19-2024 09:54-0400 Body mass index (BMI) [Ratio] 23.8 kg/m2 Collin Christi DO Work Phone: [facility] 09-19-2024 09:54-0400 Body weight 64.86 kg Collin Christi DO Work Phone: [facility] 09-19-2024 09:54-0400 Diastolic blood pressure 60 mm[Hg] Collin Christi DO Work Phone: [facility] 09-19-2024 09:54-0400 Systolic blood pressure 112 mm[Hg] Collin Christi DO Work Phone: [facility] 07-13-2024 08:45-0500 Body mass index (BMI) [Ratio] 22.47 kg/m2 Collin Christi DO Work Phone: [facility] 07-13-2024 08:45-0500 Body weight 61.24 kg Collin Christi DO Work Phone: [facility] 07-13-2024 08:45-0500 Diastolic blood pressure 64 mm[Hg] Collin Christi DO Work Phone: [facility] 07-13-2024 08:45-0500 Systolic blood pressure 112 mm[Hg] Collin Barraza DO Work Phone: [facility] 06-23-2024 09:14-0500 Body mass index (BMI) [Ratio] 22.6 kg/m2 [facility] Nurse [facility] 06-23-2024 09:14-0500 Body weight 61.6 kg [facility] Nurse [facility] 05-22-2024 09:52-0500 Body height 165.1 cm Ronald Beach MD Work Phone: [facility] 05-22-2024 09:52-0500 Body mass index (BMI) [Ratio] 22.83 kg/m2 Ronald Beach MD Work Phone: [facility] 05-22-2024 09:52-0500 Body weight 62.23 kg Ronald Beach MD Work Phone: [facility] 05-22-2024 09:52-0500 Diastolic blood pressure 72 mm[Hg] Ronald Beach MD Work Phone: [facility] 05-22-2024 09:52-0500 Heart rate 88 /min Ronald Beach MD Work Phone: [facility] 05-22-2024 09:52-0500 SaO2% (BldA) [Mass fraction] 99 % Ronald Beach MD Work Phone: [facility] 05-22-2024 09:52-0500 Systolic blood pressure 111 mm[Hg] Rnoald Beach MD Work Phone: [facility] 04-22-2024 09:51-0400 Body height 165.1 cm [facility] 04-22-2024 09:51-0400 Body mass index (BMI) [Percentile] Per age and sex 66.8 % [facility] 04-22-2024 09:51-0400 Body mass index (BMI) [Ratio] 23.3 kg/m2 [facility] 04-22-2024 09:51-0400 Body temperature 98.8 [degF] [facility] 04-22-2024 09:51-0400 Body weight 63.5 kg [facility] 04-22-2024 09:51-0400 Diastolic blood pressure 79 mm[Hg] [facility] 04-22-2024 09:51-0400 Heart rate 71 /min [facility] 04-22-2024 09:51-0400 Respiratory rate 18 /min [facility] 04-22-2024 09:51-0400 SaO2% (BldA) [Mass fraction] 98 % [facility] 04-22-2024 09:51-0400 Systolic blood pressure 120 mm[Hg] [facility] 03-25-2024 09:30-0400 Body height 165.1 cm [facility] 03-25-2024 09:30-0400 Body mass index (BMI) [Percentile] Per age and sex 66.9 % [facility] 03-25-2024 09:30-0400 Body mass index (BMI) [Ratio] 23.3 kg/m2 [facility] 03-25-2024 09:30-0400 Body temperature 98.4 [degF] [facility] 03-25-2024 09:30-0400 Body weight 63.5 kg [facility] 03-25-2024 09:30-0400 Diastolic blood pressure 67 mm[Hg] [facility] 03-25-2024 09:30-0400 Heart rate 94 /min [facility] 03-25-2024 09:30-0400 Respiratory rate 18 /min [facility] 03-25-2024 09:30-0400 SaO2% (BldA) [Mass fraction] 98 % [facility] 03-25-2024 09:30-0400 Systolic blood pressure 107 mm[Hg] [facility] 02-22-2024 08:54-0400 Body height 165.1 cm Kimberlee ANDREWS Work Phone: [facility] 02-22-2024 08:54-0400 Body mass index (BMI) [Ratio] 23.13 kg/m2 Kimberlee Eddie PA Work Phone: [facility] 02-22-2024 08:54-0400 Body weight 63.05 kg Kimberlee ANDREWS Work Phone: [facility] 02-22-2024 08:54-0400 Diastolic blood pressure 68 mm[Hg] Kimberlee ANDREWS Work Phone: [facility] 02-22-2024 08:54-0400 Systolic blood pressure 110 mm[Hg] Kimberlee Teixeirabetty ANDREWS Work Phone: [facility] 12-27-2023 09:17-0400 Body height 165.1 cm [facility] 12-27-2023 09:17-0400 Body mass index (BMI) [Percentile] Per age and sex 31 % [facility] 12-27-2023 09:17-0400 Body mass index (BMI) [Ratio] 20.2 kg/m2 [facility] 12-27-2023 09:17-0400 Body temperature 100.3 [degF] [facility] 12-27-2023 09:17-0400 Body weight 55.05 kg [facility] 12-27-2023 09:17-0400 Heart rate 75 /min [facility] 12-27-2023 09:17-0400 Respiratory rate 18 /min [facility] 12-27-2023 09:17-0400 SaO2% (BldA) [Mass fraction] 99 % [facility] 12-20-2023 10:31-0400 Body height 165.1 cm Ronald Beach MD Work Phone: [facility] 12-20-2023 10:31-0400 Body mass index (BMI) [Ratio] 20.07 kg/m2 Ronald Beach MD Work Phone: [facility] 12-20-2023 10:31-0400 Body weight 54.7 kg Ronald Beach MD Work Phone: [facility] 12-20-2023 10:31-0400 Diastolic blood pressure 66 mm[Hg] Ronald Beach MD Work Phone: [employer] 12-20-2023 10:31-0400 Heart rate 71 /min Ronald Beach MD Work Phone: [employer] 12-20-2023 10:31-0400 SaO2% (BldA) [Mass fraction] 100 % Ronald Beach MD Work Phone: [employer] 12-20-2023 10:31-0400 Systolic blood pressure 112 mm[Hg] Ronald Beach MD Work Phone: [employer] 04-21-2022 15:30-0400 Body height 162.56 cm Deb Emanuel Other [employer] Other 04-21-2022 15:30-0400 Body mass index (BMI) [Ratio] 22.31 kg/m2 Deb Emanuel Other [employer] Other 04-21-2022 15:30-0400 Body temperature 98.6 [degF] Deb Emanuel Other [employer] Other 04-21-2022 15:30-0400 Body weight 58.97 kg Deb Emanuel Other [employer] Other 04-21-2022 15:30-0400 Diastolic blood pressure 71 mm[Hg] Deb Emanuel Other [employer] Other 04-21-2022 15:30-0400 Respiratory rate 18 /min Deb Pressley Other [employer] Other 04-21-2022 15:30-0400 SaO2% (BldA) [Mass fraction] 99 % Deb Pressley Other [employer] Other 04-21-2022 15:30-0400 Systolic blood pressure 114 mm[Hg] Deb Almanzaault Other [employer] Other 03-24-2022 16:00-0400 Body height 163.83 cm Deb Almanzaault Other [employer] Other 03-24-2022 16:00-0400 Body mass index (BMI) [Ratio] 22.64 kg/m2 Deb Almanzaault Other [employer] Other 03-24-2022 16:00-0400 Body temperature 98.2 [degF] Deb Almanzaault Other [employer] Other 03-24-2022 16:00-0400 Body weight 60.78 kg Deb Almanzaault Other [employer] Other 03-24-2022 16:00-0400 Diastolic blood pressure 79 mm[Hg] Deb Almanzaault Other [employer] Other 03-24-2022 16:00-0400 Respiratory rate 18 /min Deb Emanuel Other [employer] Other 03-24-2022 16:00-0400 SaO2% (BldA) [Mass fraction] 100 % Deb Emanuel Other [employer] Other 03-24-2022 16:00-0400 Systolic blood pressure 121 mm[Hg] Deb Almanzaault Other [employer] Other 04-29-2021 15:30-0500 Body height 163.83 cm Deb Pressley Other [employer] Other 04-29-2021 15:30-0500 Body mass index (BMI) [Ratio] 21.97 kg/m2 Deb Pressley Other [employer] Other 04-29-2021 15:30-0500 Body temperature 97.8 [degF] Deb Pressley Other [employer] Other 04-29-2021 15:30-0500 Body weight 58.97 kg Deb Pressley Other [employer] Other 04-29-2021 15:30-0500 Diastolic blood pressure 72 mm[Hg] Deb Pressley Other [employer] Other 04-29-2021 15:30-0500 Respiratory rate 18 /min Deb Pressley Other [employer] Other 04-29-2021 15:30-0500 SaO2% (BldA) [Mass fraction] 98 % Deb Pressley Other [employer] Other 04-29-2021 15:30-0500 Systolic blood pressure 130 mm[Hg] Deb Pressley Other [employer] Other Encounters Encounter Date Encounter Type Care Provider Facility Start: 01-09-2025 End: 01-09-2025 Bamboo flowsheet Kimberlee ANDREWS Work Phone: [facility] Start: 01-09-2025 End: 01-09-2025 Bamboo flowsheet Kimberlee ANDREWS Work Phone: [facility] Start: 01-09-2025 End: 01-09-2025 flow sheet Kimberlee ANDREWS Work Phone: [facility] Comment on above: 37 weeks gestation o f ([facility]); Third trimester ([facility]) Start: 01-09-2025 End: 01-09-2025 ambulatory KIMBERLEE RODRIGUEZ Not Available Start: 01-02-2025 End: 01-02-2025 Bamboo flowsheet Collin Christi DO Work Phone: [facility] Start: 01-02-2025 End: 01-02-2025 Bamboo flowsheet Collin Christi DO Work Phone: [facility] Start: 01-02-2025 End: 01-02-2025 flow sheet Collin Christi DO Work Phone: [facility] Comment on above: Third trimester preg krystina ([facility]); 36 weeks gestation of ([facility]) Start: 01-02-2025 End: 01-02-2025 ambulatory COLLIN CHRISTI Not Available Start: 12-25-2024 End: 12-25-2024 Bamboo flowsheet Collin Christi DO Work Phone: [facility] Start: 12-25-2024 End: 12-25-2024 Bamboo flowsheet Collin Christi DO Work Phone: [facility] Start: 12-25-2024 End: 12-25-2024 flow sheet Collin Christi DO Work Phone: [facility] Comment on above: Third trimester preg krystina ([facility]); 35 weeks gestation of ([facility]) Start: 12-25-2024 End: 12-25-2024 ambulatory COLLIN CHRISTI Not Available Start: 12-18-2024 End: 12-18-2024 Bamboo flowsheet Kimberlee ANDREWS Work Phone: [facility] Start: 12-18-2024 End: 12-18-2024 Bamboo flowsheet Kimberlee ANDREWS Work Phone: [facility] Start: 12-18-2024 End: 12-18-2024 flow sheet Kimberlee ANDREWS Work Phone: [facility] Comment on above: Third trimester preg krystina ([facility]); 34 weeks gestation of ([facility]) Start: 12-18-2024 End: 12-18-2024 ambulatory KIMBERLEE RODRIGUEZ Not Available Start: 12-04-2024 End: 12-04-2024 flow sheet Collin Christi DO Work Phone: [facility] Comment on above: Third trimester preg krystina ([facility]); 31 weeks gestation of ([facility]) Start: 12-04-2024 End: 12-04-2024 ambulatory COLLIN CHRISTI Not Available Start: 11-16-2024 End: 11-16-2024 Bamboo flowsheet Kimberlee ANDREWS Work Phone: [facility] Start: 11-16-2024 End: 11-16-2024 Bamboo flowsheet Kimberlee ANDREWS Work Phone: [facility] Start: 11-16-2024 End: 11-16-2024 flow sheet Kimberlee ANDREWS Work Phone: [facility] Comment on above: Size of fetus incons istent with dates in first trimester (Primary Dx); Third trimester ; 29 weeks gestation of Start: 11-16-2024 End: 11-16-2024 ambulatory KIMBERLEE RODRIGUEZ Not Available Start: 10-31-2024 End: 10-31-2024 ambulatory COLLIN CHRISTI Not Available Start: 10-24-2024 ambulatory COLLIN R CHRISTI [facility] Start: 10-17-2024 End: 10-17-2024 Bamboo flowsheet Collin Christi DO Work Phone: [facility] Start: 10-17-2024 End: 10-17-2024 Bamboo flowsheet Collin Christi DO Work Phone: [facility] Start: 10-17-2024 End: 10-17-2024 flow sheet Collin Christi DO Work Phone: [facility] Comment on above: Second trimester pre gnancy; 25 weeks gestation of ; Diabetes mellitus screening Start: 10-17-2024 End: 10-17-2024 ambulatory COLLIN CHRISTI Not Available Start: 09-19-2024 End: 09-19-2024 Bamboo flowsheet Collin Christi DO Work Phone: [facility] Start: 09-19-2024 End: 09-19-2024 Bamboo flowsheet Collin Christi DO Work Phone: [facility] Start: 09-19-2024 End: 09-19-2024 Clinisync Result Encounter Collin Christi DO Work Phone: [facility] Unsolicited Start: 09-19-2024 End: 09-19-2024 flow sheet Collin Christi DO Work Phone: [facility] Comment on above: Second trimester pre gnancy; 21 weeks gestation of Start: 09-19-2024 End: 09-19-2024 ambulatory COLLIN CHRISTI Not Available Start: 08-23-2024 End: 08-23-2024 Clinisync Result Encounter Collin Christi DO Work Phone: [facility] Unsolicited Start: 08-23-2024 End: 08-23-2024 Clinisync Result Encounter Collin Christi DO Work Phone: [facility] Unsolicited Start: 08-21-2024 End: 08-21-2024 Bamboo flowsheet Collin Christi DO Work Phone: [facility] Start: 08-21-2024 End: 08-21-2024 Bamboo flowsheet Collin Christi DO Work Phone: [facility] Start: 08-21-2024 End: 08-21-2024 ambulatory COLLIN CHRISTI Not Available Start: 08-21-2024 End: 08-21-2024 flow sheet Collin Christi DO Work Phone: [facility] Comment on above: Exposure to STD; Second trimester ; 16 weeks gestation of ; Screening, , for anatomic survey; Need for maternal serum alpha-protein (MSAFP) screening Start: 08-17-2024 End: 08-17-2024 ambulatory COLLIN R CHRISTI [facility] Start: 07-13-2024 End: 07-13-2024 Bamboo flowsheet Collin Christi DO Work Phone: [facility] Start: 07-13-2024 End: 07-13-2024 Bamboo flowsheet Collin Christi DO Work Phone: [facility] Start: 07-13-2024 End: 07-13-2024 flow sheet Collin Christi DO Work Phone: [facility] Comment on above: First trimester preg krystina; 11 weeks gestation of Start: 07-13-2024 End: 07-13-2024 ambulatory COLLIN CHRISTI Not Available Start: 06-30-2024 End: 06-30-2024 Clinisync Result Encounter Collin Christi DO Work Phone: [facility] Unsolicited Start: 06-30-2024 End: 06-30-2024 Clinisync Result Encounter Collin Christi DO Work Phone: [facility] Unsolicited Start: 06-23-2024 End: 06-23-2024 Office outpatient visit 5 minutes [facility] Christi Nurse [facility] Comment on above: GA: 9w0d Start: 06-23-2024 End: 06-23-2024 ambulatory COLLIN CHRISTI Not Available Start: 05-22-2024 End: 05-22-2024 Office outpatient visit 25 minutes Ronald Beach MD Work Phone: [facility] Comment on above: Mild persistent asth ma without complication (Primary Dx); Multiple pulmonary nodules Start: 05-22-2024 End: 05-22-2024 ambulatory [facility] Start: 04-22-2024 End: 04-22-2024 ambulatory [facility] Work Phone: Start: 04-22-2024 End: 04-22-2024 Patient encounter procedure [facility] Physician [facility] Ajyjay Work Phone: Start: 03-25-2024 End: 03-25-2024 ambulatory [facility] Work Phone: Start: 03-25-2024 End: 03-25-2024 Patient encounter procedure [facility] Physician [facility] Jayjay Work Phone: Start: 02-22-2024 End: 02-22-2024 Bamboo flowsheet Kimberlee ANDREWS Work Phone: [facility] Start: 02-22-2024 End: 02-22-2024 Bamboo flowsheet Kimberlee ANDREWS Work Phone: [facility] Start: 02-22-2024 End: 02-22-2024 Postop follow up visit related to original px Kimberlee ANDREWS Work Phone: [facility] Comment on above: Pelvic pain in femal e (Primary Dx) Start: 02-22-2024 End: 02-22-2024 ambulatory KIMBERLEE RODRIGUEZ Not Available Start: 02-11-2024 End: 02-11-2024 Clinisync Result Encounter Collin Christi DO Work Phone: [facility] Unsolicited Start: 02-11-2024 End: 02-11-2024 Clinisync Result Encounter Collin Christi DO Work Phone: [facility] Unsolicited Start: 01-25-2024 End: 01-25-2024 ambulatory COLLIN CHRISTI Not Available Start: 12-27-2023 End: 12-27-2023 ambulatory [facility] [place] Work Phone: Start: 12-27-2023 End: 12-27-2023 Patient encounter procedure [facility] Physician [facility] Jayjay Work Phone: Start: 12-24-2023 End: 12-24-2023 ambulatory [facility] Start: 12-24-2023 Encounter for genera l adult medical examination without abnormal findings COLLIN BARRAZA [facility] Start: 12-20-2023 End: 12-20-2023 Office outpatient new 45 minutes Ronald Beach MD Work Phone: [facility] Comment on above: Mild persistent asth ma without complication (Primary Dx); Multiple pulmonary nodules; SOB (shortness of breath) Start: 12-20-2023 End: 12-20-2023 ambulatory [facility] Start: 11-21-2023 End: 11-22-2023 Emergency department patient visit BALDOMERO SMITH [facility] Start: 11-10-2023 End: 11-10-2023 ambulatory [facility] Start: 09-29-2022 End: 09-29-[address] FRANCISCO PERSON . Facility: Start: 04-21-2022 End: 04-21-2022 ambulatory Deb Emanuel Facility:[facility] Start: 04-21-2022 End: 04-21-2022 Patient encounter procedure [employer]ICY ANALYST-C Debno Pressley Work Phone: [facility] Jayjay Start: 04-21-2022 End: 04-21-2022 ambulatory [employer] POLICY ANALYST-C Deb Emanuel Work Phone: [facility] Work Phone: Start: 04-21-2022 Office outpatient vi sit 15 minutes Deb Emanuel [facility] Start: 03-24-2022 End: 03-24-2022 ambulatory Deb Emanuel Other [employer] Other Start: 03-24-2022 Office outpatient vi sit 15 minutes Debno Pressley [facility] Start: 02-06-2022 End: 02-06-2022 ambulatory Debrosalba Pressley Other [employer] Other Start: 02-06-2022 Telephone encounter Deb Becca santa [facility] Start: 04-29-2021 End: 04-29-2021 ambulatory Deb Pressley Other [employer] Other Start: 04-29-2021 Office outpatient vi sit 15 minutes Deb Pressley [facility] Procedures Date Procedure Procedure Detail Performing Clinician Start: 01-09-2025 Urnls dip stick/tabl et rgnt non-auto w/o micrscp Kimberlee ANDREWS Work Phone: Start: 01-02-2025 Urnls dip stick/tabl et rgnt non-auto w/o micrscp Collin Christi DO Work Phone: Start: 12-25-2024 Urnls dip stick/tabl et rgnt non-auto w/o micrscp Collin Christi DO Work Phone: Start: 12-18-2024 Urnls dip stick/tabl et rgnt non-auto w/o micrscp Kimberlee ANDREWS Work Phone: Start: 12-04-2024 Urnls dip stick/tabl et rgnt non-auto w/o micrscp Collin Christi DO Work Phone: Start: 10-17-2024 Urnls dip stick/tabl et rgnt non-auto w/o micrscp Collin Christi DO Work Phone: Start: 09-19-2024 US OB CERVICAL LENGTH C orey Christi DO Work Phone: Start: 09-19-2024 US OB PLACENTA Collin Fa zio DO Work Phone: Start: 09-19-2024 Urnls dip stick/tabl et rgnt non-auto w/o micrscp Collin Christi DO Work Phone: Start: 08-23-2024 US OB ANATOMY Collin Miguel A io DO Work Phone: Start: 08-23-2024 US OB CERVICAL LENGTH C orey Christi DO Work Phone: Start: 08-21-2024 Urnls dip stick/tabl et rgnt non-auto w/o micrscp Collin Christi DO Work Phone: Start: 07-13-2024 Urnls dip stick/tabl et rgnt non-auto w/o micrscp Collin Christi DO Work Phone: Start: 06-30-2024 BOX TEST Collin Fazi o DO Work Phone: Start: 06-23-2024 End: 06-23-2024 Urnls dip stick/tablet rgnt non-auto w/o micrscp Collin Christi DO Work Phone: Start: 05-22-2024 Follow-up visit Follow-up [facility] Start: 02-11-2024 ALL CBC WITH AUTO DIFF Collin Christi DO Work Phone: Start: 04-21-2022 Plain X-ray of left wrist [employer]ICY ANALYST-C Deb Pressley Work Phone: Plan of Treatment Date Care Activity Detail Author Start: 12-23-2033 DTaP,Tdap and Td Vaccines (7 - Td or Tdap) DTaP,Tdap and Td Vaccines (7 - Td or Tdap) [facility] Start: 01-18-2025 End: 01-18-2025 Patient encounter procedure 01/18/2025 8:50 AM EDT Routine [facility] [address] [place] [address] Kimberlee Rodriguez PA [address] [place] [address] [facility] Start: 01-09-2025 End: 01-09-2025 Patient encounter procedure [facility] Comment on above: Arrived Start: 01-02-2025 End: 01-02-2026 CULTURE, GROUP B STREP WITH SUSCEPTIBLITY CULTURE, GROUP B STREP WITH SUSCEPTIBLITY Lab Routine Third trimester ([facility]) Expected: 01/02/2025, Expires: 01/02/2026 [facility] Work Phone: Comment on above: Expected: 01/02/2025 , Expires: 01/02/2026 Start: 01-02-2025 End: 01-02-2025 Patient encounter procedure [facility] Comment on above: Arrived Start: 12-25-2024 End: 12-25-2024 Patient encounter procedure 12/25/2024 8:30 AM EDT Routine [facility] [address] [place] [address] Collin Barraza DO [address], [place] [id number] Arrived [facility] Comment on above: Arrived Start: 12-19-2024 Adult BMI Screening Adult BMI Screen ing [facility] Start: 12-18-2024 End: 12-18-2024 Patient encounter procedure [facility] Comment on above: Arrived Start: 11-20-2024 Tobacco Screening Tobacco Screening [facility] Start: 11-16-2024 End: 03-19-2025 US for US OB follow up transabdominal approach Imaging Routine Size of fetus inconsistent with dates in first trimester Expected: 11/16/2024, Expires: 03/19/2025 [facility] Work Phone: Comment on above: Expected: 11/16/2024 , Expires: 03/19/2025 Start: 11-16-2024 End: 11-16-2024 Patient encounter procedure 11/16/2024 9:30 AM EDT Routine [facility] [address] [place] [address] Kimberlee Rodriguez PA [address] [place], [place] [id number] Arrived [facility] Comment on above: Arrived Start: 10-31-2024 End: 10-31-2024 Patient encounter procedure 10/31/2024 10:30 AM EDT Routine [facility] [address] [place] [place] [id number] Collin Barraza DO [address] [place] [address] [facility] Start: 10-17-2024 End: 10-17-2025 CBC panel - Blood by Automated count CBC Lab Routine Diabetes mellitus screening Expected: 10/17/2024 (Approximate), Expires: 10/17/2025 [facility] Work Phone: Comment on above: Expected: 10/17/2024 (Approximate), Expires: 10/17/2025 Start: 10-17-2024 End: 10-17-2025 Measurement of glucose 1 hour after glucose challenge for glucose tolerance test Glucose tolerance, 1 hour Lab Routine Diabetes mellitus screening Expected: 10/17/2024 (Approximate), Expires: 10/17/2025 [facility] Comment on above: Expected: 10/17/2024 (Approximate), Expires: 10/17/2025 Start: 10-17-2024 End: 10-17-2024 Patient encounter procedure [facility] Comment on above: Arrived Start: 09-25-2024 End: 09-25-2024 Patient encounter procedure 09/25/2024 10:45 AM EDT Office Visit [facility] [address] [place] [address] Ronald Beach MD [address] [place] [address], [address] [place] [address] [facility] Start: 09-19-2024 End: 09-19-2024 Patient encounter procedure [facility] Comment on above: Arrived Start: 08-21-2024 End: 09-21-2024 Alpha fetoprotein, maternal Alpha fetoprotein, maternal Lab Routine Need for maternal serum alpha-protein (MSAFP) screening Expected: 08/21/2024 (Approximate), Expires: 09/21/2024 [facility] Comment on above: Expected: 08/21/2024 (Approximate), Expires: 09/21/2024 Start: 08-21-2024 End: 08-21-2025 US for US OB 14+ weeks anatomy scan Imaging Routine Screening, , for anatomic survey Expected: 08/21/2024, Expires: 08/21/2025 [facility] Comment on above: Expected: 08/21/2024 , Expires: 08/21/2025 Start: 08-15-2024 End: 08-15-2024 Patient encounter procedure 08/15/2024 10:50 AM EST Routine [facility] [address] [place] [phone] Collin Barraza, DO [address] [place] [address] [facility] Start: 07-13-2024 End: 07-13-2024 Patient encounter procedure [facility] Comment on above: Arrived Start: 06-23-2024 End: 06-23-2025 ABO/Rh ABO/Rh Lab Routine Missed menses , unspecified gestational age Expected: 06/23/2024 (Approximate), Expires: 06/23/2025 [facility] Healthcare Comment on above: Expected: 06/23/2024 (Approximate), Expires: 06/23/2025 Start: 06-23-2024 End: 06-23-2025 Blood type and Indirect antibody screen panel - Blood Type and screen Lab Routine Missed menses , unspecified gestational age Expected: 06/23/2024 (Approximate), Expires: 06/23/2025 [facility] Work Phone: Comment on above: Expected: 06/23/2024 (Approximate), Expires: 06/23/2025 Start: 06-23-2024 End: 06-23-2025 Drugs of abuse panel - Urine by Screen method Rapid drug screen, urine Lab Routine , unspecified gestational age Encounter for supervision of normal first in first trimester Expected: 06/23/2024 (Approximate), Expires: 06/23/2025 [facility] Comment on above: Expected: 06/23/2024 (Approximate), Expires: 06/23/2025 Start: 05-08-2024 End: 05-08-2024 Patient encounter procedure 05/08/2024 10:45 AM EST Office Visit [facility] [address] [place] [address] Ronald Beach MD [address] [place] [address] [facility] Start: 03-21-2024 End: 03-21-2024 Patient encounter procedure 03/21/2024 8:50 AM EDT Office Visit [facility] [address] [place] [id number] Kimberlee Rodriguez PA [address] [place] [address] [facility] Start: 02-22-2024 End: 02-22-2024 Patient encounter procedure [facility] Comment on above: Arrived Start: 02-20-2024 Influenza vaccination Influenza Vacc ine [facility] Start: 2016 [facility] Start: 2015 DTaP,Tdap and Td Vaccines (6 - Tdap) DTaP,Tdap and Td Vaccines (6 - Tdap) [facility] Start: 2004 Screening for Chlamy damon trachomatis Chlamydia Screening [facility] Bacteria identified in Urine by Culture Urine culture Microbiology Routine Missed menses Ordered: 06/23/2024 [facility] Healthcare Comment on above: Ordered: 06/23/2024 CBC W Auto Different ial panel - Blood CBC and differential Lab Routine Missed menses , unspecified gestational age Ordered: 06/23/2024 [facility] Comment on above: Ordered: 06/23/2024 CHLAMYDIA TRACHOMATI S (GENITO/STI) CHLAMYDIA TRACHOMATIS (GENITO/STI) Lab Routine Exposure to STD Ordered: 08/21/2024 [facility] Comment on above: Ordered: 08/21/2024 Hemoglobin A1c/Hemoglobin.total in Blood Hemoglobin A1c Lab Routine Missed menses , unspecified gestational age Ordered: 06/23/2024 [facility] Comment on above: Ordered: 06/23/2024 Hepatitis B virus surface Ag [Presence] in Serum or Plasma by Immunoassay Hepatitis B surface antigen Lab Routine Missed menses , unspecified gestational age Ordered: 06/23/2024 [facility] Comment on above: Ordered: 06/23/2024 Hepatitis C virus Ab [Presence] in Serum or Plasma by Immunoassay Hepatitis C antibody Lab Routine Missed menses , unspecified gestational age Ordered: 06/23/2024 [facility] Comment on above: Ordered: 06/23/2024 HIV-1/HIV-2 antigen/antibody combination immunoassay HIV-1 and HIV-2 antibodies Lab Routine Missed menses , unspecified gestational age Ordered: 06/23/2024 [facility] Comment on above: Ordered: 06/23/2024 Neisseria gonorrhoea e DNA [Presence] in Unspecified specimen by KELLY with probe detection Neisseria gonorrhea DNA probe, direct Lab Routine Exposure to STD Ordered: 08/21/2024 [facility] Comment on above: Ordered: 08/21/2024 Reagin Ab [Presence] in Serum by RPR RPR Lab Routine Missed menses , unspecified gestational age Ordered: 06/23/2024 [facility] Comment on above: Ordered: 06/23/2024 Rubella antibody, IgG Rubella an tibody, IgG Lab Routine Missed menses , unspecified gestational age Ordered: 06/23/2024 [facility] Comment on above: Ordered: 06/23/2024 SURESWAB(R) ADVANCED VAGINITIS PLUS, TMA SURESWAB(R) ADVANCED VAGINITIS PLUS, TMA Pathology and Cytology Routine Exposure to STD Ordered: 08/21/2024 [facility] Work Phone: Comment on above: Ordered: 08/21/2024 [facility] Payers Date Payer Category Payer Medicaid [facility] [id number] 2024 Medicaid [id number] 2022 Self-pay [id number] 2019 Managed Care Other (unspecified) [facility] [id number] 2019 Private Health Insurance [id number] 2004 Unknown [id number] 2.16.840.1.503431.3.579.2. 593 2004 Unknown [id number] 2.16.840.1.484343.3.579.2. 1286 2004 Unknown [id number] 2.16.840.1.494275.3.579.2. 1286 2004 Unknown [id number] 2.16.840.1.224190.3.579.2. 1286 2004 Unknown [id number] 2.16.840.1.153499.3.579.2. 1286 2004 Unknown [id number] 2.16.840.1.921575.3.579.2. 1286 2004 Unknown [id number] 2.16.840.1.537561.3.579.2. 1285 2004 Unknown [id number] 2.16.840.1.057497.3.579.2. 1285 2004 Unknown [id number] 2.16.840.1.396834.3.579.2. 1285 2004 Unknown [id number] 2.16.840.1.080212.3.579.2. 1285 2004 Unknown [id number] 2.16.840.1.949374.3.579.2. 1258 2004 Unknown [id number] 2.16.840.1.260501.3.579.2. 1258 2004 Unknown [id number] 2.16.840.1.121769.3.579.2. 1258 2004 Unknown [id number] 2.16.840.1.761183.3.579.2. 1258 2004 Unknown [id number] 2.16.840.1.111229.3.579.2. 1258 2004 Unknown [id number] 2.16.840.1.096657.3.579.2. 1258 2004 Unknown [id number] 2.16.840.1.798222.3.579.2. 1258 2004 Unknown [id number] 2.16.840.1.948591.3.579.2. 1258 2004 Unknown [id number] 2.16.840.1.013385.3.579.2. 1258 2004 Unknown [id number] 2.16.840.1.282426.3.579.2. 1258 2004 Unknown [id number] 2.16.840.1.343488.3.579.2. 1258 2004 Unknown [id number] 2.16.840.1.319092.3.579.2. 1259 2004 Unknown [id number] 2.16.840.1.945242.3.579.2. 9 2004 Unknown [id number] 2.16.840.1.762397.3.579.2. 9 2004 Unknown [id number] 2.16.840.1.267786.3.579.2. 9 2004 Unknown [id number] 2.16.840.1.352277.3.579.2. 1259 1959 Unknown [id number] 2.16.840.1.132555.19 Unknown [id number] 2.16.840.1.660200.3.579.2. 531 Unknown [id number] Social History Date Type Detail Facility Start: 12-21-2023 End: 01-25-[address] [facility]stem Start: 2005 Sex Assigned At Female F [facility] Start: 12-21-2023 End: 12-27-2023 Tobacco smoking status NHIS Never smoked tobacco (finding) [facility] Start: 12-20-2023 End: 12-21-2023 Tobacco use and exposure Smokeless tobacco non-user [facility] Start: 01-25-2024 End: 01-09-2025 Alcoholic beverage intake Lifetime non-drinker (finding) [facility] Start: 12-21-2023 End: 01-25-2024 History of Social function [facility] Start: 2004 Sex assigned at Not on file P [facility] Start: 05-05-2024 [facility] hcare Start: 12-20-2023 End: 05-22-2024 Alcoholic beverage intake Current non-drinker of alcohol (finding) [facility] Childcare Unknown [facility] Start: 01-28-2015 Sex Female (finding) [facility] Clinical Notes 04-29-2021 to 01-09-2025 JULIANA Dubois - 01/09/2025 8:40 AM EDAmbrose Vital LPN - 01/02/2025 11:40 AM Cookie Ferreira NP - 12/25/2024 8:30 AM JULIANA Sanchez - 12/18/2024 8:50 AM JULIANA Sanchez - 02/22/2024 8:40 AM EDT Note Date & Type Note Facility 01-09-2025 History of Present illness Narrative Reason for Appointment: Patient ID: Flavia Tucker is a 19 y.o. female who presents [...] Vitals: Estimated body mass index is 26.81 kg/m as calculated from the following: Height as of 02/22/24: 5' 5 . Weight as of this encounter: 161 lb 1.9 oz. BP: 130/78 Patient's last menstrual period was 04/21/2024. ASSESSMENT & PLAN ICD-10-CM 1. 37 weeks gestation of ([facility]) Z3A.37 POCT urinalysis dipstick manually resulted 2. Third trimester ([facility]) Z34.93 POCT urinalysis dipstick manually resulted [...] of: JULIANA Dubois documented in this encounter [facility] 01-02-2025 History of Present illness Narrative Reason for Appointment: Patient ID: Flavia Tucker is a 19 y.o. female who presents [...] nursing note reviewed. Exam conducted with a prop setter present. Vitals: Estimated body mass index is 27.29 kg/m as calculated from the following: Height as of 02/22/24: 5' 5 . Weight as of this encounter: 164 lb. BP: 112/60 Patient's last menstrual period was 04/21/2024. ASSESSMENT & PLAN ICD-10-CM 1. Third trimester ([facility]) Z34.93 POCT urinalysis dipstick manually resulted CULTURE, GROUP B STREP WITH SUSCEPTIBLITY CULTURE, GROUP B STREP WITH SUSCEPTIBLITY 2. 36 weeks gestation of ([facility]) Z3A.36 Patient is doing well but has [...] Collin Barraza DO documented in this encounter [facility] 12-25-2024 History of Present illness Narrative Reason for Appointment: Patient ID: Flavia Tucker is a 19 y.o. female who presents [...] nursing note reviewed. Exam conducted with a prop setter present. Vitals: Estimated body mass index is 26.96 kg/m as calculated from the following: Height as of 02/22/24: 5' 5 . Weight as of 12/18/24: 162 lb. BP: Patient's last menstrual period was 04/21/2024. ASSESSMENT & PLAN ICD-10-CM 1. Third trimester ([facility]) Z34.93 POCT urinalysis dipstick manually resulted CANCELED: CULTURE, GROUP B STREP WITH SUSCEPTIBLITY CANCELED: CULTURE, GROUP B STREP WITH SUSCEPTIBLITY 2. 35 weeks gestation of ([facility]) Z3A.35 Return OB: Patient presents today for [...] Collin Barraza DO documented in this encounter [facility] 12-18-2024 History of Present illness Narrative Reason for Appointment: Patient ID: Flavia Tucker is a 19 y.o. female who presents [...] reviewed. Vitals: Estimated body mass index is 26.29 kg/m as calculated from the following: Height as of 02/22/24: 5' 5 . Weight as of 12/04/24: 158 lb. BP: Patient's last menstrual period was 04/21/2024. ASSESSMENT & PLAN ICD-10-CM 1. Third trimester ([facility]) Z34.93 2. 34 weeks gestation of ([facility]) Z3A.34 Return OB: Patient presents today for a routine obstetrics appointment. Patient is currently 34w3d . Patient states she is doing well but has complaints of being tired due to current . Patient has verbalizes frequent movement. labor precautions was discussed/given and patient was instructed to perform kick counts three times a day. Patient want to discuss w/ kimberlee Rodriguez an induction date in today's visit. Patient is exhausted and uncomfortable and would like to have baby earlier than her BERT. No orders of the defined types were placed in this encounter. Follow Up: Patient is to return to office in 1 week for routine OB appointment. Documented by Carine Neri MA on behalf of: JULIANA Dubois documented in this encounter [facility] 12-04-2024 History of Present illness Narrative Reason for Appointment: Patient ID: Flavia Tucker is a 19 y.o. female who presents [...] nursing note reviewed. Exam conducted with a prop setter present. Vitals: Estimated body mass index is 26.29 kg/m as calculated from the following: Height as of 02/22/24: 5' 5 . Weight as of this encounter: 158 lb. BP: 118/72 Patient's last menstrual period was 04/21/2024. ASSESSMENT & PLAN ICD-10-CM 1. Third trimester ([facility]) Z34.93 POCT urinalysis dipstick manually resulted 2. 31 weeks gestation of ([facility]) Z3A.31 Return OB: Patient presents today for a routine obstetrics appointment. Patient is currently 32w3d . Patient states she is doing well but has complaints of being tired due to current . Patient has verbalizes frequent movement. labor precautions was discussed/given and patient was instructed to perform kick counts three times a day. Orders Placed This Encounter Procedures POCT urinalysis dipstick manually resulted Follow Up: Patient is to return to office in 2 week for routine OB appointment. Documented by Rox Ferreira NP on behalf of: Collin Barraza DO documented in this encounter [facility] 10-17-2024 History of Present illness Narrative Reason for Appointment: Patient ID: Flavia Tucker is a 19 y.o. female who presents for Routine Visit Patient presents today for Return OB appointment. MEDICATIONS Current Outpatient Medications Medication Instructions albuterol HFA 90 mcg/act inhaler 2 puffs, Inhalation, Every 6 hours PRN ondansetron ODT (ZOFRAN-ODT) 4 mg, Oral, Every 6 hours PRN promethazine (PHENERGAN) 12.5 mg, Oral, Every 6 hours PRN, Take 1 tablet by mouth every 6 hours as needed for nausea. ALLERGIES Allergies Allergen Reactions Keflex [Cephalexin] Hives Mite (D. Farinae) Other Reaction(s): Unknown Sulfa Antibiotics Hives Cat Dander Rash Other Reaction(s): Unknown Dust Mite Extract Rash Milk (Cow) Rash Other Rash PROBLEMS Active Ambulatory Problems Diagnosis Date [...] nursing note reviewed. Exam conducted with a prop setter present. Vitals: Estimated body mass index is 24.92 kg/m as calculated from the following: Height as of 02/22/24: 5' 5 . Weight as of this encounter: 149 lb 12 oz. BP: 120/64 Patient's last menstrual period was 04/21/2024. ASSESSMENT & PLAN ICD-10-CM 1. Second trimester Z34.92 POCT urinalysis dipstick manually resulted 2. 25 weeks gestation of Z3A.25 3. Diabetes mellitus screening Z13.1 CBC Glucose tolerance, 1 hour CBC Glucose tolerance, 1 hour Return OB: Patient presents today for a routine obstetrics appointment. Patient is currently 25w4d . Patient states she is doing well but has complaints of being tired due to current . Patient has verbalizes frequent movement. labor precautions was discussed/given. Orders Placed This Encounter Procedures CBC Glucose tolerance, 1 hour POCT urinalysis dipstick manually resulted Follow Up: Patient is to return to office in 2 week for routine OB appointment. Documented by Clarisse Vital LPN on behalf of: Collin Barraza DO documented in this encounter [facility] 09-19-2024 History of Present illness Narrative Reason for Appointment: Patient ID: Flavia Tucker is a 19 y.o. female who presents for Routine Visit Patient presents today for Return OB appointment. MEDICATIONS Current Outpatient Medications Medication Instructions albuterol HFA 90 mcg/act inhaler 2 puffs, Inhalation, Every 6 hours PRN ondansetron ODT (ZOFRAN-ODT) 4 mg, Oral, Every 6 hours PRN promethazine (PHENERGAN) 12.5 mg, Oral, Every 6 hours PRN, Take 1 tablet by mouth every 6 hours as needed for nausea. ALLERGIES Allergies Allergen Reactions Keflex [Cephalexin] Hives Mite (D. Farinae) Other Reaction(s): Unknown Sulfa Antibiotics Hives Cat Dander Rash Other Reaction(s): Unknown Dust Mite Extract Rash Milk (Cow) Rash Other Rash PROBLEMS Active Ambulatory Problems Diagnosis Date [...] nursing note reviewed. Exam conducted with a prop setter present. Vitals: Estimated body mass index is 23.8 kg/m as calculated from the following: Height as of 02/22/24: 5' 5 . Weight as of this encounter: 143 lb. BP: 112/60 Patient's last menstrual period was 04/21/2024. ASSESSMENT & PLAN ICD-10-CM 1. Second trimester Z34.92 POCT urinalysis dipstick manually resulted 2. 21 weeks gestation of Z3A.21 Patient presents today for a routine obstetrics appointment. Patient is currently 21w4d with a Estimated Date of Delivery: 01/26/25. Pt has repeat ultrasound today at 11. Documented by Clarisse Vital LPN on behalf of: Kimberlee Rodriguez PA-C documented in this encounter [facility] 08-21-2024 History of Present illness Narrative Reason for Appointment: Patient ID: Flavia Tucker is a 19 y.o. female who presents for Routine Visit Patient presents today for Return OB appointment. MEDICATIONS Current Outpatient Medications Medication Instructions albuterol HFA 90 mcg/act inhaler 2 puffs, Inhalation, Every 6 hours PRN ondansetron ODT (ZOFRAN-ODT) 4 mg, Oral, Every 6 hours PRN promethazine (PHENERGAN) 12.5 mg, Oral, Every 6 hours PRN, Take 1 tablet by mouth every 6 hours as needed for nausea. ALLERGIES Allergies Allergen Reactions Keflex [Cephalexin] Hives Mite (D. Farinae) Other Reaction(s): Unknown Sulfa Antibiotics Hives Cat Dander Rash Other Reaction(s): Unknown Dust Mite Extract Rash Milk (Cow) Rash Other Rash PROBLEMS Active Ambulatory Problems Diagnosis Date [...] SYSTEMS Review of Systems: Review of Systems All other systems reviewed and are negative. OBJECTIVE Objective: Physical Exam Constitutional: Appearance: Normal appearance. Genitourinary: Right Adnexa: not tender and no mass present. Left Adnexa: not tender and no mass present. No cervical discharge. Breasts: Breasts are soft. Right: Normal. Left: Normal. HENT: Head: Normocephalic. Nose: Nose normal. Mouth/Throat: Mouth: Mucous membranes are moist. Cardiovascular: Rate and Rhythm: Normal rate. Pulmonary: Effort: Pulmonary effort is normal. Abdominal: General: Bowel sounds are normal. Palpations: Abdomen is soft. Musculoskeletal: General: Normal range of motion. Cervical back: Normal range of motion. Neurological: General: No focal deficit present. Mental Status: She is alert. Skin: General: Skin is warm and dry. Psychiatric: Mood and Affect: Mood normal. Vitals and nursing note reviewed. Exam conducted with a prop setter present. Vitals: Estimated body mass index is 22.47 kg/m as calculated from the following: Height as of 02/22/24: 5' 5 . Weight as of 07/13/24: 135 lb. BP: Patient's last menstrual period was 04/21/2024. ASSESSMENT & PLAN ICD-10-CM 1. Exposure to STD Z20.2 SURESWAB(R) ADVANCED VAGINITIS PLUS, TMA CHLAMYDIA TRACHOMATIS (GENITO/STI) Neisseria gonorrhea DNA probe, direct 2. Second trimester Z34.92 POCT urinalysis dipstick manually resulted 3. 16 weeks gestation of Z3A.16 4. Screening, , for anatomic survey Z36.89 US OB 14+ weeks anatomy scan 5. Need for maternal serum alpha-protein (MSAFP) screening Z36.1 Alpha fetoprotein, maternal Alpha fetoprotein, maternal Return OB/Annual Exam: Patient presents today for a annual exam/routine obstetrics appointment. Patient is currently 17w3d . Patient states she is doing well but has complaints of nausea in the morning. Cultures was obtained without difficulty and patient was given orders for anatomy scan and msAFP to be obtained. Orders Placed This Encounter Procedures US OB 14+ weeks anatomy scan CHLAMYDIA TRACHOMATIS (GENITO/STI) Neisseria gonorrhea DNA probe, direct Alpha fetoprotein, maternal POCT urinalysis dipstick manually resulted Follow Up: Patient is to schedule annual exam for next year and return to office in 4 weeks for OB appointment. Documented by Carine Neri MA on behalf of: Collin Barraza DO documented in this encounter [facility] 07-13-2024 History of Present illness Narrative Reason for Appointment: Patient ID: Flavia Tucker is a 19 y.o. female who presents for Routine Visit Patient presents today for Return OB appointment. MEDICATIONS Current Outpatient Medications Medication Instructions albuterol HFA 90 mcg/act inhaler 2 puffs, Inhalation, Every 6 hours PRN ondansetron ODT (ZOFRAN-ODT) 4 mg, Oral, Every 6 hours PRN promethazine (PHENERGAN) 12.5 mg, Oral, Every 6 hours PRN, Take 1 tablet by mouth every 6 hours as needed for nausea. ALLERGIES Allergies Allergen Reactions Keflex [Cephalexin] Hives Mite (D. Farinae) Other Reaction(s): Unknown Sulfa Antibiotics Hives Cat Dander Rash Other Reaction(s): Unknown Dust Mite Extract Rash Milk (Cow) Rash Other Rash PROBLEMS Active Ambulatory Problems Diagnosis Date [...] SYSTEMS Review of Systems: Review of Systems All other systems reviewed and are negative. OBJECTIVE Objective: Physical Exam Constitutional: Appearance: Normal [...] nursing note reviewed. Exam conducted with a prop setter present. Vitals: Estimated body mass index is 22.47 kg/m as calculated from the following: Height as of 02/22/24: 5' 5 . Weight as of this encounter: 135 lb. BP: 112/64 Patient's last menstrual period was 04/21/2024. ASSESSMENT & PLAN ICD-10-CM 1. First trimester Z34.91 POCT urinalysis dipstick manually resulted 2. 11 weeks gestation of Z3A.11 New OB: Patient presents today for 1st time obstetrics appointment with provider. Patient is currently 11w6d . Patients history has been reviewed in great detail including any potential risks. Patient stated she currently has no complaints. Expectations throughout regarding labs, ultrasounds, and appointments have been discussed with the patient in detail. It was reiterated that the patient is to drink 6-8 glasses of water a day, eat 6 small meals a day, do not consume raw or undercooked meat, and [facility]. Patient has been consulted regarding any further do's and don'ts of . Patient voiced understanding and all questions and concerns were answered. Orders Placed This Encounter Procedures POCT urinalysis dipstick manually resulted Follow Up: Patient is to return in 4 weeks for routine OB appointment. Documented by Pia Akdins LPN on behalf of: Collin Barraza DO documented in this encounter [facility] 06-23-2024 History of Present illness Narrative Reason for Appointment: Patient ID: Flavia Tucker is a 18 y.o. female who presents [...] or undercooked meat, and stay away from [facility]. Patient has also been advised to not [...] Luciana Fisher LPN documented in this encounter [facility] 05-22-2024 History of Present illness Narrative Images from the original note were not included. [facility] [address] [id number] Subjective: Chief Complaint Asthma HPI [...] for involving me in this patient's care. Ronald Beach MD. Pulmonary and Critical Care Physician 05/22/24. Please note that portions of this note were generated using voice recognition M*Modal dictation software. Although every effort was made to ensure the accuracy of this automated pattern duplicator, some errors in pattern duplicator may have occurred. [facility] History of Present illness Narrative Reason for Appointment: Patient ID: Flavia Tucker is a 18 y.o. female who presents [...] due to pelvic pain performed at [facility] with Dr. Barraza. Patient doing well, steri strips removed, restrictions lifted Follow Up: Patient is to return to the office for annual exam unless needed otherwise. Documented by JULIANA Dubois on behalf of: JULIANA Dubois documented in this encounter [facility] 12-20-2023 History of Present illness Narrative Images from the original note were not included. [facility] [address] [id number] Subjective: Chief Complaint Shortness a breath HPI The patient is a 18-year-old female with past medical history of asthma during her childhood. She stated she was diagnosed at age of 2-3 and she continues to use breathing treatment until the age of 5. She stated that she was doing great since then with no significant respiratory issues. The patient started to have increasing shortness a breath in the last few months. She was given albuterol inhaler that she uses very often. She feels improvement with albuterol inhaler. She stated that she does not get wheezing unless it is hot and muggy outside when she starts to hear wheezing. She usually stays inside when the weather is hot and muggy. The patient is concerned regarding the pulmonary [...] Substance Use Topics Alcohol use: No Objective: Vitals: 12/20/23 1031 BP: 112/66 Pulse: 71 SpO2: 100% Physical Exam Vitals and nursing note reviewed. [...] pulmonary nodules. No need for follow-up Recommendations Start QVAR 80. One puff twice a day Continue albuterol inhaler 2 puffs q.6 hours p.r.n.. The patient was told if she does not improve in 1-2 months to give us a call back Discussed with the patient importance to stay away from smoking or vaping. Regarding the pulmonary nodules, no need to follow-up. These are most likely secondary to mucus. PFT findings were explained to the patient. Patient was advised to stay active. Discussed the plan of care in details with the patient. Follow-up after 4 months. Thank you for involving me in this patient's care. Ronald Beach MD. Pulmonary and Critical Care Physician 12/20/23. Please note that portions of this note were generated using voice recognition M*Modal dictation software. Although every effort was made to ensure the accuracy of this automated pattern duplicator, some errors in pattern duplicator may have occurred. documented in this encounter [employer] 11-10-2023 Note XR CHEST 2 VWS Procedure: Chest x-ray performed Number of views:2 History:Shortness of breath Comparison:09/07/2012 Findings: The heart and lungs show no acute findings, and the mediastinum and fabienne are grossly negative . Impression: 1. No acute change. Finalized by Bola Dang MD on 11/10/2023 9:58 AM [facility] 04-21-2022 Evaluation note Encounter Date Diagnosis Assessment [...] we will help you get into specialist. [employer] Other 10-04-2022 Evaluation note* Encounter Date Diagnosis [...] therapy plan may need to be made. [employer] Other 11-09-2021 Evaluation note* Encounter Date Diagnosis Assessment Notes Treatment Notes Treatment Clinical Notes Apr, Tinea pedis of both feet (ICD-10 - B35.3) Use medication as directed. Shows need to be cleaned and clean socks need to be worn daily. Education handout printed on [employer] Other evaluquknc noteNo InformationNort [employer] Other evaluation noteNo assessment information available [facility] Work Phone: Evaluation note* Diagnosis Onset Date Resolution Status Acute bilateral otitis media acute [facility] Work Phone: Evaluation note* Diagnosis Onset Date Resolution Status Acute bilateral otitis media acute Acute maxillary sinusitis, unspecified acute [facility] Work Phone: evaluation note* Diagnosis Onset Date Resolution Status Acute maxillary sinusitis, unspecified acute [facility] Work Phone: evaluation note* Diagnosis Pelvic pain in female- Primary Unspecified symptom associated with female genital organs documented in this encounter [facility] HealthcareEvaluation [facility]* Diagnosis Missed menses , unspecified gestational age Encounter for supervision of normal first in first trimester Nausea and vomiting in Unspecified vomiting of , unspecified as to episode of care documented in this encounter [facility] HealthcareEvaluation note* Diagnosis First trimester state, incidental 11 weeks gestation of documented in this encounter [facility] HealthcareEvaluation note* Diagnosis Mild persistent asthma without complication- Primary Multiple pulmonary nodules Other diseases of lung, not elsewhere classified SOB (shortness of breath) Shortness of breath documented in this encounter [facility] System[facility]* Diagnosis Mild persistent asthma without complication- Primary Multiple pulmonary nodules Other diseases of lung, not elsewhere classified documented in this encounter [facility] System[facility]* Diagnosis Exposure to STD Second trimester state, incidental 16 weeks gestation of Screening, , for anatomic survey Encounter for anatomic survey Need for maternal serum alpha-protein (MSAFP) screening documented in this encounter [facility] HealthcareEvaluation note* Diagnosis Second trimester state, incidental 21 weeks gestation of documented in this encounter [facility] Healthcare[facility] note* Diagnosis Second trimester state, incidental 25 weeks gestation of Diabetes mellitus screening Screening for diabetes mellitus documented in this encounter [facility] HealthcareEvaluation note* Diagnosis Size of fetus inconsistent with dates in first trimester- Primary Third trimester state, incidental 29 weeks gestation of documented in this encounter [facility] HealthcareEvaluation note* Diagnosis Third trimester ([facility]) state, incidental 31 weeks gestation of ([facility]) documented in this encounter [facility] HealthcareEvaluation note* Diagnosis Third trimester ([facility]) state, incidental 34 weeks gestation of ([facility]) documented in this encounter [facility]* Diagnosis Third trimester ([facility]) state, incidental 35 weeks gestation of ([facility]) documented [facility]* Diagnosis Third trimester ([facility]) state, incidental 36 weeks gestation of ([facility]) documented [facility]* Diagnosis 37 weeks gestation of ([facility]) Third trimester ([facility]) state, incidental documented [facility] general Narrative - Reported* Type Description Date Medical History acid reflux Surgical History caps on teeth when younger Hospitalization History [facility] Other History general Narrative - Reported* Type Description Date Medical History acid reflux Medical History headache Medical History seizures Surgical History caps on teeth when younger Hospitalization History Sporth[facility] [employer] Other History of Present illness Narrative* JULINAA Dubois - 11/16/2024 9:30 AM EDT Reason for Appointment: Patient ID: Flavia Tucker is a 19 y.o. female who presents [...] Problems Past Medical History: Diagnosis Date Asthma Lung nodules HISTORY PAST MEDICAL HISTORY SOCIAL HISTORY Past Medical History: Diagnosis Date Asthma Lung nodules Social History Tobacco Use Smoking [...] Negative. Endocrine: Negative. Allergic/Immunologic: Negative. OBJECTIVE Objective: OBGyn Exam Vitals: Estimated body mass index is 26.13 kg/m as calculated from the following: Height as of 02/22/24: 5' 5 . Weight as of this encounter: 157 lb. BP: 122/70 Patient's last menstrual period was 04/21/2024. ASSESSMENT & PLAN ICD-10-CM 1. Size of fetus inconsistent with dates in first trimester O26.841 US OB follow up transabdominal approach 2. Third trimester Z34.93 3. 29 weeks gestation of Z3A.29 Return OB: Patient presents today for a routine obstetrics appointment. Patient is currently 29w6d . Patient states she is doing well but has complaints of being tired due to current . Patient has verbalizes frequent movement. labor precautions was discussed/given and patient was instructed to perform kick counts three times a day. Orders Placed This Encounter Procedures US OB follow up transabdominal approach Follow Up: Patient is to return to office in 2 week for routine OB appointment. Documented by JULIANA Dubois on behalf of: JULIANA Dubois documented in this [facility]ultonInstructionsNot on filedocumented in this encounterProMer[facility] SystemInstructionsNot on filedocumented in this encounterProMer[facility] Summary Purpose Family History No Family [...] section and content) DATE CREATED AUTHOR 04/09/2018 [facility] DATE CREATED AUTHOR AUTHOR'S ORGANIZ ATION 04/27/2022 [facility] DATE CREATED AUTHOR AUTHOR'S ORGANIZ ATION 09/30/2022 [facility] DATE CREATED AUTHOR AUTHOR'S ORGANIZ ATION 05/23/2024 [facility] DATE CREATED AUTHOR AUTHOR'S ORGANIZ ATION 10/27/2024 [facility] DATE CREATED AUTHOR AUTHOR'S ORGANIZ ATION 01/10/2025 [facility] EPIC REASON FOR VISIT (unrecogniz ed section and content) Reason Comments Post-op Visit Reason Comments Amenorrhea Reason Comments Routine Visit Reason Comments New Patient CXR: 11/10/2023FT: 11/10/2023SOB: when it's hot outside, some on exertionTobacco Use: Former Vape User, nicotine, 6 month user Started Tobacco: December 2022-June 2023Hx Sleep Apnea: no Asthma Specialty Diagnoses / Procedures Referred By Contac t Referred To Contact Pulmonary Medicine Diagnoses Asthma, unspecified asthma severity, unspecified whether complicated, unspecified whether persistent SOB (shortness of breath) Abnormal chest CT Emelyn Robins, SALES ORDER SPECIALIST-CONSERVATION POLICY ANALYST [address] [place] [id number] [facility] Pulm Sleep Med Critical access hospital [facility] [address] Referral ID Status Reason Start Date Expiration Date Visits Requested Visits Authorized [id number] Pending Review Specialty Services Required 11/04/2023 11/03/2024 1 1 Reason Comments Follow-up Asthma CXR 11/10/23PF T 11/10/23 Care Teams (unrecognized sec tion and content) Team Status: Inactive Member Role Status Dates ESTELLE Chua-C Attending Provider Active Team Status: Active Member [...] April 22, 2024 End: April 22, 2024 Application Architect Manager Relationship Specialty Start Date End Date Emelyn Robins APRN-FNP [address] [place] [address] PCP - General Family Medicine 11/21/23 Application Architect Manager Relationship Specialty Start Date End Date Emelyn Robins APRN-FNP [address] [place] [address] PCP - General Family Medicine 11/21/23 Goals [...] BE BASED ON THE PRIMARY CLINICAL RECORDS. [facility] Cardiovascular Provider [employer] [facility]. provides no warranty or guarantee of the accuracy or completeness of information in this document.
[2025-01-11 01:00] VITALS: BP 130/79; PULSE 85
[2025-01-11 01:15] LABS: Glucose Urine UA NEGATIVE (NEGATIVE)
== END 2025-01-11 07:04 | disposition home or self-care (01) ==
PROVIDERS: Admitting Provider Obstetrics & Gynecology; Visit Provider Obstetrics & Gynecology
DX: O26.893 Other specified pregnancy related conditions, third trimester (principal); R10.2 Pelvic and perineal pain; Z3A.37 37 weeks gestation of pregnancy; O23.43 Unspecified infection of urinary tract in pregnancy, third trimester; N39.0 Urinary tract infection, site not specified
CPT/HCPCS: 59025; 81001; 81003; 84112; 87086; 96365; 96366; G0378; G0379; J0736

== ENCOUNTER 2025-01-11 18:30 | Observation (INO) | payer OTHER, SELFPAY ==
--- OUTSIDE RECORDS SUMMARY | 2025-01-02 11:40 | XMS_ITS | Encounter Summary ---
Author Organization [facility] Address [address] [place] [address] Care Team Providers Care Assistant Food Service Manager Name Role Phone Unavailable Primary Care Provider Unavailabl e Reason for Visit * Reason Comments Routine Visit Encounter Details Date Type Department Care Team (Late st Contact Info) Description 01/02/2025 11:40 AM EDT Routine [facility] [address] [place] [address] Collin Barraza, DO [address] [place] [address] Third trimester ([facility]); 36 weeks gestation of ([facility]) Social History Tobacco Use Types Packs/Day Years [...] 8:54 AM EDT documented in this encounter Progress Notes * Clarisse Vital, PASSENGER CAR INSPECTOR - 01/02/2025 11:40 AM EDT Reason for Appointment: Patient ID: [...] Constitutional: Appearance: Normal appearance. She is well-developed. Genitourinary: Vulva normal. Cardiovascular: Rate and Rhythm: Normal rate and [...] nursing note reviewed. Exam conducted with a production control analyst present. Vitals: Estimated body mass index is 27.29 kg/m?? as calculated from the following: Height as of 02/22/24: 5' 5 . Weight as of this encounter: 164 lb. BP: 112/60 Patient's last menstrual period was 04/21/2024. ASSESSMENT & PLAN ICD-10-CM 1. Third trimester ([facility]) Z34.93 POCT urinalysis dipstick manually resulted CULTURE, GROUP B STREP WITH SUSCEPTIBLITY CULTURE, GROUP B STREP WITH SUSCEPTIBLITY 2. 36 weeks gestation of ([facility]) Z3A.36 Patient is doing well but has complaints of being tired and having maternal discomfort due to . Patient verbalized frequent movement and was instructed to perform kick counts three times per day. labor precautions were given, LARC consent was signed/declined, and GBS was obtained. Cervical check was performed and patient is 1cm dilated. Orders Placed This Encounter Procedures CULTURE, GROUP B STREP WITH SUSCEPTIBLITY POCT urinalysis dipstick manually resulted Follow Up: Patient is to return to office in 1 week for routine OB appointment Documented by Clarisse Vital LPN on behalf of: Collin Barraza DO documented in this encounter Plan of Treatment Upcoming Encounters Date Type Department Care Team (Late st Contact Info) Description 01/18/2025 8:50 AM EDT Routine [facility] [address] [place] [phone] Peggy Morgan PA [address] [place] [address] [place], [facility] Scheduled Orders Name Type Priority Associated Diagnoses Orde r Schedule CULTURE, GROUP B STREP WITH SUSCEPTIBLITY Lab Routine Third trimester ([facility]) Expected: 01/02/2025, Expires: 01/02/2026 documented as of this encounter Procedures Procedure Name Priority Date/Time Associated Diagnosis Comments POCT URINALYSIS DIPSTICK Routine 01/02/2025 11:39 AM EDT Third trimester ([facility]) documented in this encounter Results * POCT [...] this encounter Visit Diagnoses Diagnosis Third trimester ([facility]) state, incidental 36 weeks gestation of ([facility]) documented in this encounter
--- OUTSIDE RECORDS SUMMARY | 2025-01-09 08:40 | XMS_ITS | Encounter Summary ---
Author Organization [facility] Address [address] [place] [address] Care Team Providers Care Boom Cat Operator Name Role Phone Unavailable Primary Care Provider Unavailabl e Reason for Visit * Reason Comments Routine Visit Encounter Details Date Type Department Care Team (Late st Contact Info) Description 01/09/2025 8:40 AM EDT Routine [facility] [address] [facility] [place] [address] Peggy Morgan PA [address] [facility] [place] [address] 37 weeks gestation of ([facility]); Third trimester ([facility]) Social History Tobacco Use Types Packs/Day Years [...] Sign Reading Time Taken Comments Blood Pressure 130/78 01/09/2025 8:29 AM EDT Pulse - - Temperature - - Respiratory Rate - - Oxygen Saturation - - Inhaled Oxygen Concentration - - Weight 73.1 kg (161 lb 1.9 oz) 01/09/2025 8:29 A M EDT Height - - Body Mass Index 26.81 02/22/2024 8:54 AM EDT documented in this encounter Progress Notes * JULIANA Dubois - 01/09/2025 8:40 AM EDT Reason for Appointment: Patient ID: [...] Exam Constitutional: Appearance: Normal appearance. She is normal weight. HENT: Head: Normocephalic. Cardiovascular: Rate and Rhythm: Normal rate. Pulses: Normal pulses. Pulmonary: Effort: Pulmonary effort is normal. Breath sounds: Normal breath sounds. Abdominal: Palpations: Abdomen is soft. Musculoskeletal: General: Normal range of motion. Neurological: General: No focal deficit present. Mental Status: She is alert and oriented to person, place, and time. Psychiatric: Mood and Affect: Mood normal. Behavior: Behavior normal. Thought Content: Thought content normal. Judgment: Judgment normal. Vitals and nursing note reviewed. Vitals: Estimated body mass index is 26.81 kg/m?? as calculated from the following: Height as of 02/22/24: 5' 5 . Weight as of this encounter: 161 lb 1.9 oz. BP: 130/78 Patient's last menstrual period was 04/21/2024. ASSESSMENT & PLAN ICD-10-CM 1. 37 weeks gestation of ([facility]) Z3A.37 POCT urinalysis dipstick manually resulted 2. Third trimester ([facility]) Z34.93 POCT urinalysis dipstick manually resulted Return OB: Patient presents today for a routine obstetrics appointment. Patient is currently 37w4d . Patient states she is doing well [...] week for routine OB appointment. Documented by JULIANA Dubois on behalf of: JULIANA Dubois documented in this encounter Plan of Treatment Upcoming Encounters Date Type Department Care Team (Late st Contact Info) Description 01/18/2025 8:50 AM EDT Routine [facility] OB [address] [facility] [place] [id number] Peggy Morgan PA [address] [facility] [place] [address] documented as of this encounter Procedures Procedure Name Priority Date/Time Associated Diagnosis Comments POCT URINALYSIS DIPSTICK Routine 01/09/2025 8:32 AM EDT 37 weeks gestation of ([facility]) Third trimester ([facility]) documented in this encounter Results * (ABNORMAL) POCT urinalysis dipstick manually resulted (01/09/2025 8:32 AM EDT) Color, UA Yellow Clarity, UA Clear Glucose, UA Negative Negative - 2000(110) ++++ mg/dL Bilirubin, UA Negative Negative - 4(70) +++ mg/dL Ketones, UA Negative Negative - 160(16) ++++ mg/dL Spec Grav, UA 1.010 1 - 1.03 Blood, UA Negative Negative - 50 Francois/mcL pH, UA 6.0 5 - 9 Protein, UA Trace Negative - 2000(20) ++++ mg/dL Urobilinogen, UA 1.0 0.2 - 12 mg/dL Leukocytes, UA Negative Negative - 500+++ Héctor/mcL Nitrite, UA Negative Negative - Positive Urine 01/09/2025 8:32 AM EDT Peggy ANDREWS POINT OF CARE TEST ENTER/EDIT OR DERABLES Final Result documented in this encounter Visit Diagnoses Diagnosis 37 weeks gestation of ([facility]) Third trimester ([facility]) state, incidental documented in this encounter
--- OUTSIDE RECORDS SUMMARY | 2025-01-11 18:33 | XMS_ITS | Encounter Summary ---
Author Organization [facility] Address [address] [place] [address] Care Team Providers Care Co Founder And Chief Strategy Officer Name Role Phone Unavailable Primary Care Provider Unavailabl e Encounter Details Date Type Department Care Team (Late Contact Info) Description 12/23/2023 Clinisync Result Encounter [facility] External Department Unsolicited Quintin Barraza DO [address] Mark, [place] [address] Social History Tobacco Use Types Packs/Day Years [...] AM EDT Routine [facility] BCP OB [address] [facility] [place] [address] Peggy Morgan PA [address] [facility] [place] [address] documented as of this encounter Procedures Procedure Name Priority Date/Time Associated Diagnosis Comments US PELVIS W/ TRANSVAGINAL 12/23/2023 6:21 AM EDT documented in this encounter Results * US PELVIS W/ TRANSVAGINAL (12/23/2023 6:21 AM EDT) Anatomical Region Laterality Modality Other 12/23/2023 6:21 AM EDT Narrative 12/23/2023 6:23 AM EDT [address] [address] Ultrasound Report Signed Patient: Flavia Reynoso MR#: [id number] : 2005 Acct:[id number] Age/Sex: 18 / F ADM Date: 12/22/23 Loc: US Attending Dr: Quintin Barraza D.O. Ordering Physician: Quintin Barraza D.O. Date of Service: 12/22/23 Procedure(s): US pelvis w/ transvaginal Accession Number(s): [id number] cc: Quintin Barraza D.O.; Physician,Non-Staff Marquez [address] [address] Patient Name: FLAVIA REYNOSO MRN: [id number] date: 2005 Sex: F Assigned Patient Location: US Current Patient Location: Accession/Order Number: [id number] Exam Date: 12/22/2023 11:00 Report Date: 12/23/2023 [...] M.D. Signed By: 12/23/23622 DD/ 0 TD/TT: Camera Maker: Procedure Note Radiology, Radiologist, MD - 12/23/2023 [place] [address] Ultrasound Report Signed Patient: Flavia Reynoso MMR#: [id number] : 2005Acct:[id number] Age/Sex: 18 / FADM Date: 12/22/23 Loc: US Attending Dr: Quintin Barraza D.O. Ordering Physician: Quintin Barraza D.O. Date of Service: 12/22/23 Procedure(s): US pelvis w/ transvaginal Accession Number(s): [id number] cc: Quintin Barraza D.O.; Physician,Non-Staff Marquez The [place] [id number] Patient Name: FLAVIA REYNOSO MRN: [id number] date: 2005 Sex: F Assigned Patient Location: Current Patient Location: Accession/Order Number: [id number] Exam Date: 12/22/2023 11:00 Report Date: 12/23/2023 [...] M.D. Signed By:12/23/23 0623 DD/ 0621 TD/TT: Camera Maker: us [facility] Toledozio DO [facility] Final Result documented in this encounter Visit Diagnoses Not on filedocumented in this encounter
--- OUTSIDE RECORDS SUMMARY | 2025-01-11 18:33 | XMS_ITS | Encounter Summary ---
Author Organization [facility] Address [address] [place] [address] Care Team Providers Care Convex Grinder Operator Name Role Phone Unavailable Primary Care Provider Unavailabl e Encounter Details Date Type Department Care Team (Late Contact Info) Description 01/25/2024 Clinisync Result Encounter N[facility]S External Department Unsolicited Quintin Barraza DO [address], [place] [address] Social History Tobacco Use Types Packs/Day Years [...] AM EDT Routine [facility] BCP OB [address] [facility] [address] Peggy Morgan PA [address] [facility] [place] [address] documented as of this encounter Procedures Procedure Name Priority Date/Time Associated Diagnosis Comments US PELVIS TRANSVAGINAL 01/25/2024 8:09 AM EDT documented in this encounter Results * US PELVIS TRANSVAGINAL (01/25/2024 8:09 AM EDT) Anatomical Region Laterality Modality Other 01/25/2024 8:09 AM EDT Narrative 01/25/2024 8:11 AM EDT [address] [address] Ultrasound Report Signed Patient: Flavia Reynoso MR#: [id number] : 2005 Acct:[id number] Age/Sex: 18 / F ADM Date: 01/24/24 Loc: US Attending Dr: Quinitn Barraza D.O. Ordering Physician: Quintin Barraza D.O. Date of Service: 01/24/24 Procedure(s): US pelvis transvaginal Accession Number(s): [id number] cc: Quintin Barraza D.O.; Physician,Non-Staff Marquez [address] [id number] Patient Name: FLAVIA REYNOSO MRN: [id number] date: 2005 Sex: F Assigned Patient Location: US Current Patient Location: Accession/Order Number: [id number] Exam Date: 01/24/2024 09:08 Report Date: 01/25/2024 08:09 At the request of: QUITNIN BARRAZA Procedure: US pelvis transvaginal EXAM: Pelvic [...] M.D. Signed By: 01/25/24810 DD/ 8 TD/TT: Borough Coordinator: Procedure Note Radiology, Radiologist, - 01/25/2024 [place] [address] Ultrasound Report Signed Patient: Flavia Reynoso MMR#: [id number] : 2005Acct:[id number] Age/Sex: 18 / FADM Date: 01/24/24 Loc: US Attending Dr: Quintin Barraza D.O. Ordering Physician: Quintin Barraza D.O. Date of Service: 01/24/24 Procedure(s): US pelvis transvaginal Accession Number(s): [id number] cc: Quintin Barraza D.O.; Physician,Non-Staff Marquez The [place] [phone] Patient Name: FLAVIA REYNOSO MRN: [id number] date: 2005 Sex: F Assigned Patient Location: Current Patient Location: Accession/Order Number: [id number] Exam Date: 01/24/2024 09:08 Report Date: 01/25/2024 [...] M.D. Signed By:01/25/24 0811 DD/ 0809 TD/TT: Borough Coordinator: us Quintin Christi DO [facility] Final Result documented in this encounter Visit Diagnoses Not on filedocumented in this encounter
--- OUTSIDE RECORDS SUMMARY | 2025-01-11 18:34 | XMS_ITS | Encounter Summary ---
Author Organization [facility] Address [address] [facility] [place] [address] Care Team Providers Care Duplicator Punch Operator Name Role Phone Unavailable Primary Care Provider Unavailabl e Encounter Details Date Type Department Care Team (Late st Contact Info) Description 01/11/2025 Clinisync Result Encounter [facility] External Department Unsolicited Collin Barraza DO [address], [facility] Social History Tobacco Use Types Packs/Day Years [...] AM EDT Routine [facility]CP [facility] [address] [facility] [place] [address] Peggy Morgan PA [address] [facility] [address] [place], [place] [id number] documented as of this encounter Procedures Procedure Name Priority Date/Time Associated Diagnosis Comments TBH UA (CLEAN/CATCH) UNDER WATER ASSISTANT/MICRO IF IND. Routine 01/11/2025 12:50 AM EDT documented in this encounter Results * (ABNORMAL) TBH UA (CLEAN/CATCH) UNDER WATER ASSISTANT/MICRO IF IND. (01/11/2025 12:50 AM EDT) COLOR URINE LT. YELLOW YELLOW TBH CLARITY URINE CLEAR CLEAR TBH SPECIFIC GRAVITY URINE <=1.005(A) 1.005 - 1.025 TBH PH URINE 6.0 5.0 - 9.0 TBH PROTEIN URINE NEGATIVE NEG/TRACE mg/dL TBH GLUCOSE URINE UA NEGATIVE NEGATIVE mg/dL TBH BILIRUBIN URINE NEGATIVE NEGATIVE TBH KETONES URINE NEGATIVE NEGATIVE mg/dL TBH BLOOD URINE NEGATIVE NEGATIVE TBH NITRITE URINE NEGATIVE NEGATIVE TBH UROBILINOGEN URINE 0.2 0.2 - 1.0 EU/dL TBH LEUKOCYTE ESTERASE URINE NEGATIVE NEGATIVE TBH URINE MICROSCOPIC INDICATED NO TBH 01/11/2025 12:5 0 AM EDT 01/11/2025 1:13 AM EDT Narrative [facility] - 01/11/2025 1:25 AM EDT us Collin Barraza DO [facility] Final Result [facility] TB documented in this encounter Visit Diagnoses Not on filedocumented in this encounter
--- OUTSIDE RECORDS SUMMARY | 2025-01-11 18:34 | XMS_ITS | Encounter Summary ---
Author Organization [facility] Address [address] [place] [address] Care Team Providers Care Curriculum Specialist Name Role Phone Unavailable Primary Care Provider Unavailabl e Encounter Details Date Type Department Care Team (Late st Contact Info) Description 07/10/2024 Abstract [facility] BCP OB [address] [facility] [place] [address] Collin Barraza DO [address] [facility] [address] [place], [facility]11 Social History Tobacco Use Types Packs/Day [...] Description 01/18/2025 8:50 AM EDT [address] [facility] OB [address] [facility] [place] [address] Peggy Morgan PA [address] [facility] [address] [place], [place] [id number] documented as of this encounter Visit Diagnoses Not on filedocumented in this encounter
--- OUTSIDE RECORDS SUMMARY | 2025-01-11 18:34 | XMS_ITS | Encounter Summary ---
Author Organization [facility] Address [address] [place] [address] Care Team Providers Care Carpenter Name Role Phone Unavailable Primary Care Provider Unavailabl e Encounter Details Date Type Department Care Team (Late st Contact Info) Description 08/21/2024 Abstract [facility] BCP OB [address] [facility] [place] [place] [address] Collin Barraza DO [address] [facility] [address] [place], [facility]11 Social History Tobacco Use Types Packs/Day [...] Description 01/18/2025 8:50 AM EDT Routine N[facility] OB [address] [facility] [place] [place] [address] Peggy Morgan PA [address] [facility] [address] [place], [place] [id number] documented as of this encounter Visit Diagnoses Not on filedocumented in this encounter
--- OUTSIDE RECORDS SUMMARY | 2025-01-11 18:34 | XMS_ITS | Clinical Summary ---
Author Organization [facility] Address [address] [place] [address] Care Team Providers Care Residential Real Estate Appraiser Name Role Phone Unavailable Primary Care Provider [...] 12.5 MG tabletIndications:N ausea and vomiting in ([facility]) Take 1 tablet (12.5 mg) by mouth [...] Encounters Date Type Department Care Team Description 01/11/2025 Clinisync Result Encounter NOMS External Department Unsolicited Collin Barraza DO 01/09/2025 8:40 AM EDT Routine [facility] BCP OB [address] [place] [address] Peggy Morgan PA 37 weeks gestation of ([facility]); Third trimester ([facility]) 01/09/2025 Bamboo flowsheet [facility] BCP OB [address] [place] [address] Peggy Morgan PA 01/02/2025 11:40 AM EDT Routine [facility] BCP OB [address] [place] [address] Collin Barraza, Third trimester ([facility]); 36 weeks gestation of ([facility]) 01/02/2025 Bamboo flowsheet N[facility] OB [address] [place] [address] [place] [address] Collin Barraza DO 12/25/2024 8:30 AM EDT Routine [facility] BCP OB [address] [place] [address] Collin Barraza DO Third trimester ([facility]); 35 weeks gestation of ([facility]) 12/25/2024 Bamboo flowsheet [facility] BCP OB [address] [place] [address] Collin Barraza DO 12/18/2024 8:50 AM EDT Routine [facility] BCP OB [address] [place] [address] Peggy Morgan PA Third trimester ([facility]); 34 weeks gestation of ([facility]) 12/18/2024 Bamboo flowsheet NOM[facility] [address] [place] [address] Peggy Morgan PA 12/04/2024 11:10 AM EDT Routine NOM[facility] [address] [place] [address] Collin Barraza, Third trimester ([facility]); 31 weeks gestation of ([facility]) 12/04/2024 10:30 AM EDT Ancillary Procedure NOM[facility] [address] [place] [address] Size of fetus inconsistent with dates in first trimester ([facility]) 11/16/2024 9:30 AM EDT Routine NOM[facility] [address] [place] [address] Peggy Morgan PA Size of fetus inconsistent with dates in first trimester ([facility]) (Primary Dx); Third trimester ([facility]); 29 weeks gestation of ([facility]) 11/16/2024 Bamboo flowsheet NOM[facility] [address] [place] [address] Peggy Morgan PA 10/31/2024 10:30 AM EDT Routine NOM[facility] [address] [place] [address] Collin Barraza DO 27 weeks gestation of ([facility]); Second trimester ([facility]) 10/31/2024 Telephone [facility] [address] [place] [address] Claire Mccray MA 10/25/2024 Abstract [facility] [address] [place] [address] Collin Barraza, 10/24/2024 Abstract [facility]OM[facility] [address] [place] [address] Collin Barraza, 10/17/2024 11:20 AM EDT Routine N[facility] OB [address] [place] [address] [place] [address] Collin Barraza DO Second trimester ([facility]); 25 weeks gestation of ([facility]); Diabetes mellitus screening 10/17/2024 Bamboo flowsheet NOM[facility] [address] [place] [address] Collin Barraza DO 10/13/2024 Abstract [facility] [address] [place] [address] Collin Barraza DO from Last 3 Months Family History Medical History Relation Name Comments Breast cancer Maternal Grandmother alan Stroke Maternal Grandmother alan Endometriosis Mother raffi Thyroid disease Mother raffi Cancer Paternal Grandmother september Relation Name Status Comments Maternal Grandmother alan Mother raffi Paternal Grandmother september Social History Tobacco Use [...] oz) 01/09/2025 8:29 A M EDT Height 165.1 cm (5' 5 ) 02/22/2024 8:54 AM EDT Body Mass Index 26.81 02/22/2024 8:54 AM EDT Plan of Treatment Upcoming Encounters Date Type Department Care Team (Late st Contact Info) Description 01/18/2025 8:50 AM EDT Routine NOM[facility] [address] [place] [address] Peggy Morgan PA [address] [place] [address] [place] [address] Procedures Procedure Name Priority Date/Time Associated Diagnosis Comments TBH UA (CLEAN/CATCH) HORSE BREAKER/MICRO IF IND. Routine 01/11/2025 12:50 AM EDT POCT URINALYSIS DIPSTICK Routine 01/09/2025 8:32 AM EDT 37 weeks gestation of ([facility]) Third trimester ([facility]) POCT URINALYSIS DIPSTICK Routine 01/02/2025 11:39 AM EDT Third trimester ([facility]) POCT URINALYSIS DIPSTICK Routine 12/25/2024 9:02 AM EDT Third trimester ([facility]) POCT URINALYSIS DIPSTICK Routine 12/18/2024 9:09 AM EDT Third trimester ([facility]) POCT URINALYSIS DIPSTICK Routine 12/04/2024 11:37 AM EDT Third trimester ([facility]) US OB FOLLOW UP TRANSABDOMINAL APPROACH Routine 12/04/2024 10:53 AM EDT Size of fetus inconsistent with dates in first trimester ([facility]) CBC WITH AUTO DIFFERENTIAL STAT 10/24/2024 1:02 PM EDT POCT URINALYSIS DIPSTICK Routine 10/17/2024 2:06 PM EDT Second trimester ([facility]) from Last 3 Months Results * (ABNORMAL) TBH UA (CLEAN/CATCH) HORSE BREAKER/MICRO IF IND. (01/11/2025 12:50 AM EDT) COLOR [...] Collin Barraza DO [facility] Final Result [facility] * (ABNORMAL) POCT urinalysis dipstick manually resulted (01/09/2025 8:32 AM EDT) Only the most recent of6 resultswithin the time period is included. Color, [...] is 01/18/2025. Interpreted by: Electronically signed by FELIBERTO MORALES II, MD, PHD at 05-Dec-2024 08:12:35 AM [facility] Procedure Note Feliberto Morales MD - 12/05/2024 EXAM: US OB [...] is 01/18/2025. Interpreted by: Electronically signed by FELIBERTO MORALES II, MD, PHD 08:12:35 AM [facility] us Peggy ANDREWS IMG OB US [...] TYPE AUTOMATED DIFFERENTIAL [facility] Comment: PERFORMED AT [address] [place] [address] 10/24/2024 1:02 PM EDT 10/24/2024 1:02 PM EDT us Collin Barraza DO LAB BLOOD ORDERABLES Final Resul t [facility] from Last 3 Months Insurance [facility]
--- OUTSIDE RECORDS SUMMARY | 2025-01-11 18:34 | XMS_ITS | Encounter Summary ---
Author Organization [facility] Address [address] [place] [address] Care Team Providers Care Game Trapper Name Role Phone Unavailable Primary Care Provider Unavailabl e Encounter Details Date Type Department Care Team (Late st Contact Info) Description 01/02/2025 Bamboo flowsheet [facility] BCP OB [address] [facility] [place] [address] Collin Barraza DO [address] [facility] [address] [place] [address], [place] [address] Social History Tobacco Use Types Packs/Day Years [...] AM EDT Routine [facility] BCP OB [address] [facility] [address] Peggy Morgan PA [address] [facility] [address] [place], [place] [address] documented as of this encounter Visit Diagnoses Not on filedocumented in this encounter
--- OUTSIDE RECORDS SUMMARY | 2025-01-11 18:34 | XMS_ITS | Encounter Summary ---
Author Organization [facility] [employer] Address [id number] [address] [place] [address] Care Team Providers Care Mixing Place Supervisor Name Role Phone Julienne, Virginia DECALER-GLOVE PRESSER Primary Care Provider [phone] Encounter Details Date Type Department Care Team (Late st Contact Info) Description 05/05/2024 [facility]phone [facility] [address] [address] Ginette Stanton Social History Tobacco Use Types Packs/Day Years Used Date Smoking Tobacco: Never Smokeless Tobacco: Never Alcohol Use Standard Drinks/Week Comments No 0 (1 standard drink = 0.6 oz pur e alcohol) Childcare Answer Date Recorded Childcare Unknown 11/30/2018 Employment Answer Date Recorded Employment Unknown 11/30/2018 Hunger Screening Answer Date Recorded Within the past 12 months we worried whether our food would run out before we got money to buy more. Never True 06/21/2023 Within the past 12 months th e food we bought just didn't last and we didn't have money to get more. Never True 06/21/2023 Purpose - Life Answer Date Recorded Purpose and direction in life Unknown Comments No Sex and Gender Information Value Date Recorded Sex Assigned at Not on file Legal Sex Female 6:56 PM EDT Gender Identity Not on file Sexual Orientation Not on file documented as of this encounter Plan of Treatment Not on file documented as of this encounter Visit Diagnoses Not on filedocumented in this encounter Care Teams Mixing Place Supervisor Relationship Specialty Start Date End Date Virginia Robins APRN-GLOVE PRESSER [address] [place] [address] PCP - General Family Medicine 11/21/23 documented as of this encounter
--- OUTSIDE RECORDS SUMMARY | 2025-01-11 18:34 | XMS_ITS | Patient Health Record ---
Author Organization [facility] vices Address [address] [place], [place] [id number] Care Team Providers Care Front End Web Designer Name Role Phone Virginia Robins Primary Care Provider Reyna Camacho Unavailable [phone] Allergies Allergen (clinical drug ingredient) Drug/Non Drug [...] - 71 [phone] - [phone] - [phone] - [phone] - [phone] - [phone] [phone] - [phone] 10 98363 - [phone] 12 54489 - [phone] 14 40240 - 37311 15 [phone] - [phone] 16 3892 - [phone] 17 [phone] Persistent serum HCG elevations in the absence of other confirmatory clinical or diagnostic information should be carefully evaluated. UNLESS OTHERWISE INDICATED, ALL TESTING PERFORMED AT: [employer]. [address] [place] [address] DISPATCH ASSOCIATE: GRUPO VALLES M.D. CLIA NUMBER [id number] CAP ACCREDITATION AUID [id number] Changes in testing location may be associated [...] 24 13-45 % IRON 68 37-145 ug/dL Urine Test Reviewed date:05/29/2024 02:28:46 PM Interpretation: Performing Lab: Notes/Report: Result positive COMPREHENSIVE METABOLIC PANE L (AMA) Reviewed date:05/30/2024 [...] 5-33 U/L T. 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 Stress is when someone feels tense, nervous, anxious, or can't sleep at night because their mind is troubled A little bit patient entered data In the past year have you sp ent more than 2 nights in a row in a mcfp, senior living, alf center, or juvenile correctional facility? No patient [...] Status W/U Status Risk Notes Problem Asthma (208143313 ) Asthma (J45.909) Active confirmed Problem Mild intermittent asthma in adult without complication (J45.20) Active confirmed -CW rescue inhaler as needed, refilled, avoid known triggers and f/u as needed Vital Signs Heart Rate 88 /min 05/29/2024 Betty, Ser vando 05/29/2024 02:21:21 PM EST > Temperature 97.0 degrees Fahrenheit 05/29/2024 Tamara tyler Navjot 05/29/2024 02:21:21 PM EST > Respiratory Rate 18 /min 05/29/2024 Betty, Navjot 05/29/2024 02:21:21 PM EST > Blood pressure diastolic 82 mm Hg 05/29/2024 Jyoti kim Navjot 05/29/2024 02:21:21 PM EST > Oximetry 97 % 05/29/2024 Hernández, Ser vando 05/29/2024 02:21:21 PM EST > Height-cm 162.56 cm 05/29/2024 Hernández, Ser vando 05/29/2024 02:21:21 PM EST > Weight-kg 60.33 kg 05/29/2024 Hernández, Ser vando 05/29/2024 02:21:21 PM EST > Height 64 in 05/29/2024 Hernández, Ser vando 05/29/2024 02:21:21 PM EST > BMI Percentile 62.4 % 05/29/2024 Odilia Hernández 05/29/2024 02:21:21 PM EST > Blood pressure systolic 131 mm Hg 05/29/2024 Tamara tyler Navjot 05/29/2024 02:21:21 PM EST > Weight 133 lbs 05/29/2024 Hernández, Ser vando 05/29/2024 02:21:21 PM EST > BMI 22.83 kg/m2 05/29/2024 Hernández, Ser vando 05/29/2024 02:21:21 PM EST > Encounters Encounter Location Date Provider Diagnosis Main [address] [place] [id number] 01/17/2024 Virginia Robins Wart of hand B07.9 Main [address] [place] [id number] 05/29/2024 Reyna [facility] Possible Z32.00 ; Screening for cardiovascular condition Z13.6 ; Chronic fatigue R53.82 and BMI (body mass index), pediatric, 5% to less than 85% for age Z68.52 Main [address] [place] [id number] 05/30/2024 Reyna [facility] Assessments Encounter Date Diagnosis (ICD Code) Assessment [...] Insured Coverage Start Date Coverage End Date R [address] [address] [place], [place] [id number] Robyn Condon Child - Insured does not have Financial Responsibility (includes legally adopted child) 0 Medical (General) History Medical History History ICD Code Asthma Gastroesophageal reflux disease
--- OUTSIDE RECORDS SUMMARY | 2025-01-11 18:34 | XMS_ITS | Encounter Summary ---
Author Organization [facility] Address [address] [place] [address] Care Team Providers Care Blackjack Pit Boss Name Role Phone Unavailable Primary Care Provider Unavailabl e Encounter Details Date Type Department Care Team (Late st Contact Info) Description 01/09/2025 Bamboo flowsheet [facility] OB [address] [place] [address] [place] [address] Peggy Morgan PA [address] [place] [address] [place], [facility]11 Social History Tobacco Use Types Packs/Day [...] Description 01/18/2025 8:50 AM EDT Routine [facility] OB [address] [facility] [place] [address] Peggy Morgan PA [address] [place] [address] [place], [place] [address] documented as of this encounter Visit Diagnoses Not on filedocumented in this encounter
--- OUTSIDE RECORDS SUMMARY | 2025-01-11 18:34 | XMS_ITS | Encounter Summary ---
Author Organization [facility] Address [address] [place] [address] Care Team Providers Care Corporate Legal Intern Name Role Phone Unavailable Primary Care Provider Unavailabl e Encounter Details Date Type Department Care Team (Late st Contact Info) Description 07/11/2024 Abstract [facility] OB [address] [facility] [place] [address] Collin Barraza DO [address] [facility] [address] Kayy Mark, FIRST [...] Description 01/18/2025 8:50 AM EDT Routine [facility] OB [address] [facility] [place] [address] Peggy Morgan PA [address] [facility] [address] [place], [place] [id number] documented as of this encounter Visit Diagnoses Not on filedocumented in this encounter
--- OUTSIDE RECORDS SUMMARY | 2025-01-11 18:34 | XMS_ITS | Encounter Summary ---
Author Organization [facility] Address [address] [place] [address] Care Team Providers Care Small Kick Press Operator Name Role Phone Unavailable Primary Care Provider Unavailabl e Encounter Details Date Type Department Care Team (Late st Contact Info) Description 10/25/2024 Abstract [facility] OB [address] [facility] [place] [address] Collin Barraza DO [address] [facility] [address] Kayy Mark, [facility]11 Social History Tobacco Use Types Packs/Day Years [...] Description 01/18/2025 8:50 AM EDT Routine [facility] OB [address] [facility] [place] [address] Peggy Morgan PA [address] [facility] [address] [place], [place] [id number] documented as of this encounter Visit Diagnoses Not on filedocumented in this encounter
--- OUTSIDE RECORDS SUMMARY | 2025-01-11 18:34 | XMS_ITS | Encounter Summary ---
Author Organization [facility] Address [address] [place] [address] Care Team Providers Care Mill Dresser Name Role Phone Unavailable Primary Care Provider Unavailabl e Encounter Details Date Type Department Care Team (Late st Contact Info) Description 09/11/2024 Abstract [facility] OB [address] [facility] [place] [address] Collin Barraza DO [address] [facility] [address] Kayy Mark, [facility]11 Social History Tobacco Use Types Packs/Day Years [...] Description 01/18/2025 8:50 AM EDT Routine [facility] OB [address] [facility] [place] [address] Peggy Morgan PA [address] [facility] [address] [place], [place] [id number] documented as of this encounter Visit Diagnoses Not on filedocumented in this encounter
--- OUTSIDE RECORDS SUMMARY | 2025-01-11 18:34 | XMS_ITS | Encounter Summary ---
Author Organization [facility] Address [id number] [address] [place] [address] Care Team Providers Care Pouncing Machine Operator Name Role Phone Julienne, Virginia LACQUER DIPPING MACHINE OPERATOR-INDUSTRIAL SWEEPER CLEANER Primary Care Provider [phone]- [phone] Encounter Details Date Type Department Care Team (Late st Contact Info) Description 11/04/2023 Telephone [facility] [address] [place] [phone] Elina Carranza, DO [address] [id number] Social History Tobacco Use Types Packs/Day Years [...] on file documented as of this encounter Miscellaneous Notes * Telephone Encounter - Sabrina Esquivel - 11/04/2023 9:[address] of abdomen which showed lower chest issues. PCP already ordered cxr and pft, which cxr is being done within the next day or two. Patient is waiting for pft order to arrive at facility so she can schedule. Scheduling patient with next available, but please advise is patient needs to be seen sooner after cxr is complete. * Telephone Encounter - Dalila Nielson RN - 11/04/2023 9:20 AM EDT PFT ordered pt livs [place] CT abdomen is from Jun?? PCP noted SOB and Asthma so pre post added Will await CXR then decide if needs sooner I see appt was made with [place] in December * Telephone Encounter - Elina Carranza DO - 11/04/2023 9:[address] ab/ pelvis reviewed. Above seems appropriate documented in this encounter Plan of Treatment Not on file documented as of this encounter Results * SPIROMETRY PRE/POST BRONCHODILATOR AND DLCO (11/10/2023 8:02 AM EDT) Narrative MANUALLY TRANSCRIBED RESULTS - 12/29/2023 2:28 PM EDT Date of Testin11/10/2023 Quality of Data: The patient's efforts are acceptable and reproducible. Test Performed: Pulmonary Function Test Spirometry Findings: Spirometry shows normal FEV1 at 87% of predicted with improvement by 11% after bronchodilators. Forced vital capacity is normal at 116 before bronchodilators that decreased to 104% after bronchodilators. FEV 1/FVC ratio is in the low-normal range at 0.72 before bronchodilators and normal after bronchodilators at 0.88. The response to bronchodilators is positive Diffusion Capacity: Normal diffusion capacity. Conclusions: Possible obstructive pattern with positive response to bronchodilators Clinical correlation advised Roanld Perry MD 12/29/23 us Elina Carranza DO PFT ORDERABLES Final Result MANUALLY TRANSCRIBED RESULTS documented in this encounter Visit Diagnoses Diagnosis SOB (shortness of breath)- Primary Shortness of breath Uncomplicated asthma, unspecified asthma severity, unspecified whether persistent SOB (shortness of breath) Shortness of breath Uncomplicated asthma, unspecified asthma severity, unspecified whether persistent documented in this encounter Care Teams Pouncing Machine Operator Relationship Specialty Start Date End Date Virginia Robins APRN-ESTELLE [address] [place] [address] PCP - General Family Medicine 11/21/23 documented as of this encounter
--- OUTSIDE RECORDS SUMMARY | 2025-01-11 18:34 | XMS_ITS | Clinical Summary ---
Author Organization [facility] Address [address], [address] [place] [address] Care Team Providers Care Medical Scheduler Name Role Phone High, [facility] Primary Care Provider Unavailabl e Allergies [...] complete this topic Insurance [employer] [address] [place] [address] [employer] Care Teams Medical Scheduler Relationship Specialty Start Date End Date High, Generic NO FAMILY DOC ONLY PCP - General 02/24/18
--- OUTSIDE RECORDS SUMMARY | 2025-01-11 18:34 | XMS_ITS | Encounter Summary ---
Author Organization [facility] Address [address] [place] [address] Care Team Providers Care Field Operations Coordinator Name Role Phone Unavailable Primary Care Provider Unavailabl e Encounter Details Date Type Department Care Team (Late st Contact Info) Description 06/30/2024 Abstract [facility] OB [address] [facility] [address] Collin Barraza DO [address] [facility] [address] Kay[address] Mark, [facility]11 Social History Tobacco Use Types Packs/Day Years [...] Description 01/18/2025 8:50 AM EDT Routine [facility] OB [address] [facility] [address] Peggy Morgan PA [address] [facility] [address] [place], [place] [id number] documented as of this encounter Visit Diagnoses Not on filedocumented in this encounter
--- OUTSIDE RECORDS SUMMARY | 2025-01-11 18:34 | XMS_ITS | Encounter Summary ---
Author Organization [facility] Address [address] [place] [address] Care Team Providers Care Upper Stitcher Name Role Phone Unavailable Primary Care Provider Unavailabl e Encounter Details Date Type Department Care Team (Late st Contact Info) Description 10/24/2024 Abstract [facility] OB [address] [facility] [place] [address] Collin Barraza DO [address] [facility] [address] Kayy Mark, [facility]11 Social History Tobacco Use Types [...] Description 01/18/2025 8:50 AM EDT Routine [facility] OB [address] [facility] [place] [address] Peggy Morgan PA [address] [facility] [address] [place], [place] [id number] documented as of this encounter Visit Diagnoses Not on filedocumented in this encounter
--- OUTSIDE RECORDS SUMMARY | 2025-01-11 18:34 | XMS_ITS | Encounter Summary ---
Author Organization [facility] Address [address] [place] [address] Care Team Providers Care Rolled Glass Crosscutter Name Role Phone Unavailable Primary Care Provider Unavailabl e Encounter Details Date Type Department Care Team (Late st Contact Info) Description 08/23/2024 Abstract [facility] OB [address] [facility] [place] [address] Pia Adkins LPN Social History Tobacco [...] AM EDT Routine [facility] [address] [facility] [place] [address] Peggy Morgan PA [address] [place] [address] [place], [place] [phone] documented as of this encounter Visit Diagnoses Not on filedocumented in this encounter
--- OUTSIDE RECORDS SUMMARY | 2025-01-11 18:34 | XMS_ITS | Encounter Summary ---
Author Organization [facility] Address [address] [place] [address] Care Team Providers Care Plate Developer Name Role Phone Unavailable Primary Care Provider Unavailabl e Encounter Details Date Type Department Care Team (Late st Contact Info) Description 10/13/2024 Abstract [facility] OB [address] [facility] [place] [address] Collin Barraza DO [address] [facility] [address] Kayy Mark, [facility]11 Social History Tobacco Use Types Packs/Day [...] Description 01/18/2025 8:50 AM EDT Routine [facility] OB [address] [facility] [place] [address] Peggy Morgan PA [address] [facility] [address] [place], [place] [id number] documented as of this encounter Visit Diagnoses Not on filedocumented in this encounter
[2025-01-11 19:09] VITALS: BP 137/69; PULSE 94
[2025-01-11 19:36] LABS: Glucose Urine UA NEGATIVE (NEGATIVE)
[2025-01-11 19:47] LABS: Crystals Seen? None Seen #/HPF (None Seen)
[2025-01-11 19:48] LABS: Cast Seen? NONE SEEN #/LPF (NONE SEEN); Urine Culture Indicated YES-LC
[2025-01-11] MEDS: 0.9 % SODIUM CHLORIDE 1,000 ML 125 ML IV (21:08)
[2025-01-11] MEDS: CLINDAMYCIN PHOSPHATE/D5W 900 MG/50 ML PREMIX 100 MG IV (21:08)
[2025-01-12] MEDS: CLINDAMYCIN PHOSPHATE/D5W 900 MG/50 ML PREMIX 100 MG IV (04:13)
[2025-01-12] MEDS: ACETAMINOPHEN 500 MG TABLET 1000 MG PO (05:44)
--- NOTE | 2025-01-12 07:08 | PM.OBPN ---
OB - PN: Subj Subjective Narrative: r/o labor, uti, denies n.v.d.f.c denies cp sob ct, positive flatus, neg amnisure, neg ctxns, vb, lof Exam Constitutional Vital Signs, click to edit/add: Last Vital Signs Pulse 94 H 01/11/25 19:09 BP 137/69 01/11/25 19:09 Documenting provider has reviewed patient's vital signs: yes Common normals: no apparent distress Respiratory Common normals: normal respiratory effort and clear to auscultation bilaterally Cardio Common normals: regular rate and regular rhythm GI Common normals: Normal to inspection, nondistended, normoactive bowel sounds present Extremity Common normals: no clubbing, cyanosis or edema and no calf tenderness Results Labs Labs: Urine 01/11/25 Range/Units 19:00 Urine Color Lt. yellow (YELLOW) Urine Clarity Clear (CLEAR) Urine pH 6.0 (5.0-9.0) Ur Specific [place] <=1.005 A (1.005-1.025) Urine Protein Negative (NEG/TRACE) mg/dL Urine Glucose (UA) Negative (NEGATIVE) mg/dL OB - PN: A/P Assessment and Plan (1) Intrauterine : (2) UTI (urinary tract infection) during : Assessment and Plan: rx given, precautions given, dc home, Time Spent with Patient Time: Total time spent is greater than 50% in coordination of care (as documented) at patient's floor/unit and/or counseling patient: Total time spent with greater than 50% in coordination of care (as documented) at patient's floor/unit and/or counseling patient: less than 15 minutes
== END 2025-01-12 07:15 | disposition home or self-care (01) ==
PROVIDERS: Admitting Provider Obstetrics & Gynecology; Visit Provider Obstetrics & Gynecology
DX: O23.43 Unspecified infection of urinary tract in pregnancy, third trimester (principal); N39.0 Urinary tract infection, site not specified; Z3A.37 37 weeks gestation of pregnancy
CPT/HCPCS: 59025; 81001; 84112; 87086; 96365; 96366; G0378; G0379; J0736

== ENCOUNTER 2025-01-14 19:28 | Observation (INO) | payer OTHER, SELFPAY ==
--- OUTSIDE RECORDS SUMMARY | 2025-01-02 11:40 | XMS_ITS | Encounter Summary ---
Author Organization [facility] Address [address] [place] [address] Care Team Providers Care Sales Agent Fire Insurance Name Role Phone Unavailable Primary Care Provider Unavailabl e Reason for Visit * Reason Comments Routine Visit Encounter Details Date Type Department Care Team (Late st Contact Info) Description 01/02/2025 11:40 AM EDT Routine [facility] [address] [facility] [place] [address] Collin Barraza DO [address] [place] [address] Third trimester ([facility]); 36 weeks gestation of ([facility]) Social History Tobacco Use Types Packs/Day Years [...] this encounter Progress Notes * Clarisse Vital, PRODUCTION ASSEMBLY SUPERVISOR - 01/02/2025 11:40 AM EDT Reason for [...] nursing note reviewed. Exam conducted with a continuity person present. Vitals: Estimated body mass index is 27.29 kg/m?? as calculated from the following: Height as of 02/22/24: 5' 5 . Weight as of this encounter: 164 lb. BP: 112/60 Patient's last menstrual period was 04/21/2024. ASSESSMENT & PLAN ICD-10-CM 1. Third trimester ([facility]) Z34.93 POCT urinalysis dipstick manually resulted CULTURE, GROUP B STREP WITH SUSCEPTIBLITY CULTURE, GROUP B STREP WITH SUSCEPTIBLITY 2. 36 weeks gestation of ([facility]) Z3A.36 Patient is doing well but has [...] Info) Description 01/18/2025 8:50 AM EDT Routine [facility] [address] [place] [address] [place] [address] Peggy Morgan PA [address] [place] [address] Scheduled Orders Name Type Priority Associated Diagnoses Orde r Schedule CULTURE, GROUP B STREP WITH SUSCEPTIBLITY Lab Routine Third trimester ([facility]) Expected: 01/02/2025, Expires: 01/02/2026 documented as of this encounter Procedures Procedure Name Priority Date/Time Associated Diagnosis Comments POCT URINALYSIS DIPSTICK Routine 01/02/2025 11:39 AM EDT Third trimester ([facility]) documented in this encounter Results * POCT [...] this encounter Visit Diagnoses Diagnosis Third trimester ([facility]) state, incidental 36 weeks gestation of ([facility]) documented in this encounter
--- OUTSIDE RECORDS SUMMARY | 2025-01-09 08:40 | XMS_ITS | Encounter Summary ---
Author Organization [facility] Address [address] [place] [address] Care Team Providers Care Derrick Builder Name Role Phone Unavailable Primary Care Provider Unavailabl e Reason for Visit * Reason Comments Routine Visit Encounter Details Date Type Department Care Team (Late st Contact Info) Description 01/09/2025 8:40 AM EDT Routine [facility] [address] [place] [id number] Peggy Morgan PA [address] [place] [address] 37 weeks gestation of ([facility]); Third trimester ([facility]) Social History Tobacco Use Types Packs/Day [...] PLAN ICD-10-CM 1. 37 weeks gestation of ([facility]) Z3A.37 POCT urinalysis dipstick manually resulted 2. Third trimester ([facility]) Z34.93 POCT urinalysis dipstick manually resulted [...] Description 01/18/2025 8:50 AM EDT Routine [facility] [address] [place] [id number] Peggy Morgan PA [address] [place] [address] documented as of this encounter Procedures Procedure Name Priority Date/Time Associated Diagnosis Comments POCT URINALYSIS DIPSTICK Routine 01/09/2025 8:32 AM EDT 37 weeks gestation of ([facility]) Third trimester ([facility]) documented in this encounter Results * (ABNORMAL) [...] Visit Diagnoses Diagnosis 37 weeks gestation of ([facility]) Third trimester ([facility]) state, incidental documented in this encounter
--- OUTSIDE RECORDS SUMMARY | 2025-01-14 19:31 | XMS_ITS | Clinical Summary ---
Author Organization [facility] Address [id number] [address] [place] [address] Care Team Providers Care Account Support Analyst Name Role Phone Virginia Robins BACKEND PYTHON DEVELOPER-WIRED MUSIC OPERATOR Primary Care Provider +1- [phone] Allergies Active Allergy Reactions Criticality Noted Date Comments Cephalexin Hives 12/15/2016 Sulfa (Sulfonamide Antibiotics) Hives 11/20 Medications albuterol (PROVENTIL HFA;VENTOLIN HFA) 90 mcg/actuation inhalerIndication s:Mild persistent asthma without complication Inhale 2 puffs every 6 (six) hours as needed for wheezing. 18 g 11 4 Active mometasone-formot destin (DULERA) 100-5 mcg/actuation inhalerIndication s:Mild persistent asthma without complication Inhale 2 puffs in the morning and 2 puffs before bedtime. 13 g 11 4 Active Active Problems No known active problems Encounters Date Type Department Care Team Description 10/24/2024 Travel from Last 3 Months Family History Medical History Relation Name Comments Stroke Maternal Aunt Sujatha [place] Breast cancer Maternal Grandmother Aliyah Latasha Stroke Maternal Grandmother Aliyah [place] Asthma Mother Robyn Echeverria Relation Name Status Comments Maternal Aunt Sujatha Whitley Maternal Grandmother Aliyah Pagan Mother Robyn Echeverria Social History Tobacco Use Types Packs/Day Years Used Date Smoking Tobacco: Never Smokeless Tobacco: Never Tobacco Cessation:Counseling Given: Not Answered Alcohol Use Standard Drinks/Week Comments No 0 [...] Sign Reading Time Taken Comments Blood Pressure 111/72 05/22/2024 9:52 AM EST Pulse 88 05/22/2024 9:52 AM EST Temperature 36.7 C (98 F) 11/21/2023 10:01 AM EDT Respiratory Rate 18 11/21/2023 10:01 AM EDT Oxygen Saturation 99% 05/22/2024 9:52 AM EST Inhaled Oxygen Concentration - - Weight 62.2 kg (137 lb 3.2 oz) 05/22/2024 9:52 A M EST Height 165.1 cm (5' 5 ) 05/22/2024 9:52 AM EST Body Mass Index 22.83 05/22/2024 9:52 AM EST Plan of Treatment Health Maintenance Due Date Last Done Comments Chlamydia Screening 2004 Depression Screening 2016 Influenza Vaccine 02/19/2025 Adult BMI Screening 05/22/2025 05/22/2024 Tobacco Screening 05/22/2025 05/22/2024 DTaP,Tdap and Td Vaccines (7 - Td or Tdap) 12/23/2033 12/24/2023, 08/01/2008, 01/20/2006, Additional history exists Medical Devices Not on file Procedures Procedure Name Priority Date/Time Associated Diagnosis Comments GLU 1H POST 50G LOAD Routine 10/24/2024 1:02 PM EDT Encounter for screening for diabetes mellitus CBC WITH AUTO DIFFERENTIAL STAT 10/24/2024 1:02 PM EDT Encounter for screening for diabetes mellitus GLUCOSE TOLERANCE, 1 HR 50GM LOAD ( PATIENTS ONLY) Routine 10/24/2024 1:02 PM EDT Encounter for screening for diabetes mellitus from Last 3 Months Results * Glucose 1h post 50g load (10/24/2024 1:02 PM EDT) GLUCOSE, 1HR POST 50GM LOAD 131 65 - 139 mg/dL 10/24/2024 6:46 PM EDT [facility] Blood Venous blood / Unknown Venipuncture / Unknown 10/24/2024 1:02 PM EDT 10/24/2024 1:02 PM EDT us Collin R Christi DO LAB BLOOD ORDERABLES Final Resu lt [facility] [address] [place] [address], [place] [phone] * (ABNORMAL) CBC auto differential (10/24/2024 1:02 PM EDT) WBC 11.7(H) 4 - 11 x10E9/L 10/24/2024 2:42 PM EDT [facility] RBC Count 3.67(L) 3.8 - 5.2 X10E12/L 10/24/2024 2:42 PM EDT [facility] Hemoglobin 12.1 11.7 - 15.5 g/dL 10/24/2024 2:42 PM EDT [facility] Hematocrit 33.7(L) 35 - 47 % 10/24/2024 2:42 PM EDT [facility] MCV 92 80 - 100 fL 10/24/2024 2:42 PM EDT [facility] MCH 33.0 27 - 34 pg 10/24/2024 2:42 PM EDT [facility] MCHC 36.0 32 - 36 g/dL 10/24/2024 2:42 PM EDT [facility] RDW 12.9 11.5 - 15 % 10/24/2024 2:42 PM EDT [facility] Platelet Count 226 150 - 450 X10E9/L 10/24/2024 2:42 PM EDT [facility] MPV 8.4 7 - 12 fL 10/24/2024 2:42 PM EDT [facility] Neutrophils % 76.1 % 10/24/2024 2:42 PM EDT [facility] Lymphocytes % 18.1 % 10/24/2024 2:42 PM EDT [facility] Monocytes % 4.9 % 10/24/2024 2:42 PM EDT [facility] Eosinophils % 0.8 % 10/24/2024 2:42 PM EDT [facility] Basophils % 0.1 % 10/24/2024 2:42 PM EDT [facility] Neutrophils Absolute (A) 8.9 10*3/uL 10/24/2024 2:42 PM EDT [facility] Lymphocytes Absolute 2.1 10*3/uL 10/24/2024 2:42 PM EDT [facility] Monocytes Absolute 0.6 10*3/uL 10/24/2024 2:42 PM EDT [facility] Eosinophils Absolute 0.1 10*3/uL 10/24/2024 2:42 PM EDT [facility] Basophils Absolute 0.0 10*3/uL 10/24/2024 2:42 PM EDT [facility] Differential Type AUTOMATED DIFFERENTIAL 10/24/2024 2:42 PM EDT [facility] Blood Venous blood / Unknown Venipuncture / Unknown 10/24/2024 1:02 PM EDT 10/24/2024 1:02 PM EDT us Collin R Christi DO LAB BLOOD ORDERABLES Final Resu lt [facility] [address] [address], [place] from Last 3 Months Insurance [employer] [place] [address] AUTO INSURANCE [facility] Care Teams Account Support Analyst Relationship Specialty Start Date End Date Virginia Robins APRN-FNP [address] [place] [address] PCP - General Family Medicine 11/21/23
--- OUTSIDE RECORDS SUMMARY | 2025-01-14 19:31 | XMS_ITS | Encounter Summary ---
Author Organization [facility] Address [address] [place] [address] Care Team Providers Care Tractor Mechanic Name Role Phone Unavailable Primary Care Provider Unavailabl e Encounter Details Date Type Department Care Team (Late Contact Info) Description 09/11/2024 Abstract [facility] [address] [facility] [address] Collin Barraza DO [address] [facility] [address] Kayy Mark, [facility]11 Social History Tobacco Use Types Packs/Day Years [...] Info) Description 01/18/2025 8:50 AM EDT Routine [facility] [address] [place] [address] Peggy Morgan PA [address] [facility] [address] [address] [place], [facility]11 documented as of this encounter Visit Diagnoses Not on filedocumented in this encounter
--- OUTSIDE RECORDS SUMMARY | 2025-01-14 19:31 | XMS_ITS | Patient Health Record ---
Author Organization [facility] vices Address [address] [place], [place] [address] Care Team Providers Care Conference Translator Name Role Phone Virginia Robins Primary Care Provider Reyna Camacho Unavailable [phone] Allergies Allergen (clinical drug ingredient) Drug/Non Drug [...] Active Results Component Value Reference Range Notes Urine Test Reviewed date:05/29/2024 02:28:46 PM Interpretation: [...] 5-33 U/L T. BILIRUBIN 0.5 <1.3 mg/dL IRON BINDING CAPACITY (IBC) IRON AND % SATURATION Reviewed date:05/30/2024 05:38:51 PM Interpretation: Performing Lab: Notes/Report: UNSATURATED IBC 218 112-347 ug/dL IRON BINDING 286 250-450 ug/dL IRON SATURATION 24 13-45 % IRON 68 37-145 ug/dL FERRITIN Reviewed date:05/30/2024 05:38:51 PM Interpretation: Performing Lab: Notes/Report: FERRITIN 78 13-200 ng/mL TOTAL HCG Reviewed date:05/30/2024 05:38:51 PM Interpretation: Performing Lab: Notes/Report: TOTAL HCG 5317 NON <5 Weeks of Gestation 3 6 - 71 4 10 - 750 5 376 - 9353 6 354 - 52944 7 6688 - 616377 8 47648 - 599386 9 43507 - 925090 10 38214 - 607090 12 31068 - 014856 14 00380 - 20390 15 66057 - 17736 16 2364 - 64943 17 6414 - 93042 18 7316 - 00945 Persistent serum HCG elevations in the absence of other confirmatory clinical or diagnostic information should be carefully evaluated. UNLESS OTHERWISE INDICATED, ALL TESTING PERFORMED AT: [employer] [address] [place] [address] AUTOMOBILE MECHANIC RADIATOR: GRUPO VALLES M.D. CLIA NUMBER [id number] CAP ACCREDITATION AUID [id number] Changes in testing location may be associated with reference range changes for a number of analytes. Please review reference intervals carefully. CBC W/AUTO DIFF Reviewed date:05/30/2024 05:38:51 PM [...] K/uL ABS IMMATURE GRAN 0.02 0.00-0.06 K/uL Reason For Referral Reason recurring wart Diagnosis 1 Wart of hand (B07.9) Referral Organization [place] Referring Provider First Name Virginia Referring Provider Last Name Julienne Referring Provider Speciality Nurse Hannah bonds Referred Provider [facility] Referred Provider Specialty Dermatology General Notes Divina Wright 05/2024 08:54:48 AM >{{TOFIRSTNAME}} This is [facility] following up on multiple outstanding [...] data What is your 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 Stress is when someone feels tense, nervous, anxious, or can't sleep at night because their mind is troubled A little bit patient entered data In the past year have you sp ent more than 2 nights in a row in a usp, nursing home, senior care center, or juvenile correctional facility? No patient [...] Status W/U Status Risk Notes Problem Asthma (953419160 ) Asthma (J45.909) Active confirmed Problem Mild [...] EST > BMI Percentile 62.4 % 05/29/2024 Odiila Hernández 05/29/2024 02:21:21 PM EST > Blood pressure systolic 131 mm Hg 05/29/2024 Tamara tyler Navjot 05/29/2024 02:21:21 PM EST > Weight 133 lbs 05/29/2024 Hernández, Ser vando 05/29/2024 02:21:21 PM EST > BMI 22.83 kg/m2 05/29/2024 Hernández, Ser vando 05/29/2024 02:21:21 PM EST > Encounters Encounter Location Date Provider Diagnosis Main [address] [place] [id number] 01/17/2024 Virginia Robins Wart of hand B07.9 Main [address] [place] [id number] 05/29/2024 Reyna [facility] Possible Z32.00 ; Screening for cardiovascular condition Z13.6 ; Chronic fatigue R53.82 and BMI (body mass index), pediatric, 5% to less than 85% for age Z68.52 Main [address] [place] [id number] 05/30/2024 Reyna [facility] Assessments Encounter Date Diagnosis (ICD [...] Date Coverage End Date R [address] [address] [place], [place] [id number] Robyn Condon Child - Insured does not have Financial Responsibility (includes legally adopted child) 0 Medical (General) History Medical History History ICD Code Asthma Gastroesophageal reflux disease
--- OUTSIDE RECORDS SUMMARY | 2025-01-14 19:31 | XMS_ITS | Encounter Summary ---
Author Organization [facility] Address [address] [place] [address] Care Team Providers Care Epic Manager Name Role Phone Unavailable Primary Care Provider Unavailabl e Encounter Details Date Type Department Care Team (Late Contact Info) Description 12/23/2023 Clinisync Result Encounter NOMS External Department Unsolicited Quintin Barraza DO [address] [facility] [address], [place] [address] Social History Tobacco Use Types Packs/Day Years [...] AM EDT Routine [facility] [address] [facility] [place] [address] Peggy Morgan PA [address] [place], [place] [id number] documented as of this encounter Procedures Procedure Name Priority Date/Time Associated Diagnosis Comments US PELVIS W/ TRANSVAGINAL 12/23/2023 6:21 AM EDT documented in this encounter Results * US PELVIS W/ TRANSVAGINAL (12/23/2023 6:21 AM EDT) Anatomical Region Laterality Modality Other 12/23/2023 6:21 AM EDT Narrative 12/23/2023 6:23 AM EDT [address] [address] Ultrasound Report Signed Patient: Flavia Reynoso MR#: [id number] : 2005 Acct:[id number] Age/Sex: 18 / F ADM Date: 12/22/23 Loc: US Attending Dr: Quintin Barraza D.O. Ordering Physician: Quintin Barraza D.O. Date of Service: 12/22/23 Procedure(s): US pelvis w/ transvaginal Accession Number(s): [id number] cc: Quintin Barraza D.O.; Physician,Non-Staff Marquez [address] [id number] Patient Name: FLAVIA REYNOSO MRN: [id number] date: 2005 Sex: F Assigned Patient Location: US Current Patient Location: Accession/Order Number: [id number] Exam Date: 12/22/2023 11:00 Report Date: 12/23/2023 [...] M.D. Signed By: 12/23/23622 DD/ 0 TD/TT: Superintendent Compressor Stations: Procedure Note Radiology, Radiologist, MD - 12/23/2023 [place] [address] Ultrasound Report Signed Patient: Flavia Reynoso MMR#: [id number] : 2005Acct:[id number] Age/Sex: 18 / FADM Date: 12/22/23 Loc: US Attending Dr: Quintin Barraza D.O. Ordering Physician: Quintin Barraza D.O. Date of Service: 12/22/23 Procedure(s): US pelvis w/ transvaginal Accession Number(s): [id number] cc: Quintin Barraza D.O.; Physician,Non-Staff Marquez The [place] [id number] Patient Name: FLAVIA REYNOSO MRN: [id number] date: 2005 Sex: F Assigned Patient Location: US Current Patient Location: Accession/Order Number: [id number] Exam Date: 12/22/2023 11:00 Report Date: 12/23/2023 [...] M.D. Signed By:12/23/23 0623 DD/ 0621 TD/TT: Superintendent Compressor Stations: us [facility] DO [facility]AG[facility] Final Result documented in this encounter Visit Diagnoses Not on filedocumented in this encounter
--- OUTSIDE RECORDS SUMMARY | 2025-01-14 19:31 | XMS_ITS | Encounter Summary ---
Author Organization [facility] [employer] Address [id number] [address] [place] [address] Care Team Providers Care Railroad Track Mechanic Name Role Phone Julienne, Virginia GOSPEL SINGER-SILK SCREEN FRAME ASSEMBLER Primary Care Provider [phone]- [phone] Encounter Details Date Type Department Care Team (Late st Contact Info) Description 05/05/2024 [facility] [address] [address] Ginette Stanton Social History Tobacco [...] on filedocumented in this encounter Care Teams Railroad Track Mechanic Relationship Specialty Start Date End Date Virginia Robins APRN-SILK SCREEN FRAME ASSEMBLER [address] [place] [address] PCP - General Family Medicine 11/21/23 documented as of this encounter
--- OUTSIDE RECORDS SUMMARY | 2025-01-14 19:31 | XMS_ITS | Encounter Summary ---
Author Organization [facility] Address [address] [place] [address] Care Team Providers Care Pattern Chain Maker Supervisor Name Role Phone Unavailable Primary Care Provider Unavailabl e Encounter Details Date Type Department Care Team (Late Contact Info) Description 01/25/2024 Clinisync Result Encounter NOMS External Department Unsolicited Quintin Barraza DO [address] [facility] [address], [place] [address] Social History Tobacco Use Types Packs/Day Years [...] AM EDT Routine [facility] [address] [place] [address] Peggy Morgan PA [address] [facility] [address] [place], [place] [phone] documented as of this encounter Procedures Procedure Name Priority Date/Time Associated Diagnosis Comments US PELVIS TRANSVAGINAL 01/25/2024 8:09 AM EDT documented in this encounter Results * US PELVIS TRANSVAGINAL (01/25/2024 8:09 AM EDT) Anatomical Region Laterality Modality Other 01/25/2024 8:09 AM EDT Narrative 01/25/2024 8:11 AM EDT [address] [address] Ultrasound Report Signed Patient: Flavia Reynoso MR#: [id number] : 2005 Acct:[id number] Age/Sex: 18 / F ADM Date: 01/24/24 Loc: US Attending Dr: Quintin Barraza D.O. Ordering Physician: Quintin Barraza D.O. Date of Service: 01/24/24 Procedure(s): US pelvis transvaginal Accession Number(s): [id number] cc: Quintin Barraza D.O.; Physician,Non-Staff Marquez [address] [id number] Patient Name: FLAVIA REYNOSO MRN: [id number] date: 2005 Sex: F Assigned Patient Location: US Current Patient Location: Accession/Order Number: [id number] Exam Date: 01/24/2024 09:08 Report Date: 01/25/2024 [...] M.D. Signed By: 01/25/24810 DD/ 8 TD/TT: Sociology Faculty Member: Procedure Note Radiology, Radiologist, MD - 01/25/2024 [place] [address] Ultrasound Report Signed Patient: Flavia Reynoso MMR#: [id number] : 2005Acct:[id number] Age/Sex: 18 FADM Date: 01/24/24 Loc: US Attending Dr: Quintin Barraza D.O. Ordering Physician: Quintin Barraza D.O. Date of Service: 01/24/24 Procedure(s): US pelvis transvaginal Accession Number(s): [id number] cc: Quintin Barraza D.O.; Physician,Non-Staff Marquez The [place] [id number] Patient Name: FLAVIA REYNOSO MRN: [id number] date: 2005 Sex: F Assigned Patient Location: US Current Patient Location: Accession/Order Number: [id number] Exam Date: 01/24/2024 09:08 Report Date: 01/25/2024 [...] M.D. Signed By:01/25/24 0811 DD/ 0809 TD/TT: Sociology Faculty Member: us Quintin Barraza DO [facility] Final Result documented in this encounter Visit Diagnoses Not on filedocumented in this encounter
--- OUTSIDE RECORDS SUMMARY | 2025-01-14 19:31 | XMS_ITS | Encounter Summary ---
Author Organization [facility] Address [address] [place] [address] Care Team Providers Care Access Registrar Name Role Phone Unavailable Primary Care Provider Unavailabl e Encounter Details Date Type Department Care Team (Late Contact Info) Description 10/25/2024 Abstract [facility] [address] [facility] [place] [address] Collin Barraza DO [address] [facility] [address], [facility]11 Social History Tobacco Use Types [...] 8:50 AM EDT Routine [facility] [address] [place] [address] Peggy Morgan PA [address] [facility] [address] [place], [facility]11 documented as of this encounter Visit Diagnoses Not on filedocumented in this encounter
--- OUTSIDE RECORDS SUMMARY | 2025-01-14 19:31 | XMS_ITS | Clinical Summary ---
Author Organization [facility] Address [address] [facility], [address] [place] [address] Care Team Providers Care Industrial Eng Name Role Phone High, [facility] Primary Care Provider Unavailabl e Allergies [...] complete this topic Insurance [address] [address] [place] [address] UMR Care Teams Industrial Eng Relationship Specialty Start Date End Date High, Generic NO FAMILY DOC ONLY PCP - General 02/24/18
--- OUTSIDE RECORDS SUMMARY | 2025-01-14 19:31 | XMS_ITS | Clinical Summary ---
Author Organization [facility] Address [address] [place] [address] Care Team Providers Care Dehydrator Operator Name Role Phone Unavailable Primary Care [...] 12.5 MG tabletIndications:N ausea and vomiting in ([facility]) Take 1 tablet (12.5 mg) by mouth [...] DO 01/09/2025 8:40 [place] [address] Peggy Morgan PA 37 weeks gestation of ([facility]); Third trimester ([facility]) 01/09/2025 [place] [address] Peggy Morgan PA 01/02/2025 11:40 [place] [address] Collin Barraza, Third trimester ([facility]); 36 weeks gestation of ([facility]) 01/02/2025 [place] [address] Collin Barraza, 12/25/2024 8:30 [place] [address] Collin Barraza, Third trimester ([facility]); 35 weeks gestation of ([facility]) 12/25/2024 [place] [address] Collin Barraza, 12/18/2024 8:50 [place] [address] Peggy Morgan PA Third trimester ([facility]); 34 weeks gestation of ([facility]) 12/18/2024 Bamboo flowsheet [facility] [place] [address] Peggy Morgan PA 12/04/2024 11:10 AM EDT Routine [facility] [place] [address] Collin Barraza DO Third trimester ([facility]); 31 weeks gestation of ([facility]) 12/04/2024 10:30 AM EDT Ancillary Procedure [facility] [place] [address] Size of fetus inconsistent with dates in first trimester ([facility]) 11/16/2024 9:30 AM EDT Routine [facility] [place] [address] Peggy Morgan PA Size of fetus inconsistent with dates in first trimester ([facility]) (Primary Dx); Third trimester ([facility]); 29 weeks gestation of ([facility]) 11/16/2024 Bamboo flowsheet [facility] [place] [address] [facility] [place] [address] Peggy Morgan PA 10/31/2024 10:30 AM EDT Routine [facility] [place] [address] Collin Barraza DO 27 weeks gestation of ([facility]); Second trimester ([facility]) 10/31/2024 Telephone [facility] [place] [address] Claire Mccray MA 10/25/2024 Abstract [facility] [place] [address] Collin Barraza DO 10/24/2024 Abstract [facility] [address] [place] [address] Collin Barraza DO 10/17/2024 11:20 AM EDT Routine [facility] [address] [place] [address] Collin Barraza DO Second trimester ([facility]); 25 weeks gestation of ([facility]); Diabetes mellitus screening 10/17/2024 Bamboo flowsheet [facility] [address] [place] [address] Collin Barraza DO from Last 3 [...] AM EDT Routine [facility] [address] [facility] [place] [address] Peggy Morgan PA [address] [facility] [place] [address] Procedures Procedure Name Priority Date/Time Associated Diagnosis Comments AMNISURE Routine 01/11/2025 8:43 PM EDT TBH URINE MICROSCOPIC ONLY Routine 01/11/2025 7:00 PM EDT TBH UA (CLEAN/CATCH) NETWORK ANNOUNCER/MICRO IF IND. Routine 01/11/2025 7:00 PM EDT TBH UA (CLEAN/CATCH) NETWORK ANNOUNCER/MICRO IF IND. Routine 01/11/2025 12:50 AM EDT POCT URINALYSIS DIPSTICK Routine 01/09/2025 8:32 AM EDT 37 weeks gestation of ([facility]) Third trimester ([facility]) POCT URINALYSIS DIPSTICK Routine 01/02/2025 11:39 AM EDT Third trimester ([facility]) POCT URINALYSIS DIPSTICK Routine 12/25/2024 9:02 AM EDT Third trimester ([facility]) POCT URINALYSIS DIPSTICK Routine 12/18/2024 9:09 AM EDT Third trimester ([facility]) POCT URINALYSIS DIPSTICK Routine 12/04/2024 11:37 AM EDT Third trimester ([facility]) US OB FOLLOW UP TRANSABDOMINAL APPROACH Routine 12/04/2024 10:53 AM EDT Size of fetus inconsistent with dates in first trimester ([facility]) CBC WITH AUTO DIFFERENTIAL STAT 10/24/2024 1:02 PM EDT POCT URINALYSIS DIPSTICK Routine 10/17/2024 2:06 PM EDT Second trimester ([facility]) from Last 3 Months Results * AMNISURE (01/11/2025 8:43 PM EDT) TBH AMNISURE NEGATIVE NEGATIVE TBH 01/11/2025 8:43 PM EDT 01/11/2025 8:56 PM EDT Narrative [facility] - 01/11/2025 9:09 PM EDT Collin Christi DO LAB BLOOD ORDERABLES Final Resul t Performing Organization Address [facility] Co de Phone Number [facility] * (ABNORMAL) [facility] URINE MICROSCOPIC ONLY (01/11/2025 7:00 PM EDT) TBH WBC 2-5(A) NONE SEEN #/HPF TBH TBH RBC NONE SEEN 0 - 2 #/HPF TBH BACTERIA URINE SMALL(A) NONE SEEN #/HPF TBH MUCUS URINE NONE SEEN NONE SEEN TBH SQUAMOUS EPITHELIAL CELL URINE MODERATE(A ) NONE/RARE #/LPF TBH CRYSTALS SEEN? None Seen None Seen #/HPF TBH CAST SEEN? NONE SEEN NONE SEEN #/LPF TBH URINE CULTURE INDICATED YES-LC TBH 01/11/2025 7:00 PM EDT 01/11/2025 7:33 PM EDT Narrative [facility] - 01/11/2025 7:48 PM EDT us Collin Christi DO [facility]IN[facility] Final Result Performing Organization Address City/[facility]/ZIP Co de Phone Number [facility] * (ABNORMAL) TBH UA (CLEAN/CATCH) NETWORK ANNOUNCER/MICRO IF IND. (01/11/2025 7:00 PM EDT) Only the most recent of2 resultswithin the time period is included. COLOR URINE LT. YELLOW YELLOW TBH CLARITY URINE CLEAR CLEAR TBH SPECIFIC GRAVITY URINE <=1.005(A) 1.005 - 1.025 TBH PH URINE 6.0 5.0 - 9.0 TBH PROTEIN URINE NEGATIVE NEG/TRACE mg/dL TBH GLUCOSE URINE UA NEGATIVE NEGATIVE mg/dL TBH BILIRUBIN URINE NEGATIVE NEGATIVE TBH KETONES URINE 40(A) NEGATIVE mg/dL TBH BLOOD URINE TRACE-I NEGATIVE TBH NITRITE URINE NEGATIVE NEGATIVE TBH UROBILINOGEN URINE 0.2 0.2 - 1.0 EU/dL TBH LEUKOCYTE ESTERASE URINE SMALL(A) NEGATIVE TBH URINE MICROSCOPIC INDICATED YES TBH 01/11/2025 7:00 PM EDT 01/11/2025 7:33 PM EDT Narrative [facility] - 01/11/2025 7:48 PM EDT us Collin Barraza DO [facility] Final Result [facility] * (ABNORMAL) POCT urinalysis dipstick manually [...] II, MD, PHD at 05-Dec-2024 08:12:35 AM [facility] Procedure Note Manju Morales MD - [...] signed by MANJU MORALES II, MD, PHD [id number] 08:12:35 AM [facility] us Peggy ANDREWS IMG OB US [...] TYPE AUTOMATED DIFFERENTIAL [facility] Comment: PERFORMED AT [address] [place] [address] 10/24/2024 1:02 PM EDT 10/24/2024 1:02 PM EDT us Collin Barraza DO LAB BLOOD ORDERABLES Final Resul t [facility] from Last 3 Months Insurance [facility]
--- OUTSIDE RECORDS SUMMARY | 2025-01-14 19:31 | XMS_ITS | Encounter Summary ---
Author Organization [facility] Address [address] [place] [address] Care Team Providers Care Tube Coremaker Name Role Phone Unavailable Primary Care Provider Unavailabl e Encounter Details Date Type Department Care Team (Late Contact Info) Description 06/01/2024 Abstract [facility] [address] [facility] [place] [address] Collin Barraza DO [address] [facility] [address], [place] [address] Social History Tobacco Use Types Packs/Day Years [...] Encounters Date Type Department Care Team (Late Contact Info) Description 01/18/2025 8:50 AM EDT Routine [facility] [address] [facility] [place] [address] Peggy Morgan PA [address] [facility] [address] [place], [id number] documented as of this encounter Visit Diagnoses Not on filedocumented in this encounter
--- OUTSIDE RECORDS SUMMARY | 2025-01-14 19:31 | XMS_ITS ---
Author Organization [facility] [employer] c[employer] (ClinicalSummary Clone) Address Unknown Care Team Providers Care Care Services Manager Name Role Phone Unavailable Primary Care Physician Unavailab le Results * [UNITY] CARRIER SCREEN Performed by: [employer] Component Value Range Date Sickle Cell Disease/Beta-Thalassemia/Hemo globinopathies carrier screen NEGATIVE 07/11/2024 07:30 am [place] Alpha-Thalassemia carrier screen NEGATIVE 07/11/2024 07:30 am [place] Cystic Fibrosis carrier screen NEGATIVE 07/11/2024 07:30 am [place] Spinal Muscular Atrophy carrier screen NEGATIVE 2 SMN1 copies, SNP not present 07/11/2024 07:30 am [place] For detailed report, see PDF See PDF 07/11/2024 07:30 am [place] 07/11/2024 07:3 0 am [facility] Social History Observation Value Start Date End Date
--- OUTSIDE RECORDS SUMMARY | 2025-01-14 19:31 | XMS_ITS | Encounter Summary ---
Author Organization [facility] Address [address] [place] [address] Care Team Providers Care Manager Risk Management Name Role Phone Unavailable Primary Care Provider Unavailabl e Encounter Details Date Type Department Care Team (Late Contact Info) Description 10/24/2024 Abstract [facility] [address] [facility] [place] [address] Collin Barraza DO [address] [facility] [address], [facility]11 [...] 8:50 AM EDT Routine [facility] [address] [place] [address] Peggy Mrogan PA [address] [facility] [address] [place], [facility]11 documented as of this encounter Visit Diagnoses Not on filedocumented in this encounter
--- OUTSIDE RECORDS SUMMARY | 2025-01-14 19:31 | XMS_ITS | Encounter Summary ---
Author Organization [facility] Address [address] [place] [address] Care Team Providers Care Applications System Analyst Name Role Phone Unavailable Primary Care Provider Unavailabl e Encounter Details Date Type Department Care Team (Late Contact Info) Description 01/02/2025 Bamboo flowsheet [facility] [address] [facility] [place] [address] Collin Barraza DO [address] [facility] [address], [id number] Social History Tobacco Use Types Packs/Day Years [...] 01/18/2025 8:50 AM EDT Routine [facility] [address] [facility] [place] [address] Peggy Morgan PA [address] [facility] [address] [place], [facility]11 documented as of this encounter Visit Diagnoses Not on filedocumented in this encounter
--- OUTSIDE RECORDS SUMMARY | 2025-01-14 19:31 | XMS_ITS | Encounter Summary ---
Author Organization [facility] Address [address] [place] [address] Care Team Providers Care Heat Set Operator Name Role Phone Unavailable Primary Care Provider Unavailabl e Encounter Details Date Type Department Care Team (Late Contact Info) Description 07/10/2024 Abstract [facility] [address] [facility] [place] [address] Collin Barraza DO [address] [facility] [address], [facility] Social History Tobacco Use Types Packs/Day Years [...] 8:50 AM EDT Routine [facility] [address] [place] [address] Peggy Morgan PA [address] [facility] [place], [facility] documented as of this encounter Visit Diagnoses Not on filedocumented in this encounter
--- OUTSIDE RECORDS SUMMARY | 2025-01-14 19:31 | XMS_ITS | Encounter Summary ---
Author Organization [facility] Address [address] [place] [address] Care Team Providers Care Huc Ob Name Role Phone Unavailable Primary Care Provider Unavailabl e Encounter Details Date Type Department Care Team (Late Contact Info) Description 01/09/2025 Bamboo flowsheet [facility] J[facility] ACEVEDO [address] [place] [address] [place] [address] Peggy Morgan PA [address] [facility] [address] [place], [facility]11 Social [...] 8:50 AM EDT Routine [facility] ACEVEDO [address] [place] [address] [place] [address] Peggy Morgan PA [address] [facility] [address] [place], [facility]11 documented as of this encounter Visit Diagnoses Not on filedocumented in this encounter
--- OUTSIDE RECORDS SUMMARY | 2025-01-14 19:31 | XMS_ITS ---
Author Organization [facility] Source Produ ction (ClinicalSummary Clone) Address Unknown Care Team Providers Care Detasseling Crew Supervisor Name Role Phone Unavailable Primary Care Physician Unavailab le Results * [UNITY] ANEUPLOIDY NIPT Performed by: [employer] Component Value Range Date Fraction 7.5% 2024 06 :29 am [facility] Sex Chromosome Aneuploidy NOT DETECTED 06:29 am [facility] Monosomy X LOW RISK <1 in 10,000 2024 06:29 am [facility] Trisomy 13 LOW RISK <1 in 10,000 2024 06:29 am [facility] Trisomy 18 LOW RISK <1 in 10,000 2024 06:29 am [facility] Trisomy 21 LOW RISK <1 in 10,000 2024 06:29 am [facility] Sex MALE 2024 06:2 9 am [facility] Gestation GARCIA 07/08/19 25 06:29 am [facility] For detailed report, see PDF See PDF 2024 06:29 am [facility] 2024 06:2 9 am [facility] Social History Observation Value Start Date End Date
--- OUTSIDE RECORDS SUMMARY | 2025-01-14 19:31 | XMS_ITS | Encounter Summary ---
Author Organization [facility] Address [address] [place] [address] Care Team Providers Care Shaper Setter Name Role Phone Unavailable Primary Care Provider Unavailabl e Encounter Details Date Type Department Care Team (Late Contact Info) Description 07/11/2024 Abstract [facility] J[facility] ACEVEDO [address] [facility] [place] [address] Collin Barraza DO [address] [facility] [address] Kayy Mark, [id number] Social History Tobacco Use Types Packs/Day [...] 8:50 AM EDT Routine [facility] ACEVEDO [address] [place] [address] Peggy Morgan PA [address] [facility] [address] [place], [id number] documented as of this encounter Visit Diagnoses Not on filedocumented in this encounter
--- OUTSIDE RECORDS SUMMARY | 2025-01-14 19:31 | XMS_ITS | Encounter Summary ---
Author Organization [facility] Address [address] [place] [address] Care Team Providers Care Elementary Special Education Teacher Name Role Phone Unavailable Primary Care Provider Unavailabl e Encounter Details Date Type Department Care Team (Late st Contact Info) Description 01/11/2025 Clinisync Result Encounter [facility] External Department Unsolicited Collin Barraza DO [address] [place], [facility]11 Social History Tobacco Use Types Packs/Day [...] 01/18/2025 8:50 AM EDT Routine [facility] Jas OBPUSHPA [address] [facility] [place] [phone] Peggy Morgan PA [address] [facility] [place] [address] documented as of this encounter Procedures Procedure Name Priority Date/Time Associated Diagnosis Comments AMNISURE Routine 01/11/2025 8:43 PM EDT [facility] URINE MICROSCOPIC ONLY Routine 01/11/2025 7:00 PM EDT [facility] UA (CLEAN/CATCH) NETWORKING SPECIALIST/MICRO IF IND. Routine 01/11/2025 7:00 PM EDT [facility] UA (CLEAN/CATCH) NETWORKING SPECIALIST/MICRO IF IND. Routine 01/11/2025 12:50 AM EDT documented in this encounter Results * AMNISURE (01/11/2025 8:43 PM EDT) [facility] AMNISURE NEGATIVE NEGATIVE [facility] 01/11/2025 8:43 PM EDT 01/11/2025 8:56 PM EDT Narrative [facility] - 01/11/2025 9:09 PM EDT us Collin Christi DO LAB BLOOD ORDERABLES Final Resul t [facility] * (ABNORMAL) [facility] URINE MICROSCOPIC ONLY (01/11/2025 7:00 PM EDT) Pathologist [facility] TB WBC 2-5(A) NONE SEEN #/HPF TBH TBH [...] us Collin Christi DO CL[facility]IS[facility] Final Result [facility] * (ABNORMAL) [facility] UA (CLEAN/CATCH) NETWORKING SPECIALIST/MICRO IF IND. (01/11/2025 7:00 PM EDT) COLOR URINE LT. YELLOW YELLOW TBH [...] Narrative [facility] - 01/11/2025 7:48 PM EDT Collin Christi DO CL[facility]IS[facility] Final Result [facility] * (ABNORMAL) TBH UA (CLEAN/CATCH) NETWORKING SPECIALIST/MICRO IF IND. (01/11/2025 12:50 AM EDT) COLOR [...] Narrative [facility] - 01/11/2025 1:25 AM EDT [employer] C Collin Ramirezo DO CLINIS[facility]NC Final Result [facility] TB documented in this encounter Visit Diagnoses Not on filedocumented in this encounter
--- OUTSIDE RECORDS SUMMARY | 2025-01-14 19:31 | XMS_ITS | Encounter Summary ---
Author Organization [facility] Address [address] [facility] [place] [address] Care Team Providers Care Sports Apparel Internship Name Role Phone Unavailable Primary Care Provider Unavailabl e Encounter Details Date Type Department Care Team (Late Contact Info) Description 08/23/2024 Abstract [facility] J[facility] ACEVEDO [address] [facility] [place] [address] Pia Adkins LPN Social History Tobacco [...] AM EDT Routine [facility] ACEVEDO [address] [facility] [place] [address] Peggy Morgan PA [address] [facility] [address] [place], [place] [id number] documented as of this encounter Visit Diagnoses Not on filedocumented in this encounter
--- OUTSIDE RECORDS SUMMARY | 2025-01-14 19:31 | XMS_ITS | Encounter Summary ---
Author Organization [facility] Address [id number] [address] [place] [address] Care Team Providers Care Backer Up Name Role Phone Julienne, [place] SWITCHER-HACKSAW INSPECTOR Primary Care Provider [phone] Encounter Details Date Type Department Care Team (Late st Contact Info) Description 11/04/2023 Telephone [facility] Pul[facility] Medicine [address] [facility] [facility] [place] [phone] Elina Carranza, DO [address] [id number] Social History Tobacco Use Types Packs/Day Years [...] AM EDT PFT ordered pt livs in [place] CT abdomen is from Jun?? PCP noted [...] positive response to bronchodilators Clinical correlation advised Ronald Perry MD 12/29/23 us Elina Carranza DO PFT ORDERABLES Final Result MANUALLY TRANSCRIBED RESULTS documented in this encounter Visit Diagnoses Diagnosis SOB (shortness of breath)- Primary Shortness of breath Uncomplicated asthma, unspecified asthma severity, unspecified whether persistent SOB (shortness of breath) Shortness of breath Uncomplicated asthma, unspecified asthma severity, unspecified whether persistent documented in this encounter Care Teams Backer Up Relationship Specialty Start Date End Date Virginia Robins APRN-ESTELLE [address] [place] [address] PCP - General Family Medicine 11/21/23 documented as of this encounter
--- OUTSIDE RECORDS SUMMARY | 2025-01-14 19:31 | XMS_ITS | Encounter Summary ---
Author Organization [facility] Address [address] [place] [address] Care Team Providers Care Pipelines Superintendent Name Role Phone Unavailable Primary Care Provider Unavailabl e Encounter Details Date Type Department Care Team (Late Contact Info) Description 10/13/2024 Abstract [facility] ACEVEDO [address] [facility] [place] [address] Collin Barraza DO [address] [facility] [address] Kayy Mark, [facility]11 Social History Tobacco Use Types Packs/Day [...] 8:50 AM EDT Routine NOMOdilia ACEVEDO [address] [place] [address] Peggy Morgan PA [address] [facility] [address] [place], [facility]11 documented as of this encounter Visit Diagnoses Not on filedocumented in this encounter
--- OUTSIDE RECORDS SUMMARY | 2025-01-14 19:31 | XMS_ITS | Encounter Summary ---
Author Organization [facility] Address [address] [place] [address] Care Team Providers Care Community Living Instructor Name Role Phone Unavailable Primary Care Provider Unavailabl e Encounter Details Date Type Department Care Team (Late Contact Info) Description 06/30/2024 Abstract [facility] J[facility] ACEVEDO [address] [facility] [place] [address] Collin Barraza DO [address] [facility] [address] [place] Mark, [facility]11 Social History Tobacco Use Types Packs/Day Years [...] 8:50 AM EDT Routine NOMOdilia ACEVEDO [address] [place] [address] Peggy Morgan PA [address] [facility] [address] [place], [facility]11 documented as of this encounter Visit Diagnoses Not on filedocumented in this encounter
--- OUTSIDE RECORDS SUMMARY | 2025-01-14 19:31 | XMS_ITS | Encounter Summary ---
Author Organization [facility] Address [address] [place] [address] Care Team Providers Care Pulmonologist/Intensivist Name Role Phone Unavailable Primary Care Provider Unavailabl e Encounter Details Date Type Department Care Team (Late Contact Info) Description 08/21/2024 Abstract [facility] ACEVEDO [address] [facility] [place] [address] Collin Barraza DO [address] [facility] [address] [place], [facility] [...] 8:50 AM EDT Routine NOMOdilia ACEVEDO [address] [place] [address] Peggy Morgan PA [address] [facility] [address] [place], [facility]11 documented as of this encounter Visit Diagnoses Not on filedocumented in this encounter
--- OUTSIDE RECORDS SUMMARY | 2025-01-14 19:32 | XMS_ITS | CCD ---
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 1000 ng/mL Performed By: #### N UM #### [facility] ([id number]) [address] [place] [address] 28388 BARBITURATES Negative Normal NEG [facility] Comment on above: Result Comment: Jessica iturates screening cut off value = 200 ng/mL Performed By: #### N UM #### [facility] ([id number]) [address] [place] [address] 15146 BENZODIAZEPINES Negative Normal NEG [facility] Comment on above: Result Comment: Maikel odiazepines screening cut off value = 200 ng/mL Performed By: #### N UM #### [facility] ([id number]) [address] [place] [address] 41488 CANNABINOIDS Positive Abnormal NEG [facility] Comment on above: Result Comment: Conf irmation available upon request. Cannabinoids/THC screening cut off value = 50 ng/mL Performed By: #### N UM #### [facility] ([id number]) [address] [place] [address] 70878 COCAINE METABOLITE Negative Normal NEG [facility] Comment on above: Result Comment: Coca ine screening cut off value = 300 ng/mL Performed By: #### N UM #### [facility] ([id number]) [address] [place] [address] 01750 ECSTASY Negative Normal NEG [facility] Comment on above: Result Comment: Ecst asy screening cut off value = 500 ng/mL This report is intended for use in clinical monitoring or management of patients. Performed By: #### N UM #### [facility] ([id number]) [address] [place] [address] 72868 METHADONE Negative Normal NEG [facility] Comment on above: Result Comment: Meth adone screening cut off value = 300 ng/mL. Performed By: #### N UM #### [facility] ([id number]) [address] [place] [address] 51679 OPIATES Negative Normal NEG [facility] Comment on above: Result Comment: Opia reid screening cut off value = 300 ng/mL NOTE: This test is used for the detection of codeine, hydrocodone (>1000 ng/mL), morphine and hydromorphone (>900 ng/mL) in urine. Performed By: #### N UM #### [facility] ([id number]) [address] [place] [address] 03867 OXYCODONE Negative Normal NEG [facility] Comment on above: Result Comment: Oxyc odone screening cut off value = 300 ng/mL NOTE: This test is used for the detection of oxycodone and oxymorphone in urine. Performed By: #### N UM #### [facility] ([id number]) [address] [place] [address] 81156 PHENCYCLIDINE Negative Normal [facility] Comment on above: Result Comment: Phen cyclidine screening cut off value = 25 ng/mL Performed By: #### N UM #### [facility] ([id number]) [address] [place] [address] 84734 HBV surface Ag IA Qlon 08-17 HEPATITIS B SURF AG Non-Reactive Normal NRCT [facility] Comment on above: Result Comment: NEW TEST METHOD Performed By: #### N UM #### [facility] ([id number]) [address] [place] [address] 56238 HCV Ab IA Qlon 08-17-2024 ANTI HCV W/PCR REFLX Non-Reactive Normal NRCT [facility] Comment on above: Result Comment: NEW TEST METHOD NOTE If recent infection suspected, recommend repeat testing (>2 months). Xssgne-tj-ugyocy ratio is <1.00. Performed By: #### N UM #### [facility] ([id number]) [address] [place] [address] 82702 HGB A1C (GLYCO-HGB)on 2024 Glucose [Mass/Vol] 85 mg/dL Normal [facility] Comment on above: Performed By: #### N UM #### [facility] ([id number]) [address] [place] [address] 16945 HbA1c (Bld) [Mass fraction] 4.6 % Normal 4.4-5.6 [facility] Comment on above: Result Comment: NOTE ADA Guidelines Result HgbA1c Normal : less than 5.7 % Prediabetes : 5.7 % to 6.4 % Diabetes : > 6.4 % Use with caution in patients with abnormal hemoglobin variants as the half-life of red blood cells and in vivo glycation rates are affected. Performed By: #### N UM #### [facility] ([id number]) [address] [place] [address] 97124 HIV 1+2 Ab+HIV1 p24 Ag IA Ql on 08-17-2024 HIV 1 and 2 Ab/Ag Screen Non-Reactive Normal NRCT [facility] Comment on above: Result Comment: [...] diagnoses. Performed By: #### 2 106-3 #### [facility] ([id number]) [address] [place] [address] 71447 Rubella virus IgG Qn (S)on 0 08-17-2024 RUBELLA IgG 6 IU/mL Normal [facility] Comment on above: Result Comment: Interpretation-------- <8 NEGATIVE-considered Not Immune 8-9 EQUIVOCAL-consider retesting with new specimen >9 POSITIVE-considered Immune Performed By: #### 2 106-3 #### [facility] ([id number]) [address] [place] [address] 78952 T. pallidum IgG+IgM IA Ql (S )on 08-17-2024 Syphilis Total <0.2 Normal 0.0-0.8 [facility] Comment on above: Result Comment: NON REACTIVE No serologic evidence of infection to Treponema pallidum (syphilis). Repeat testing may be considered in patients with suspected acute or primary syphilis in 2 to 4 weeks. Performed By: #### 2 106-3 #### [facility] ([id number]) [address] [place] [address] 07527 URINE CULTUREon 08-17-2024 Bacteria identified Cx Nom (U) SPECIMEN NOTES URINE RECEIVED WITHOUT PRESERVATIVE CULTURE RESULTS <10,000 ORGANISMS/ML NORMAL URO GENITAL CHU Normal [facility] Comment on above: Performed By: #### 2 106-3 #### [facility] ([id number]) [address] [place] [address] 78095 Urinalysis macro (dipstick) panel (U)on 07-13-2024 Bilirubin, UA Negative Negative - 4(70) +++ mg/dL [facility] Blood, UA Negative Negative - 50 Francois/mcL [facility] Clarity, UA Clear [facility] Healthca re Color, UA Yellow [facility] Glucose, UA Negative Negative - 1999(110) ++++ mg/dL [facility] Interpretation and review of laboratory results Abnormal [facility] Ketones, UA Negative Negative - 160(16) ++++ mg/dL [facility] Leukocytes, UA Negative Negative - 500+++ Héctor/mcL [facility] Nitrite, UA Negative Negative - Positive [facility] pH, UA 7 5 - 9 [facility] [employer] Protein, UA Trace Negative - 1999(20) ++++ mg/dL [facility] Spec Grav, UA 1.02 1 - 1.03 [facility] Urobilinogen, UA 0.2 0.2 - 12 mg/dL [facility] BOX TESTon 06-30-2024 BOX TEST SENT OUT [employer] [facility] althcare BOX1 [facility] Health[facility] BOX2 06/30/2024 [facility] [employer] [facility] HCG ( test) Ql (U)o n 06-23-2024 Interpretation and review of laboratory results Abnormal [facility] Preg Test, Ur Positive Negative [facility] care [facility] US OB TRANSVAGINALon 025 US [...] x 3.8 cm (8 weeks, 4 days). [place] rump length is 2.2-2.3 cm (8 weeks, [...] UA Negative Negative - 4(70) +++ mg/dL [facility] Blood, UA Negative Negative - 50 Francois/mcL [facility] Clarity, UA Clear [facility] re Color, UA Yellow [facility] e Glucose, UA Negative Negative - 1999(110) ++++ mg/dL [facility] Interpretation and review of laboratory results Abnormal [facility] Ketones, UA Positive Negative - 160(16) ++++ mg/dL [facility] Leukocytes, UA Negative Negative - 500+++ Héctor/mcL [facility] Nitrite, UA Negative Negative - Positive [facility] pH, UA 6.5 5 - 9 [facility] e Protein, UA Negative Negative - 1999(20) ++++ mg/dL [facility] Spec Grav, UA 1.03 1 - 1.03 [facility] Urobilinogen, UA 1.0 0.2 - 12 mg/dL [facility] Influenza virus B Ag [Presen ce] in Upper respiratory specimen by Rapid immunoassayon 03-25-2024 FLUBV Ag IA.rapid Ql (Nph) Negative [facility] No Panel Informationon 03-25 Influenza Type A (Rapid) Negative [facility] POC SARS CoV-2 Antigen Negative [facility] ALL CBC WITH AUTO DIFFon BASOPHILS ABSOLUTE AUTO 0.0 [facility] Basophils/100 WBC (Bld) 0.5 % 0.2 - 2.0 % [facility] Eosinophils/100 WBC (Bld) 2.9 % 0.9 - 7.0 % [facility] Erythrocyte distribution width (RBC) [Ratio] 12.0 % 11.0 - 15.0 % [facility] Hematocrit (Bld) [Volume fraction] 40.2 % 36.0 - 48.0 % [facility] Healthcar e Hemoglobin (Bld) [Mass/Vol] 14.1 g/dL 12.0 - 16.0 g/dL [facility] IMMATURE GRANULOCYTES ABS AUTO 0.01 [facility] Immature granulocytes/100 WBC (Bld) 0.2 % 0.0 - 0.5 % [facility] Interpretation and review of laboratory results Abnormal [facility] LYMPHOCYTES ABSOLUTE AUTO 2.4 [facility] Lymphocytes/100 WBC (Bld) 43.0 % 20.5 - 60.0 % [facility] MCH (RBC) [Entitic mass] 30.8 pg 26.7 - 34.0 pg [facility] MCHC (RBC) [Mass/Vol] 35.1 g/dL 29.9 - 35.2 g/dL [facility] MCV (RBC) [Entitic vol] 87.8 fL 81.0 - 99.0 fL [facility] MONOCYTES ABSOLUTE AUTO 0.4 [facility] Monocytes/100 WBC (Bld) 7.1 % 1.7 - 12.0 % [facility] NEUTROPHILS ABSOLUTE AUTO 2.6 [facility] Neutrophils/100 WBC (Bld) 46.3 % 43.0 - 75.0 % [facility] Platelet mean volume (Bld) [Entitic vol] 8.6 fL Low 9.5 - 13.5 fL [facility] # 0.2 [facility] TBH PLT 232 [facility] TB RBC 4.58 [facility] TB WBC 5.5 [facility] COMPLETE BLOOD COUNTon 12-23 Erythrocyte distribution width (RBC) [Ratio] 13.5 % Normal 11.5-15.0 [facility] Comment on above: Performed By: #### C BC, CMP, 90364-1, THYR, 87289-2, 49002-8 #### [facility] ([id number]) [address], [address] [place] [address] Hematocrit (Bld) [Volume fraction] 37.1 % Normal 35-47 [facility] Comment on above: Performed By: #### C BC, CMP, 44686-8, THYR, 77205-7, 58102-9 #### [facility] ([id number]) [address] [facility] [address] [place] [address] Hemoglobin (Bld) [Mass/Vol] 13.1 g/dL Normal 11.7-15.5 [facility] Comment on above: Performed By: #### C BC, CMP, 14685-7, THYR, 14901-2, 71450-3 #### [facility] ([id number]) [address], [facility] [address] [place] [address] MCH (RBC) [Entitic mass] 31.6 pg Normal 27-34 [facility] Comment on above: Performed By: #### C BC, CMP, 47319-8, THYR, 42211-6, 82497-2 #### [facility] ([id number]) [address] [place] [address] MCHC (RBC) [Mass/Vol] 35.3 g/dL Normal 32-36 [facility] Comment on above: Performed By: #### C BC, CMP, 03422-9, THYR, 81030-3, 57319-2 #### [facility] ([id number]) [address] [place] [address] MCV (RBC) [Entitic vol] 90 fL Normal 80-100 [facility] Comment on above: Performed By: #### C BC, CMP, 36826-4, THYR, 39292-2, 46292-9 #### [facility] ([id number]) [address], [address] [place] [address] Platelet mean volume (Bld) [Entitic vol] 7.7 fL Normal 7-12 [facility] Comment on above: Performed By: #### C BC, CMP, 07024-1, THYR, 05037-4, 04193-8 #### [facility] ([id number]) [address], [address] [place] [address] Platelets (Bld) [#/Vol] 242 10*3/uL Normal 150-450 [facility] Comment on above: Performed By: #### C BC, CMP, 62916-0, THYR, 40656-6, 99294-2 #### [facility] ([id number]) [address], [address] [place] [address] RBC COUNT 4.13 X10E12/L Normal 3.80-5.20 [facility] Comment on above: Performed By: #### C BC, CMP, 52292-4, THYR, 74049-0, 87264-3 #### [facility] ([id number]) [address], [address] [place] [address] WBC (Bld) [#/Vol] 6.7 10*3/uL Normal 4.0-11.0 [facility] Comment on above: Performed By: #### C BC, CMP, 72421-2, THYR, 26913-7, 03332-8 #### [facility] ([id number]) [address], [address] [place] [address] COMPREHENSIVE METABOLIC PANE Grey 12-24-2023 Albumin [Mass/Vol] 4.4 g/dL Normal 3.2-5.3 [facility] Comment on above: Performed By: #### N UM #### [facility] ([id number]) [address] [place] [address] 59299 ALP [Catalytic activity/Vol] 64 U/L Normal 39-130 [facility] Comment on above: Performed By: #### N UM #### [facility] ([id number]) [address] [place] [address] ALT [Catalytic activity/Vol] 35 U/L High 0-31 [facility] Comment on above: Performed By: #### N UM #### [facility] ([id number]) [address] [place] [address] 98906 Anion gap [Moles/Vol] 10 mmol/L Normal 5-15 [facility] Comment on above: Performed By: #### N UM #### [facility] ([id number]) [address] [place] [address] 59300 AST [Catalytic activity/Vol] 23 U/L Normal 0-41 [facility] Comment on above: Performed By: #### N UM #### [facility] ([id number]) [address] [place] [address] 84138 Bilirubin [Mass/Vol] 0.6 mg/dL Normal 0.3-1.2 [facility] Comment on above: Performed By: #### N UM #### [facility] ([id number]) [address] [place] [address] 91956 Calcium [Mass/Vol] 9.3 mg/dL Normal 8.5-10.5 [facility] Comment on above: Performed By: #### N UM #### [facility] ([id number]) [address] [place] [address] 37369 Chloride [Moles/Vol] 104 mmol/L Normal 98-109 [facility] Comment on above: Performed By: #### N UM #### [facility] ([id number]) [address] [place] [address] 35856 CO2 [Moles/Vol] 24 mmol/L Normal 22-32 [facility] Comment on above: Performed By: #### N UM #### [facility] ([id number]) [address] [place] [address] 25033 Creatinine [Mass/Vol] 0.53 mg/dL Normal 0.40-1.00 [facility] Comment on above: Result Comment: METH OD TRACEABLE TO IDMS STANDARD Performed By: #### N UM #### [facility] ([id number]) [address] [place] [address] 03698 eGFR (CKD-EPI) NON-RACE DEPENDENT >90 Normal >59 [facility] Comment on above: Result Comment: Reported eGFR is based on the CKD-EPI 2020 equation that does not use a race coefficient. Performed By: #### N UM #### [facility] ([id number]) [address] [place] [address] 10436 Glucose [Mass/Vol] 61 mg/dL Low 65-99 [facility] Comment on above: Performed By: #### N UM #### [facility] ([id number]) [address] [place] [address] 89895 Potassium [Moles/Vol] 3.8 mmol/L Normal 3.5-5.0 [facility] Comment on above: Performed By: #### N UM #### [facility] ([id number]) [address] [place] [address] 21578 Protein [Mass/Vol] 7.2 g/dL Normal 6.0-8.0 [facility] Comment on above: Performed By: #### N UM #### [facility] ([id number]) [address] [place] [address] 02818 Sodium [Moles/Vol] 138 mmol/L Normal 134-146 [facility] Comment on above: Performed By: #### N UM #### [facility] ([id number]) [address] [place] [address] 74487 Urea nitrogen [Mass/Vol] 8 mg/dL Normal 5-23 [facility] Comment on above: Performed By: #### N UM #### [facility] ([id number]) [address] [place] [address] 91706 HCV Ab IA Qlon 12-24-2023 ANTI HCV W/PCR REFLX Non-Reactive Normal NRCT [facility] Comment on above: Result Comment: If recent infection suspected, recommend repeat testing (>2 months). Pcxpqp-sg-lgtqli ratio is <0.80. Performed By: #### N UM #### [facility] ([id number]) [address] [place] [address] 36153 HIV 1+2 Ab+HIV1 p24 Ag IA Ql on 12-24-2023 HIV 1 and 2 Ab/Ag Screen Non-Reactive Normal NRCT [facility] Comment on above: Result Comment: [...] diagnoses. Performed By: #### N UM #### [facility] ([id number]) [address] [place] [address] 11959 Lipid 1996 panelon 4 Cholesterol [Mass/Vol] 164 mg/dL Normal 150-200 [facility] Comment on above: Performed By: #### N UM #### [facility] ([id number]) [address] [place] [address] 84801 Cholesterol in HDL [Mass/Vol] 56 mg/dL Normal >39 [facility] Comment on above: Result Comment: HDL <40 mg/dL - High Risk HDL > or = 40mg/dL- Desirable HDL >60 mg/dL - Negative Risk Performed By: #### N UM #### [facility] ([id number]) [address] [place] [address] 35164 Cholesterol in LDL [Mass/Vol] 87 mg/dL Normal <130 [facility] Comment on above: Result Comment: LDL <100 mg/dL - Desirable LDL >160 mg/dL - High Risk Performed By: #### N UM #### [facility] ([id number]) [address] [place] [address] 14831 Cholesterol in VLDL [Mass/Vol] 21 mg/dL Normal 0-30 [facility] Comment on above: Performed By: #### N UM #### [facility] ([id number]) [address] [place] [address] 60032 CHOLESTEROL:HDL 2.9 Normal 1.0-5.0 [facility] Comment on above: Performed By: #### N UM #### [facility] ([id number]) [address] [place] [address] 15853 Triglyceride [Mass/Vol] 103 mg/dL Normal 27-150 [facility] Comment on above: Performed By: #### N UM #### [facility] ([id number]) [address] [place] [address] [place] [address] THYROID PROFILEon 12-24-2023 Free T4 [Mass/Vol] 0.83 ng/dL Normal 0.61-1.60 [facility] Comment on above: Performed By: #### N UM #### [facility] ([id number]) [address] [place] [address] 50995 TSH 1.00 uIU/mL Normal 0.49-4.67 [facility] Comment on above: Performed By: #### N UM #### [facility] ([id number]) [address] [place] [address] 29067 CBC AND AUTO DIFFon 11-21-19 24 ABSOLUTE BASOPHIL 0.0 X10E9/L Normal 0.0-0.2 [facility] Comment on above: Performed By: #### C DEREK CMP, 3039-08, #### [facility] ([id number]) [address] [place] [address] 92663 ABSOLUTE NEUTROPHIL 1.5 X10E9/L Normal 1.5-6.6 [facility] Comment on above: Performed By: #### C DEREK CMP, 3039-08, 99399-8 #### [facility] ([id number]) [address] [place] [address] 82985 Basophils/100 WBC (Bld) 1.0 % Normal [facility] Comment on above: Performed By: #### C DEREK, CMP, 3039-08, 32820-7 #### [facility] ([id number]) [address] [place] [address] 63157 Eosinophils (Bld) [#/Vol] 0.2 10*3/uL Normal 0.0-0.4 [facility] Comment on above: Performed By: #### C DEREK, CMP, 3039-08, #### [facility] ([id number]) [address] [place] [address] 55930 Eosinophils/100 WBC (Bld) 3.9 % Normal [facility] Comment on above: Performed By: #### C DEREK, CMP, 3039-08, #### [facility] ([id number]) [address] [place] [address] 76050 Erythrocyte distribution width (RBC) [Ratio] 13.7 % Normal 11.5-15.0 [facility] Comment on above: Performed By: #### C MARTY REED, 3039-08, #### [facility] ([id number]) [address] [place] [address] 87368 Hematocrit (Bld) [Volume fraction] 38.2 % Normal 35-47 [facility] Comment on above: Performed By: #### Kailyn REED [facility], 3039-08, #### [facility] ([id number]) [address] [place] [address] 84766 Hemoglobin (Bld) [Mass/Vol] 13.7 g/dL Normal 11.7-15.5 [facility] Comment on above: Performed By: #### Kailyn REED [facility], 3039-08, #### [facility] ([id number]) [address] [place] [address] 20962 Lymphocytes (Bld) [#/Vol] 2.3 10*3/uL Normal 1.0-3.5 [facility] Comment on above: Performed By: #### Kailyn REED [facility], 3039-08, #### [facility] ([id number]) [address] [place] [address] 75595 Lymphocytes/100 WBC (Bld) 52.0 % Normal [facility] Comment on above: Performed By: #### Kailyn REED [facility], 3039-08, #### [facility] ([id number]) [address] [place] [address] 30371 MCH (RBC) [Entitic mass] 30.6 pg Normal 27-34 [facility] Comment on above: Performed By: #### Kailyn REED CMP, 3039-08, #### [facility] ([id number]) [address] [place] [address] 55853 MCHC (RBC) [Mass/Vol] 35.9 g/dL Normal 32-36 [facility] Comment on above: Performed By: #### C DEREK CMP, 3, #### [facility] ([id number]) [address] [place] [address] 05894 MCV (RBC) [Entitic vol] 85 fL Normal 80-100 [facility] Comment on above: Performed By: #### Kailyn REED CMP, 3039-08, #### [facility] ([id number]) [address] [place] [address] 12751 Monocytes (Bld) [#/Vol] 0.4 10*3/uL Normal 0-0.9 [facility] Comment on above: Performed By: #### Kailyn REED CMP, 3039-08, #### [facility] ([id number]) [address] [place] [address] 20459 Monocytes/100 WBC (Bld) 9.7 % Normal [facility] Comment on above: Performed By: #### Kailyn REED CMP, 3039-08, #### [facility] ([id number]) [address] [place] [address] 39176 Neutrophils/100 WBC (Bld) 33.4 % Normal [facility] Comment on above: Performed By: #### Kailyn REED CMP, 3039-08, #### [facility] ([id number]) [address] [place] [address] 84033 Platelet mean volume (Bld) [Entitic vol] 6.9 fL Low 7-12 [facility] Comment on above: Performed By: #### Kailyn REED CMP, 3039-08, #### [facility] ([id number]) [address] [place] [address] 70527 Platelets (Bld) [#/Vol] 236 10*3/uL Normal 150-450 [facility] Comment on above: Performed By: #### C BCA, CMP, 3039-08, 04395-9 #### [facility] ([id number]) [address] [place] [address] 13328 RBC COUNT 4.48 X10E12/L Normal 3.80-5.20 [facility] Comment on above: Performed By: #### C BCA, CMP, 3039-08, #### [facility] ([id number]) [address] [place] [address] 39082 WBC (Bld) [#/Vol] 4.5 10*3/uL Normal 4.0-11.0 [facility] Comment on above: Performed By: #### C BCA, CMP, 3039-08, #### [facility] ([id number]) [address] [place] [address]OLIC PANE [facility] 11-21-2023 Albumin [Mass/Vol] 4.5 g/dL Normal 3.2-5.3 [facility] Comment on above: Performed By: #### C BCA, CMP, 3039-08, #### [facility] ([id number]) [address] [place] [address] 76636 ALP [Catalytic activity/Vol] 55 U/L Normal 39-130 [facility] Comment on above: Performed By: #### C BCA, CMP, 3039-08, 18711-5 #### [facility] ([id number]) [address] [place] [address] 55888 ALT [Catalytic activity/Vol] 28 U/L Normal 0-31 [facility] Comment on above: Performed By: #### C BCA, CMP, 3039-08, #### [facility] ([id number]) [address] [place] [address] 44685 Anion gap [Moles/Vol] 5 mmol/L Normal 5-15 [facility] Comment on above: Performed By: #### C BCA, CMP, 3039-08, #### [facility] ([id number]) [address] [place] [address] 61445 AST [Catalytic activity/Vol] 22 U/L Normal 0-41 [facility] Comment on above: Performed By: #### C BCA, CMP, 3039-08, #### [facility] ([id number]) [address] [place] [address] 05253 Bilirubin [Mass/Vol] 0.6 mg/dL Normal 0.3-1.2 [facility] Comment on above: Performed By: #### C BCA, CMP, 3039-08, #### [facility] ([id number]) [address] [place] [address] 92656 Calcium [Mass/Vol] 8.9 mg/dL Normal 8.5-10.5 [facility] Comment on above: Performed By: #### C BCA, CMP, 3039-08, #### [facility] ([id number]) [address] [place] [address] 74582 Chloride [Moles/Vol] 104 mmol/L Normal 98-109 [facility] Comment on above: Performed By: #### C BCA, CMP, 3039-08, #### [facility] ([id number]) [address] [place] [address] 33679 CO2 [Moles/Vol] 24 mmol/L Normal 22-32 [facility] Comment on above: Performed By: #### C BCA, CMP, 3039-08, #### [facility] ([id number]) [address] [place] [address] 13983 Creatinine [Mass/Vol] 0.69 mg/dL Normal 0.40-1.00 [facility] Comment on above: Result Comment: METH OD TRACEABLE TO IDMS STANDARD Performed By: #### C MARTY REED, 3039-08, #### [facility] ([id number]) [address] [place] [address] 66521 eGFR (CKD-EPI) NON-RACE DEPENDENT >90 Normal >59 [facility] Comment on above: Result Comment: Reported eGFR is based on the CKD-EPI 2020 equation that does not use a race coefficient. Performed By: #### C MARTY REED, 3039-08, #### [facility] ([id number]) [address] [place] [address] 40809 Glucose [Mass/Vol] 93 mg/dL Normal 65-99 [facility] Comment on above: Performed By: #### C DEREK CMP, 3039-08, #### [facility] ([id number]) [address] [place] [address] 61256 Potassium [Moles/Vol] 3.7 mmol/L Normal 3.5-5.0 [facility] Comment on above: Performed By: #### C DEREK, CMP, 3039-08, #### [facility] ([id number]) [address] [place] [address] 98088 Protein [Mass/Vol] 7.6 g/dL Normal 6.0-8.0 [facility] Comment on above: Performed By: #### C DEREK, CMP, 3039-08, #### [facility] ([id number]) [address] [place] [address] 77064 Sodium [Moles/Vol] 133 mmol/L Low 134-146 [facility] Comment on above: Performed By: #### C DEREK, CMP, 3039-08, #### [facility] ([id number]) [address] [place] [address] Urea nitrogen [Mass/Vol] 9 mg/dL Normal 5-23 [facility] Comment on above: Performed By: #### C BCA, CMP, 3040-3, 84640-2 #### [facility] ([id number]) [address] [place] [address] CT ABDOMEN AND PELVIS WO CON Ton [...] Ricardo Hooper DO on 11/21/2023 10:59 AM Nemesio Nino MD have personally reviewed the image(s) and agree with and/or edited the report 3 Finalized by Nemesio Thompson MD on 11/21/2023 11:32 AM Normal [facility] HCG ( test) Ql (U)o n 11-21-2023 Beta HCG ( test) Ql (U) Negative Normal NEG [facility] Comment on above: Performed By: #### 2 106-3 #### [facility] ([id number]) [address] [place] [address] 15233 LIPASEon 11-21-2023 Lipase [Catalytic activity/Vol] 29 U/L Normal 17-40 [facility] Comment on above: Performed By: #### C BCA, CMP, 3040-3, 85380-3 #### [facility] ([id number]) [address] [place] [address] 64802 MAGNESIUMon 11-21-2023 Magnesium [Mass/Vol] 2.2 mg/dL Normal 1.8-2.6 [facility] Comment on above: Performed By: #### C BCA, CMP, 3040-3, 08521-9 #### [facility] ([id number]) [address] [place] [address] 79932 URINE CULTUREon 11-21-2023 Bacteria identified Cx Nom (U) CULTURE RESULTS 10-50,000 ORGANISMS/mL NORMAL UROGENITAL CHU Normal [facility] Comment on above: Performed By: #### 6 30-4 #### [facility] ([id number]) [address] [place] [address], [address] [place] [address] URN MACROSCOPIC NURon 2023 BILIRUBIN JOHANA Negative Normal NEG [facility] Comment on above: Performed By: #### N UM #### [facility] ([id number]) [address] [place] [address] 44867 BLOOD/HGB JOHANA Negative Normal NEG [facility] Comment on above: Performed By: #### N UM #### [facility] ([id number]) [address] [place] [address] 08352 GLUCOSE JOHANA Negative Normal NEG [facility] Comment on above: Performed By: #### N UM #### [facility] ([id number]) [address] [place] [address] 09368 KETONES JOHANA Negative Normal NEG [facility] Comment on above: Performed By: #### N UM #### [facility] ([id number]) [address] [place] [address] 61316 LEUKOCYTE ESTERASE JOHANA Negative Normal NEG [facility] Comment on above: Performed By: #### N UM #### [facility] ([id number]) [address] [place] [address] 71654 NITRITE JOHANA Negative Normal NEG [facility] Comment on above: Performed By: #### N UM #### [facility] ([id number]) [address] [place] [address] 66723 PH JOHANA 6.5 Normal 5.0-8.5 [facility] Comment on above: Performed By: #### N UM #### [facility] ([id number]) [address] [place] [address] 43082 PROTEIN JOHANA Negative Normal NEG [facility] Comment on above: Performed By: #### N UM #### [facility] ([id number]) [address] [place] [address] 17820 SPECIFIC GRAVITY JOHANA 1.010 Normal 1.003-1.035 [facility] Comment on above: Performed By: #### N UM #### [facility] ([id number]) [address] [place] [address] 11362 UROBILINOGEN JOHANA 0.2 eu/dL Normal <1.1 [facility] Comment on above: Performed By: #### N UM #### [facility] ([id number]) [address] [place] [address] 42381 XR RIBS RT PA Chery 3 XR [...] by: CATA HERNANDEZ Date: 2022-09-29 00:50 Normal [facility] XR wrist LT min 3V*on 2021 XR wrist LT min 3V* [place] [id number] XRay Report Signed Patient: Flavia Tucker MR#: [id number] : 2005 Acct:[id number] Age/Sex: 16 / F ADM Date: 04/21/22 Loc: [facility] Room: Type: [facility] Attending Dr: Deb BRAN Copies to: [...] Jan Gastelum M.D.04/21/2022 4:02 PM Dictation Location: [place] [address] Transcribed By: [facility] 04/21/22 1602 Dictated By: Jan Gastelum DO 04/21/22 1601 Signed By: 04/21/22 1602 Normal [facility] XR wrist LT min 3V* [facility] [employer] Other XR wrist LT min 3V* [facility] [employer] Other XR wrist LT min 3V* [address] [place] [address] [employer] Other XR wrist LT min 3V* [place] [id number] [facility] [employer] Other XR wrist LT min 3V* XRay Report [facility] [employer] Other XR wrist LT min 3V* Signed [facility] [employer] Other XR wrist LT min 3V* Patient: Flavia Tucker MR#: [id number] [facility] [employer] Other XR wrist LT min 3V* : 2005 Acct:[id number] [facility] [employer] Other XR wrist LT min 3V* Age/Sex: 16 / F ADM Date: 04/21/22 [facility] [employer] Other XR wrist LT min 3V* Loc: [facility] Room: Type: [facility] [employer] Other XR wrist LT min 3V* Attending Dr: Deb Pressley [facility] Other XR wrist LT min 3V* Copies to: DEB PRESSLEY [employer] [facility] Other XR wrist LT min 3V* Ordering Provider[facility] Other XR wrist LT min 3V* Date of Service: 04/21/22 [facility] [employer] Other XR wrist LT min 3V* XR/XR wrist LT min 3V*: Injury of left wrist, subsequent encounter [facility] [employer] Other XR wrist LT min 3V* 4 viewsLEFT wrist plain film [facility] [employer] Other XR wrist LT min 3V* COMPARISON:None [facility] [employer] Other XR wrist LT min 3V* HISTORY:Follow-up assessment of LEFT wrist injury. [facility] [employer] Other XR wrist LT min 3V* No fracture, dislocation or focal soft tissue abnormality seen. [facility] [employer] Other XR wrist LT min 3V* XR/XR wrist LT min 3V* [employer] Other XR wrist LT min 3V* IMPRESSION:No acute findings. [facility] [employer] Other XR wrist LT min 3V* Impression dictated by: Jan Gastelum M.D.04/21/2022 4:02 PM [facility] [employer] Other XR wrist LT min 3V* Dictation Location: [place] [address] [facility] [employer] Other XR wrist LT min 3V* Transcribed By: PWS 04/21/22 1602 [facility] [employer] Other XR wrist LT min 3V* Dictated By: Jan Gastelum DO 04/21/22 1601 [facility] Other XR wrist LT min 3V* Signed By: [facility] Other XR wrist LT min 3V* 04/21/22 1602 No rt [employer] Other [employer] 03-24-2022 S. pyogenes Org specific cx Ql (Throat) Negative [facility] Other [employer] [facility] Other SARS-CoV-2 (COVID-19) RNA NA A+probe Ql (Resp)on 03-24-2022 SARS-CoV-2 (COVID-19) RNA KELLY+probe Ql (Unsp spec) Negative [facility] Other Progress Noteon 03-10-2018 HIM IP Note OR Cio Normal [facility] Progress Noteon 02-24-2018 HIM IP Note OR Cio Normal [facility] Progress Noteon 02-16-2018 HIM IP Note OR Cio Normal [facility] Vital Signs Date Time Vital Sign Value Performing Clinician Facility 01-09-2025 08:29-0400 Body mass index (BMI) [Ratio] 26.81 kg/m2 Kimberlee ANDREWS Work Phone: [facility] 01-09-2025 08:29-0400 Body weight 73.08 kg Kimberlee Eddie PA Work Phone: [facility] 01-09-2025 08:29-0400 Diastolic blood pressure 78 mm[Hg] Kimberlee Eddie PA Work Phone: [facility] 01-09-2025 08:29-0400 Systolic blood pressure 130 mm[Hg] Kimberlee Eddie PA Work Phone: [facility] 01-02-2025 11:38-0400 Body mass index (BMI) [Ratio] 27.29 kg/m2 Collin Christi DO Work Phone: [facility] 01-02-2025 11:38-0400 Body weight 74.39 kg Collin Christi DO Work Phone: [facility] 01-02-2025 11:38-0400 Diastolic blood pressure 60 mm[Hg] Collin Christi DO Work Phone: [facility] 01-02-2025 11:38-0400 Systolic blood pressure 112 mm[Hg] Collin Christi DO Work Phone: [facility] 12-18-2024 09:03-0400 Body mass index (BMI) [Ratio] 26.96 kg/m2 Kimberlee Eddie PA Work Phone: [facility] 12-18-2024 09:03-0400 Body weight 73.48 kg Kimberlee Eddie PA Work Phone: [facility] 12-18-2024 09:03-0400 Diastolic blood pressure 64 mm[Hg] Kimberlee Eddie PA Work Phone: [facility] 12-18-2024 09:03-0400 Systolic blood pressure 118 mm[Hg] Kimberlee Franklin PA Work Phone: [facility] 12-04-2024 11:33-0400 Body mass index (BMI) [Ratio] 26.29 kg/m2 Collin Christi DO Work Phone: [facility] 12-04-2024 11:33-0400 Body weight 71.67 kg Collin Christi DO Work Phone: [facility] 12-04-2024 11:33-0400 Diastolic blood pressure 72 mm[Hg] Collin Christi DO Work Phone: [facility] 12-04-2024 11:33-0400 Systolic blood pressure 118 mm[Hg] Collin Christi DO Work Phone: [facility] 11-16-2024 09:17-0400 Body mass index (BMI) [Ratio] 26.13 kg/m2 Kimberlee Eddie PA Work Phone: [facility] 11-16-2024 09:17-0400 Body weight 71.22 kg Kimberlee Eddie PA Work Phone: [facility] 11-16-2024 09:17-0400 Diastolic blood pressure 70 mm[Hg] Kimberlee Rodriguez PA Work Phone: [facility] 11-16-2024 09:17-0400 Systolic blood pressure 122 mm[Hg] Kimberlee Eddie PA Work Phone: [facility] 10-17-2024 11:07-0400 Body mass index (BMI) [Ratio] 24.92 kg/m2 Collin Christi DO Work Phone: [facility] 10-17-2024 11:07-0400 Body weight 67.93 kg Collin Christi DO Work Phone: [facility] 10-17-2024 11:07-0400 Diastolic blood pressure 64 mm[Hg] Collin Christi DO Work Phone: [facility] 10-17-2024 11:07-0400 Systolic blood pressure 120 mm[Hg] Collin Christi DO Work Phone: [facility] 09-19-2024 09:54-0400 Body mass index (BMI) [Ratio] 23.8 kg/m2 Collin Christi DO Work Phone: [facility] 09-19-2024 09:54-0400 Body weight 64.86 kg Collin Christi DO Work Phone: [facility] 09-19-2024 09:54-0400 Diastolic blood pressure 60 mm[Hg] Collin Christi DO Work Phone: [facility] 09-19-2024 09:54-0400 Systolic blood pressure 112 mm[Hg] Collin Christi DO Work Phone: [facility] 07-13-2024 08:45-0500 Body mass index (BMI) [Ratio] 22.47 kg/m2 Collin Christi DO Work Phone: [facility] 07-13-2024 08:45-0500 Body weight 61.24 kg Collin Christi DO Work Phone: [facility] 07-13-2024 08:45-0500 Diastolic blood pressure 64 mm[Hg] Collin Christi DO Work Phone: [facility] 07-13-2024 08:45-0500 Systolic blood pressure 112 mm[Hg] Collin Christi DO Work Phone: [facility] 06-23-2024 09:14-0500 Body mass index (BMI) [Ratio] 22.6 kg/m2 [facility] Nurse [facility] 06-23-2024 09:14-0500 Body weight 61.6 kg [facility] Nurse [facility] 05-22-2024 09:52-0500 Body height 165.1 cm Ronald Beach MD Work Phone: [facility] 05-22-2024 09:52-0500 Body mass index (BMI) [Ratio] 22.83 kg/m2 Ronald Beach MD Work Phone: [facility] 05-22-2024 09:52-0500 Body weight 62.23 kg Ronald Beach MD Work Phone: [facility] 05-22-2024 09:52-0500 Diastolic blood pressure 72 mm[Hg] Ronald Beach MD Work Phone: [facility] 05-22-2024 09:52-0500 Heart rate 88 /min Ronald Beach MD Work Phone: [facility] 05-22-2024 09:52-0500 SaO2% (BldA) [Mass fraction] 99 % Ronald Beach MD Work Phone: [facility] 05-22-2024 09:52-0500 Systolic blood pressure 111 mm[Hg] Ronald Beach MD Work Phone: [facility] 04-22-2024 09:51-0400 Body height 165.1 cm [facility] 04-22-2024 09:51-0400 Body mass index (BMI) [Percentile] Per age and sex 66.8 % [facility] 04-22-2024 09:51-0400 Body mass index (BMI) [Ratio] 23.3 kg/m2 [facility] 04-22-2024 09:51-0400 Body temperature 98.8 [degF] [facility] 04-22-2024 09:51-0400 Body weight 63.5 kg [facility] 04-22-2024 09:51-0400 Diastolic blood pressure 79 mm[Hg] [facility] 04-22-2024 09:51-0400 Heart rate 71 /min [facility] 04-22-2024 09:51-0400 Respiratory rate 18 /min [facility] 04-22-2024 09:51-0400 SaO2% (BldA) [Mass fraction] 98 % [facility] 04-22-2024 09:51-0400 Systolic blood pressure 120 mm[Hg] [facility] 03-25-2024 09:30-0400 Body height 165.1 cm [facility] 03-25-2024 09:30-0400 Body mass index (BMI) [Percentile] Per age and sex 66.9 % [facility] 03-25-2024 09:30-0400 Body mass index (BMI) [Ratio] 23.3 kg/m2 [facility] 03-25-2024 09:30-0400 Body temperature 98.4 [degF] [facility] 03-25-2024 09:30-0400 Body weight 63.5 kg [facility] 03-25-2024 09:30-0400 Diastolic blood pressure 67 mm[Hg] [facility] 03-25-2024 09:30-0400 Heart rate 94 /min [facility] 03-25-2024 09:30-0400 Respiratory rate 18 /min [facility] 03-25-2024 09:30-0400 SaO2% (BldA) [Mass fraction] 98 % [facility] 03-25-2024 09:30-0400 Systolic blood pressure 107 mm[Hg] [facility] 02-22-2024 08:54-0400 Body height 165.1 cm Kimberlee ANDREWS Work Phone: [facility] 02-22-2024 08:54-0400 Body mass index (BMI) [Ratio] 23.13 kg/m2 Kimberlee ANDREWS Work Phone: [facility] 02-22-2024 08:54-0400 Body weight 63.05 kg Kimberlee ANDREWS Work Phone: [facility] 02-22-2024 08:54-0400 Diastolic blood pressure 68 mm[Hg] Kimberlee ANDREWS Work Phone: [facility] 02-22-2024 08:54-0400 Systolic blood pressure 110 mm[Hg] Kimberlee ANDREWS Work Phone: [facility] 12-27-2023 09:17-0400 Body height 165.1 cm [facility] 12-27-2023 09:17-0400 Body mass index (BMI) [Percentile] Per age and sex 31 % [facility] 12-27-2023 09:17-0400 Body mass index (BMI) [Ratio] 20.2 kg/m2 [facility] 12-27-2023 09:17-0400 Body temperature 100.3 [degF] [facility] 12-27-2023 09:17-0400 Body weight 55.05 kg [facility] 12-27-2023 09:17-0400 Heart rate 75 /min [facility] 12-27-2023 09:17-0400 Respiratory rate 18 /min [facility] 12-27-2023 09:17-0400 SaO2% (BldA) [Mass fraction] 99 % [facility] 12-20-2023 10:31-0400 Body height 165.1 cm Ronald Beach MD Work Phone: [facility] 12-20-2023 10:31-0400 Body mass index (BMI) [Ratio] 20.07 kg/m2 Ronadl Beach MD Work Phone: [facility] [employer] [facility] 12-20-2023 10:31-0400 Body weight 54.7 kg Ronald Beach MD Work Phone: [facility] 12-20-2023 10:31-0400 Diastolic blood pressure 66 mm[Hg] Ronald Beach MD Work Phone: [facility] 12-20-2023 10:31-0400 Heart rate 71 /min Ronald Beach MD Work Phone: [facility] [employer] [facility] 12-20-2023 10:31-0400 SaO2% (BldA) [Mass fraction] 100 % Ronald Beahc MD Work Phone: [facility] 12-20-2023 10:31-0400 Systolic blood pressure 112 mm[Hg] Ronald Beach MD Work Phone: [facility] [employer] [facility] 04-21-2022 15:30-0400 Body height 162.56 cm Deb Pressley Other [facility] [employer] Other 04-21-2022 15:30-0400 Body mass index (BMI) [Ratio] 22.31 kg/m2 Deb Pressley Other [facility] [employer] Other 04-21-2022 15:30-0400 Body temperature 98.6 [degF] Deb Pressley Other [facility] [employer] Other 04-21-2022 15:30-0400 Body weight 58.97 kg Deb Pressley Other [facility] [employer] Other 04-21-2022 15:30-0400 Diastolic blood pressure 71 mm[Hg] Deb Pressley Other [facility] [employer] Other 04-21-2022 15:30-0400 Respiratory rate 18 /min Deb Pressley Other [facility] Other 04-21-2022 15:30-0400 SaO2% (BldA) [Mass fraction] 99 % Deb Pressley Other [facility] [employer] Other 04-21-2022 15:30-0400 Systolic blood pressure 114 mm[Hg] Deb Pressley Other [facility] [employer] Other 03-24-2022 16:00-0400 Body height 163.83 cm Deb Pressley Other [facility] [employer] Other 03-24-2022 16:00-0400 Body mass index (BMI) [Ratio] 22.64 kg/m2 Deb Pressley Other [facility] [employer] Other 03-24-2022 16:00-0400 Body temperature 98.2 [degF] Deb Pressley Other [facility] Other 03-24-2022 16:00-0400 Body weight 60.78 kg Deb Pressley Other [facility] Other 03-24-2022 16:00-0400 Diastolic blood pressure 79 mm[Hg] Deb Pressley Other [facility] Other 03-24-2022 16:00-0400 Respiratory rate 18 /min Deb Pressley Other [facility] Other 03-24-2022 16:00-0400 SaO2% (BldA) [Mass fraction] 100 % Deb Pressley Other [facility] [employer] Other 03-24-2022 16:00-0400 Systolic blood pressure 121 mm[Hg] Deb Pressley Other [facility] Other 04-29-2021 15:30-0500 Body height 163.83 cm Deb Pressley Other [facility] Other 04-29-2021 15:30-0500 Body mass index (BMI) [Ratio] 21.97 kg/m2 Deb Pressley Other [facility] Other 04-29-2021 15:30-0500 Body temperature 97.8 [degF] Deb Pressley [facility] Other 04-29-2021 15:30-0500 Body weight 58.97 kg Deb Pressley Other [facility] Other 04-29-2021 15:30-0500 Diastolic blood pressure 72 mm[Hg] Deb Pressley Other [facility] Other 04-29-2021 15:30-0500 Respiratory rate 18 /min Deb Pressley Other [facility] Other 04-29-2021 15:30-0500 SaO2% (BldA) [Mass fraction] 98 % Deb Pressley Other [facility] Other 04-29-2021 15:30-0500 Systolic blood pressure 130 mm[Hg] Deb Pressley Other [facility] Other Encounters Encounter Date Encounter Type Care Provider Facility Start: 01-11-2025 End: 01-11-2025 Clinisync Result Encounter Ocllin Christi DO Work Phone: [facility] Unsolicited Start: 01-11-2025 End: 01-11-2025 Clinisync Result Encounter Collin Christi DO Work Phone: [facility] Unsolicited Start: 01-09-2025 End: 01-09-2025 Bamboo flowsheet Kimberlee Rodriguez PA Work Phone: [facility] Start: 01-09-2025 End: 01-09-2025 Bamboo flowsheet Kimberlee Rodriguez PA Work Phone: [facility] Start: 01-09-2025 End: 01-09-2025 flow sheet Kimberlee ANDREWS Work Phone: [facility] Comment on above: 37 weeks gestation o f ([facility]); Third trimester ([facility]) Start: 01-09-2025 End: 01-09-2025 ambulatory KIMBERLEE RODRIGUEZ Not Available Start: 01-02-2025 End: 01-02-2025 Bamboo flowsheet Collin Christi DO Work Phone: [facility] Start: 01-02-2025 End: 01-02-2025 Bamboo flowsheet Collin Christi DO Work Phone: [facility] Start: 01-02-2025 End: 01-02-2025 flow sheet Collin Christi DO Work Phone: [facility] Comment on above: Third trimester preg krystina ([facility]); 36 weeks gestation of ([facility]) Start: 01-02-2025 End: 01-02-2025 ambulatory COLLIN CHRISTI Not Available Start: 12-25-2024 End: 12-25-2024 Bamboo flowsheet Ocllin Christi DO Work Phone: [facility] Start: 12-25-2024 End: 12-25-2024 Bamboo flowsheet Collin Christi DO Work Phone: [facility] Start: 12-25-2024 End: 12-25-2024 flow sheet Collin Christi DO Work Phone: [facility] Comment on above: Third trimester preg krystina ([facility]); 35 weeks gestation of ([facility]) Start: 12-25-2024 End: 12-25-2024 ambulatory COLLIN CHRISTI Not Available Start: 12-18-2024 End: 12-18-2024 Bamboo flowsheet Kimberlee ANDREWS Work Phone: [facility] Start: 12-18-2024 End: 12-18-2024 Bamboo flowsheet Kimberlee ANDREWS Work Phone: [facility] Start: 12-18-2024 End: 12-18-2024 flow sheet Kimberlee ANDREWS Work Phone: [facility] Comment on above: Third trimester preg krystina ([facility]); 34 weeks gestation of ([facility]) Start: 12-18-2024 End: 12-18-2024 ambulatory KIMBERLEE EDDIE Not Available Start: 12-04-2024 End: 12-04-2024 flow sheet Collin Christi DO Work Phone: [facility] Comment on above: Third trimester preg krystina ([facility]); 31 weeks gestation of ([facility]) Start: 12-04-2024 End: 12-04-2024 ambulatory COLLIN CHRISTI Not Available Start: 11-16-2024 End: 11-16-2024 Bamboo flowsheet Kimberlee ANDREWS Work Phone: [facility] Start: 11-16-2024 End: 11-16-2024 Bamboo flowsheet Kimberlee ANDREWS Work Phone: [facility] Start: 11-16-2024 End: 11-16-2024 flow sheet Kimberlee ANDREWS Work Phone: [facility] Comment on above: Size of fetus incons istent with dates in first trimester (Primary Dx); Third trimester ; 29 weeks gestation of Start: 11-16-2024 End: 11-16-2024 ambulatory KIMBERLEE RODRIGUEZ Not Available Start: 10-31-2024 End: 10-31-2024 ambulatory COLLIN CHRISTI Not Available Start: 10-24-2024 ambulatory COLLIN R CHRISTI [facility] Start: 10-17-2024 End: 10-17-2024 Bamboo flowsheet Collin [...] Result Encounter Collin Christi DO Work Phone: [facility] External Department Unsolicited Start: 09-19-2024 End: 09-19-2024 [...] 08-17-2024 End: 08-17-2024 ambulatory COLLIN R CHRISTI [facility] Start: 07-13-2024 End: 07-13-2024 Bamboo flowsheet Collin [...] 25 minutes Ronald Beach MD Work Phone: [facility] Comment on above: Mild persistent asth ma without complication (Primary Dx); Multiple pulmonary nodules Start: 05-22-2024 End: 05-22-2024 [facility] Start: 04-22-2024 End: 04-22-2024 ambulatory [facility] Work Phone: Start: 04-22-2024 End: 04-22-2024 Patient encounter procedure [facility] Work Phone: Start: 03-25-2024 End: 03-25-2024 ambulatory [facility] Work Phone: Start: 03-25-2024 End: 03-25-2024 Patient encounter procedure [facility] Work Phone: Start: 02-22-2024 End: 02-22-2024 Bamboo flowsheet Kimberlee ANDREWS Work Phone: [facility] Start: 02-22-2024 End: 02-22-2024 Bamboo flowsheet Kimberlee ANDREWS Work Phone: [facility] Start: 02-22-2024 End: 02-22-2024 Postop follow up visit related to original px Kimberlee ANDREWS Work Phone: [facility] Comment on above: Pelvic pain in femal e (Primary Dx) Start: 02-22-2024 End: 02-22-2024 ambulatory KIMBERLEE RODRIGUEZ Not Available Start: 02-11-2024 End: 02-11-2024 Clinisync Result Encounter Collin Christi DO Work Phone: [facility] External Department Unsolicited Start: 02-11-2024 End: 02-11-2024 Clinisync Result Encounter Collin Christi DO Work Phone: [facility] External [facility] Unsolicited Start: 01-25-2024 End: 01-25-2024 ambulatory OCLLIN CHRISTI Not Available Start: 12-27-2023 End: 12-27-2023 ambulatory [facility] Work Phone: Start: 12-27-2023 End: 12-27-2023 Patient encounter procedure [facility] Work Phone: Start: 12-24-2023 End: 12-24-2023 [facility] Start: 12-24-2023 Encounter for genera l adult medical examination without abnormal findings [facility] Start: 12-20-2023 End: 12-20-2023 Office outpatient new 45 minutes Ronald Beach MD Work Phone: [facility] Comment on above: Mild persistent asth ma without complication (Primary Dx); Multiple pulmonary nodules; SOB (shortness of breath) Start: 12-20-2023 End: 12-20-2023 ambulatory RONALD BEACH [facility] Start: 11-21-2023 End: 11-22-2023 Emergency department patient visit [facility] Start: 11-10-2023 End: 11-10-2023 [facility] Start: 09-29-2022 End: 09-29-[address] FRANCISCO PERSON . Facility: Start: 04-21-2022 End: 04-21-2022 ambulatory Deb Pressley Facility:[facility] Start: 04-21-2022 End: 04-21-2022 Patient encounter procedure SPUD DRILLER-C Deb Pressley Work Phone: [facility] Start: 04-21-2022 End: 04-21-2022 ambulatory SPUD DRILLER-C Deb Pressley Work Phone: [facility] Work Phone: Start: 04-21-2022 Office outpatient vi sit 15 minutes Deb Emanuel [facility] Start: 03-24-2022 End: 03-24-2022 ambulatory Deb Pressley Other [facility] Other Start: 03-24-2022 Office outpatient vi sit 15 minutes Deb Emanuel [facility] Start: 02-06-2022 End: 02-06-2022 ambulatory Debrosalba Pressley Other [facility] Other Start: 02-06-2022 Telephone encounter Debrosalba Schroederl t [facility] Start: 04-29-2021 End: 04-29-2021 ambulatory Deb Pressley Other [facility] Other Start: 04-29-2021 Office outpatient vi sit 15 minutes Deb Emanuel [facility] Procedures Date Procedure Procedure Detail Performing Clinician Start: 01-11-2025 TB UA (CLEAN/CATCH) BUILDING ARCHITECT/MICRO IF IND. Collin Christi DO Work Phone: Start: 01-09-2025 Urnls dip stick/tabl et rgnt non-auto w/o micrscp Kimberlee ANDREWS Work Phone: Start: 01-02-2025 Urnls dip stick/tabl et rgnt non-auto w/o micrscp Collin Christi DO Work Phone: Start: 12-25-2024 Urnls dip stick/tabl et rgnt non-auto w/o micrscp Collin Christi DO Work Phone: Start: 12-18-2024 Urnls dip stick/tabl et rgnt non-auto w/o micrscp Kimberlee Rodriguez PA Work Phone: Start: 12-04-2024 Urnls dip stick/tabl [...] Start: 04-21-2022 Plain X-ray of left wrist SPUD DRILLER-C Deb Almanazault Work Phone: Plan of Treatment Date Care Activity Detail Author Start: 12-23-2033 DTaP,Tdap and Td Vaccines (7 - Td or Tdap) DTaP,Tdap and Td Vaccines (7 - Td or Tdap) [facility] Start: 01-18-2025 End: 01-18-2025 Patient encounter procedure 01/18/2025 8:50 AM EDT Routine [facility] [address] [place] [id number] Kimberlee Rodriguez PA [address] [place] [address] [facility] Start: 01-09-2025 End: 01-09-2025 Patient encounter procedure [facility] Comment on above: Arrived Start: 01-02-2025 End: 01-02-2026 CULTURE, GROUP B STREP WITH SUSCEPTIBLITY CULTURE, GROUP B STREP WITH SUSCEPTIBLITY Lab Routine Third trimester ([facility]) Expected: 01/02/2025, Expires: 01/02/2026 [facility] Work Phone: Comment on above: Expected: 01/02/2025 , Expires: 01/02/2026 Start: 01-02-2025 End: 01-02-2025 Patient encounter procedure [facility] Comment on above: Arrived Start: 12-25-2024 End: 12-25-2024 Patient encounter procedure 12/25/2024 8:30 AM EDT Routine [facility] [address] [place] [phone] Collin Barraza, DO [address] [place] [address] Arrived [facility] Comment on above: Arrived Start: 12-19-2024 Adult BMI Screening Adult BMI Screen ing [facility] Start: 12-18-2024 End: 12-18-2024 Patient encounter procedure [facility] Comment on above: Arrived Start: 11-20-2024 Tobacco Screening Tobacco Screening [facility] Start: 11-16-2024 End: 03-19-2025 US for US OB follow up transabdominal approach Imaging Routine Size of fetus inconsistent with dates in first trimester Expected: 11/16/2024, Expires: 03/19/2025 [facility] Work Phone: Comment on above: Expected: 11/16/2024 , Expires: 03/19/2025 Start: 11-16-2024 End: 11-16-2024 Patient encounter procedure 11/16/2024 9:30 AM EDT Routine [facility] [address] [phone] Kimberlee Rodriguez PA [address] [place] [address] Arrived [facility] Comment on above: Arrived Start: 10-31-2024 End: 10-31-2024 Patient encounter procedure 10/31/2024 10:30 AM EDT Routine [facility] [address] [place] [phone] Collin Barraza, DO [address] [address] [facility] Start: 10-17-2024 End: 10-17-2025 [...] Office Visit [facility] [address] [place] [phone] Ronald Beach MD [address] [place] [address] [facility] Start: [...] for anatomic survey Expected: 08/21/2024, Expires: 08/21/2025 [facility] Comment on above: Expected: 08/21/2024 , Expires: 08/21/2025 Start: 08-15-2024 End: 08-15-2024 Patient encounter procedure 08/15/2024 10:50 AM EST Routine [facility] [address] [place] [address] Collin Barraza, [address] [place] [address] [facility] Start: 07-13-2024 End: 07-13-2024 Patient encounter procedure [facility] Comment on above: Arrived Start: 06-23-2024 End: 06-23-2025 ABO/Rh ABO/Rh Lab Routine Missed menses , unspecified gestational age Expected: 06/23/2024 (Approximate), Expires: 06/23/2025 [facility] Comment on above: Expected: 06/23/2024 (Approximate), Expires: 06/23/2025 Start: 06-23-2024 End: 06-23-2025 Blood type and Indirect antibody screen panel - Blood Type and screen Lab Routine Missed menses , unspecified gestational age Expected: 06/23/2024 (Approximate), Expires: 06/23/2025 [facility] Work Phone: Comment on above: Expected: 06/23/2024 (Approximate), Expires: 06/23/2025 Start: 06-23-2024 End: 06-23-2025 Drugs of abuse panel - Urine by Screen method Rapid drug screen, urine Lab Routine , unspecified gestational age Encounter for supervision of normal first in first trimester Expected: 06/23/2024 (Approximate), Expires: 06/23/2025 [facility] Comment on above: Expected: 06/23/2024 (Approximate), Expires: 06/23/2025 Start: 05-08-2024 End: 05-08-2024 Patient encounter procedure 05/08/2024 10:45 AM EST Office Visit [facility] [address] [place] [address] Ronald Beach MD [address] [place] [address] [facility] Start: 03-21-2024 End: 03-21-2024 Patient encounter procedure 03/21/2024 8:50 AM EDT Office Visit [facility] [address] [place] [phone] Kimberlee Rodriguez PA [address] [place] [address] [facility] Start: 02-22-2024 End: 02-22-2024 Patient encounter procedure [facility] Comment on above: Arrived Start: 02-20-2024 Influenza vaccination Influenza Vacc ine [facility] Start: 2016 Depression Screening Depression Scre ening [facility] Start: 2015 DTaP,Tdap and Td Vaccines (6 - Tdap) DTaP,Tdap and Td Vaccines (6 - Tdap) [facility] Start: 2004 Screening for Chlamy damon trachomatis Chlamydia Screening [facility] Bacteria identified in Urine by Culture Urine culture Microbiology Routine Missed menses Ordered: 06/23/2024 [facility] Comment on above: Ordered: 06/23/2024 CBC W Auto Different ial panel - Blood CBC and differential Lab Routine Missed menses , unspecified gestational age Ordered: 06/23/2024 [facility] Comment on above: Ordered: 06/23/2024 CHLAMYDIA TRACHOMATI S (GENITO/STI) CHLAMYDIA TRACHOMATIS (GENITO/STI) Lab Routine Exposure to STD Ordered: 08/21/2024 [facility] Comment on above: Ordered: 08/21/2024 Hemoglobin A1c/Hemoglobin.total in Blood Hemoglobin A1c Lab Routine Missed menses , unspecified gestational age Ordered: 06/23/2024 [facility] Comment on above: Ordered: 06/23/2024 Hepatitis B virus surface Ag [Presence] in Serum or Plasma by Immunoassay Hepatitis B surface antigen Lab Routine Missed menses , unspecified gestational age Ordered: 06/23/2024 [facility] Comment on above: Ordered: 06/23/2024 Hepatitis C virus Ab [Presence] in Serum or Plasma by Immunoassay Hepatitis C antibody Lab Routine Missed menses , unspecified gestational age Ordered: 06/23/2024 [facility] Comment on above: Ordered: 06/23/2024 HIV-1/HIV-2 antigen/antibody combination immunoassay HIV-1 and HIV-2 antibodies Lab Routine Missed menses , unspecified gestational age Ordered: 06/23/2024 [facility] Comment on above: Ordered: 06/23/2024 Neisseria gonorrhoea e DNA [Presence] in Unspecified specimen by KELLY with probe detection Neisseria gonorrhea DNA probe, direct Lab Routine Exposure to STD Ordered: 08/21/2024 [facility] Comment on above: Ordered: 08/21/2024 Reagin Ab [Presence] in Serum by RPR RPR Lab Routine Missed menses , unspecified gestational age Ordered: 06/23/2024 [facility] Comment on above: Ordered: 06/23/2024 Rubella antibody, IgG Rubella an tibody, IgG Lab Routine Missed menses , unspecified gestational age Ordered: 06/23/2024 [facility] Comment on above: Ordered: 06/23/2024 SURESWAB(R) ADVANCED VAGINITIS PLUS, TMA SURESWAB(R) ADVANCED VAGINITIS PLUS, TMA Pathology and Cytology Routine Exposure to STD Ordered: 08/21/2024 [facility] Work Phone: Comment on above: Ordered: 08/21/2024 [facility] Payers Date Payer Category Payer Medicaid [place]ICA[place] [id number] 2024 Medicaid [id number] 2022 Self-pay [id number] 2019 Managed Care Other (unspecified) [facility] [place] [address] [id number] 2019 Private Health Insurance [id number]. [id number] 2004 Unknown [id number] 2.16.840.1.362947.3.579.2. 593 2004 Unknown [id number] 2.16.840.1.042714.3.579.2. 6 2004 Unknown [id number] 2.16.840.1.593753.3.579.2. 1286 2004 Unknown [id number] 2.16.840.1.928485.3.579.2. 1285 2004 Unknown [id number] 2.16.840.1.060743.3.579.2. 6 2004 Unknown [id number] 2.16.840.1.333494.3.579.2. 1285 2004 Unknown [id number] 2.16.840.1.757368.3.579.2. 128 2004 Unknown [id number] 2.16.840.1.944856.3.579.2. 1285 2004 Unknown [id number] 2.16.840.1.670491.3.579.2. 128 2004 Unknown [id number] 2.16.840.1.844016.3.579.2. 1285 2004 Unknown [id number] 2.16.840.1.980282.3.579.2. 1258 2004 Unknown [id number] 2.16.840.1.364479.3.579.2. 1258 2004 Unknown [id number] 2.16.840.1.771233.3.579.2. 1258 2004 Unknown [id number] 2.16.840.1.703083.3.579.2. 1258 2004 Unknown [id number] 2.16.840.1.750013.3.579.2. 1258 2004 Unknown [id number] 2.16.840.1.542373.3.579.2. 1258 2004 Unknown [id number] 2.16.840.1.065020.3.579.2. 1258 2004 Unknown [id number] 2.16.840.1.540937.3.579.2. 1258 2004 Unknown [id number] 2.16.840.1.995896.3.579.2. 1258 2004 Unknown [id number] 2.16.840.1.462352.3.579.2. 1258 2004 Unknown [id number] 2.16.840.1.312541.3.579.2. 1258 2004 Unknown [id number] 2.16.840.1.427724.3.579.2. 1258 2004 Unknown [id number] 2.16.840.1.952613.3.579.2. 1258 2004 Unknown [id number] 2.16.840.1.257346.3.579.2. 1258 2004 Unknown [id number] 2.16.840.1.605772.3.579.2. 1258 2004 Unknown [id number] 2.16.840.1.811713.3.579.2. 12581960 Unknown [id number] 2.16.840.1.954174.19 Unknown [id number] 2.16.840.1.251436.3.579.2. 531 Unknown [id number] Social History Date Type Detail Facility Start: 12-21-2023 End: 01-25-2024 Sex Assigned At [facility] Start: 2005 Sex Assigned At Female [facility] Start: 12-21-2023 End: 12-27-2023 Tobacco smoking status NHIS Never smoked tobacco (finding) [facility] Start: 12-20-2023 End: 12-21-2023 Tobacco use and exposure Smokeless tobacco non-user [facility] Start: 01-25-2024 End: 01-09-2025 Alcoholic beverage intake Lifetime non-drinker (finding) [facility] Start: 12-21-2023 End: 01-25-2024 History of Social function [facility] Start: 2004 Sex assigned at Not on file [facility] Start: 12-20-2023 End: 05-22-2024 Alcoholic beverage intake Current non-drinker of alcohol (finding) [facility] Child[facility] Unknown [facility] Start: 01-28-2015 Sex Female (finding) [place] Clinical Notes 04-29-2021 to 01-09-2025 JULIANA Dubois - 01/09/2025 8:40 AM Kathryn Vital LPN - 01/02/2025 11:40 AM Cookie [...] PLAN ICD-10-CM 1. 37 weeks gestation of ([facility]) Z3A.37 POCT urinalysis dipstick manually resulted 2. Third trimester ([facility]) Z34.93 POCT urinalysis dipstick manually resulted Return [...] of: JULIANA Dubois documented in this encounter [facility] 01-02-2025 History of Present illness Narrative [...] nursing note reviewed. Exam conducted with a evidence technician present. Vitals: Estimated body mass index is 27.29 kg/m as calculated from the following: Height as of 02/22/24: 5' 5 . Weight as of this encounter: 164 lb. BP: 112/60 Patient's last menstrual period was 04/21/2024. ASSESSMENT & PLAN ICD-10-CM 1. Third trimester ([facility]) Z34.93 POCT urinalysis dipstick manually resulted CULTURE, GROUP B STREP WITH SUSCEPTIBLITY CULTURE, GROUP B STREP WITH SUSCEPTIBLITY 2. 36 weeks gestation of ([facility]) Z3A.36 Patient is doing well but has [...] Collin Barraza DO documented in this encounter [facility] 12-25-2024 History of Present illness Narrative [...] nursing note reviewed. Exam conducted with a evidence technician present. Vitals: Estimated body mass index is 26.96 kg/m as calculated from the following: Height as of 02/22/24: 5' 5 . Weight as of 12/18/24: 162 lb. BP: Patient's last menstrual period was 04/21/2024. ASSESSMENT & PLAN ICD-10-CM 1. Third trimester ([facility]) Z34.93 POCT urinalysis dipstick manually resulted CANCELED: CULTURE, GROUP B STREP WITH SUSCEPTIBLITY CANCELED: CULTURE, GROUP B STREP WITH SUSCEPTIBLITY 2. 35 weeks gestation of ([facility]) Z3A.35 Return OB: Patient presents today for [...] Collin Barraza DO documented in this encounter [facility] 12-18-2024 History of Present illness Narrative [...] ASSESSMENT & PLAN ICD-10-CM 1. Third trimester ([facility]) Z34.93 2. 34 weeks gestation of ([facility]) Z3A.34 Return OB: Patient presents today for [...] of: JULIANA Dubois documented in this encounter [facility] 12-04-2024 History of Present illness Narrative [...] nursing note reviewed. Exam conducted with a evidence technician present. Vitals: Estimated body mass index is 26.29 kg/m as calculated from the following: Height as of 02/22/24: 5' 5 . Weight as of this encounter: 158 lb. BP: 118/72 Patient's last menstrual period was 04/21/2024. ASSESSMENT & PLAN ICD-10-CM 1. Third trimester ([facility]) Z34.93 POCT urinalysis dipstick manually resulted 2. 31 weeks gestation of ([facility]) Z3A.31 Return OB: Patient presents today for [...] Collin Barraza DO documented in this encounter [facility] 10-17-2024 History of Present illness Narrative [...] nursing note reviewed. Exam conducted with a evidence technician present. Vitals: Estimated body mass index is [...] Collin Barraza DO documented in this encounter [facility] 09-19-2024 History of Present illness Narrative [...] nursing note reviewed. Exam conducted with a evidence technician present. Vitals: Estimated body mass index is [...] Kimberlee Rodriguez PA-C documented in this encounter [facility] 08-21-2024 History of Present illness Narrative [...] nursing note reviewed. Exam conducted with a evidence technician present. Vitals: Estimated body mass index is [...] Collin Barraza DO documented in this encounter [facility] 07-13-2024 History of Present illness Narrative [...] nursing note reviewed. Exam conducted with a evidence technician present. Vitals: Estimated body mass index is [...] or undercooked meat, and stay away from [facility]. Patient has been consulted regarding any further do's and don'ts of . Patient voiced understanding and all questions and concerns were answered. Orders Placed This Encounter Procedures POCT urinalysis dipstick manually resulted Follow Up: Patient is to return in 4 weeks for routine OB appointment. Documented by Pia Adkins LPN on behalf of: Collin Barraza DO documented in this encounter [facility] 06-23-2024 History of Present illness Narrative [...] or undercooked meat, and stay away from [facility]. Patient has also been advised to not [...] Luciana Fisher LPN documented in this encounter [facility] 05-22-2024 History of Present illness Narrative Images from the original note were not included. [facility] [facility]ICINE [address] [id number] Subjective: Chief Complaint Asthma HPI [...] this note were generated using voice recognition [employer] dictation software. Although every effort was made to ensure the accuracy of this automated steel sash erector, some errors in steel sash erector may have occurred. documented in this encounter [employer] 02-22-2024 History of Present illness Narrative Reason [...] due to pelvic pain performed at [facility] with Dr. Barraza. Patient doing well, steri strips removed, restrictions lifted Follow Up: Patient is to return to the office for annual exam unless needed otherwise. Documented by JULIANA Dubois on behalf of: JULIANA Dubois documented in this encounter [facility] 12-20-2023 History of Present illness Narrative Images from the original note were not included. [facility] [address] [id number] Subjective: Chief Complaint Shortness a breath HPI [...] this note were generated using voice recognition [employer] dictation software. Although every effort was made to ensure the accuracy of this automated steel sash erector, some errors in steel sash erector may have occurred. documented in this encounter [facility] 11-10-2023 Note XR CHEST 2 VWS Procedure: Chest x-ray performed Number of views:2 History:Shortness of breath Comparison:09/07/2012 Findings: The heart and lungs show no acute findings, and the mediastinum and fabienne are grossly negative . Impression: 1. No acute change. Finalized by Bola Dang MD on 11/10/2023 9:58 AM [facility] 04-21-2022 Evaluation note Encounter Date [...] we will help you get into specialist. [facility] Other 10-04-2022 Evaluation note* Encounter Date Diagnosis [...] therapy plan may need to be made. [facility] Other 11-09-2021 Evaluation note* Encounter Date Diagnosis Assessment Notes Treatment Notes Treatment Clinical Notes Apr, Tinea pedis of both feet (ICD-10 - B35.3) Use medication as directed. Shows need to be cleaned and clean socks need to be worn daily. Education handout printed on [employer] [facility] Other evaluation noteNo InformationNortEncompass [facility] Other evaluation noteNo assessment information available [facility] Work Phone: evaluaravz note* Diagnosis Onset Date Resolution Status Acute bilateral otitis media acute [facility] Work Phone: evaluation note* Diagnosis Onset Date Resolution Status Acute bilateral otitis media acute Acute maxillary sinusitis, unspecified acute [facility] Work Phone: evaluation note* Diagnosis Onset Date Resolution Status Acute maxillary sinusitis, unspecified acute [facility] Work Phone: Evaluation note* Diagnosis Pelvic pain in female- Primary Unspecified symptom associated with female genital organs [facility] Missed menses , unspecified gestational age Encounter for supervision of normal first in first trimester Nausea and vomiting in Unspecified vomiting of , unspecified as to episode of care [facility] Diagnosis First trimester state, incidental 11 weeks gestation of [facility] Diagnosis Mild persistent asthma without complication- Primary Multiple pulmonary nodules Other diseases of lung, not elsewhere classified SOB (shortness of breath) Shortness of breath [facility] Mild persistent asthma without complication- Primary Multiple pulmonary nodules Other diseases of lung, not elsewhere classified [facility] Exposure to STD Second trimester state, incidental 16 weeks gestation of Screening, , for anatomic survey Encounter for anatomic survey Need for maternal serum alpha-protein (MSAFP) screening [facility] Diagnosis Second trimester state, incidental 21 weeks gestation of [facility] Diagnosis Second trimester state, incidental 25 weeks gestation of Diabetes mellitus screening Screening for diabetes mellitus [facility] Diagnosis Size of fetus inconsistent with dates in first trimester- Primary Third trimester state, incidental 29 weeks gestation of [facility] [...] caps on teeth when younger Hospitalization History Keen Impressions Other History general Narrative - Reported* Type Description Date Medical History acid reflux Medical History headache Medical History seizures Surgical History caps on teeth when younger Hospitalization History Keen Impressions Other History of Present illness Narrative* JULIANA Dubois - 11/16/2024 9:30 AM EDT Reason [...] behalf of: JULIANA Dubois documented in this encounterNOSaint [facility] CenterInstructionsNot on filedocumented in this encounterProRegency Hospital [facility] SystemInstructionsNot on filedocumented in this encounterGuernsey [facility] Summary Purpose Family History No Family History [...] section and content) DATE CREATED AUTHOR 04/09/2018 [facility] DATE CREATED AUTHOR AUTHOR'S ORGANIZ ATION 04/27/2022 [facility] DATE CREATED AUTHOR AUTHOR'S ORGANIZ ATION 09/30/2022 [facility] DATE CREATED AUTHOR AUTHOR'S ORGANIZ ATION 05/23/2024 [facility] DATE CREATED AUTHOR AUTHOR'S ORGANIZ ATION 10/27/2024 [facility] DATE CREATED AUTHOR AUTHOR'S ORGANIZ ATION 01/10/2025 [facility] EPIC REASON FOR VISIT [...] (shortness of breath) Abnormal chest CT Emelyn Robins APRN-ESTELLE [address] [place] [id number] [facility] Pulm Sleep [facility] [address] [address] Referral ID Status Reason Start Date Expiration Date Visits Requested Visits Authorized [id number] Pending Review Specialty Services Required 11/04/2023 11/03/2024 [...] 2024 End: April 22, 2024 Shey Garay , MARKO Attending Provider Active Start: April 22, 2024 End: April 22, 2024 Charge Hand Relationship Specialty Start Date End Date AlecEmelyn AntonioMARK[facility] [address] [place] [address] PCP - General Family Medicine 11/21/23 Charge Hand Relationship Specialty Start Date End Date Alec ANAM Coleman [address] [place] [address] PCP - General Family Medicine 11/21/23 Goals [...] BE BASED ON THE PRIMARY CLINICAL RECORDS. [facility] [employer] provides no warranty or guarantee of the accuracy or completeness of information in this document.
[2025-01-14 19:49] VITALS: BP 128/76; PULSE 80; TEMP 36.5
[2025-01-14 20:02] LABS: Glucose Urine UA NEGATIVE (NEGATIVE)
[2025-01-14 20:10] LABS: Cast Seen? NONE SEEN #/LPF (NONE SEEN); Crystals Seen? None Seen #/HPF (None Seen); Urine Culture Indicated YES-LC
== END 2025-01-14 21:05 | disposition home or self-care (01) ==
LOC: FBC 19:29
PROVIDERS: Admitting Provider Obstetrics & Gynecology; Visit Provider Obstetrics & Gynecology
DX: O47.1 False labor at or after 37 completed weeks of gestation (principal); Z3A.38 38 weeks gestation of pregnancy
CPT/HCPCS: 59025; 81001; 87086; G0378; G0379

== ENCOUNTER 2025-01-16 17:28 | Inpatient (IN) | payer OTHER, SELFPAY ==
[2025-01-16 17:54] VITALS: BP 130/80; PULSE 96
[2025-01-16 17:59] LABS: Glucose Urine UA NEGATIVE (NEGATIVE)
[2025-01-16 18:15] LABS: Cast Seen? NONE SEEN #/LPF (NONE SEEN); Crystals Seen? None Seen #/HPF (None Seen); Urine Culture Indicated NO
[2025-01-16 19:56] LABS: Hematocrit 39.7 % (36.0-48.0); Hemoglobin 14.3 g/dL (12.0-16.0); Mean Corpuscular HGB Conc 36.0 g/dL (29.9-35.2); Mean Corpuscular Hemoglobin 31.5 pg (26.7-34.0); Mean Corpuscular Volume 87.4 fL (81.0-99.0); Platelet Count 257 10^3/uL (150-450); Red Blood Count 4.54 10^6/uL (4.20-5.40); White Blood Count 14.4 10^3/uL (4.0-11.0)
[2025-01-16 20:54] VITALS: BP 129/77; PULSE 87
[2025-01-17] VITALS (36 sets, daily range): BP systolic 101–184; BP diastolic 54–93; PULSE 62–104; TEMP 36–36.6
[2025-01-17] MEDS: 0.9 % SODIUM CHLORIDE 1,000 ML 125 ML IV ×2 (01:38→09:20)
[2025-01-17] MEDS: OXYTOCIN/0.9 % SODIUM CHLORIDE 10 UNITS/500 ML PLAST..BAG 6 UNIT IV (03:54)
--- OUTSIDE RECORDS SUMMARY | 2025-01-17 06:10 | XMS_ITS | CCD ---
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 ++++ mg/dL [facility] Spec Grav, UA 1.025 1 - 1.03 [facility] Urobilinogen, UA 0.2 0.2 - 12 mg/dL [facility] CBC AND AUTO DIFFon 08-17-19 25 ABSOLUTE BASOPHIL 0.0 X10E9/L Normal 0.0-0.2 [facility] Comment on above: Performed By: #### N UM #### [facility] ([id number]) [address] [place] [address] ABSOLUTE NEUTROPHIL 6.1 X10E9/L Normal 1.5-6.6 [facility] Comment on above: Performed By: #### N UM #### [facility] ([id number]) [address] [place] [address] 17464 Basophils/100 WBC (Bld) 0.3 % Normal [facility] Comment on above: Performed By: #### N UM #### [facility] ([id number]) [address] [place] [address] 62824 Eosinophils (Bld) [#/Vol] 0.1 10*3/uL Normal 0.0-0.4 [facility] Comment on above: Performed By: #### N UM #### [facility] ([id number]) [address] [place] [address] 73926 Eosinophils/100 WBC (Bld) 1.1 % Normal [facility] Comment on above: Performed By: #### N UM #### [facility] ([id number]) [address] [place] [address] 37573 Erythrocyte distribution width (RBC) [Ratio] 13.9 % Normal 11.5-15.0 [facility] Comment on above: Performed By: #### N UM #### [facility] ([id number]) [address] [place] [address] 45017 Hematocrit (Bld) [Volume fraction] 36.7 % Normal 35-47 [facility] Comment on above: Performed By: #### N UM #### [facility] ([id number]) [address] [place] [address] 15089 Hemoglobin (Bld) [Mass/Vol] 13.0 g/dL Normal 11.7-15.5 [facility] Comment on above: Performed By: #### N UM #### [facility] ([id number]) [address] [place] [address] 82907 Lymphocytes (Bld) [#/Vol] 2.9 10*3/uL Normal 1.0-3.5 [facility] Comment on above: Performed By: #### N UM #### [facility] ([id number]) [address] [place] [address] Lymphocytes/100 WBC (Bld) 30.1 % Normal [facility] Comment on above: Performed By: #### N UM #### [facility] ([id number]) [address] [place] [address] 20830 MCH (RBC) [Entitic mass] 31.8 pg Normal 27-34 [facility] Comment on above: Performed By: #### N UM #### [facility] ([id number]) [address] [place] [address] 23159 MCHC (RBC) [Mass/Vol] 35.6 g/dL Normal 32-36 [facility] Comment on above: Performed By: #### N UM #### [facility] ([id number]) [address] [place] [address] 04890 MCV (RBC) [Entitic vol] 89 fL Normal 80-100 [facility] Comment on above: Performed By: #### N UM #### [facility] ([id number]) [address] [place] [address] 81843 Monocytes (Bld) [#/Vol] 0.5 10*3/uL Normal 0-0.9 [facility] Comment on above: Performed By: #### N UM #### [facility] ([id number]) [address] [place] [address] 15679 Monocytes/100 WBC (Bld) 4.8 % Normal [facility] Comment on above: Performed By: #### N UM #### [facility] ([id number]) [address] [place] [address] 35194 Neutrophils/100 WBC (Bld) 63.7 % Normal [facility] Comment on above: Performed By: #### N UM #### [facility] ([id number]) [address] [place] [address] 56935 Platelet mean volume (Bld) [Entitic vol] 7.8 fL Normal 7-12 [facility] Comment on above: Performed By: #### N UM #### [facility] ([id number]) [address] [place] [address] 00764 Platelets (Bld) [#/Vol] 249 10*3/uL Normal 150-450 [facility] Comment on above: Performed By: #### N UM #### [facility] ([id number]) [address] [place] [address] 25045 RBC COUNT 4.10 X10E12/L Normal 3.80-5.20 [facility] Comment on above: Performed By: #### N UM #### [facility] ([id number]) [address] [place] [address] 32291 WBC (Bld) [#/Vol] 9.6 10*3/uL Normal 4.0-11.0 [facility] Comment on above: Performed By: #### N UM #### [facility] ([id number]) [address] [place] [address] 04978 DRUG SCREEN, URINEon 025 AMPHETAMINE/METHAMP Negative Normal NEG [facility] Comment on above: Result Comment: AMPH /METH screening cut off = 1000 ng/mL Performed By: #### N UM #### [facility] ([id number]) [address] [place] [address] 24936 BARBITURATES Negative Normal NEG [facility] Comment on above: Result Comment: Jessica iturates screening cut off value = 200 ng/mL Performed By: #### N UM #### [facility] ([id number]) [address] [place] [address] 97609 BENZODIAZEPINES Negative Normal NEG [facility] Comment on above: Result Comment: Maikel odiazepines screening cut off value = 200 ng/mL Performed By: #### N UM #### [facility] ([id number]) [address] [place] [address] 38972 CANNABINOIDS Positive Abnormal NEG [facility] Comment on above: Result Comment: Conf irmation available upon request. Cannabinoids/THC screening cut off value = 50 ng/mL Performed By: #### N UM #### [facility] ([id number]) [address] [place] [address] 87556 COCAINE METABOLITE Negative Normal NEG [facility] Comment on above: Result Comment: Coca ine screening cut off value = 300 ng/mL Performed By: #### N UM #### [facility] ([id number]) [address] [place] [address] 97627 ECSTASY Negative Normal NEG [facility] Comment on above: Result Comment: Ecst asy screening cut off value = 500 ng/mL This report is intended for use in clinical monitoring or management of patients. Performed By: #### N UM #### [facility] ([id number]) [address] [place] [address] 51532 METHADONE Negative Normal NEG [facility] Comment on above: Result Comment: Meth adone screening cut off value = 300 ng/mL. Performed By: #### N UM #### [facility] ([id number]) [address] [place] [address] 76793 OPIATES Negative Normal NEG [facility] Comment on above: Result Comment: Opia reid screening cut off value = 300 ng/mL NOTE: This test is used for the detection of codeine, hydrocodone (>1000 ng/mL), morphine and hydromorphone (>900 ng/mL) in urine. Performed By: #### N UM #### [facility] ([id number]) [address] [place] [address] 56028 OXYCODONE Negative Normal NEG [facility] Comment on above: Result Comment: Oxyc odone screening cut off value = 300 ng/mL NOTE: This test is used for the detection of oxycodone and oxymorphone in urine. Performed By: #### N UM #### [facility] ([id number]) [address] [place] [address] 40458 PHENCYCLIDINE Negative Normal NEG [facility] Comment on above: Result Comment: Phen cyclidine screening cut off value = 25 ng/mL Performed By: #### N UM #### [facility] ([id number]) [address] [place] [address] 63108 HBV surface Ag IA Qlon 08-17 HEPATITIS B SURF AG Non-Reactive Normal NRCT [facility] Comment on above: Result Comment: NEW TEST METHOD Performed By: #### N UM #### [facility] ([id number]) [address] [place] [address] 86119 HCV Ab IA Qlon 08-17-2024 ANTI HCV W/PCR REFLX Non-Reactive Normal NRCT Pr [facility] Comment on above: Result Comment: NEW TEST METHOD NOTE If recent infection suspected, recommend repeat testing (>2 months). Kpigff-vw-ezsxcj ratio is <1.00. Performed By: #### N UM #### [facility] ([id number]) [address] [place] [address] 65154 HGB A1C (GLYCO-HGB)on 2024 Glucose [Mass/Vol] 85 mg/dL Normal [facility] Comment on above: Performed By: #### N UM #### [facility] ([id number]) [address] [place] [address] 39442 HbA1c (Bld) [Mass fraction] 4.6 % Normal 4.4-5.6 [facility] Comment on above: Result Comment: NOTE ADA Guidelines Result HgbA1c Normal : less than 5.7 % Prediabetes : 5.7 % to 6.4 % Diabetes : > 6.4 % Use with caution in patients with abnormal hemoglobin variants as the half-life of red blood cells and in vivo glycation rates are affected. Performed By: #### N UM #### [facility] ([id number]) [address] [place] [address] 34488 HIV 1+2 Ab+HIV1 p24 Ag IA Ql on 08-17-2024 HIV 1 and 2 Ab/Ag Screen Non-Reactive Normal NRCT [facility] Comment on above: Result Comment: NEW TEST [...] diagnoses. Performed By: #### 2 106-3 #### [facility] ([id number]) [address] [place] [address] 98606 Rubella virus IgG Qn (S)on 0 08-17-2024 RUBELLA IgG 6 IU/mL Normal [facility] Comment on above: Result Comment: Interpretation-------- <8 NEGATIVE-considered Not Immune 8-9 EQUIVOCAL-consider retesting with new specimen >9 POSITIVE-considered Immune Performed By: #### 2 106-3 #### [facility] ([id number]) [address] [place] [address] 10569 T. pallidum IgG+IgM IA Ql (S )on 08-17-2024 Syphilis Total <0.2 Normal 0.0-0.8 [facility] Comment on above: Result Comment: NON REACTIVE No serologic evidence of infection to Treponema pallidum (syphilis). Repeat testing may be considered in patients with suspected acute or primary syphilis in 2 to 4 weeks. Performed By: #### 2 106-3 #### [facility] ([id number]) [address] [place] [address] 59685 URINE CULTUREon 08-17-2024 Bacteria identified Cx Nom (U) SPECIMEN NOTES URINE RECEIVED WITHOUT PRESERVATIVE CULTURE RESULTS <10,000 ORGANISMS/ML NORMAL URO GENITAL CHU Normal [facility] Comment on above: Performed By: #### 2 106-3 #### [facility] ([id number]) [address] [place] [address] 13952 Urinalysis macro (dipstick) panel (U)on 07-13-2024 Bilirubin, UA Negative Negative - 4(70) +++ mg/dL [facility] Blood, UA Negative Negative - 50 Francois/mcL [facility] Clarity, UA Clear [facility] re Color, UA Yellow [facility] Glucose, UA Negative Negative - 1999(110) ++++ mg/dL [facility] Interpretation and review of laboratory results Abnormal [facility] Healthcare Ketones, UA Negative Negative - 160(16) ++++ mg/dL [facility] Leukocytes, UA Negative Negative - 500+++ Héctor/mcL [facility] Nitrite, UA Negative Negative - Positive [facility] pH, UA 7 5 - 9 [facility] Protein, UA Trace Negative - 1999(20) ++++ mg/dL [facility] Spec Grav, UA 1.02 1 - 1.03 [facility] Urobilinogen, UA 0.2 0.2 - 12 mg/dL [facility] BOX TESTon 06-30-2024 BOX TEST SENT OUT [facility] B[facility] 06/30/2024 [facility] HCG ( test) Ql (U)o n 06-23-2024 Interpretation and review of laboratory results Abnormal [facility] Preg Test, Ur Positive Negative [facility] care [facility] US OB TRANSVAGINALon [...] x 3.8 cm (8 weeks, 4 days). [place] rump length is 2.2-2.3 cm (8 weeks, [...] UA Negative Negative - 4(70) +++ mg/dL [facility] Blood, UA Negative Negative - 50 Francois/mcL [facility] Clarity, UA Clear [facility] re Color, UA Yellow [facility] Glucose, UA Negative Negative - 1999(110) ++++ mg/dL [facility] Interpretation and review of laboratory results Abnormal [facility] Ketones, UA Positive Negative - 160(16) ++++ mg/dL [facility] Leukocytes, UA Negative Negative - 500+++ Héctor/mcL [facility] Nitrite, UA Negative Negative - Positive [facility] pH, UA 6.5 5 - 9 [facility] e Protein, UA Negative Negative - 1999(20) ++++ mg/dL [facility] Spec Grav, UA 1.03 1 - 1.03 [facility] Urobilinogen, UA 1.0 0.2 - 12 mg/dL [facility] Influenza virus B Ag [Presen ce] in Upper respiratory specimen by Rapid immunoassayon 03-25-2024 FLUBV Ag IA.rapid Ql (Nph) Negative [facility] No Panel Informationon 03-25 Influenza Type A (Rapid) Negative [facility] POC SARS CoV-2 Antigen Negative [facility] ALL CBC WITH AUTO DIFFon BASOPHILS ABSOLUTE AUTO 0.0 [facility] Basophils/100 WBC (Bld) 0.5 % 0.2 - 2.0 % [facility] Eosinophils/100 WBC (Bld) 2.9 % 0.9 - 7.0 % [facility] Erythrocyte distribution width (RBC) [Ratio] 12.0 % 11.0 - 15.0 % [facility] Hematocrit (Bld) [Volume fraction] 40.2 % 36.0 - 48.0 % [facility] e Hemoglobin (Bld) [Mass/Vol] 14.1 g/dL 12.0 - 16.0 g/dL [facility] IMMATURE GRANULOCYTES ABS AUTO 0.01 [facility] Immature granulocytes/100 WBC (Bld) 0.2 % 0.0 - 0.5 % [facility] Interpretation and review of laboratory results Abnormal [facility] LYMPHOCYTES ABSOLUTE AUTO 2.4 [facility] Lymphocytes/100 WBC (Bld) 43.0 % 20.5 - 60.0 % [facility] MCH (RBC) [Entitic mass] 30.8 pg 26.7 - 34.0 pg [facility] MCHC (RBC) [Mass/Vol] 35.1 g/dL 29.9 - 35.2 g/dL [facility] MCV (RBC) [Entitic vol] 87.8 fL 81.0 - 99.0 fL [facility] MONOCYTES ABSOLUTE AUTO 0.4 [facility] Monocytes/100 WBC (Bld) 7.1 % 1.7 - 12.0 % [facility] NEUTROPHILS ABSOLUTE AUTO 2.6 [facility] Neutrophils/100 WBC (Bld) 46.3 % 43.0 - 75.0 % [facility] Platelet mean volume (Bld) [Entitic vol] 8.6 fL Low 9.5 - 13.5 fL [facility] EO # 0.2 [facility] PLT 232 [facility] RBC 4.58 [facility] WBC 5.5 [facility] COMPLETE BLOOD COUNTon 12-23 Erythrocyte distribution width (RBC) [Ratio] 13.5 % Normal 11.5-15.0 [facility] Comment on above: Performed By: #### C JAY [facility], 96173-9, THYR, 97795-8, 83216-0 #### [facility] ([id number]) [address], [address] [place] [address] Hematocrit (Bld) [Volume fraction] 37.1 % Normal 35-47 [facility] Comment on above: Performed By: #### Kailyn THOMPSON CMP, 52248-9, THYR, 89414-6, 71003-4 #### [facility] ([id number]) [address], [address] [place] [address] Hemoglobin (Bld) [Mass/Vol] 13.1 g/dL Normal 11.7-15.5 [facility] Comment on above: Performed By: #### C BC, CMP, 33924-8, THYR, 24910-7, 58691-0 #### [facility] ([id number]) [address], [address] [place] [address] MCH (RBC) [Entitic mass] 31.6 pg Normal 27-34 [facility] Comment on above: Performed By: #### C BC, CMP, 31585-7, THYR, 49614-2, 81712-0 #### [facility] ([id number]) [address], [address] [place] [address] MCHC (RBC) [Mass/Vol] 35.3 g/dL Normal 32-36 [facility] Comment on above: Performed By: #### C BC, CMP, 57373-0, THYR, 14113-3, 63080-9 #### [facility] ([id number]) [address], [facility] [address] [place] [address] MCV (RBC) [Entitic vol] 90 fL Normal 80-100 [facility] Comment on above: Performed By: #### C BC, CMP, 56865-7, THYR, 54264-3, 93949-7 #### [facility] ([id number]) [address], [address] [place] [address] Platelet mean volume (Bld) [Entitic vol] 7.7 fL Normal 7-12 [facility] Comment on above: Performed By: #### C BC, CMP, 48177-0, THYR, 06674-4, 96415-2 #### [facility] ([id number]) [address] [address] [place] [address] Platelets (Bld) [#/Vol] 242 10*3/uL Normal 150-450 [facility] Comment on above: Performed By: #### C BC, CMP, 55830-8, THYR, 36220-1, 74939-9 #### [facility] ([id number]) [address] [address] [place] [address] RBC COUNT 4.13 X10E12/L Normal 3.80-5.20 [facility] Comment on above: Performed By: #### C BC, CMP, 52799-5, THYR, 20992-6, 05730-0 #### [facility] ([id number]) [address] [facility], [address] [place] [address] WBC (Bld) [#/Vol] 6.7 10*3/uL Normal 4.0-11.0 [facility] Comment on above: Performed By: #### C BC, CMP, 64686-2, THYR, 82881-8, 07103-5 #### [facility] ([id number]) [address] [facility], [address] [place] [address] COMPREHENSIVE METABOLIC PANE Grey 12-24-2023 Albumin [Mass/Vol] 4.4 g/dL Normal 3.2-5.3 [facility] Comment on above: Performed By: #### N UM #### [facility] ([id number]) [address] [place] [address] 51660 ALP [Catalytic activity/Vol] 64 U/L Normal 39-130 [facility] Comment on above: Performed By: #### N UM #### [facility] ([id number]) [address] [place] [address] 59300 ALT [Catalytic activity/Vol] 35 U/L High 0-31 [facility] Comment on above: Performed By: #### N UM #### [facility] ([id number]) [address] [place] [address] 23555 Anion gap [Moles/Vol] 10 mmol/L Normal 5-15 [facility] Comment on above: Performed By: #### N UM #### [facility] ([id number]) [address] [place] [address] 48793 AST [Catalytic activity/Vol] 23 U/L Normal 0-41 [facility] Comment on above: Performed By: #### N UM #### [facility] ([id number]) [address] [place] [address] 72604 Bilirubin [Mass/Vol] 0.6 mg/dL Normal 0.3-1.2 [facility] Comment on above: Performed By: #### N UM #### [facility] ([id number]) [address] [place] [address] 21350 Calcium [Mass/Vol] 9.3 mg/dL Normal 8.5-10.5 [facility] Comment on above: Performed By: #### N UM #### [facility] ([id number]) [address] [place] [address] 98850 Chloride [Moles/Vol] 104 mmol/L Normal 98-109 [facility] Comment on above: Performed By: #### N UM #### [facility] ([id number]) [address] [place] [address] 57451 CO2 [Moles/Vol] 24 mmol/L Normal 22-32 [facility] Comment on above: Performed By: #### N UM #### [facility] ([id number]) [address] [place] [address] 20356 Creatinine [Mass/Vol] 0.53 mg/dL Normal 0.40-1.00 [facility] Comment on above: Result Comment: METH OD TRACEABLE TO IDMS STANDARD Performed By: #### N UM #### [facility] ([id number]) [address] [place] [address] 17766 eGFR (CKD-EPI) NON-RACE DEPENDENT >90 Normal >59 [facility] Comment on above: Result Comment: Reported eGFR is based on the CKD-EPI 2021 equation that does not use a race coefficient. Performed By: #### N UM #### [facility] ([id number]) [address] [place] [address] 75432 Glucose [Mass/Vol] 61 mg/dL Low 65-99 [facility] Comment on above: Performed By: #### N UM #### [facility] ([id number]) [address] [place] [address] Potassium [Moles/Vol] 3.8 mmol/L Normal 3.5-5.0 [facility] Comment on above: Performed By: #### N UM #### [facility] ([id number]) [address] [place] [address] 57535 Protein [Mass/Vol] 7.2 g/dL Normal 6.0-8.0 [facility] Comment on above: Performed By: #### N UM #### [facility] ([id number]) [address] [place] [address] 94836 Sodium [Moles/Vol] 138 mmol/L Normal 134-146 [facility] Comment on above: Performed By: #### N UM #### [facility] ([id number]) [address] [place] [address] 15701 Urea nitrogen [Mass/Vol] 8 mg/dL Normal 5-23 [facility] Comment on above: Performed By: #### N UM #### [facility] ([id number]) [address] [place] [address] 37163 HCV Ab IA Qlon 12-24-2023 ANTI HCV W/PCR REFLX Non-Reactive Normal NRCT [facility] Comment on above: Result Comment: If recent infection suspected, recommend repeat testing (>2 months). Jelavm-ng-gdxcwq ratio is <0.80. Performed By: #### N UM #### [facility] ([id number]) [address] [place] [address] 00513 HIV 1+2 Ab+HIV1 p24 Ag IA Ql on 12-24-2023 HIV 1 and 2 Ab/Ag Screen Non-Reactive Normal NRCT [facility] Comment on above: Result Comment: This information [...] diagnoses. Performed By: #### N UM #### [facility] ([id number]) [address] [place] [address] 14563 Lipid 1996 panelon 4 Cholesterol [Mass/Vol] 164 mg/dL Normal 150-200 [facility] Comment on above: Performed By: #### N UM #### [facility] ([id number]) [address] [place] [address] 80717 Cholesterol in HDL [Mass/Vol] 56 mg/dL Normal >39 [facility] Comment on above: Result Comment: HDL <40 mg/dL - High Risk HDL > or = 40mg/dL- Desirable HDL >60 mg/dL - Negative Risk Performed By: #### N UM #### [facility] ([id number]) [address] [place] [address] 86495 Cholesterol in LDL [Mass/Vol] 87 mg/dL Normal <130 [facility] Comment on above: Result Comment: LDL <100 mg/dL - Desirable LDL >160 mg/dL - High Risk Performed By: #### N UM #### [facility] ([id number]) [address] [place] [address] 29402 Cholesterol in VLDL [Mass/Vol] 21 mg/dL Normal 0-30 [facility] Comment on above: Performed By: #### N UM #### [facility] ([id number]) [address] [place] [address] 86019 CHOLESTEROL:HDL 2.9 Normal 1.0-5.0 [facility] Comment on above: Performed By: #### N UM #### [facility] ([id number]) [address] [place] [address] 46912 Triglyceride [Mass/Vol] 103 mg/dL Normal 27-150 [facility] Comment on above: Performed By: #### N UM #### [facility] ([id number]) [address] [place] [address] 92808 THYROID PROFILEon 12-24-2023 Free T4 [Mass/Vol] 0.83 ng/dL Normal 0.61-1.60 [facility] Comment on above: Performed By: #### N UM #### [facility] ([id number]) [address] [place] [address] 45267 TSH 1.00 uIU/mL Normal 0.49-4.67 [facility] Comment on above: Performed By: #### N UM #### [facility] ([id number]) [address] [place] [address] 40756 CBC AND AUTO DIFFon 11-21-19 24 ABSOLUTE BASOPHIL 0.0 X10E9/L Normal 0.0-0.2 [facility] Comment on above: Performed By: #### C BCA, CMP, 3040-3, 13059-0 #### [facility] ([id number]) [address] [place] [address] 10055 ABSOLUTE NEUTROPHIL 1.5 X10E9/L Normal 1.5-6.6 [facility] Comment on above: Performed By: #### C BCA, CMP, 3040-3, 16653-3 #### [facility] ([id number]) [address] [place] [address] 11325 Basophils/100 WBC (Bld) 1.0 % Normal [facility] Comment on above: Performed By: #### C DEREK CMP, 3, #### [facility] ([id number]) [address] [place] [address] 94001 Eosinophils (Bld) [#/Vol] 0.2 10*3/uL Normal 0.0-0.4 [facility] Comment on above: Performed By: #### C DEREK, CMP, 3039-08, #### [facility] ([id number]) [address] [place] [address] 74807 Eosinophils/100 WBC (Bld) 3.9 % Normal [facility] Comment on above: Performed By: #### Kailyn REED CMP, 3039-08, #### [facility] ([id number]) [address] [place] [address] 39032 Erythrocyte distribution width (RBC) [Ratio] 13.7 % Normal 11.5-15.0 [facility] Comment on above: Performed By: #### Kailyn REED CMP, 3039-08, #### [facility] ([id number]) [address] [place] [address] 05050 Hematocrit (Bld) [Volume fraction] 38.2 % Normal 35-47 [facility] Comment on above: Performed By: #### C BCA, CMP, 3039-08, #### [facility] ([id number]) [address] [place] [address] 63551 Hemoglobin (Bld) [Mass/Vol] 13.7 g/dL Normal 11.7-15.5 [facility] Comment on above: Performed By: #### Kailyn REED, CMP, 3039-08, #### [facility] ([id number]) [address] [place] [address] 82287 Lymphocytes (Bld) [#/Vol] 2.3 10*3/uL Normal 1.0-3.5 [facility] Comment on above: Performed By: #### C DEREK CMP, 3, #### [facility] ([id number]) [address] [place] [address] 69431 Lymphocytes/100 WBC (Bld) 52.0 % Normal [facility] Comment on above: Performed By: #### C DEREK, CMP, 3039-08, #### [facility] ([id number]) [address] [place] [address] 91201 MCH (RBC) [Entitic mass] 30.6 pg Normal 27-34 [facility] Comment on above: Performed By: #### Kailyn REED CMP, 3039-08, #### [facility] ([id number]) [address] [place] [address] 86142 MCHC (RBC) [Mass/Vol] 35.9 g/dL Normal 32-36 [facility] Comment on above: Performed By: #### Kailyn REED, CMP, 3039-08, #### [facility] ([id number]) [address] [place] [address] 58709 MCV (RBC) [Entitic vol] 85 fL Normal 80-100 [facility] Comment on above: Performed By: #### C DEREK, CMP, 3039-08, #### [facility] ([id number]) [address] [place] [address] 76733 Monocytes (Bld) [#/Vol] 0.4 10*3/uL Normal 0-0.9 [facility] Comment on above: Performed By: #### C DEREK, CMP, 3039-08, #### [facility] ([id number]) [address] [place] [address] 20310 Monocytes/100 WBC (Bld) 9.7 % Normal [facility] Comment on above: Performed By: #### C DEREK, CMP, 3039-08, #### [facility] ([id number]) [address] [place] [address] 48788 Neutrophils/100 WBC (Bld) 33.4 % Normal [facility] Comment on above: Performed By: #### C DEREK, CMP, 3039-08, #### [facility] ([id number]) [address] [place] [address] 21648 Platelet mean volume (Bld) [Entitic vol] 6.9 fL Low 7-12 [facility] Comment on above: Performed By: #### C DEREK, CMP, 3039-08, #### [facility] ([id number]) [address] [place] [address] 79560 Platelets (Bld) [#/Vol] 236 10*3/uL Normal 150-450 [facility] Comment on above: Performed By: #### Kailyn REED, CMP, 3039-08, #### [facility] ([id number]) [address] [place] [address] 14138 RBC COUNT 4.48 X10E12/L Normal 3.80-5.20 [facility] Comment on above: Performed By: #### C BCA, CMP, 3039-08, #### [facility] ([id number]) [address] [place] [address] 63142 WBC (Bld) [#/Vol] 4.5 10*3/uL Normal 4.0-11.0 [facility] Comment on above: Performed By: #### C DEREK, CMP, 3039-08, #### [facility] ([id number]) [address] [place] [address] 74263 COMPREHENSIVE METABOLIC PANE Grey 11-21-2023 Albumin [Mass/Vol] 4.5 g/dL Normal 3.2-5.3 [facility] Comment on above: Performed By: #### C BCA, CMP, 3040-3, #### [facility] ([id number]) [address] [place] [address] 75688 ALP [Catalytic activity/Vol] 55 U/L Normal 39-130 [facility] Comment on above: Performed By: #### C BCA, CMP, 3040-3, #### [facility] ([id number]) [address] [place] [address] 71266 ALT [Catalytic activity/Vol] 28 U/L Normal 0-31 [facility] Comment on above: Performed By: #### C BCA, CMP, 03, #### [facility] ([id number]) [address] [place] [address] 57207 Anion gap [Moles/Vol] 5 mmol/L Normal 5-15 [facility] Comment on above: Performed By: #### C BCA, CMP, 3040-3, 28087-0 #### [facility] ([id number]) [address] [place] [address] 54168 AST [Catalytic activity/Vol] 22 U/L Normal 0-41 [facility] Comment on above: Performed By: #### C BCA, CMP, 3040-3, #### [facility] ([id number]) [address] [place] [address] 17685 Bilirubin [Mass/Vol] 0.6 mg/dL Normal 0.3-1.2 [facility] Comment on above: Performed By: #### C BCA, CMP, 3040-3, #### [facility] ([id number]) [address] [place] [address] 91078 Calcium [Mass/Vol] 8.9 mg/dL Normal 8.5-10.5 [facility] Comment on above: Performed By: #### C MARTY REED, 3039-08, #### [facility] ([id number]) [address] [place] [address] 62783 Chloride [Moles/Vol] 104 mmol/L Normal 98-109 [facility] Comment on above: Performed By: #### C MARTY REED, 3039-08, #### [facility] ([id number]) [address] [place] [address] 28571 CO2 [Moles/Vol] 24 mmol/L Normal 22-32 [facility] Comment on above: Performed By: #### C MARTY REED, 3039-08, #### [facility] ([id number]) [address] [place] [address] 76076 Creatinine [Mass/Vol] 0.69 mg/dL Normal 0.40-1.00 [facility] Comment on above: Result Comment: METH OD TRACEABLE TO IDMS STANDARD Performed By: #### C MARTY REED, 3039-08, #### [facility] ([id number]) [address] [place] [address] 95773 eGFR (CKD-EPI) NON-RACE DEPENDENT >90 Normal >59 [facility] Comment on above: Result Comment: Reported eGFR is based on the CKD-EPI 2020 equation that does not use a race coefficient. Performed By: #### C MARTY REED, 3039-08, #### [facility] ([id number]) [address] [place] [address] 60173 Glucose [Mass/Vol] 93 mg/dL Normal 65-99 [facility] Comment on above: Performed By: #### C MARTY REED, 3039-08, #### [facility] ([id number]) [address] [place] [address] 41521 Potassium [Moles/Vol] 3.7 mmol/L Normal 3.5-5.0 [facility] Comment on above: Performed By: #### C BCA, CMP, 3040-3, 80600-2 #### [facility] ([id number]) [address] [place] [address] 18214 Protein [Mass/Vol] 7.6 g/dL Normal 6.0-8.0 [facility] Comment on above: Performed By: #### C BCA, CMP, 3, 46485-9 #### [facility] ([id number]) [address] [place] [address] 88016 Sodium [Moles/Vol] 133 mmol/L Low 134-146 [facility] Comment on above: Performed By: #### C BCA, CMP, 3039-3, 59564-1 #### [facility] ([id number]) [address] [place] [address] 33892 Urea nitrogen [Mass/Vol] 9 mg/dL Normal 5-23 [facility] Comment on above: Performed By: #### C BCA, CMP, 0-3, 06905-1 #### [facility] ([id number]) [address] [place] [address] ABDOMEN AND PELVIS WO CON Ton [...] Ricardo Hooper DO on 11/21/2023 10:59 AM I, Nemesio Thompson MD have personally reviewed the image(s) and agree with and/or edited the report 3 Finalized by Nemesio Thompson MD on 11/21/2023 11:32 AM Normal [facility] HCG ( test) Ql (U)o n 11-21-2023 Beta HCG ( test) Ql (U) Negative Normal NEG [facility] Comment on above: Performed By: #### 2 106-3 #### [facility] ([id number]) [address] [place] [address] 47487 LIPASEon 11-21-2023 Lipase [Catalytic activity/Vol] 29 U/L Normal 17-40 [facility] Comment on above: Performed By: #### C MARTY REED, 3040-3, 60809-0 #### [facility] ([id number]) [address] [place] [address] 94604 MAGNESIUMon 11-21-2023 Magnesium [Mass/Vol] 2.2 mg/dL Normal 1.8-2.6 [facility] Comment on above: Performed By: #### C MARTY REED, 3040-3, 96235-2 #### [facility] ([id number]) [address] [place] [address] 51830 URINE CULTUREon 11-21-2023 Bacteria identified Cx Nom (U) CULTURE RESULTS 10-50,000 ORGANISMS/mL NORMAL UROGENITAL CHU Normal [facility] Comment on above: Performed By: #### 6 30-4 #### [facility] ([id number]) [address] [place] [address], [address] [place] [address] URN MACROSCOPIC NURon 2023 BILIRUBIN JOHANA Negative Normal NEG [facility] Comment on above: Performed By: #### N UM #### [facility] ([id number]) [address] [place] [address] 24073 BLOOD/HGB JOHANA Negative Normal NEG [facility] Comment on above: Performed By: #### N UM #### [facility] ([id number]) [address] [place] [address] [place] [address] GLUCOSE JOHANA Negative Normal NEG [facility] Comment on above: Performed By: #### N UM #### [facility] ([id number]) [address] [place] [address] [place] [address] KETONES JOHANA Negative Normal NEG [facility] Comment on above: Performed By: #### N UM #### [facility] ([id number]) [address] [place] [address] [place] [address] LEUKOCYTE ESTERASE JOHANA Negative Normal NEG [facility] Comment on above: Performed By: #### N UM #### [facility] ([id number]) [address] [place] [address] 81595 NITRITE JOHANA Negative Normal NEG [facility] Comment on above: Performed By: #### N UM #### [facility] ([id number]) [address] [place] [address] 63515 PH JOHANA 6.5 Normal 5.0-8.5 [facility] Comment on above: Performed By: #### N UM #### [facility] ([id number]) [address] [place] [address] 26931 PROTEIN JOHANA Negative Normal NEG [facility] Comment on above: Performed By: #### N UM #### [facility] ([id number]) [address] [place] [address] 03080 SPECIFIC GRAVITY JOHANA 1.010 Normal 1.003-1.035 [facility] Comment on above: Performed By: #### N UM #### [facility] ([id number]) [address] [place] [address] 68963 UROBILINOGEN JOHANA 0.2 eu/dL Normal <1.1 [facility] Comment on above: Performed By: #### N UM #### [facility] ([id number]) [address] [place] [address] 80026 XR RIBS RT PA Chery 3 XR [...] CATA HERNANDEZ Date: 2022-09-29 00:50 Normal [facility] XR wrist LT min 3V*on 2021 XR wrist LT min 3V* [facility] [place] [place] [address] XRay Report Signed Patient: Flavia Tucker MR#: [id number] : 2005 Acct:[id number] Age/Sex: 16 / F ADM Date: 04/21/22 Loc: XDCLY Room: Type: [facility] Attending Dr: Deb BRAN Copies to: [...] Jan Gastelum M.D.04/21/2022 4:02 PM Dictation Location: [place] [address] Transcribed By: [facility] 04/21/22 160 Dictated By: Jan Gastelum DO 04/21/22 160 Signed By: 04/21/22 160 Normal [facility] XR wrist LT min 3V* [facility] [employer] Other XR wrist LT min 3V* [facility] [employer] Other XR wrist LT min 3V* [address] [place] [address] [employer] Other XR wrist LT min 3V* [place] [address] [employer] Other XR wrist LT min 3V* XRay Report [facility] [employer] Other XR wrist LT min 3V* Signed [employer] Other XR wrist LT min 3V* Patient: Flavia Tucker MR#: [id number] [employer] Other XR wrist LT min 3V* : 2005 Acct:[id number] [employer] Other XR wrist LT min 3V* Age/Sex: 16 / F ADM Date: 04/21/22 [employer] Other XR wrist LT min 3V* Loc: XDCLY Room: Type: [facility] [employer] Other XR wrist LT min 3V* Attending Dr: Deb MCCABE-C [employer] Other XR wrist LT min 3V* Copies to: DEB PRESSLEY [employer] Other XR wrist LT min 3V* Ordering Provider: DEB PRESSLEY [employer] Other XR wrist LT min 3V* Date of Service: 04/21/22 [employer] Other XR wrist LT min 3V* XR/XR wrist LT min 3V*: Injury of left wrist, subsequent encounter [employer] Other XR wrist LT min 3V* 4 viewsLEFT wrist plain film [employer] Other XR wrist LT min 3V* COMPARISON:None [employer] Other XR wrist LT min 3V* HISTORY:Follow-up assessment of LEFT wrist injury. [employer] Other XR wrist LT min 3V* No fracture, dislocation or focal soft tissue abnormality seen. [employer] Other XR wrist LT min 3V* XR/XR wrist LT min 3V* [employer] Other XR wrist LT min 3V* IMPRESSION:No acute findings. [employer] Other XR wrist LT min 3V* Impression dictated by: Jan Gastelum M.D.04/21/2022 4:02 PM [employer] Other XR wrist LT min 3V* Dictation Location: [facility]-- [employer] Other XR wrist LT min 3V* Transcribed By: KATY 04/21/22 1602 [employer] Other XR wrist LT min 3V* Dictated By: Jan Gastelum DO 04/21/22 1601 [employer] Other XR wrist LT min 3V* Signed By: [employer] Other XR wrist LT min 3V* 04/21/22 1602 No rt [employer] Other Quick Strepon 03-24-2022 S. pyogenes Org specific cx Ql (Throat) Negative [employer] Other Quick Strep [employer] Other SARS-CoV-2 (COVID-19) RNA NA A+probe Ql (Resp)on 03-24-2022 SARS-CoV-2 (COVID-19) RNA KELLY+probe Ql (Unsp spec) Negative [employer] Other Progress Noteon 03-10-2018 HIM IP Note OR Integrated Circuits Inspector Normal [facility] Progress Noteon 02-24-2018 HIM IP Note OR Integrated Circuits Inspector Normal [facility] Progress Noteon 02-16-2018 HIM IP Note OR Integrated Circuits Inspector Normal [facility] Vital Signs Date Time Vital Sign Value Performing Clinician Facility 01-16-2025 11:35-0400 Body mass index (BMI) [Ratio] 26.98 kg/m2 Collin Christi DO Work Phone: [facility] 01-16-2025 11:35-0400 Body weight 73.54 kg Collin Christi DO Work Phone: [facility] 01-16-2025 11:35-0400 Diastolic blood pressure 76 mm[Hg] Collin Christi DO Work Phone: [facility] 01-16-2025 11:35-0400 Systolic blood pressure 120 mm[Hg] Collin Christi DO Work Phone: [facility] 01-09-2025 08:29-0400 Body mass index (BMI) [Ratio] 26.81 kg/m2 Kimberlee ANDREWS Work Phone: [facility] 01-09-2025 08:29-0400 Body weight 73.08 kg Kimberlee ANDREWS Work Phone: [facility] 01-09-2025 08:29-0400 Diastolic blood pressure 78 mm[Hg] Kimberlee Eddie PA Work Phone: [facility] 01-09-2025 08:29-0400 Systolic blood pressure 130 mm[Hg] Kimberlee Eddie PA Work Phone: [facility] 01-02-2025 11:38-0400 Body mass index (BMI) [Ratio] 27.29 kg/m2 Collin Christi DO Work Phone: [facility] 01-02-2025 11:38-0400 Body weight 74.39 kg Collin Christi DO Work Phone: [facility] 01-02-2025 11:38-0400 Diastolic blood pressure 60 mm[Hg] Collin Christi DO Work Phone: [facility] 01-02-2025 11:38-0400 Systolic blood pressure 112 mm[Hg] Collin Christi DO Work Phone: [facility] 12-18-2024 09:03-0400 Body mass index (BMI) [Ratio] 26.96 kg/m2 Kimberlee Lowgap PA Work Phone: [facility] 12-18-2024 09:03-0400 Body weight 73.48 kg Kimberlee Eddie PA Work Phone: [facility] 12-18-2024 09:03-0400 Diastolic blood pressure 64 mm[Hg] Kimberlee Lowgap PA Work Phone: [facility] 12-18-2024 09:03-0400 Systolic blood pressure 118 mm[Hg] Kimberlee Eddie PA Work Phone: [facility] 12-04-2024 11:33-0400 Body mass index (BMI) [Ratio] 26.29 kg/m2 Collin Christi DO Work Phone: [facility] 12-04-2024 11:33-0400 Body weight 71.67 kg Collin Christi DO Work Phone: [facility] 12-04-2024 11:33-0400 Diastolic blood pressure 72 mm[Hg] Collin Christi DO Work Phone: [facility] 12-04-2024 11:33-0400 Systolic blood pressure 118 mm[Hg] Collin Christi DO Work Phone: [facility] 11-16-2024 09:17-0400 Body mass index (BMI) [Ratio] 26.13 kg/m2 Kimberlee Lowgap PA Work Phone: [facility] 11-16-2024 09:17-0400 Body weight 71.22 kg Kimberlee Eddie PA Work Phone: [facility] 11-16-2024 09:17-0400 Diastolic blood pressure 70 mm[Hg] Kimberlee Lowgap PA Work Phone: [facility] 11-16-2024 09:17-0400 Systolic blood pressure 122 mm[Hg] Kimberlee Lowgap PA Work Phone: [facility] 10-17-2024 11:07-0400 Body mass index (BMI) [Ratio] 24.92 kg/m2 Collin Christi DO Work Phone: [facility] 10-17-2024 11:07-0400 Body weight 67.93 kg Collin Christi DO Work Phone: [facility] 10-17-2024 11:07-0400 Diastolic blood pressure 64 mm[Hg] Collin Christi DO Work Phone: [facility] 10-17-2024 11:07-0400 Systolic blood pressure 120 mm[Hg] Collin Christi DO Work Phone: [facility] 09-19-2024 09:54-0400 Body mass index (BMI) [Ratio] 23.8 kg/m2 Collin Christi DO Work Phone: [facility] 09-19-2024 09:54-0400 Body weight 64.86 kg Collin Christi DO Work Phone: [facility] 09-19-2024 09:54-0400 Diastolic blood pressure 60 mm[Hg] Collin Christi DO Work Phone: [facility] 09-19-2024 09:54-0400 Systolic blood pressure 112 mm[Hg] Collin Christi DO Work Phone: [facility] 07-13-2024 08:45-0500 Body mass index (BMI) [Ratio] 22.47 kg/m2 Collin Christi DO Work Phone: [facility] 07-13-2024 08:45-0500 Body weight 61.24 kg Collin Christi DO Work Phone: [facility] 07-13-2024 08:45-0500 Diastolic blood pressure 64 mm[Hg] Collin Christi DO Work Phone: [facility] 07-13-2024 08:45-0500 Systolic blood pressure 112 mm[Hg] Collin Christi DO Work Phone: [facility] 06-23-2024 09:14-0500 Body mass index (BMI) [Ratio] 22.6 kg/m2 [facility] Nurse [facility] 06-23-2024 09:14-0500 Body weight 61.6 kg [facility] Nurse [facility] 05-22-2024 09:52-0500 Body height 165.1 cm Ronald Beach MD Work Phone: [facility] 05-22-2024 09:52-0500 Body mass index (BMI) [Ratio] 22.83 kg/m2 Ronald Beach MD Work Phone: [facility] 05-22-2024 09:52-0500 Body weight 62.23 kg Ronald Beach MD Work Phone: [facility] 05-22-2024 09:52-0500 Diastolic blood pressure 72 mm[Hg] Ronald Beach MD Work Phone: [facility] 05-22-2024 09:52-0500 Heart rate 88 /min Ronald Beach MD Work Phone: [facility] 05-22-2024 09:52-0500 SaO2% (BldA) [Mass fraction] 99 % Ronald Beach MD Work Phone: [facility] 05-22-2024 09:52-0500 Systolic blood pressure 111 mm[Hg] Ronald Beach MD Work Phone: [facility] 04-22-2024 09:51-0400 Body height 165.1 cm [facility] 04-22-2024 09:51-0400 Body mass index (BMI) [Percentile] Per age and sex 66.8 % [facility] 04-22-2024 09:51-0400 Body mass index (BMI) [Ratio] 23.3 kg/m2 [facility] 04-22-2024 09:51-0400 Body temperature 98.8 [degF] [facility] 04-22-2024 09:51-0400 Body weight 63.5 kg [facility] [facility] 04-22-2024 09:51-0400 Diastolic blood pressure 79 mm[Hg] [facility] 04-22-2024 09:51-0400 Heart rate 71 /min [facility] 04-22-2024 09:51-0400 Respiratory rate 18 /min [facility] 04-22-2024 09:51-0400 SaO2% (BldA) [Mass fraction] 98 % [facility] 04-22-2024 09:51-0400 Systolic blood pressure 120 mm[Hg] [facility] 03-25-2024 09:30-0400 Body height 165.1 cm [facility] 03-25-2024 09:30-0400 Body mass index (BMI) [Percentile] Per age and sex 66.9 % [facility] 03-25-2024 09:30-0400 Body mass index (BMI) [Ratio] 23.3 kg/m2 [facility] 03-25-2024 09:30-0400 Body temperature 98.4 [degF] [facility] 03-25-2024 09:30-0400 Body weight 63.5 kg [facility] 03-25-2024 09:30-0400 Diastolic blood pressure 67 mm[Hg] [facility] 03-25-2024 09:30-0400 Heart rate 94 /min [facility] 03-25-2024 09:30-0400 Respiratory rate 18 /min [facility] 03-25-2024 09:30-0400 SaO2% (BldA) [Mass fraction] 98 % [facility] 03-25-2024 09:30-0400 Systolic blood pressure 107 mm[Hg] [facility] 02-22-2024 08:54-0400 Body height 165.1 cm Kimberlee ANDREWS Work Phone: [facility] 02-22-2024 08:54-0400 Body mass index (BMI) [Ratio] 23.13 kg/m2 Kimberlee ANDREWS Work Phone: [facility] 02-22-2024 08:54-0400 Body weight 63.05 kg Kimberlee ANDREWS Work Phone: [facility] 02-22-2024 08:54-0400 Diastolic blood pressure 68 mm[Hg] Kimberlee Rodriguez PA Work Phone: [facility] 02-22-2024 08:54-0400 Systolic blood pressure 110 mm[Hg] Kimberlee ANDREWS Work Phone: [facility] 12-27-2023 09:17-0400 Body height 165.1 cm [facility] 12-27-2023 09:17-0400 Body mass index (BMI) [Percentile] Per age and sex 31 % [facility] 12-27-2023 09:17-0400 Body mass index (BMI) [Ratio] 20.2 kg/m2 [facility] 12-27-2023 09:17-0400 Body temperature 100.3 [degF] [facility] 12-27-2023 09:17-0400 Body weight 55.05 kg [facility] 12-27-2023 09:17-0400 Heart rate 75 /min [facility] 12-27-2023 09:17-0400 Respiratory rate 18 /min [facility] 12-27-2023 09:17-0400 SaO2% (BldA) [Mass fraction] 99 % [facility] 12-20-2023 10:31-0400 Body height 165.1 cm Ronald Beach MD Work Phone: [facility] [employer] 12-20-2023 10:31-0400 Body mass index (BMI) [Ratio] 20.07 kg/m2 Ronald Beach MD Work Phone: [facility] 12-20-2023 10:31-0400 Body weight 54.7 kg Ronald Beach MD Work Phone: [facility] 12-20-2023 10:31-0400 Diastolic blood pressure 66 mm[Hg] Ronald Beach MD Work Phone: [facility] 12-20-2023 10:31-0400 Heart rate 71 /min Ronald Beach MD Work Phone: [facility] 12-20-2023 10:31-0400 SaO2% (BldA) [Mass fraction] 100 % Ronald Beach MD Work Phone: [employer] 12-20-2023 10:31-0400 Systolic blood pressure 112 mm[Hg] Ronald Beach MD Work Phone: [employer] 04-21-2022 15:30-0400 Body height 162.56 cm Deb Pressley Other [employer] Other 04-21-2022 15:30-0400 Body mass index (BMI) [Ratio] 22.31 kg/m2 Deb Pressley Other [employer] Other 04-21-2022 15:30-0400 Body temperature 98.6 [degF] Deb Pressley Other [employer] Other 04-21-2022 15:30-0400 Body weight 58.97 kg Deb Pressley Other [employer] Other 04-21-2022 15:30-0400 Diastolic blood pressure 71 mm[Hg] Deb Almanzaault Other [employer] Other 04-21-2022 15:30-0400 Respiratory rate 18 /min Deb Emanuel Other [employer] Other 04-21-2022 15:30-0400 SaO2% (BldA) [Mass fraction] 99 % Deb Almanzaault Other [employer] Other 04-21-2022 15:30-0400 Systolic blood pressure 114 mm[Hg] Deb Almanzaault Other [employer] Other 03-24-2022 16:00-0400 Body height 163.83 cm Deb Almanzaault Other [employer] Other 03-24-2022 16:00-0400 Body mass index (BMI) [Ratio] 22.64 kg/m2 Deb Almanzaault Other [employer] Other 03-24-2022 16:00-0400 Body temperature 98.2 [degF] Deb Almanzaault Other [employer] Other 03-24-2022 16:00-0400 Body weight 60.78 kg Deb Almanzaault Other [employer] Other 03-24-2022 16:00-0400 Diastolic blood pressure 79 mm[Hg] Deb Emanuel Other [employer] Other 03-24-2022 16:00-0400 Respiratory rate 18 /min Deb Pressley Other [employer] Other 03-24-2022 16:00-0400 SaO2% (BldA) [Mass fraction] 100 % Deb Pressley Other [employer] Other 03-24-2022 16:00-0400 Systolic blood pressure 121 mm[Hg] Deb Pressley Other [employer] Other 04-29-2021 15:30-0500 Body height 163.83 cm Deb Pressley Other [employer] Other 04-29-2021 15:30-0500 Body mass index (BMI) [Ratio] 21.97 kg/m2 Deb Pressley Other [employer] Other 04-29-2021 15:30-0500 Body temperature 97.8 [degF] Deb Pressley Other [employer] Other 04-29-2021 15:30-0500 Body weight 58.97 kg Deb Pressley Other [employer] Other 04-29-2021 15:30-0500 Diastolic blood pressure 72 mm[Hg] Deb Pressley Other [employer] Other 04-29-2021 15:30-0500 Respiratory rate 18 /min Deb Pressley Other [employer] Other 04-29-2021 15:30-0500 SaO2% (BldA) [Mass fraction] 98 % Deb Pressley Other [employer] Other 04-29-2021 15:30-0500 Systolic blood pressure 130 mm[Hg] Deb Pressley Other [facility] [employer] Other Encounters Encounter Date Encounter Type Care Provider Facility Start: 01-16-2025 End: 01-16-2025 Bamboo flowsheet Collin Christi DO Work Phone: [facility] Start: 01-16-2025 End: 01-16-2025 Bamboo flowsheet Collin Christi DO Work Phone: [facility] Start: 01-16-2025 End: 01-16-2025 Clinisync Result Encounter Collin Christi DO Work Phone: [facility] Unsolicited Start: 01-16-2025 End: 01-16-2025 flow sheet Collin Christi DO Work Phone: [facility] Comment on above: Third trimester preg krystina ([facility]); 38 weeks gestation of ([facility]) Start: 01-14-2025 End: 01-14-2025 Clinisync Result Encounter Collin Christi DO Work Phone: [facility] Unsolicited Start: 01-14-2025 End: 01-14-2025 Clinisync Result Encounter Collin Christi DO Work [...] on above: 37 weeks gestation o f ([facility]); Third trimester ([facility]) Start: 01-09-2025 End: 01-09-2025 ambulatory KIMBERLEE RODRIGUEZ Not Available Start: 01-02-2025 End: 01-02-2025 Bamboo flowsheet Collin Christi DO Work Phone: [facility] Start: 01-02-2025 End: 01-02-2025 Bamboo flowsheet Collin Christi DO Work Phone: [facility] Start: 01-02-2025 End: 01-02-2025 flow sheet Collin Christi DO Work Phone: [facility] Comment on above: Third trimester preg krystina ([facility]); 36 weeks gestation of ([facility]) Start: 01-02-2025 End: 01-02-2025 ambulatory COLLIN CHRISTI Not Available Start: 12-25-2024 End: 12-25-2024 Bamboo flowsheet Collin Christi DO Work Phone: [facility] Start: 12-25-2024 End: 12-25-2024 Bamboo flowsheet Collin Christi DO Work Phone: [facility] Start: 12-25-2024 End: 12-25-2024 flow sheet Collin Christi DO Work Phone: [facility] Comment on above: Third trimester preg krystina ([facility]); 35 weeks gestation of ([facility]) Start: 12-25-2024 End: 12-25-2024 ambulatory COLLIN CHRISTI Not Available Start: 12-18-2024 End: 12-18-2024 Bamboo flowsheet Kimberlee ANDREWS Work Phone: [facility] Start: 12-18-2024 End: 12-18-2024 Bamboo flowsheet Kimberlee ANDREWS Work Phone: [facility] Start: 12-18-2024 End: 12-18-2024 flow sheet Kimberlee ANDREWS Work Phone: [facility] Comment on above: Third trimester preg krystina ([facility]); 34 weeks gestation of ([facility]) Start: 12-18-2024 End: 12-18-2024 ambulatory KIMBERLEE RODRIGUEZ Not Available Start: 12-04-2024 End: 12-04-2024 flow sheet Collin Christi DO Work Phone: [facility] Comment on above: Third trimester preg krystina ([facility]); 31 weeks gestation of ([facility]) Start: 12-04-2024 End: 12-04-2024 ambulatory COLLIN CHRISTI [...] Available Start: 10-24-2024 ambulatory COLLIN R CHRISTI [facility] Start: 10-17-2024 End: 10-17-2024 Bamboo flowsheet Collin [...] 08-17-2024 End: 08-17-2024 ambulatory COLLIN R CHRISTI [facility] Start: 07-13-2024 End: 07-13-2024 Bamboo flowsheet Collin [...] pulmonary nodules Start: 05-22-2024 End: 05-22-2024 ambulatory [facility] Start: 04-22-2024 End: 04-22-2024 [facility]ulatory [facility] Work Phone: Start: 04-22-2024 End: 04-22-2024 Patient encounter procedure [facility] Work Phone: Start: 03-25-2024 End: 03-25-2024 ambulatory [facility] Work Phone: Start: 03-25-2024 End: 03-25-2024 Patient encounter procedure [facility] Work Phone: [...] Not Available Start: 12-27-2023 End: 12-27-2023 ambulatory [facility] [place] Work Phone: Start: 12-27-2023 End: 12-27-2023 Patient encounter procedure [facility] Work Phone: Start: 12-24-2023 End: 12-24-2023 ambulatory [facility] Start: 12-24-2023 Encounter for genera l adult medical examination without abnormal findings COLLIN BARRAZA [facility] Start: 12-20-2023 End: 12-20-2023 Office outpatient new 45 minutes Ronald Beach MD Work Phone: [facility] Comment on above: Mild persistent asth ma without complication (Primary Dx); Multiple pulmonary nodules; SOB (shortness of breath) Start: 12-20-2023 End: 12-20-2023 ambulatory [facility] Start: 11-21-2023 End: 11-22-2023 Emergency department patient visit BALDOMERO SMITH [facility] Start: 11-10-2023 End: 11-10-2023 ambulatory [facility] Start: 09-29-2022 End: 09-29-[address] FRANCISCO PERSON . Facility: Start: 04-21-2022 End: 04-21-2022 ambulatory Deb Pressley Facility:[facility] Start: 04-21-2022 End: 04-21-2022 Patient encounter procedure MANAGER ENGINE-C Deb Pressley Work Phone: [facility] Start: 04-21-2022 End: 04-21-2022 ambulatory MANAGER ENGINE-C Deb Pressley Work Phone: [facility] Work Phone: Start: 04-21-2022 Office outpatient vi sit 15 minutes Deb Pressley [facility] Start: 03-24-2022 End: 03-24-2022 ambulatory Deb Pressley Other [employer] Other Start: 03-24-2022 Office outpatient vi sit 15 minutes Deb Pressley [facility] Start: 02-06-2022 End: 02-06-2022 ambulatory Deb Pressley Other [employer] Other Start: 02-06-2022 Telephone encounter Deb Becca santa [facility] Start: 04-29-2021 End: 04-29-2021 ambulatory Deb Pressley Other [employer] Other Start: 04-29-2021 Office outpatient vi sit 15 minutes Deb Pressley [facility] Procedures Date Procedure Procedure Detail Performing Clinician Start: 01-16-2025 [facility] UA (CLEAN/CATCH) LEVER TENDER/MICRO IF IND. Collin Christi DO Work Phone: Start: 01-16-2025 Urnls dip stick/tabl et rgnt non-auto w/o micrscp Collin Christi DO Work Phone: Start: 01-14-2025 [facility] UA (CLEAN/CATCH) LEVER TENDER/MICRO IF IND. Collin Christi DO Work Phone: Start: 01-11-2025 [facility] UA (CLEAN/CATCH) LEVER TENDER/MICRO IF IND. Collin Christi DO Work Phone: [...] Start: 02-11-2024 ALL CBC WITH AUTO DIFF Clolin Christi DO Work Phone: Start: 04-21-2022 Plain X-ray of left wrist MANAGER ENGINE-C Deb Pressley Work Phone: Plan of Treatment Date Care Activity Detail Author Start: 12-23-2033 DTaP,Tdap and Td Vaccines (7 - Td or Tdap) DTaP,Tdap and Td Vaccines (7 - Td or Tdap) [facility] Start: 01-18-2025 End: 01-18-2025 Patient encounter procedure [facility] Start: 01-16-2025 End: 01-16-2025 Patient encounter procedure 01/16/2025 11:20 AM EDT Routine [facility] [address] [place] [id number] Collin Barraza, DO [address] [place] [address] Arrived [facility] Comment on above: Arrived Start: 01-09-2025 End: 01-09-2025 Patient encounter procedure [facility] Comment on above: Arrived Start: 01-02-2025 End: 01-02-2026 CULTURE, GROUP B STREP WITH SUSCEPTIBLITY CULTURE, GROUP B STREP WITH SUSCEPTIBLITY Lab Routine Third trimester ([facility]) Expected: 01/02/2025, Expires: 01/02/2026 [facility] Work Phone: Comment on above: Expected: 01/02/2025 , Expires: 01/02/2026 Start: 01-02-2025 End: 01-02-2025 Patient encounter procedure [facility] Comment on above: Arrived Start: 12-25-2024 End: 12-25-2024 Patient encounter procedure 12/25/2024 8:30 AM EDT Routine [facility] [address] [place] [phone] Collin Barraza, DO [address], [place] [id number] Arrived [facility] Comment on above: Arrived Start: 12-19-2024 Adult BMI Screening Adult BMI Screen ing [facility] Start: 12-18-2024 End: 12-18-2024 Patient encounter procedure [facility] Comment on above: Arrived Start: 11-20-2024 Tobacco Screening Tobacco Screening [facility] Start: 11-16-2024 End: 03-19-2025 US for US OB follow up transabdominal approach Imaging Routine Size of fetus inconsistent with dates in first trimester Expected: 11/16/2024, Expires: 03/19/2025 [facility] Work Phone: Comment on above: Expected: 11/16/2024 , Expires: 03/19/2025 Start: 11-16-2024 End: 11-16-2024 Patient encounter procedure 11/16/2024 9:30 AM EDT Routine [facility] [address] [place] [address] Kimberlee Rodriguez PA [address] [place], [place] [id number] Arrived [facility] Comment on above: Arrived Start: 10-31-2024 End: 10-31-2024 Patient encounter procedure 10/31/2024 10:30 AM EDT Routine [facility] [address] [place] [place] [address] Collin Barraza DO [address] [facility] [address] [place] [place], [place] [phone] [facility] Start: 10-17-2024 End: 10-17-2025 [...] mellitus screening Expected: 10/17/2024 (Approximate), Expires: 10/17/2025 [facility] Comment on above: Expected: 10/17/2024 (Approximate), Expires: 10/17/2025 Start: 10-17-2024 End: 10-17-2024 Patient encounter procedure [facility] Comment on above: Arrived Start: 09-25-2024 End: 09-25-2024 Patient encounter procedure 09/25/2024 10:45 AM EDT Office Visit [facility] [address] [place] [address] Ronald Beach MD [address] [place] [address] [facility] Start: [...] AM EST Routine [facility] [address] [place] [place] [phone] Collin Barraza, [address] [place] [address] [facility] Start: 07-13-2024 End: 07-13-2024 [...] first trimester Expected: 06/23/2024 (Approximate), Expires: 06/23/2025 [facility] Comment on above: Expected: 06/23/2024 (Approximate), Expires: 06/23/2025 Start: 05-08-2024 End: 05-08-2024 Patient encounter procedure 05/08/2024 10:45 AM EST Office Visit [facility] [address] [place] [address] Ronald Beach MD [address] [place] [address] [facility] Start: 03-21-2024 End: 03-21-2024 Patient encounter procedure 03/21/2024 8:50 AM EDT Office Visit [facility] [address] [place] [address] Kimberlee Rodriguez PA [address] [place] [address] [facility] Start: 02-22-2024 End: 02-22-2024 Patient encounter procedure [facility] Comment on above: Arrived Start: 02-20-2024 Influenza vaccination Influenza Vacc ine [facility] Start: 2016 Depression Screening Depression Scre ening [facility] Start: 2015 DTaP,Tdap and Td Vaccines (6 - Tdap) DTaP,Tdap and Td Vaccines (6 - Tdap) [facility] Start: 2004 Screening for Chlamy damon trachomatis Chlamydia Screening [facility] Bacteria identified in Urine by Culture Urine culture Microbiology Routine Missed menses Ordered: 06/23/2024 [facility] Comment on above: Ordered: 06/23/2024 CBC W Auto Different ial panel - Blood CBC and differential Lab Routine Missed menses , unspecified gestational age Ordered: 06/23/2024 [facility] Comment on above: Ordered: 06/23/2024 CHLAMYDIA TRACHOMATI S (GENITO/STI) CHLAMYDIA TRACHOMATIS (GENITO/STI) Lab Routine Exposure to STD Ordered: 08/21/2024 [facility] Comment on above: Ordered: 08/21/2024 Hemoglobin A1c/Hemoglobin.total in Blood Hemoglobin A1c Lab Routine Missed menses , unspecified gestational age Ordered: 06/23/2024 [facility] Comment on above: Ordered: 06/23/2024 Hepatitis B virus surface Ag [Presence] in Serum or Plasma by Immunoassay Hepatitis B surface antigen Lab Routine Missed menses , unspecified gestational age Ordered: 06/23/2024 [facility] Comment on above: Ordered: 06/23/2024 Hepatitis C virus Ab [Presence] in Serum or Plasma by Immunoassay Hepatitis C antibody Lab Routine Missed menses , unspecified gestational age Ordered: 06/23/2024 [facility] Comment on above: Ordered: 06/23/2024 HIV-1/HIV-2 antigen/antibody combination immunoassay HIV-1 and HIV-2 antibodies Lab Routine Missed menses , unspecified gestational age Ordered: 06/23/2024 [facility] Comment on above: Ordered: 06/23/2024 Neisseria gonorrhoea e DNA [Presence] in Unspecified specimen by KELLY with probe detection Neisseria gonorrhea DNA probe, direct Lab Routine Exposure to STD Ordered: 08/21/2024 [facility] Comment on above: Ordered: 08/21/2024 Reagin Ab [Presence] in Serum by RPR RPR Lab Routine Missed menses , unspecified gestational age Ordered: 06/23/2024 [facility] Comment on above: Ordered: 06/23/2024 Rubella antibody, IgG Rubella an tibody, IgG Lab Routine Missed menses , unspecified gestational age Ordered: 06/23/2024 [facility] Comment on above: Ordered: 06/23/2024 SURESWAB(R) ADVANCED VAGINITIS PLUS, TMA SURESWAB(R) ADVANCED VAGINITIS PLUS, TMA Pathology and Cytology Routine Exposure to STD Ordered: 08/21/2024 [facility] Work Phone: Comment on above: Ordered: 08/21/2024 [facility] Payers Date Payer Category Payer Medicaid MEDICAID [facility] [id number] 2024 Medicaid [id number] 2022 Self-pay [id number] 2019 Managed Care Other (unspecified) [facility] [id number] 2019 Private Health Insurance [id number]. [id number] 2004 Unknown [id number] 2.16.840.1.537176.3.579.2. 593 2004 Unknown [id number] 2.16.840.1.617747.3.579.2. 1286 2004 Unknown [id number] 2.16.840.1.048449.3.579.2. 1286 2004 Unknown [id number] 2.16.840.1.708310.3.579.2. 1286 2004 Unknown [id number] 2.16.840.1.509302.3.579.2. 1286 2004 Unknown [id number] 2.16.840.1.765894.3.579.2. 1286 2004 Unknown [id number] 2.16.840.1.302843.3.579.2. 1286 2004 Unknown [id number] 2.16.840.1.524187.3.579.2. 1286 2004 Unknown [id number] 2.16.840.1.516121.3.579.2. 1286 2004 Unknown [id number] 2.16.840.1.314411.3.579.2. 1286 2004 Unknown [id number] 2.16.840.1.786019.3.579.2. 1259 2004 Unknown [id number] 2.16.840.1.715091.3.579.2. 1259 2004 Unknown [id number] 2.16.840.1.916189.3.579.2. 1259 2004 Unknown [id number] 2.16.840.1.711879.3.579.2. 1258 2004 Unknown [id number] 2.16.840.1.594743.3.579.2. 1258 2004 Unknown [id number] 2.16.840.1.013546.3.579.2. 1258 2004 Unknown [id number] 2.16.840.1.682432.3.579.2. 1258 2004 Unknown [id number] 2.16.840.1.419357.3.579.2. 1258 2004 Unknown [id number] 2.16.840.1.158355.3.579.2. 1258 2004 Unknown [id number] 2.16.840.1.596691.3.579.2. 1258 2004 Unknown [id number] 2.16.840.1.321423.3.579.2. 1258 2004 Unknown [id number] 2.16.840.1.671767.3.579.2. 1258 2004 Unknown [id number] 2.16.840.1.566307.3.579.2. 1258 2004 Unknown [id number] 2.16.840.1.799708.3.579.2. 1258 2004 Unknown [id number] 2.16.840.1.470567.3.579.2. 1258 2004 Unknown [id number] 2.16.840.1.298991.3.579.2. 1258 1959 Unknown [id number] 2.16.840.1.448823.19 Unknown [id number] 2.16.840.1.640390.3.579.2. 531 Unknown [id number] Social History Date Type Detail Facility Start: 12-21-2023 End: 01-25-2024 [facility] Start[facility] 2005 [facility] Start: 12-21-2023 End: 12-27-2023 Tobacco smoking status NHIS Never smoked tobacco (finding) [facility] Start: 12-20-2023 End: 12-21-2023 Tobacco use and exposure Smokeless tobacco non-user [facility] Start: 01-25-2024 End: 01-16-2025 Alcoholic beverage intake Lifetime non-drinker (finding) [facility] Start: 12-21-2023 End: 01-25-2024 History of Social function [facility] Start: 2004 Sex assigned at Not on file P [facility] Start: 05-05-2024 [facility] Start: 12-20-2023 End: 05-22-2024 Alcoholic beverage intake Current non-drinker of alcohol (finding) [facility] Childcare Unknown [facility] Start: 01-28-2015 Sex Female (finding) [facility] Clinical Notes 04-29-2021 to 01-16-2025 JULIANA Dubois - 01/16/2025 11:20 AM JULIANA Sanchez - 01/09/2025 8:40 AM Kathryn Vital LPN - 01/02/2025 11:40 AM Cookie Ferreira NP - 12/25/2024 8:30 AM EDT Note Date & Type Note Facility 01-16-2025 History of Present illness Narrative Reason for Appointment: Patient ID: Flavia Tucker is a 19 y.o. female who presents for Routine Visit Patient presents today for Return OB appointment. MEDICATIONS Current Outpatient Medications Medication Instructions albuterol HFA 90 mcg/act inhaler 2 puffs, Every 6 hours PRN clindamycin (CLEOCIN) 300 mg, 3 times daily ondansetron ODT (ZOFRAN-ODT) 4 mg, Oral, Every [...] reviewed. Vitals: Estimated body mass index is 26.98 kg/m as calculated from the following: Height as of 02/22/24: 5' 5 . Weight as of this encounter: 162 lb 1.9 oz. BP: 120/76 Patient's last menstrual period was 04/21/2024. ASSESSMENT & PLAN ICD-10-CM 1. Third trimester ([facility]) Z34.93 POCT urinalysis dipstick manually resulted 2. 38 weeks gestation of ([facility]) Z3A.38 POCT urinalysis dipstick manually resulted Return OB: Patient presents today for a routine obstetrics appointment. Patient is currently 38w4d . Patient states she is doing well [...] Documented by JULIANA Dubois on behalf of: Collin Barraza DO documented in this encounter [facility] 01-09-2025 History of Present illness Narrative Reason [...] Stroke Maternal Grandmother alan Cancer Paternal Grandmother nallely SURGICAL HISTORY Past Surgical History: Procedure Laterality [...] PLAN ICD-10-CM 1. 37 weeks gestation of ([facility]) Z3A.37 POCT urinalysis dipstick manually resulted 2. Third trimester ([facility]) Z34.93 POCT urinalysis dipstick manually resulted Return [...] of: JULIANA Dubois documented in this encounter [facility] 01-02-2025 History of Present illness Narrative Reason [...] nursing note reviewed. Exam conducted with a nutritional yeast supervisor present. Vitals: Estimated body mass index is 27.29 kg/m as calculated from the following: Height as of 02/22/24: 5' 5 . Weight as of this encounter: 164 lb. BP: 112/60 Patient's last menstrual period was 04/21/2024. ASSESSMENT & PLAN ICD-10-CM 1. Third trimester ([facility]) Z34.93 POCT urinalysis dipstick manually resulted CULTURE, GROUP B STREP WITH SUSCEPTIBLITY CULTURE, GROUP B STREP WITH SUSCEPTIBLITY 2. 36 weeks gestation of ([facility]) Z3A.36 Patient is doing well but [...] Collin Barraza DO documented in this encounter [facility] 12-25-2024 History of Present illness Narrative Reason [...] nursing note reviewed. Exam conducted with a nutritional yeast supervisor present. Vitals: Estimated body mass index is 26.96 kg/m as calculated from the following: Height as of 02/22/24: 5' 5 . Weight as of 12/18/24: 162 lb. BP: Patient's last menstrual period was 04/21/2024. ASSESSMENT & PLAN ICD-10-CM 1. Third trimester ([facility]) Z34.93 POCT urinalysis dipstick manually resulted CANCELED: CULTURE, GROUP B STREP WITH SUSCEPTIBLITY CANCELED: CULTURE, GROUP B STREP WITH SUSCEPTIBLITY 2. 35 weeks gestation of ([facility]) Z3A.35 Return OB: Patient presents today for [...] Collin Barraza DO documented in this encounter [facility] 12-18-2024 History of Present illness Narrative Reason [...] ASSESSMENT & PLAN ICD-10-CM 1. Third trimester ([facility]) Z34.93 2. 34 weeks gestation of ([facility]) Z3A.34 Return OB: Patient presents today for [...] of: JULIANA Dubois documented in this encounter [facility] 12-04-2024 History of Present illness Narrative Reason [...] nursing note reviewed. Exam conducted with a nutritional yeast supervisor present. Vitals: Estimated body mass index is 26.29 kg/m as calculated from the following: Height as of 02/22/24: 5' 5 . Weight as of this encounter: 158 lb. BP: 118/72 Patient's last menstrual period was 04/21/2024. ASSESSMENT & PLAN ICD-10-CM 1. Third trimester ([facility]) Z34.93 POCT urinalysis dipstick manually resulted 2. 31 weeks gestation of ([facility]) Z3A.31 Return OB: Patient presents today for [...] Collin Barraza DO documented in this encounter [facility] 10-17-2024 History of Present illness Narrative Reason [...] nursing note reviewed. Exam conducted with a nutritional yeast supervisor present. Vitals: Estimated body mass index is [...] Collin Barraza DO documented in this encounter [facility] 09-19-2024 History of Present illness Narrative Reason [...] nursing note reviewed. Exam conducted with a nutritional yeast supervisor present. Vitals: Estimated body mass index is [...] Kimberlee Rodriguez PA-C documented in this encounter [facility] 08-21-2024 History of Present illness Narrative Reason [...] nursing note reviewed. Exam conducted with a nutritional yeast supervisor present. Vitals: Estimated body mass index is [...] Collin Barraza DO documented in this encounter [facility] 07-13-2024 History of Present illness Narrative Reason [...] nursing note reviewed. Exam conducted with a nutritional yeast supervisor present. Vitals: Estimated body mass index is [...] or undercooked meat, and stay away from [facility]. Patient has been consulted regarding any further do's and don'ts of . Patient voiced understanding and all questions and concerns were answered. Orders Placed This Encounter Procedures POCT urinalysis dipstick manually resulted Follow Up: Patient is to return in 4 weeks for routine OB appointment. Documented by Pia Adkins LPN on behalf of: Collin Barraza DO documented in this encounter [facility] 06-23-2024 History of Present illness Narrative Reason [...] or undercooked meat, and stay away from [facility]. Patient has also been advised to not [...] Luciana Fisher LPN documented in this encounter [facility] 05-22-2024 History of Present illness Narrative Images from the original note were not included. [facility] [address] [address] Subjective: Chief Complaint Asthma HPI [...] to ensure the accuracy of this automated osteology teacher, some errors in osteology teacher may have occurred. documented [facility] History of Present illness Narrative Reason [...] due to pelvic pain performed at [facility] with Dr. Barraza. Patient doing well, steri strips removed, restrictions lifted Follow Up: Patient is to return to the office for annual exam unless needed otherwise. Documented by JULIANA Dubois on behalf of: JULIANA Dubois documented in this encounter [facility] 12-20-2023 History of Present illness Narrative Images from the original note were not included. [facility] [address] [address] [phone] Subjective: Chief Complaint Shortness a breath HPI [...] this note were generated using voice recognition E[employer]*Modal dictation software. Although every effort was made to ensure the accuracy of this automated osteology teacher, some errors in osteology teacher may have occurred. documented in this encounter [facility] 11-10-2023 Note XR CHEST 2 VWS Procedure: Chest x-ray performed Number of views:2 History:Shortness of breath Comparison:09/07/2012 Findings: The heart and lungs show no acute findings, and the mediastinum and fabienne are grossly negative . Impression: 1. No acute change. Finalized by Bola Dang MD on 11/10/2023 9:58 AM [facility] 04-21-2022 Evaluation note Encounter Date Diagnosis Assessment [...] we will help you get into specialist. [employer] Other 10-04-2022 Evaluation note* Encounter Date Diagnosis [...] therapy plan may need to be made. [facility] [employer] Other 11-09-2021 Evaluation note* Encounter Date Diagnosis Assessment Notes Treatment Notes Treatment Clinical Notes Apr, Tinea pedis of both feet (ICD-10 - B35.3) Use medication as directed. Shows need to be cleaned and clean socks need to be worn daily. Education handout printed on [employer] Other evaluation noteNo [facility] [employer] Other evaluation noteNo assessment information available [facility] Work Phone: evaluation note* Diagnosis Onset Date Resolution Status Acute bilateral otitis media acute [facility] Work Phone: evaluation note* Diagnosis Onset Date Resolution Status Acute bilateral otitis media acute Acute maxillary sinusitis, unspecified acute [facility] Work Phone: evaluation note* Diagnosis Onset Date Resolution Status Acute maxillary sinusitis, unspecified acute [facility] Work Phone: evaluation note* Diagnosis Pelvic pain in female- Primary Unspecified symptom associated with female genital organs [facility] Diagnosis Missed menses , unspecified gestational age Encounter for supervision of normal first in first trimester Nausea and vomiting in Unspecified vomiting of , unspecified as to episode of care [facility]* Diagnosis First trimester state, incidental 11 weeks gestation of documented [facility]* Diagnosis Mild persistent asthma without complication- Primary Multiple pulmonary nodules Other diseases of lung, not elsewhere classified SOB (shortness of breath) Shortness of breath [facility] Diagnosis Mild persistent asthma without complication- Primary Multiple pulmonary nodules Other diseases of lung, not elsewhere classified [facility] Diagnosis Exposure to STD [...] state, incidental documented [facility]* Diagnosis Third trimester ([facility]) state, incidental 38 weeks gestation of ([facility]) documented in this encounter [facility] general Narrative - Reported* Type Description Date Medical History acid reflux Surgical History caps on teeth when younger Hospitalization History [facility] Other History general Narrative - Reported* Type Description Date Medical History acid reflux Medical History headache Medical History seizures Surgical History caps on teeth when younger Hospitalization History [facility] Other History of Present illness Narrative* JULIANA [...] behalf of: JULIANA Dubois documented in this encounter[facility] HealthcareInstructionsNot on filedocumented in this encounterProOhio[facility] SystemInstructionsNot on filedocumented in this encounterProOhio[facility] Summary Purpose Family History No [...] section and content) DATE CREATED AUTHOR 04/09/2018 [facility] DATE CREATED AUTHOR AUTHOR'S ORGANIZ ATION 04/27/2022 [facility] DATE CREATED AUTHOR AUTHOR'S ORGANIZ ATION 09/30/2022 [facility] DATE CREATED AUTHOR AUTHOR'S ORGANIZ ATION 05/23/2024 [facility] DATE CREATED AUTHOR AUTHOR'S ORGANIZ ATION 10/27/2024 [facility] DATE CREATED AUTHOR AUTHOR'S ORGANIZ ATION 01/10/2025 [facility] EPIC REASON FOR VISIT (unrecogniz ed section and content) Reason Comments Post-op Visit Reason Comments Amenorrhea Reason Comments Routine Visit Reason Comments New Patient CXR: 11/10/2023FT: 11/10/2023SOB: when it's hot outside, some on exertionTobacco Use: Former Vape User, nicotine, 6 month user Started Tobacco: December 2022-June 2023Hx Sleep Apnea: no Asthma Specialty Diagnoses / Procedures Referred By Ralf t Referred To Contact Pulmonary Medicine Diagnoses Asthma, unspecified asthma severity, unspecified whether complicated, unspecified whether persistent SOB (shortness of breath) Abnormal chest CT Emelyn Robins, MARKO-MANAGER ENGINE [address] [place] [id number] sp Pulm Sleep Med [address] [place] [address] Referral ID Status Reason Start Date Expiration Date Visits Requested Visits Authorized [id number] Pending Review Specialty Services Required 11/04/2023 11/03/2024 [...] April 22, 2024 End: April 22, 2024 Reed Cleaner Relationship Specialty Start Date End Date Emelyn Robins APRN-ESTELLE [address] [place], [place] [id number] PCP - General Family Medicine 11/21/23 Reed Cleaner Relationship Specialty Start Date End Date Emelyn Robins APRN-ESTELLE [address] [place], [place] [id number] PCP - General Family Medicine 11/21/23 Goals [...] BE BASED ON THE PRIMARY CLINICAL RECORDS. [facility]. provides no warranty or guarantee of the accuracy or completeness of information in this document.
[2025-01-17] MEDS: ROPIVACAINE HCL/PF 400 MG/200 ML PREMIX 10 MG EPIDURAL (07:56)
[2025-01-17] MEDS: OXYTOCIN/0.9 % SODIUM CHLORIDE 20 UNITS/1,000 ML PLAST..BAG 125 UNIT IV (10:06)
--- NOTE | 2025-01-17 10:16 | PM.OBPRCVD ---
Procedure Intrapartal events: None Induction method: none Delivery augmentation: rupture of membranes and pitocin Delivery monitor: external FHT and external uterine Route of delivery: Episiotomy Description: midline L&D Laceration Description: perineal - 2nd degree Delivery repair: Vicryl Estimated blood loss (mL): 400 Anesthesia type: nubain Disposition: floor Infant Delivery date: 01/17/25 Gender: male presentation: vertex Placental delivery description: Spontaneous cord description: 3 Vessels
[2025-01-17] MEDS: GLYCERIN/WITCH HAZEL PADS 1 PAD TOPICAL (13:23)
[2025-01-17] MEDS: BENZOCAINE/MENTHOL 85 GRAM SPRAY BOTTLE 1 APPLIC TOPICAL (13:23)
[2025-01-17] MEDS: IBUPROFEN 600 MG TABLET PO (13:24)
[2025-01-18 00:01] VITALS: BP 109/56; PULSE 76; TEMP 37.4
[2025-01-18] MEDS: IBUPROFEN 600 MG TABLET PO ×2 (00:01→19:17)
[2025-01-18 06:57] LABS: Hematocrit 33.8 % (36.0-48.0); Hemoglobin 11.8 g/dL (12.0-16.0); Immature Granulocytes Abs Auto 0.18 10^3/uL (0.00-0.03); Immature Granulocytes Pct Auto 1.0 % (0.0-0.5); Lymphocytes Absolute Auto 4.4 10^3/uL (1.2-3.8); Mean Corpuscular HGB Conc 34.9 g/dL (29.9-35.2); Mean Corpuscular Hemoglobin 31.1 pg (26.7-34.0); Mean Corpuscular Volume 89.2 fL (81.0-99.0); Platelet Count 215 10^3/uL (150-450); Red Blood Count 3.79 10^6/uL (4.20-5.40); White Blood Count 17.4 10^3/uL (4.0-11.0)
[2025-01-18 08:35] VITALS: BP 127/83; PULSE 81; TEMP 36.9
[2025-01-18 08:37] VITALS: BP 127/83; PULSE 81
--- NOTE | 2025-01-18 10:56 | SWNOTE1 ---
SW met with pt and father of baby in room. Pt and father of baby voiced they have everything they need at home for baby. Pt is breast feeding and voiced it is going well. This is their first child. They voiced they have good support system at home. SW and pt spoke about post depression and to be aware of signs. She voiced understanding. Pt voiced no further questions/needs at this time. Pt voiced no resources are needed at this time. SW to follow as needed.
--- NOTE | 2025-01-18 12:34 | PM.OBPN ---
OB - PN: Subj Subjective Interval history: Day # 1 S/P . Breast feeding without difficulty and feeling well. Patient comments: no complaints (bleeding is slow), pain well controlled and tolerating diet Albers status: doing well and well Exam Constitutional Vital Signs, click to edit/add: Last Vital Signs Temp 98.5 F 01/18/25 08:35 Pulse 81 01/18/25 08:37 Resp 16 01/18/25 08:35 BP 127/83 01/18/25 08:37 O2 Del Method Room Air 01/18/25 00:10 Documenting provider has reviewed patient's vital signs: yes Common normals: no apparent distress, average body habitus, oriented x3, healthy appearing, alert and well nourished General appearance: cooperative, comfortable and well developed Orientation/consciousness: Yes awake GI Common normals: soft to palpation and non-tender (fundus firm at the umbilicus) Back & Pelvis Common normals: no CVA tenderness Extremity Common normals: normal to inspection, full ROM and no pedal edema Neuro Common normals: oriented x3, moves all extremities, no focal motor deficits and no sensory deficits noted Sensorium/orientation: awake, alert, oriented to person, oriented to place and oriented to time Psych Common normals: mental status grossly normal, thought process normal, cooperative, affect normal and speech normal Results Labs Labs: Short CBC 01/18/25 Range/Units 06:43 WBC 17.4 H (4.0-11.0) 10^3/uL Hgb 11.8 L (12.0-16.0) g/dL Hct 33.8 L (36.0-48.0) % Plt Count 215 (150-450) 10^3/uL OB - PN: A/P Plan - Vaginal Delivery day: 1 Plan: routine care Comment: Anticipate discharge tomorrow Time Spent with Patient Time: Total time spent is greater than 50% in coordination of care (as documented) at patient's floor/unit and/or counseling patient: Total time spent with greater than 50% in coordination of care (as documented) at patient's floor/unit and/or counseling patient: less than 15 minutes
[2025-01-18 16:05] VITALS: BP 135/82; BP 147/82; PULSE 95; TEMP 36.8
[2025-01-18 16:09] VITALS: BP 135/82; PULSE 81
[2025-01-18] MEDS: DOCUSATE SODIUM 100 MG CAPSULE PO (21:05)
[2025-01-18] MEDS: GLYCERIN/WITCH HAZEL PADS 1 PAD TOPICAL (21:20)
[2025-01-18 23:59] VITALS: BP 130/83; PULSE 72; TEMP 37.1
[2025-01-19 07:57] VITALS: BP 132/84; PULSE 76
[2025-01-19 08:00] VITALS: TEMP 37.1
--- NOTE | 2025-01-19 11:03 | PM.OBDS ---
DS: Providers Provider Date of admission: 01/16/25 17:28 Primary care physician: [facility] Admitting clinician: Collin Barraza Attending physician on admission: oCllin Barraza Attending physician on discharge: RADHA PERES Discharging clinician: RADHA PERES Anticipated date of discharge: 01/19/25 DS: Diagnosis Discharge Diagnosis (1) Vaginal delivery: Plan discharge to home OB - DS: Summary Hospital Course Hospital Course: She was admitted on 01/07/25 and was induced with pitocin and had ROM. She delivered over a second degree laceration which was repaired a male infant. She was breast feeding. Hemoglobin started at 14.3 and dropped to 11.8. Patient was doing well and was discharged on PPD # 2 without difficulty. Complications complications: none Delivery method: spontaneous vaginal delivery Gender: male Discharge plan: home Status at Discharge Cognitive/behavioral status at discharge: stable Functional status at discharge: independent ambulation Time Spent with Patient Time attestation: Total time spent providing and/or coordinating discharge services: Time spent: less than 30 minutes Exam Constitutional Vital Signs, click to edit/add: Last Vital Signs Temp 98.7 F 01/19/25 08:00 Pulse 76 01/19/25 07:57 Resp 16 01/19/25 08:00 BP 132/84 01/19/25 07:57 O2 Del Method Room Air 01/18/25 00:10 Documenting provider has reviewed patient's vital signs: yes Common normals: no apparent distress, average body habitus, oriented x3, healthy appearing, alert and well nourished General appearance: comfortable, well kempt and well developed Orientation/consciousness: Yes awake HENMT Common normals: normocephalic Eye Common normals: EOMs intact bilaterally Alignment: alignment normal Neck & C-Spine Common normals: full ROM Chest Chest: symmetrical chest wall rise Respiratory Common normals: normal respiratory effort Cardio Common normals: regular rate GI Common normals: soft to palpation Other: fundus firm below umbilicus Back & Pelvis Common normals: no CVA tenderness Extremity Common normals: normal to inspection and no pedal edema Neuro Common normals: oriented x3 and moves all extremities Speech: speech normal Psych Common normals: mental status grossly normal, thought process normal, cooperative, affect normal and speech normal Discharge Plan Discharge Disposition: Home, Self-Care Condition: Good Discharge Medications: New ibuprofen 600 mg Tablet 600 mg PO Q6H PRN (Reason: Moderate Pain) Qty: 40 0RF Continued albuterol sulfate 90 mcg/actuation HFA aerosol inhaler 2 inh INHALATION Q4H PRN (Reason: shortness of breath or wheezing) Patient Comments: rarely uses clindamycin HCl [Cleocin HCl] 300 mg capsule 300 mg PO TID 7 Days Qty: 21 0RF Activity: increase activity as tolerated Diet: regular diet Print Language: Belarusian Patient Instructions: Vaginal Delivery (GEN) Activity Restrictions/Additional Instructions: No lifting over 20 pounds for 1-2 weeks. No sexual activity or nothing in the vagina for 6 weeks. No douching ever. No driving for 1-2 weeks. Showers are fine but no sitting and soaking in a bathtub or pool for 4-5 weeks. Call for temperature over 101 degrees, pain not controlled with your pain medicines, bleeding completely soaking a pad in an hour or severe nausea. Forms: Vaginal Delivery - Discharge, Portal Instructions Follow Up Appointments: [address] Christi Dumont location: home
[2025-01-19] MEDS: MEASLES,MUMPS,RUBELLA VACC/PF 0.5 ML VIAL SQ (11:05)
== END 2025-01-19 11:35 | disposition home or self-care (01) | DRG 807 ==
PROVIDERS: Admitting Provider Obstetrics & Gynecology; Visit Provider Obstetrics & Gynecology
DX: O26.893 Other specified pregnancy related conditions, third trimester (principal); Z37.0 Single live birth; Z67.41 Type O blood, Rh negative; O70.1 Second degree perineal laceration during delivery; O99.334 Smoking (tobacco) complicating childbirth; F17.290 Nicotine dependence, other tobacco product, uncomplicated; Z3A.38 38 weeks gestation of pregnancy
CPT/HCPCS: 36415; 59025; 59050; 59410; 81001; 85025; 85027; 86850; 86900; 86901; 90707; J2300; J2405; J2795

== ENCOUNTER 2025-01-23 08:00 | Outpatient (OUT) | payer OTHER, SELFPAY ==
--- OUTSIDE RECORDS SUMMARY | 2025-01-23 08:06 | XMS_ITS | CCD ---
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 UA Yellow [facility] Glucose, UA Negative Negative - 1999(110) ++++ mg/dL [facility] Interpretation and review of laboratory results Normal [facility] Ketones, UA Negative Negative - 160(16) ++++ mg/dL [facility] Leukocytes, UA Trace Negative - 500+++ Héctor/mcL [facility] Nitrite, UA Negative Negative - Positive [facility] pH, UA 7 5 - 9 [facility] Protein, UA Negative Negative - 1999(20) ++++ mg/dL [facility] Spec Grav, UA 1.025 1 - 1.03 [facility] Urobilinogen, UA 0.2 0.2 - 12 mg/dL [facility] CBC AND AUTO DIFFon 08-17-19 ABSOLUTE BASOPHIL 0.0 X10E9/L Normal 0.0-0.2 [facility] Comment on above: Performed By: #### N UM #### [facility] ([id number]) [address] [place] [address] ABSOLUTE NEUTROPHIL 6.1 X10E9/L Normal 1.5-6.6 [facility] Comment on above: Performed By: #### N UM #### [facility] ([id number]) [address] [place] [address] Basophils/100 WBC (Bld) 0.3 % Normal [facility] Comment on above: Performed By: #### N UM #### [facility] ([id number]) [address] [place] [address] Eosinophils (Bld) [#/Vol] 0.1 10*3/uL Normal 0.0-0.4 [facility] Comment on above: Performed By: #### N UM #### [facility] ([id number]) [address] [place] [address] Eosinophils/100 WBC (Bld) 1.1 % Normal [facility] Comment on above: Performed By: #### N UM #### [facility] ([id number]) [address] [place] [address]279 Erythrocyte distribution width (RBC) [Ratio] 13.9 % Normal 11.5-15.0 [facility] Comment on above: Performed By: #### N UM #### [facility] ([id number]) [address] [place] [address] Hematocrit (Bld) [Volume fraction] 36.7 % Normal 35-47 [facility] Comment on above: Performed By: #### N UM #### [facility] ([id number]) [address] [place] [address] Hemoglobin (Bld) [Mass/Vol] 13.0 g/dL Normal 11.7-15.5 [facility] Comment on above: Performed By: #### N UM #### [facility] ([id number]) [address] [place] [address] Lymphocytes (Bld) [#/Vol] 2.9 10*3/uL Normal 1.0-3.5 [facility] Comment on above: Performed By: #### N UM #### [facility] ([id number]) [address] [place] [address] Lymphocytes/100 WBC (Bld) 30.1 % Normal [facility] Comment on above: Performed By: #### N UM #### [facility] ([id number]) [address] [place] [address]26 MCH (RBC) [Entitic mass] 31.8 pg Normal 27-34 [facility] Comment on above: Performed By: #### N UM #### [facility] ([id number]) [address] [place] [address] MCHC (RBC) [Mass/Vol] 35.6 g/dL Normal 32-36 [facility] Comment on above: Performed By: #### N UM #### [facility] ([id number]) [address] [place] [address] MCV (RBC) [Entitic vol] 89 fL Normal 80-100 [facility] Comment on above: Performed By: #### N UM #### [facility] ([id number]) [address] [place] [address] Monocytes (Bld) [#/Vol] 0.5 10*3/uL Normal 0-0.9 [facility] Comment on above: Performed By: #### N UM #### [facility] ([id number]) [address] [place] [address] Monocytes/100 WBC (Bld) 4.8 % Normal [facility] Comment on above: Performed By: #### N UM #### [facility] ([id number]) [address] [place] [address] Neutrophils/100 WBC (Bld) 63.7 % Normal [facility] Comment on above: Performed By: #### N UM #### [facility] ([id number]) [address] [place] [address] Platelet mean volume (Bld) [Entitic vol] 7.8 fL Normal 7-12 [facility] Comment on above: Performed By: #### N UM #### [facility] ([id number]) [address] [place] [address] Platelets (Bld) [#/Vol] 249 10*3/uL Normal 150-450 [facility] Comment on above: Performed By: #### N UM #### [facility] ([id number]) [address] [place] [address] RBC COUNT 4.10 X10E12/L Normal 3.80-5.20 [facility] Comment on above: Performed By: #### N UM #### [facility] ([id number]) [address] [place] [address] WBC (Bld) [#/Vol] 9.6 10*3/uL Normal 4.0-11.0 [facility] Comment on above: Performed By: #### N UM #### [facility] ([id number]) [address] [place] [address] DRUG SCREEN, URINEon 025 AMPHETAMINE/METHAMP Negative Normal NEG [facility] Comment on above: Result Comment: AMPH /METH screening cut off = 1000 ng/mL Performed By: #### N UM #### [facility] ([id number]) [address] [place] [address] BARBITURATES Negative Normal NEG [facility] Comment on above: Result Comment: Jessica iturates screening cut off value = 200 ng/mL Performed By: #### N UM #### [facility] ([id number]) [address] [place] [address] BENZODIAZEPINES Negative Normal NEG [facility] Comment on above: Result Comment: Maikel odiazepines screening cut off value = 200 ng/mL Performed By: #### N UM #### [facility] ([id number]) [address] [place] [address] CANNABINOIDS Positive Abnormal NEG [facility] Comment on above: Result Comment: Conf irmation available upon request. Cannabinoids/THC screening cut off value = 50 ng/mL Performed By: #### N UM #### [facility] ([id number]) [address] [place] [address] COCAINE METABOLITE Negative Normal NEG [facility] Comment on above: Result Comment: Coca ine screening cut off value = 300 ng/mL Performed By: #### N UM #### [facility] ([id number]) [address] [place] [address] ECSTASY Negative Normal [facility] Comment on above: Result Comment: Ecst asy screening cut off value = 500 ng/mL This report is intended for use in clinical monitoring or management of patients. Performed By: #### N UM #### [facility] ([id number]) [address] [place] [address] METHADONE Negative Normal NEG [facility] Comment on above: Result Comment: Meth adone screening cut off value = 300 ng/mL. Performed By: #### N UM #### [facility] ([id number]) [address] [place] [address] 22426 OPIATES Negative Normal NEG [facility] Comment on above: Result Comment: Opia reid screening cut off value = 300 ng/mL NOTE: This test is used for the detection of codeine, hydrocodone (>1000 ng/mL), morphine and hydromorphone (>900 ng/mL) in urine. Performed By: #### N UM #### [facility] ([id number]) [address] [place] [address] OXYCODONE Negative Normal NEG [facility] Comment on above: Result Comment: Oxyc odone screening cut off value = 300 ng/mL NOTE: This test is used for the detection of oxycodone and oxymorphone in urine. Performed By: #### N UM #### [facility] ([id number]) [address] [place] [address] 35589 PHENCYCLIDINE Negative Normal NEG [facility] Comment on above: Result Comment: Phen cyclidine screening cut off value = 25 ng/mL Performed By: #### N UM #### [facility] ([id number]) [address] [place] [address] 70866 HBV surface Ag IA [facility] 08-17 HEPATITIS B SURF AG Non-Reactive Normal NRCT Pro [facility] Comment on above: Result Comment: NEW TEST METHOD Performed By: #### N UM #### [facility] ([id number]) [address] [place] [address] 68044 HCV Ab IA Qlon 08-17-2024 ANTI HCV W/PCR REFLX Non-Reactive Normal NRCT Pr [facility] Comment on above: Result Comment: NEW TEST METHOD NOTE If recent infection suspected, recommend repeat testing (>2 months). Naacpy-ko-kbxjso ratio is <1.00. Performed By: #### N UM #### [facility] ([id number]) [address] [place] [address] 88816 HGB A1C (GLYCO-HGB)on 2024 Glucose [Mass/Vol] 85 mg/dL Normal [facility] Comment on above: Performed By: #### N UM #### [facility] ([id number]) [address] [place] [address] 16553 HbA1c (Bld) [Mass fraction] 4.6 % Normal 4.4-5.6 [facility] Comment on above: Result Comment: NOTE ADA Guidelines Result HgbA1c Normal : less than 5.7 % Prediabetes : 5.7 % to 6.4 % Diabetes : > 6.4 % Use with caution in patients with abnormal hemoglobin variants as the half-life of red blood cells and in vivo glycation rates are affected. Performed By: #### N UM #### [facility] ([id number]) [address] [place] [address] 25104 HIV 1+2 Ab+HIV1 p24 Ag IA Ql on 08-17-2024 HIV 1 and 2 Ab/Ag Screen Non-Reactive Normal NRCT [facility] Comment on above: Result Comment: NEW [...] diagnoses. Performed By: #### 2 106-3 #### [facility] ([id number]) [address] [place] [address] 14008 Rubella virus IgG Qn (S)on 0 08-17-2024 RUBELLA IgG 6 IU/mL Normal [facility] Comment on above: Result Comment: Interpretation-------- <8 NEGATIVE-considered Not Immune 8-9 EQUIVOCAL-consider retesting with new specimen >9 POSITIVE-considered Immune Performed By: #### 2 106-3 #### [facility] ([id number]) [address] [place] [address] 64644 T. pallidum IgG+IgM IA Ql (S )on 08-17-2024 Syphilis Total <0.2 Normal 0.0-0.8 [facility] Comment on above: Result Comment: NON REACTIVE No serologic evidence of infection to Treponema pallidum (syphilis). Repeat testing may be considered in patients with suspected acute or primary syphilis in 2 to 4 weeks. Performed By: #### 2 106-3 #### [facility] ([id number]) [address] [place] [address] 92761 URINE CULTUREon 08-17-2024 Bacteria identified Cx Nom (U) SPECIMEN NOTES URINE RECEIVED WITHOUT PRESERVATIVE CULTURE RESULTS <10,000 ORGANISMS/ML NORMAL URO GENITAL CHU Normal [facility] Comment on above: Performed By: #### 2 106-3 #### [facility] ([id number]) [address] [place] [address]605 Urinalysis macro (dipstick) panel (U)on 07-13-2024 Bilirubin, UA Negative Negative - 4(70) +++ mg/dL [facility] Blood, UA Negative Negative - 50 Francois/mcL [facility] Clarity, UA Clear [facility]A Yellow [facility] Glucose, UA Negative Negative - 1999(110) ++++ mg/dL [facility] Interpretation and review of laboratory results Abnormal [facility] Ketones, UA Negative Negative - 160(16) ++++ mg/dL [facility] Leukocytes, UA Negative Negative - 500+++ Héctor/mcL [facility] Nitrite, UA Negative Negative - Positive [facility] pH, UA 7 5 - 9 [facility] Protein, UA Trace Negative - 1999(20) ++++ mg/dL [facility] Spec Grav, UA 1.02 1 - 1.03 [facility] Urobilinogen, UA 0.2 0.2 - 12 mg/dL [facility] BOX TESTon 06-30-2024 BOX TEST SENT OUT [employer] [facility] BOX1 [facility] BOX2 06/30/2024 [facility] [employer] [facility] HCG ( test) Ql (U)o n 06-23-2024 Interpretation and review of laboratory results Abnormal [facility] Preg Test, Ur Positive Negative [facility] care [facility] US [...] x 3.8 cm (8 weeks, 4 days). [place] rump length is 2.2-2.3 cm (8 weeks, [...] Negative Negative - 4(70) +++ mg/dL [facility] Blood, UA Negative Negative - 50 Francois/mcL [facility] Clarity, UA Clear [facility] re Color, UA Yellow [facility] Glucose, UA Negative Negative - 2000(110) ++++ mg/dL [facility] Interpretation and review of laboratory results Abnormal [facility] Ketones, UA Positive Negative - 160(16) ++++ mg/dL [facility] Leukocytes, UA Negative Negative - 500+++ Héctor/mcL [facility] Nitrite, UA Negative Negative - Positive [facility] pH, UA 6.5 5 - 9 [facility] e Protein, UA Negative Negative - 2000(20) ++++ mg/dL [facility] Spec Grav, UA 1.03 1 - 1.03 [facility] Urobilinogen, UA 1.0 0.2 - 12 mg/dL [facility] Influenza virus B Ag [Presen ce] in Upper respiratory specimen by Rapid immunoassayon 03-25-2024 FLUBV Ag IA.rapid Ql (Nph) Negative [facility] No Panel Informationon 03-25 Influenza Type A (Rapid) Negative [facility] POC SARS CoV-2 Antigen Negative [facility] ALL CBC WITH AUTO DIFFon BASOPHILS ABSOLUTE AUTO 0.0 [facility] Basophils/100 WBC (Bld) 0.5 % 0.2 - 2.0 % [facility] Eosinophils/100 WBC (Bld) 2.9 % 0.9 - 7.0 % [facility] Erythrocyte distribution width (RBC) [Ratio] 12.0 % 11.0 - 15.0 % [facility] Hematocrit (Bld) [Volume fraction] 40.2 % 36.0 - 48.0 % [facility] e Hemoglobin (Bld) [Mass/Vol] 14.1 g/dL 12.0 - 16.0 g/dL [facility] IMMATURE GRANULOCYTES ABS AUTO 0.01 [facility] Immature granulocytes/100 WBC (Bld) 0.2 % 0.0 - 0.5 % [facility] Interpretation and review of laboratory results Abnormal [facility] LYMPHOCYTES ABSOLUTE AUTO 2.4 [facility] Lymphocytes/100 WBC (Bld) 43.0 % 20.5 - 60.0 % [facility] MCH (RBC) [Entitic mass] 30.8 pg 26.7 - 34.0 pg [facility] MCHC (RBC) [Mass/Vol] 35.1 g/dL 29.9 - 35.2 g/dL [facility] MCV (RBC) [Entitic vol] 87.8 fL 81.0 - 99.0 fL [facility] MONOCYTES ABSOLUTE AUTO 0.4 [facility] Monocytes/100 WBC (Bld) 7.1 % 1.7 - 12.0 % [facility] NEUTROPHILS ABSOLUTE AUTO 2.6 [facility] Neutrophils/100 WBC (Bld) 46.3 % 43.0 - 75.0 % [facility] Platelet mean volume (Bld) [Entitic vol] 8.6 fL Low 9.5 - 13.5 fL [facility] EO # 0.2 [facility] PLT 232 [facility] RBC 4.58 [facility] WBC 5.5 [facility] COMPLETE BLOOD COUNTon 12-23 Erythrocyte distribution width (RBC) [Ratio] 13.5 % Normal 11.5-15.0 [facility] Comment on above: Performed By: #### C BC, CMP, 22973-1, THYR, 24231-5, 90213-3 #### [facility] ([id number]) [address], [address] [place] [address] Hematocrit (Bld) [Volume fraction] 37.1 % Normal 35-47 [facility] Comment on above: Performed By: #### Kailyn BC, CMP, 34070-7, THYR, 49463-5, 79465-6 #### [facility] ([id number]) [address], [address] [place] [address] Hemoglobin (Bld) [Mass/Vol] 13.1 g/dL Normal 11.7-15.5 [facility] Comment on above: Performed By: #### Kailyn BC, CMP, 49349-0, THYR, 95516-9, 96050-8 #### [facility] ([id number]) [address], [address] [place] [address] MCH (RBC) [Entitic mass] 31.6 pg Normal 27-34 [facility] Comment on above: Performed By: #### Kailyn BC, CMP, 32372-8, THYR, 94025-8, 06110-8 #### [facility] ([id number]) [address], [address] [place] [address] MCHC (RBC) [Mass/Vol] 35.3 g/dL Normal 32-36 [facility] Comment on above: Performed By: #### C BC, CMP, 39369-7, THYR, 13668-7, 85981-5 #### [facility] ([id number]) [address], [facility] [address] [place] [address] MCV (RBC) [Entitic vol] 90 fL Normal 80-100 [facility] Comment on above: Performed By: #### C BC, CMP, 14502-1, THYR, 82320-9, 43198-1 #### [facility] ([id number]) [address], [facility] [address] [place] [address] Platelet mean volume (Bld) [Entitic vol] 7.7 fL Normal 7-12 [facility] Comment on above: Performed By: #### C BC, CMP, 12462-4, THYR, 10686-0, 19651-9 #### [facility] ([id number]) [address] [place] [address] Platelets (Bld) [#/Vol] 242 10*3/uL Normal 150-450 [facility] Comment on above: Performed By: #### C BC, CMP, 79384-4, THYR, 96195-9, 43886-2 #### [facility] ([id number]) [address], [address] [place] [address] RBC COUNT 4.13 X10E12/L Normal 3.80-5.20 [facility] Comment on above: Performed By: #### C BC, CMP, 45111-7, THYR, 81945-0, 16043-9 #### [facility] ([id number]) [address] [place] [address] WBC (Bld) [#/Vol] 6.7 10*3/uL Normal 4.0-11.0 [facility] Comment on above: Performed By: #### C BC, CMP, 40050-6, THYR, 47028-1, 99805-8 #### [facility] ([id number]) [address], [address] [place] [address] COMPREHENSIVE METABOLIC [place]ANE [place] 12-24-2023 Albumin [Mass/Vol] 4.4 g/dL Normal 3.2-5.3 [facility] Comment on above: Performed By: #### N UM #### [facility] ([id number]) [address] [place] [address] 62240 ALP [Catalytic activity/Vol] 64 U/L Normal 39-130 [facility] Comment on above: Performed By: #### N UM #### [facility] ([id number]) [address] [place] [address] 73643 ALT [Catalytic activity/Vol] 35 U/L High 0-31 [facility] Comment on above: Performed By: #### N UM #### [facility] ([id number]) [address] [place] [address] 71149 Anion gap [Moles/Vol] 10 mmol/L Normal 5-15 [facility] Comment on above: Performed By: #### N UM #### [facility] ([id number]) [address] [place] [address] 86209 AST [Catalytic activity/Vol] 23 U/L Normal 0-41 [facility] Comment on above: Performed By: #### N UM #### [facility] ([id number]) [address] [place] [address] 32116 Bilirubin [Mass/Vol] 0.6 mg/dL Normal 0.3-1.2 [facility] Comment on above: Performed By: #### N UM #### [facility] ([id number]) [address] [place] [address] 66876 Calcium [Mass/Vol] 9.3 mg/dL Normal 8.5-10.5 [facility] Comment on above: Performed By: #### N UM #### [facility] ([id number]) [address] [place] [address] 97729 Chloride [Moles/Vol] 104 mmol/L Normal 98-109 [facility] Comment on above: Performed By: #### N UM #### [facility] ([id number]) [address] [place] [address] 98040 CO2 [Moles/Vol] 24 mmol/L Normal 22-32 [facility] Comment on above: Performed By: #### N UM #### [facility] ([id number]) [address] [place] [address] [address] Creatinine [Mass/Vol] 0.53 mg/dL Normal 0.40-1.00 [facility] Comment on above: Result Comment: METH OD TRACEABLE TO IDMS STANDARD Performed By: #### N UM #### [facility] ([id number]) [address] [place] [address] 64597 eGFR (CKD-EPI) NON-RACE DEPENDENT >90 Normal >59 [facility] Comment on above: Result Comment: Reported eGFR is based on the CKD-EPI 2020 equation that does not use a race coefficient. Performed By: #### N UM #### [facility] ([id number]) [address] [place] [address] 45541 Glucose [Mass/Vol] 61 mg/dL Low 65-99 [facility] Comment on above: Performed By: #### N UM #### [facility] ([id number]) [address] [place] [address] 01479 Potassium [Moles/Vol] 3.8 mmol/L Normal 3.5-5.0 [facility] Comment on above: Performed By: #### N UM #### [facility] ([id number]) [address] [place] [address] Protein [Mass/Vol] 7.2 g/dL Normal 6.0-8.0 [facility] Comment on above: Performed By: #### N UM #### [facility] ([id number]) [address] [place] [address] 50784 Sodium [Moles/Vol] 138 mmol/L Normal 134-146 [facility] Comment on above: Performed By: #### N UM #### [facility] ([id number]) [address] [place] [address] 19958 Urea nitrogen [Mass/Vol] 8 mg/dL Normal 5-23 [facility] Comment on above: Performed By: #### N UM #### [facility] ([id number]) [address] [place] [address] 07931 HCV Ab IA Qlon 12-24-2023 ANTI HCV W/PCR REFLX Non-Reactive Normal NRCT [facility] Comment on above: Result Comment: If recent infection suspected, recommend repeat testing (>2 months). Jiksym-ak-kbmpcp ratio is <0.80. Performed By: #### N UM #### [facility] ([id number]) [address] [place] [address] 76359 HIV 1+2 Ab+HIV1 p24 Ag IA Ql on 12-24-2023 HIV 1 and 2 Ab/Ag Screen Non-Reactive Normal NRCT [facility] Comment on above: Result Comment: This [...] diagnoses. Performed By: #### N UM #### [facility] ([id number]) [address] [place] [address] 41194 Lipid 1996 panelon 4 Cholesterol [Mass/Vol] 164 mg/dL Normal 150-200 [facility] Comment on above: Performed By: #### N UM #### [facility] ([id number]) [address] [place] [address] 25021 Cholesterol in HDL [Mass/Vol] 56 mg/dL Normal >39 [facility] Comment on above: Result Comment: HDL <40 mg/dL - High Risk HDL > or = 40mg/dL- Desirable HDL >60 mg/dL - Negative Risk Performed By: #### N UM #### [facility] ([id number]) [address] [place] [address] 84049 Cholesterol in LDL [Mass/Vol] 87 mg/dL Normal <130 [facility] Comment on above: Result Comment: LDL <100 mg/dL - Desirable LDL >160 mg/dL - High Risk Performed By: #### N UM #### [facility] ([id number]) [address] [place] [address] 95229 Cholesterol in VLDL [Mass/Vol] 21 mg/dL Normal 0-30 [facility] Comment on above: Performed By: #### N UM #### [facility] ([id number]) [address] [place] [address] 19441 CHOLESTEROL:HDL 2.9 Normal 1.0-5.0 [facility] Comment on above: Performed By: #### N UM #### [facility] ([id number]) [address] [place] [address] 78387 Triglyceride [Mass/Vol] 103 mg/dL Normal 27-150 [facility] Comment on above: Performed By: #### N UM #### [facility] ([id number]) [address] [place] [address] 97981 THYROID PROFILEon 12-24-2023 Free T4 [Mass/Vol] 0.83 ng/dL Normal 0.61-1.60 [facility] Comment on above: Performed By: #### N UM #### [facility] ([id number]) [address] [place] [address] 43430 TSH 1.00 uIU/mL Normal 0.49-4.67 [facility] Comment on above: Performed By: #### N UM #### [facility] ([id number]) [address] [place] [address] 87537 CBC AND AUTO DIFFon 11-21-19 24 ABSOLUTE BASOPHIL 0.0 X10E9/L Normal 0.0-0.2 [facility] Comment on above: Performed By: #### C DEREK CMP, 3039-08, 13849-6 #### [facility] ([id number]) [address] [place] [address] 52691 ABSOLUTE NEUTROPHIL 1.5 X10E9/L Normal 1.5-6.6 [facility] Comment on above: Performed By: #### C DEREK CMP, 3039-08, #### [facility] ([id number]) [address] [place] [address] 45063 Basophils/100 WBC (Bld) 1.0 % Normal [facility] Comment on above: Performed By: #### C BCA CMP, 3039-08, #### [facility] ([id number]) [address] [place] [address] 23527 Eosinophils (Bld) [#/Vol] 0.2 10*3/uL Normal 0.0-0.4 [facility] Comment on above: Performed By: #### C MARTY REED, 3039-08, #### [facility] ([id number]) [address] [place] [address] 89678 Eosinophils/100 WBC (Bld) 3.9 % Normal [facility] Comment on above: Performed By: #### C DEREK [facility], 3039-08, #### [facility] ([id number]) [address] [place] [address] 89707 Erythrocyte distribution width (RBC) [Ratio] 13.7 % Normal 11.5-15.0 [facility] Comment on above: Performed By: #### Kailyn REED [facility], 3039-08, #### [facility] ([id number]) [address] [place] [address] 88532 Hematocrit (Bld) [Volume fraction] 38.2 % Normal 35-47 [facility] Comment on above: Performed By: #### Kailyn REED [facility], 3039-08, #### [facility] ([id number]) [address] [place] [address] 03964 Hemoglobin (Bld) [Mass/Vol] 13.7 g/dL Normal 11.7-15.5 [facility] Comment on above: Performed By: #### C DEREK [facility], 3039-08, #### [facility] ([id number]) [address] [place] [address] 36323 Lymphocytes (Bld) [#/Vol] 2.3 10*3/uL Normal 1.0-3.5 [facility] Comment on above: Performed By: #### C DEREK, CMP, 3039-08, #### [facility] ([id number]) [address] [place] [address] 21737 Lymphocytes/100 WBC (Bld) 52.0 % Normal [facility] Comment on above: Performed By: #### C BCA, CMP, 3039-08, #### [facility] ([id number]) [address] [place] [address] 14593 MCH (RBC) [Entitic mass] 30.6 pg Normal 27-34 [facility] Comment on above: Performed By: #### C DEREK, CMP, 3039-08, #### [facility] ([id number]) [address] [place] [address] 53901 MCHC (RBC) [Mass/Vol] 35.9 g/dL Normal 32-36 [facility] Comment on above: Performed By: #### C DEREK, CMP, 3039-08, #### [facility] ([id number]) [address] [place] [address] 37641 MCV (RBC) [Entitic vol] 85 fL Normal 80-100 [facility] Comment on above: Performed By: #### C DEREK, CMP, 3039-08, #### [facility] ([id number]) [address] [place] [address] 55608 Monocytes (Bld) [#/Vol] 0.4 10*3/uL Normal 0-0.9 [facility] Comment on above: Performed By: #### C BCA, CMP, 3039-08, #### [facility] ([id number]) [address] [place] [address] 67071 Monocytes/100 WBC (Bld) 9.7 % Normal [facility] Comment on above: Performed By: #### C BCA, CMP, 3039-08, #### [facility] ([id number]) [address] [place] [address] 17483 Neutrophils/100 WBC (Bld) 33.4 % Normal [facility] Comment on above: Performed By: #### C DEREK, CMP, 3039-08, #### [facility] ([id number]) [address] [place] [address] 32894 Platelet mean volume (Bld) [Entitic vol] 6.9 fL Low 7-12 [facility] Comment on above: Performed By: #### C DEREK, CMP, 3039-08, #### [facility] ([id number]) [address] [place] [address] 55960 Platelets (Bld) [#/Vol] 236 10*3/uL Normal 150-450 [facility] Comment on above: Performed By: #### C DEREK, CMP, 3039-08, 01226-8 #### [facility] ([id number]) [address] [place] [address] 79121 RBC COUNT 4.48 X10E12/L Normal 3.80-5.20 [facility] Comment on above: Performed By: #### C DEREK, CMP, 3039-08, #### [facility] ([id number]) [address] [place] [address] 01240 WBC (Bld) [#/Vol] 4.5 10*3/uL Normal 4.0-11.0 [facility] Comment on above: Performed By: #### C BCA, CMP, 3039-08, #### [facility] ([id number]) [address] [place] [address] 00869 COMPREHENSIVE METABOLIC PANE Grey 11-21-2023 Albumin [Mass/Vol] 4.5 g/dL Normal 3.2-5.3 [facility] Comment on above: Performed By: #### C BCA, CMP, 3039-08, 03910-2 #### [facility] ([id number]) [address] [place] [address] 87494 ALP [Catalytic activity/Vol] 55 U/L Normal 39-130 [facility] Comment on above: Performed By: #### C BCA, CMP, 3039-08, #### [facility] ([id number]) [address] [place] [address] 71834 ALT [Catalytic activity/Vol] 28 U/L Normal 0-31 [facility] Comment on above: Performed By: #### C BCA, CMP, 3039-08, #### [facility] ([id number]) [address] [place] [address] [place] [address] Anion gap [Moles/Vol] 5 mmol/L Normal 5-15 [facility] Comment on above: Performed By: #### C BCA, CMP, 3039-08, 09275-1 #### [facility] ([id number]) [address] [place] [address] 41429 AST [Catalytic activity/Vol] 22 U/L Normal 0-41 [facility] Comment on above: Performed By: #### C BCA, CMP, 3039-08, #### [facility] ([id number]) [address] [place] [address] 49766 Bilirubin [Mass/Vol] 0.6 mg/dL Normal 0.3-1.2 [facility] Comment on above: Performed By: #### C BCA, CMP, 3039-08, 92734-5 #### [facility] ([id number]) [address] [place] [address] [place] [address] Calcium [Mass/Vol] 8.9 mg/dL Normal 8.5-10.5 [facility] Comment on above: Performed By: #### C MARTY REED, 3039-3, 01812-2 #### [facility] ([id number]) [address] [place] [address] 02716 Chloride [Moles/Vol] 104 mmol/L Normal 98-109 [facility] Comment on above: Performed By: #### C MARTY REED, 3, #### [facility] ([id number]) [address] [place] [address] 65157 CO2 [Moles/Vol] 24 mmol/L Normal 22-32 [facility] Comment on above: Performed By: #### C MARTY REED, 3039-08, #### [facility] ([id number]) [address] [place] [address] 15442 Creatinine [Mass/Vol] 0.69 mg/dL Normal 0.40-1.00 [facility] Comment on above: Result Comment: METH OD TRACEABLE TO IDMS STANDARD Performed By: #### C MARTY REED, 3039-08, 12981-0 #### [facility] ([id number]) [address] [place] [address] 53335 eGFR (CKD-EPI) NON-RACE DEPENDENT >90 Normal >59 [facility] Comment on above: Result Comment: Reported eGFR is based on the CKD-EPI 2020 equation that does not use a race coefficient. Performed By: #### C DEREK CMP, 3, 38899-1 #### [facility] ([id number]) [address] [place] [address] 73694 Glucose [Mass/Vol] 93 mg/dL Normal 65-99 [facility] Comment on above: Performed By: #### C DEREK, CMP, 3, #### [facility] ([id number]) [address] [place] [address] 18500 Potassium [Moles/Vol] 3.7 mmol/L Normal 3.5-5.0 [facility] Comment on above: Performed By: #### C BCA, CMP, 3040-3, 96223-1 #### [facility] ([id number]) [address] [place] [address] 63807 Protein [Mass/Vol] 7.6 g/dL Normal 6.0-8.0 [facility] Comment on above: Performed By: #### C BCA, CMP, 3040-3, 99526-7 #### [facility] ([id number]) [address] [place] [address] 44053 Sodium [Moles/Vol] 133 mmol/L Low 134-146 [facility] Comment on above: Performed By: #### C BCA, CMP, 3040-3, 08359-5 #### [facility] ([id number]) [address] [place] [address] 96263 Urea nitrogen [Mass/Vol] 9 mg/dL Normal 5-23 [facility] Comment on above: Performed By: #### C BCA, CMP, 3040-3, 77371-4 #### [facility] ([id number]) [address] [place] [address] ABDOMEN AND PELVIS WO CON Ton [...] Thompson MD on 11/21/2023 11:32 AM Normal [facility] HCG ( test) Ql (U)o n 11-21-2023 Beta HCG ( test) Ql (U) Negative Normal NEG [facility] Comment on above: Performed By: #### 2 106-3 #### [facility] ([id number]) [address] [place] [address] 42830 LIPASEon 11-21-2023 Lipase [Catalytic activity/Vol] 29 U/L Normal 17-40 [facility] Comment on above: Performed By: #### C BCA, CMP, 0-3, 98568-4 #### [facility] ([id number]) [address] [place] [address] 09510 MAGNESIUMon 11-21-2023 Magnesium [Mass/Vol] 2.2 mg/dL Normal 1.8-2.6 [facility] Comment on above: Performed By: #### C BCA, CMP, 0-3, 14693-0 #### [facility] ([id number]) [address] [place] [address] 20482 URINE CULTUREon 11-21-2023 Bacteria identified Cx Nom (U) CULTURE RESULTS 10-50,000 ORGANISMS/mL NORMAL UROGENITAL CHU Normal [facility] Comment on above: Performed By: #### 6 30-4 #### [facility] ([id number]) [address], [address] [place] [address] URN MACROSCOPIC NURon 2023 BILIRUBIN JOHANA Negative Normal NEG [facility] Comment on above: Performed By: #### N UM #### [facility] ([id number]) [address] [place] [address] 22824 BLOOD/HGB JOHANA Negative Normal NEG [facility] Comment on above: Performed By: #### N UM #### [facility] ([id number]) [address] [place] [address] 45601 GLUCOSE JOHANA Negative Normal NEG [facility] Comment on above: Performed By: #### N UM #### [facility] ([id number]) [address] [place] [address] 94841 KETONES JOHANA Negative Normal NEG [facility] Comment on above: Performed By: #### N UM #### [facility] ([id number]) [address] [place] [address] 23845 LEUKOCYTE ESTERASE JOHANA Negative Normal NEG [facility] Comment on above: Performed By: #### N UM #### [facility] ([id number]) [address] [place] [address] [place] [address] NITRITE JOHANA Negative Normal NEG [facility] Comment on above: Performed By: #### N UM #### [facility] ([id number]) [address] [place] [address] 89411 PH JOHANA 6.5 Normal 5.0-8.5 [facility] Comment on above: Performed By: #### N UM #### [facility] ([id number]) [address] [place] [address] 57771 PROTEIN JOHANA Negative Normal NEG [facility] Comment on above: Performed By: #### N UM #### [facility] ([id number]) [address] [place] [address] 04153 SPECIFIC GRAVITY JOHANA 1.010 Normal 1.003-1.035 [facility] Comment on above: Performed By: #### N UM #### [facility] ([id number]) [address] [place] [address] 28605 UROBILINOGEN JOHANA 0.2 eu/dL Normal <1.1 [facility] Comment on above: Performed By: #### N UM #### [facility] ([id number]) [address] [place] [address] 12008 XR RIBS RT PA Chery 3 XR [...] CATA HERNANDEZ Date: 2022-09-29 00:50 Normal [facility] XR wrist LT min 3V*on 2021 XR wrist LT min 3V* [facility] [address] XRay Report Signed Patient: Flavia Tucker MR#: [id number] : 2005 Acct:[id number] Age/Sex: 16 / F ADM Date: 04/21/22 Loc: XAKLY Room: Type: [facility] Attending Dr: Deb BRAN Copies to: [...] Jan Gastelum M.D.04/21/2022 4:02 PM Dictation Location: [place] [address] Transcribed By: [facility] 04/21/22 160 Dictated By: Jan Gastelum DO 04/21/22 160 Signed By: 04/21/22 1602 Normal [facility] XR wrist LT min 3V* [facility] [employer] Other XR wrist LT min 3V* [facility] [employer] Other XR wrist LT min 3V* [address] [place] [address] [employer] Other XR wrist LT min 3V* [place] [id number] [employer] Other XR wrist LT min 3V* [facility] [employer] Other XR wrist LT min 3V* Signed [employer] Other XR wrist LT min 3V* Patient: Flavia Tucker MR#: [id number] [employer] Other XR wrist LT min 3V* : 2005 Acct:[id number] [employer] Other XR wrist LT min 3V* Age/Sex: 16 / F ADM Date: 04/21/22 [employer] Other XR wrist LT min 3V* Loc: XDCLY Room: Type: [facility] [employer] Other XR wrist LT min 3V* Attending Dr: Deb BRAN [employer] Other XR wrist LT min 3V* Copies to: DEB PRESSLEY STRIP STAMP STRAIGHTENERKailyn [employer] Other XR wrist LT min 3V* Ordering Provider: DEB PRESSLEY-Kailyn [employer] Other XR wrist LT min 3V* Date of Service: 04/21/22 [employer] Other XR wrist LT min 3V* XR/XR wrist LT min 3V*: Injury of left wrist, subsequent encounter [employer] Other XR wrist LT min 3V* 4 viewsLEFT wrist plain film [employer] Other XR wrist LT min 3V* COMPARISON:None [employer] Other XR wrist LT min 3V* HISTORY:Follow-up assessment of LEFT wrist injury. [employer] Other XR wrist LT min 3V* No fracture, dislocation or focal soft tissue abnormality seen. [employer] Other XR wrist LT min 3V* XR/XR wrist LT min 3V* [employer] Other XR wrist LT min 3V* IMPRESSION:No acute findings. [employer] Other XR wrist LT min 3V* Impression dictated by: Jan Gastelum M.D.04/21/2022 4:02 PM [employer] Other XR wrist LT min 3V* Dictation Location: [facility]-- [employer] Other XR wrist LT min 3V* Transcribed By: PWS 04/21/22 1602 [employer] Other XR wrist LT min 3V* Dictated By: Jan Gastelum DO 04/21/22 1601 [employer] Other XR wrist LT min 3V* Signed By: [employer] Other XR wrist LT min 3V* 04/21/22 1602 No rtSend Word Now Other Quick Strepon 03-24-2022 S. pyogenes Org specific cx Ql (Throat) Negative [employer] Other Quick Strep [employer] Other SARS-CoV-2 (COVID-19) RNA NA A+probe Ql (Resp)on 03-24-2022 SARS-CoV-2 (COVID-19) RNA KELLY+probe Ql (Unsp spec) Negative [employer] Other Progress Noteon 03-10-2018 HIM IP Note OR [employer] Normal [facility] Progress Noteon 02-24-2018 HIM IP Note OR [employer] Normal [facility] Progress Noteon 02-16-2018 HIM IP Note OR [employer] Coordinator Normal [facility] Vital Signs Date Time Vital Sign Value Performing Clinician Facility 01-16-2025 11:35-0400 Body mass index (BMI) [Ratio] 26.98 kg/m2 [employer] DO Work Phone: [facility] 01-16-2025 11:35-0400 Body weight 73.54 kg [employer] DO Work Phone: [facility] 01-16-2025 11:35-0400 Diastolic blood pressure 76 mm[Hg] [employer] [place] Work Phone: [facility] 01-16-2025 11:35-0400 Systolic blood pressure 120 mm[Hg] [employer] [place] Work Phone: [facility] 01-09-2025 08:29-0400 Body mass index (BMI) [Ratio] 26.81 kg/m2 Kimberlee ANDREWS Work Phone: [facility] 01-09-2025 08:29-0400 Body weight 73.08 kg Kimberlee ANDREWS Work Phone: [facility] 01-09-2025 08:29-0400 Diastolic blood pressure 78 mm[Hg] Kimberlee ANDREWS Work Phone: [facility] 01-09-2025 08:29-0400 Systolic blood pressure 130 mm[Hg] Kimberlee ANDREWS Work Phone: [facility] 01-02-2025 11:38-0400 Body mass index (BMI) [Ratio] 27.29 kg/m2 Collin Christi DO Work Phone: [facility] 01-02-2025 11:38-0400 Body weight 74.39 kg Collin Christi DO Work Phone: [facility] 01-02-2025 11:38-0400 Diastolic blood pressure 60 mm[Hg] Collin Christi DO Work Phone: [facility] 01-02-2025 11:38-0400 Systolic blood pressure 112 mm[Hg] Collin Christi DO Work Phone: [facility] 12-18-2024 09:03-0400 Body mass index (BMI) [Ratio] 26.96 kg/m2 Kimberlee ANDREWS Work Phone: [facility] 12-18-2024 09:03-0400 Body weight 73.48 kg Kimberlee ANDREWS Work Phone: [facility] 12-18-2024 09:03-0400 Diastolic blood pressure 64 mm[Hg] Kimberlee ANDREWS Work Phone: [facility] 12-18-2024 09:03-0400 Systolic blood pressure 118 mm[Hg] Kimberlee ANRDEWS Work Phone: [facility] 12-04-2024 11:33-0400 Body mass index (BMI) [Ratio] 26.29 kg/m2 Collin Christi DO Work Phone: [facility] 12-04-2024 11:33-0400 Body weight 71.67 kg Collin Christi DO Work Phone: [facility] 12-04-2024 11:33-0400 Diastolic blood pressure 72 mm[Hg] Collin Christi DO Work Phone: [facility] 12-04-2024 11:33-0400 Systolic blood pressure 118 mm[Hg] Collin Christi DO Work Phone: [facility] 11-16-2024 09:17-0400 Body mass index (BMI) [Ratio] 26.13 kg/m2 Kimberlee Rodriguez PA Work Phone: [facility] 11-16-2024 09:17-0400 Body weight 71.22 kg Kimberlee Rodriguez PA Work Phone: [facility] 11-16-2024 09:17-0400 Diastolic blood pressure 70 mm[Hg] Kimberlee Rodriguez PA Work Phone: [facility] 11-16-2024 09:17-0400 Systolic blood pressure 122 mm[Hg] Kimberlee Rodriguez PA Work Phone: [facility] 10-17-2024 11:07-0400 Body mass index (BMI) [Ratio] 24.92 kg/m2 Collin Christi DO Work Phone: [facility] 10-17-2024 11:07-0400 Body weight 67.93 kg Collin Christi DO Work Phone: [facility] 10-17-2024 11:07-0400 Diastolic blood pressure 64 mm[Hg] Collin Christi DO Work Phone: [facility] 10-17-2024 11:07-0400 Systolic blood pressure 120 mm[Hg] Collin Christi DO Work Phone: [facility] 09-19-2024 09:54-0400 Body mass index (BMI) [Ratio] 23.8 kg/m2 Collin Christi DO Work Phone: [facility] 09-19-2024 09:54-0400 Body weight 64.86 kg Collin Christi DO Work Phone: [facility] 09-19-2024 09:54-0400 Diastolic blood pressure 60 mm[Hg] Collin Christi DO Work Phone: [facility] 09-19-2024 09:54-0400 Systolic blood pressure 112 mm[Hg] Collin Christi DO Work Phone: [facility] 07-13-2024 08:45-0500 Body mass index (BMI) [Ratio] 22.47 kg/m2 Collin Christi DO Work Phone: [facility] 07-13-2024 08:45-0500 Body weight 61.24 kg Collin Christi DO Work Phone: [facility] 07-13-2024 08:45-0500 Diastolic blood pressure 64 mm[Hg] Collin Christi DO Work Phone: [facility] 07-13-2024 08:45-0500 Systolic blood pressure 112 mm[Hg] Collin Christi DO Work Phone: [facility] 06-23-2024 09:14-0500 Body mass index (BMI) [Ratio] 22.6 kg/m2 [facility] Nurse [facility] 06-23-2024 09:14-0500 Body weight 61.6 kg [facility] Nurse [facility] 05-22-2024 09:52-0500 Body height 165.1 cm Ronald Beach MD Work Phone: [facility] 05-22-2024 09:52-0500 Body mass index (BMI) [Ratio] 22.83 kg/m2 Ronald Beach MD Work Phone: [facility] 05-22-2024 09:52-0500 Body weight 62.23 kg Ronald Beach MD Work Phone: [facility] 05-22-2024 09:52-0500 Diastolic blood pressure 72 mm[Hg] Ronald Beach MD Work Phone: [facility] 05-22-2024 09:52-0500 Heart rate 88 /min Ronald Beach MD Work Phone: [facility] 05-22-2024 09:52-0500 SaO2% (BldA) [Mass fraction] 99 % Ronald Beach MD Work Phone: [facility] 05-22-2024 09:52-0500 Systolic blood pressure 111 mm[Hg] Ronald Beach MD Work Phone: [facility] [employer] [place] [facility] 04-22-2024 09:51-0400 Body height 165.1 cm [facility] 04-22-2024 09:51-0400 Body mass index (BMI) [Percentile] Per age and sex 66.8 % [facility] 04-22-2024 09:51-0400 Body mass index (BMI) [Ratio] 23.3 kg/m2 [facility] 04-22-2024 09:51-0400 Body temperature 98.8 [degF] [facility] 04-22-2024 09:51-0400 Body weight 63.5 kg [facility] 04-22-2024 09:51-0400 Diastolic blood pressure 79 mm[Hg] [facility] 04-22-2024 09:51-0400 Heart rate 71 /min [facility] 04-22-2024 09:51-0400 Respiratory rate 18 /min [facility] 04-22-2024 09:51-0400 SaO2% (BldA) [Mass fraction] 98 % [facility] 04-22-2024 09:51-0400 Systolic blood pressure 120 mm[Hg] [facility] 03-25-2024 09:30-0400 Body height 165.1 cm [facility] 03-25-2024 09:30-0400 Body mass index (BMI) [Percentile] Per age and sex 66.9 % [facility] 03-25-2024 09:30-0400 Body mass index (BMI) [Ratio] 23.3 kg/m2 [facility] 03-25-2024 09:30-0400 Body temperature 98.4 [degF] [facility] 03-25-2024 09:30-0400 Body weight 63.5 kg [facility] 03-25-2024 09:30-0400 Diastolic blood pressure 67 mm[Hg] [facility] 03-25-2024 09:30-0400 Heart rate 94 /min [facility] 03-25-2024 09:30-0400 Respiratory rate 18 /min [facility] 03-25-2024 09:30-0400 SaO2% (BldA) [Mass fraction] 98 % [facility] 03-25-2024 09:30-0400 Systolic blood pressure 107 mm[Hg] [facility] 02-22-2024 08:54-0400 Body height 165.1 cm Kimberlee ANDREWS Work Phone: [facility] 02-22-2024 08:54-0400 Body mass index (BMI) [Ratio] 23.13 kg/m2 Kimberlee ANDREWS Work Phone: [facility] 02-22-2024 08:54-0400 Body weight 63.05 kg Kimberlee Rodriguez PA Work Phone: [facility] 02-22-2024 08:54-0400 Diastolic blood pressure 68 mm[Hg] Kimberlee Rodriguez PA Work Phone: [facility] 02-22-2024 08:54-0400 Systolic blood pressure 110 mm[Hg] Kimberlee ANDREWS Work Phone: [facility] 12-27-2023 09:17-0400 Body height 165.1 cm [facility] 12-27-2023 09:17-0400 Body mass index (BMI) [Percentile] Per age and sex 31 % [facility] 12-27-2023 09:17-0400 Body mass index (BMI) [Ratio] 20.2 kg/m2 [facility] 12-27-2023 09:17-0400 Body temperature 100.3 [degF] [facility] 12-27-2023 09:17-0400 Body weight 55.05 kg [facility] 12-27-2023 09:17-0400 Heart rate 75 /min [facility] 12-27-2023 09:17-0400 Respiratory rate 18 /min [facility] 12-27-2023 09:17-0400 SaO2% (BldA) [Mass fraction] 99 % [facility] 12-20-2023 10:31-0400 Body height 165.1 cm Ronald Beach MD Work Phone: [employer] 12-20-2023 10:31-0400 Body mass index (BMI) [Ratio] 20.07 kg/m2 Ronald Beach MD Work Phone: [facility] [employer] 12-20-2023 10:31-0400 Body weight 54.7 kg Ronald Beach MD Work Phone: [employer] 12-20-2023 10:31-0400 Diastolic blood pressure 66 mm[Hg] Ronald Beach MD Work Phone: [employer] 12-20-2023 10:31-0400 Heart rate 71 /min Ronald Beach MD Work Phone: [employer] 12-20-2023 10:31-0400 SaO2% (BldA) [Mass fraction] 100 % Ronald Beach MD Work Phone: [employer] 12-20-2023 10:31-0400 Systolic blood pressure 112 mm[Hg] Ronald Beach MD Work Phone: [employer] 04-21-2022 15:30-0400 Body height 162.56 cm Deb Pressley Other [employer] Other 04-21-2022 15:30-0400 Body mass index (BMI) [Ratio] 22.31 kg/m2 Deb Pressley Other [employer] Other 04-21-2022 15:30-0400 Body temperature 98.6 [degF] Deb Pressley Other [employer] Other 04-21-2022 15:30-0400 Body weight 58.97 kg Deb Pressley Other [employer] Other 04-21-2022 15:30-0400 Diastolic blood pressure 71 mm[Hg] Deb Pressley Other [employer] Other 04-21-2022 15:30-0400 Respiratory rate 18 /min Deb Pressley Other [employer] Other 04-21-2022 15:30-0400 SaO2% (BldA) [Mass fraction] 99 % Deb Pressley Other [facility] Other 04-21-2022 15:30-0400 Systolic blood pressure 114 mm[Hg] Deb Pressley Other [employer] Other 03-24-2022 16:00-0400 Body height 163.83 cm Deb Pressley Other [employer] Other 03-24-2022 16:00-0400 Body mass index (BMI) [Ratio] 22.64 kg/m2 Deb Pressley Other [facility] Other 03-24-2022 16:00-0400 Body temperature 98.2 [degF] Deb Pressley Other [facility] Other 03-24-2022 16:00-0400 Body weight 60.78 kg Deb Pressley Other [facility] Other 03-24-2022 16:00-0400 Diastolic blood pressure 79 mm[Hg] Deb Pressley Other [facility] Other 03-24-2022 16:00-0400 Respiratory rate 18 /min Deb Pressley Other [employer] Other 03-24-2022 16:00-0400 SaO2% (BldA) [Mass fraction] 100 % Deb Pressley Other [facility] Other 03-24-2022 16:00-0400 Systolic blood pressure 121 mm[Hg] Deb Pressley Other [facility] Other 04-29-2021 15:30-0500 Body height 163.83 cm Deb Pressley Other [facility] Other 04-29-2021 15:30-0500 Body mass index (BMI) [Ratio] 21.97 kg/m2 Deb Pressley Other [employer] Other 04-29-2021 15:30-0500 Body temperature 97.8 [degF] Deb Pressley Other [facility] Other 04-29-2021 15:30-0500 Body weight 58.97 kg Deb Pressley Other [employer] Other 04-29-2021 15:30-0500 Diastolic blood pressure 72 mm[Hg] Deb Pressley Other [facility] Other 04-29-2021 15:30-0500 Respiratory rate 18 /min Deb Pressley Other [employer] Other 04-29-2021 15:30-0500 SaO2% (BldA) [Mass fraction] 98 % Deb Pressley Other [facility] Other 04-29-2021 15:30-0500 Systolic blood pressure 130 mm[Hg] Deb Almanzaault Other [employer] Other Encounters Encounter Date Encounter Type Care Provider Facility Start: 01-18-2025 End: 01-18-2025 Clinisync Result Encounter Collin Christi DO Work Phone: [facility] Unsolicited Start: 01-18-2025 End: 01-18-2025 Clinisync Result Encounter Collin Christi DO Work Phone: [facility] Unsolicited Start: 01-16-2025 End: 01-16-2025 Bamboo flowsheet Collin Christi DO Work Phone: [facility] Start: 01-16-2025 End: 01-16-2025 Bamboo flowsheet Collin Christi DO Work Phone: [facility] Start: 01-16-2025 End: 01-16-2025 Clinisync Result Encounter Collin Christi DO Work Phone: [facility] Unsolicited Start: 01-16-2025 End: 01-16-2025 flow sheet Collin Christi DO Work Phone: [facility]UELN Comment on above: Third trimester preg krystina ([facility]); 38 weeks gestation of ([facility]) Start: 01-16-2025 End: 01-16-2025 ambulatory COLLIN CHRISTI Not Available Start: 01-14-2025 End: 01-14-2025 Clinisync Result Encounter Collin Christi DO Work Phone: [facility] Unsolicited Start: 01-14-2025 End: 01-14-2025 Clinisync Result Encounter Collin Christi DO Work Phone: [facility] Unsolicited Start: 01-11-2025 End: 01-11-2025 Clinisync Result Encounter Collin Christi DO Work Phone: [facility] Unsolicited Start: 01-11-2025 End: 01-11-2025 Clinisync Result Encounter Collin Christi DO Work Phone: [facility] External Department Unsolicited Start: 01-09-2025 End: 01-09-2025 Bamboo flowsheet Kimberlee Rodriguez PA Work Phone: [facility] Start: 01-09-2025 End: 01-09-2025 Bamboo flowsheet Kimberlee Rodriguez PA Work Phone: [facility] Start: 01-09-2025 End: 01-09-2025 flow sheet Kimberlee Rodriguez PA Work Phone: [facility] Comment on above: 37 weeks gestation o f ([facility]); Third trimester ([facility]) Start: 01-09-2025 End: 01-09-2025 ambulatory KIMBERLEE EDDIE Not Available Start: 01-02-2025 End: 01-02-2025 Bamboo flowsheet Collin Christi DO Work Phone: [facility] Start: 01-02-2025 End: 01-02-2025 Bamboo flowsheet Collin Christi DO Work Phone: [facility] Start: 01-02-2025 End: 01-02-2025 flow sheet Collin Christi DO Work Phone: [facility] Comment on above: Third trimester preg krystina ([facility]); 36 weeks gestation of ([facility]) Start: 01-02-2025 End: 01-02-2025 ambulatory COLLIN CHRISTI Not Available Start: 12-25-2024 End: 12-25-2024 Bamboo flowsheet Collin Christi DO Work Phone: [facility] Start: 12-25-2024 End: 12-25-2024 Bamboo flowsheet Collin Christi DO Work Phone: [facility] Start: 12-25-2024 End: 12-25-2024 flow sheet Collin Christi DO Work Phone: [facility] Comment on above: Third trimester preg krystina ([facility]); 35 weeks gestation of ([facility]) Start: 12-25-2024 End: 12-25-2024 ambulatory COLLIN CHRISTI Not Available Start: 12-18-2024 End: 12-18-2024 Bamboo flowsheet Kimberlee ANDREWS Work Phone: [facility] Start: 12-18-2024 End: 12-18-2024 Bamboo flowsheet Kimberlee ANDREWS Work Phone: [facility] Start: 12-18-2024 End: 12-18-2024 flow sheet Kimberlee ANDREWS Work Phone: [facility] Comment on above: Third trimester preg krystina ([facility]); 34 weeks gestation of ([facility]) Start: 12-18-2024 End: 12-18-2024 ambulatory KIMBERLEE RODRIGUEZ Not Available Start: 12-04-2024 End: 12-04-2024 flow sheet Collin Christi DO Work Phone: [facility] Comment on above: Third trimester preg krystina ([facility]); 31 weeks gestation of ([facility]) Start: 12-04-2024 End: 12-04-2024 ambulatory COLLIN [...] Available Start: 10-24-2024 ambulatory COLLIN R CHRISTI [facility] Start: 10-17-2024 End: 10-17-2024 Bamboo flowsheet Collin [...] (MSAFP) screening Start: 08-17-2024 End: 08-17-[address] [facility] Start: 07-13-2024 End: 07-13-2024 Bamboo flowsheet Collin [...] 25 minutes Ronald Beach MD Work Phone: [facility] Comment on above: Mild persistent asth ma without complication (Primary Dx); Multiple pulmonary nodules Start: 05-22-2024 End: 05-22-2024 ambulatory RONALD BEACH [facility] Start: 04-22-2024 End: 04-22-2024 ambulatory [facility] Work Phone: Start: 04-22-2024 End: 04-22-2024 Patient encounter procedure [facility] Work Phone: Start: 03-25-2024 End: 03-25-2024 ambulatory [facility] Work Phone: Start: 03-25-2024 End: 03-25-2024 Patient encounter procedure [facility] Work Phone: Start: [...] Unsolicited Start: 01-25-2024 End: 01-25-2024 ambulatory COLLIN BARRAZA Not Available Start: 12-27-2023 End: 12-27-2023 ambulatory [facility] Work Phone: Start: 12-27-2023 End: 12-27-2023 Patient encounter procedure [facility] Work Phone: Start: 12-24-2023 End: 12-24-2023 ambulatory [facility] Start: 12-24-2023 Encounter for genera l adult medical examination without abnormal findings [facility] Start: 12-20-2023 End: 12-20-2023 Office outpatient new 45 minutes Ronald Beach MD Work Phone: [facility] Comment on above: Mild persistent asth ma without complication (Primary Dx); Multiple pulmonary nodules; SOB (shortness of breath) Start: 12-20-2023 End: 12-20-2023 ambulatory [facility] Start: 11-21-2023 End: 11-22-2023 Emergency department patient visit [facility] Start: 11-10-2023 End: 11-10-2023 ambulatory [facility] Start: 09-29-2022 End: 09-29-[address] FRANCISCO PERSON . Facility: Start: 04-21-2022 End: 04-21-2022 ambulatory Deb Pressley Facility:[facility] Start: 04-21-2022 End: 04-21-2022 Patient encounter procedure STRIP STAMP STRAIGHTENER-C Deb Pressley Work Phone: [facility] Start: 04-21-2022 End: 04-21-2022 ambulatory STRIP STAMP STRAIGHTENER-C Deb Pressley Work Phone: [facility] Work Phone: Start: 04-21-2022 Office outpatient vi sit 15 minutes Deb Pressley [facility] Start: 03-24-2022 End: 03-24-2022 ambulatory Deb Pressley Other [facility] Other Start: 03-24-2022 Office outpatient vi sit 15 minutes Deb Pressley [facility] Start: 02-06-2022 End: 02-06-2022 ambulatory Deb Pressley Other [facility] Other Start: 02-06-2022 Telephone encounter Deb santa [facility] Start: 04-29-2021 End: 04-29-2021 ambulatory Deb Pressley Other [facility] Other Start: 04-29-2021 Office outpatient vi sit 15 minutes Deb Pressley [facility] Procedures Date Procedure Procedure Detail Performing Clinician Start: 01-18-2025 ALL CBC WITH AUTO DIFF Collin Christi DO Work Phone: Start: 01-16-2025 [facility] UA (CLEAN/CATCH) TAXICAB STARTER/MICRO IF IND. Collin Christi DO Work Phone: Start: 01-16-2025 Urnls dip stick/tabl et rgnt non-auto w/o micrscp Collin Christi DO Work Phone: Start: 01-14-2025 [facility] UA (CLEAN/CATCH) TAXICAB STARTER/MICRO IF IND. Collin Christi DO Work Phone: Start: 01-11-2025 [facility] UA (CLEAN/CATCH) TAXICAB STARTER/MICRO IF IND. 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 [phone] Collin Barraza, DO [address] [place] [address] Arrived [facility] Comment on above: Arrived Start: 01-09-2025 End: 01-09-2025 Patient encounter procedure [facility] Comment on above: Arrived Start: 01-02-2025 End: 01-02-2026 CULTURE, GROUP B STREP WITH SUSCEPTIBLITY CULTURE, GROUP B STREP WITH SUSCEPTIBLITY Lab Routine Third trimester ([facility]) Expected: 01/02/2025, Expires: 01/02/2026 [facility] Work Phone: Comment on above: Expected: 01/02/2025 , Expires: 01/02/2026 Start: 01-02-2025 End: 01-02-2025 Patient encounter procedure [facility] Comment on above: Arrived Start: 12-25-2024 End: 12-25-2024 Patient encounter procedure 12/25/2024 8:30 AM EDT Routine [facility] [address] [place] [phone] Collin Barraza, DO [address] [place] [address] Arrived [facility] Comment on above: Arrived Start: 12-19-2024 Adult BMI Screening Adult BMI Screen ing [facility] Start: 12-18-2024 End: 12-18-2024 Patient encounter procedure [facility] Comment on above: Arrived Start: 11-20-2024 Tobacco Screening Tobacco Screening [facility] Start: 11-16-2024 End: 03-19-2025 US for US OB follow up transabdominal approach Imaging Routine Size of fetus inconsistent with dates in first trimester Expected: 11/16/2024, Expires: 03/19/2025 [facility] Work Phone: Comment on above: Expected: 11/16/2024 , Expires: 03/19/2025 Start: 11-16-2024 End: 11-16-2024 Patient encounter procedure 11/16/2024 9:30 AM EDT Routine [facility] [address] [place] [phone] Kimberlee Rodriguez PA [address] [place] [address] Arrived [facility] Comment on above: Arrived Start: 10-31-2024 End: 10-31-2024 Patient encounter procedure 10/31/2024 10:30 AM EDT Routine [facility] [address] [place] [phone] Collin Barraza, DO [address] [place] [address] [facility] Start: 10-17-2024 End: 10-17-2025 [...] Visit [facility] [address] [place] [address] Ronald Beach MD [address] [place] [address] [facility] Start: [...] AM EST Routine [facility] [address] [address] Collin Barraza DO [address] [place] [address] [facility] Start: 07-13-2024 End: 07-13-2024 Patient encounter procedure [facility] Comment on above: Arrived Start: 06-23-2024 End: 06-23-2025 ABO/Rh ABO/Rh Lab Routine Missed menses , unspecified gestational age Expected: 06/23/2024 (Approximate), Expires: 06/23/2025 [facility] Comment on above: Expected: 06/23/2024 [...] first trimester Expected: 06/23/2024 (Approximate), Expires: 06/23/2025 [facility] Comment on above: Expected: 06/23/2024 (Approximate), Expires: 06/23/2025 Start: 05-08-2024 End: 05-08-2024 Patient encounter procedure 05/08/2024 10:45 AM EST Office Visit [facility] [address] [place] [address] Ronald Beach MD [address] [place] [address] [facility] Start: 03-21-2024 End: 03-21-2024 Patient encounter procedure 03/21/2024 8:50 AM EDT Office Visit [facility] [address] [place] [address] Kimberlee Rodriguez PA [address] [place] [address] [facility] Start: 02-22-2024 End: 02-22-2024 Patient encounter procedure [facility] Comment on above: Arrived Start: 02-20-2024 Influenza vaccination Influenza Vacc ine [facility] Start: 2016 Depression Screening Depression Scre ening [facility] Start: 2015 DTaP,Tdap and Td Vaccines (6 - Tdap) DTaP,Tdap and Td Vaccines (6 - Tdap) [facility] Start: 2004 Screening for Chlamy damon trachomatis Chlamydia Screening [facility] Bacteria identified in Urine by Culture Urine culture Microbiology Routine Missed menses Ordered: 06/23/2024 [facility] Comment on above: Ordered: 06/23/2024 CBC W Auto Different ial panel - Blood CBC and differential Lab Routine Missed menses , unspecified gestational age Ordered: 06/23/2024 [facility] Comment on above: Ordered: 06/23/2024 CHLAMYDIA TRACHOMATI S (GENITO/STI) CHLAMYDIA TRACHOMATIS (GENITO/STI) Lab Routine Exposure to STD Ordered: 08/21/2024 [facility] Comment on above: Ordered: 08/21/2024 Hemoglobin A1c/Hemoglobin.total in Blood Hemoglobin A1c Lab Routine Missed menses , unspecified gestational age Ordered: 06/23/2024 [facility] Comment on above: Ordered: 06/23/2024 Hepatitis B virus surface Ag [Presence] in Serum or Plasma by Immunoassay Hepatitis B surface antigen Lab Routine Missed menses , unspecified gestational age Ordered: 06/23/2024 [facility] Comment on above: Ordered: 06/23/2024 Hepatitis C virus Ab [Presence] in Serum or Plasma by Immunoassay Hepatitis C antibody Lab Routine Missed menses , unspecified gestational age Ordered: 06/23/2024 [facility] Comment on above: Ordered: 06/23/2024 HIV-1/HIV-2 antigen/antibody combination immunoassay HIV-1 and HIV-2 antibodies Lab Routine Missed menses , unspecified gestational age Ordered: 06/23/2024 [facility] Comment on above: Ordered: 06/23/2024 Neisseria gonorrhoea e DNA [Presence] in Unspecified specimen by KELLY with probe detection Neisseria gonorrhea DNA probe, direct Lab Routine Exposure to STD Ordered: 08/21/2024 [facility] Comment on above: Ordered: 08/21/2024 Reagin Ab [Presence] in Serum by RPR RPR Lab Routine Missed menses , unspecified gestational age Ordered: 06/23/2024 [facility] Comment on above: Ordered: 06/23/2024 Rubella antibody, IgG Rubella an tibody, IgG Lab Routine Missed menses , unspecified gestational age Ordered: 06/23/2024 [facility] Comment on above: Ordered: 06/23/2024 SURESWAB(R) ADVANCED VAGINITIS PLUS, TMA SURESWAB(R) ADVANCED VAGINITIS PLUS, TMA Pathology and Cytology Routine Exposure to STD Ordered: 08/21/2024 [facility] Work Phone: Comment on above: Ordered: 08/21/2024 [facility] Payers Date Payer Category Payer Medicaid MEDICAID [facility] [id number] 2024 Medicaid [id number] 2022 Self-pay [id number] 2019 Managed Care Other (unspecified) [facility] [id number] 2019 Private Health Insurance [id number]. [id number] 2004 Unknown [id number] 2.16.840.1.578253.3.579.2. 593 2004 Unknown [id number] 2.16.840.1.043875.3.579.2. 1286 2004 Unknown [id number] 2.16.840.1.494448.3.579.2. 1286 2004 Unknown [id number] 2.16.840.1.758198.3.579.2. 1285 2004 Unknown [id number] 2.16.840.1.189290.3.579.2. 6 2004 Unknown [id number] 2.16.840.1.478178.3.579.2. 6 2004 Unknown [id number] 2.16.840.1.277182.3.579.2. 128 2004 Unknown [id number] 2.16.840.1.726462.3.579.2. 1285 2004 Unknown [id number] 2.16.840.1.301355.3.579.2. 1286 2004 Unknown [id number] 2.16.840.1.808575.3.579.2. 1285 2004 Unknown [id number] 2.16.840.1.180145.3.579.2. 1258 2004 Unknown [id number] 2.16.840.1.822411.3.579.2. 1258 2004 Unknown [id number] 2.16.840.1.263864.3.579.2. 1258 2004 Unknown [id number] 2.16.840.1.840228.3.579.2. 1258 2004 Unknown [id number] 2.16.840.1.666929.3.579.2. 1258 2004 Unknown [id number] 2.16.840.1.473601.3.579.2. 1258 2004 Unknown [id number] 2.16.840.1.420033.3.579.2. 1258 2004 Unknown [id number] 2.16.840.1.746718.3.579.2. 1258 2004 Unknown [id number] 2.16.840.1.998226.3.579.2. 1258 2004 Unknown [id number] 2.16.840.1.599939.3.579.2. 1258 2004 Unknown [id number] 2.16.840.1.343634.3.579.2. 1258 2004 Unknown [id number] 2.16.840.1.088228.3.579.2. 1258 2004 Unknown [id number] 2.16.840.1.124214.3.579.2. 1258 2004 Unknown [id number] 2.16.840.1.668553.3.579.2. 1258 2004 Unknown [id number] 2.16.840.1.193880.3.579.2. 1258 2004 Unknown [id number] 2.16.840.1.488043.3.579.2. 1258 2004 Unknown [id number] 2.16.840.1.479951.3.579.2. 1259 1959 Unknown [id number] 2.16.840.1.566878.19 Unknown [id number] 2.16.840.1.221517.3.579.2. 531 Unknown [id number] Social History Date Type Detail Facility Start: 12-21-2023 End: 01-25-2024 Sex Assigned At [facility] Start: 2004 Sex Assigned At Female F [facility] Start: 12-21-2023 End: 12-27-2023 Tobacco smoking status NHIS Never smoked tobacco (finding) [facility] Start: 12-20-2023 End: 12-21-2023 Tobacco use and exposure Smokeless tobacco non-user [facility] Start: 01-25-2024 End: 01-16-2025 Alcoholic beverage intake Lifetime non-drinker (finding) [facility] Start: 12-21-2023 End: 01-25-2024 History of Social function [facility] Start: 2004 Sex assigned at Not on file [facility] Start: 05-05-2024 [facility] Start: 12-20-2023 End: 05-22-2024 Alcoholic beverage intake Current non-drinker of alcohol (finding) [facility] Childcare Unknown [facility] Start: 01-28-2015 Sex Female (finding) [facility] Clinical Notes 04-29-2021 to 01-16-2025 JULIANA Dubois [...] ASSESSMENT & PLAN ICD-10-CM 1. Third trimester ([facility]) Z34.93 POCT urinalysis dipstick manually resulted 2. 38 weeks gestation of ([facility]) Z3A.38 POCT urinalysis dipstick manually resulted Return [...] Barraza DO documented in this encounter [facility] 01-09-2025 History of Present illness Narrative Reason [...] PLAN ICD-10-CM 1. 37 weeks gestation of ([facility] [facility] Z3A.37 POCT urinalysis dipstick manually resulted 2. Third trimester ([facility]) Z34.93 POCT urinalysis dipstick manually resulted [...] for routine OB appointment. Documented by JULIANA Dubosi on behalf of: JULIANA Dubois documented in this encounter [facility] 01-02-2025 History of Present illness Narrative Reason [...] nursing note reviewed. Exam conducted with a colorer hides and skins present. Vitals: Estimated body mass index is 27.29 kg/m as calculated from the following: Height as of 02/22/24: 5' 5 . Weight as of this encounter: 164 lb. BP: 112/60 Patient's last menstrual period was 04/21/2024. ASSESSMENT & PLAN ICD-10-CM 1. Third trimester ([facility]) Z34.93 POCT urinalysis dipstick manually resulted CULTURE, GROUP B STREP WITH SUSCEPTIBLITY CULTURE, GROUP B STREP WITH SUSCEPTIBLITY 2. 36 weeks gestation of ([facility]) Z3A.36 Patient is doing well but [...] Barraza DO documented in this encounter [facility] 12-25-2024 History of Present illness Narrative Reason [...] nursing note reviewed. Exam conducted with a colorer hides and skins present. Vitals: Estimated body mass index is 26.96 kg/m as calculated from the following: Height as of 02/22/24: 5' 5 . Weight as of 12/18/24: 162 lb. BP: Patient's last menstrual period was 04/21/2024. ASSESSMENT & PLAN ICD-10-CM 1. Third trimester ([facility]) Z34.93 POCT urinalysis dipstick manually resulted CANCELED: CULTURE, GROUP B STREP WITH SUSCEPTIBLITY CANCELED: CULTURE, GROUP B STREP WITH SUSCEPTIBLITY 2. 35 weeks gestation of ([facility]) Z3A.35 Return OB: Patient presents today [...] Collin Barraza DO documented in this encounter [facility] 12-18-2024 History of Present illness Narrative Reason [...] PLAN ICD-10-CM 1. Third trimester ([facility]) Z34.93 2. 34 weeks gestation of ([facility]) Z3A.34 Return OB: Patient presents today [...] JULIANA Dubois documented in this encounter [facility] 12-04-2024 History of Present illness Narrative Reason [...] nursing note reviewed. Exam conducted with a colorer hides and skins present. Vitals: Estimated body mass index is 26.29 kg/m as calculated from the following: Height as of 02/22/24: 5' 5 . Weight as of this encounter: 158 lb. BP: 118/72 Patient's last menstrual period was 04/21/2024. ASSESSMENT & PLAN ICD-10-CM 1. Third trimester ([facility]) Z34.93 POCT urinalysis dipstick manually resulted 2. 31 weeks gestation of ([facility]) Z3A.31 Return OB: Patient presents today [...] Barraza DO documented in this encounter [facility] 10-17-2024 History of Present illness Narrative Reason [...] Problems Past Medical History: Diagnosis Date Asthma ([facility]) Lung nodules HISTORY PAST MEDICAL HISTORY SOCIAL [...] nursing note reviewed. Exam conducted with a colorer hides and skins present. Vitals: Estimated body mass index is [...] Barraza DO documented in this encounter [facility] 09-19-2024 History of Present illness Narrative Reason [...] Problems Past Medical History: Diagnosis Date Asthma ([facility]) Lung nodules HISTORY PAST MEDICAL HISTORY SOCIAL [...] nursing note reviewed. Exam conducted with a colorer hides and skins present. Vitals: Estimated body mass index is [...] Rodriguez PA-C documented in this encounter [facility] 08-21-2024 History of Present illness Narrative Reason [...] nursing note reviewed. Exam conducted with a colorer hides and skins present. Vitals: Estimated body mass index is [...] Barraza DO documented in this encounter [facility] 07-13-2024 History of Present illness Narrative Reason [...] nursing note reviewed. Exam conducted with a colorer hides and skins present. Vitals: Estimated body mass index is [...] or undercooked meat, and stay away from [facility]. Patient has been consulted regarding any further do's and don'ts of . Patient voiced understanding and all questions and concerns were answered. Orders Placed This Encounter Procedures POCT urinalysis dipstick manually resulted Follow Up: Patient is to return in 4 weeks for routine OB appointment. Documented by Pia Adkins LPN on behalf of: Collin Barraza DO documented in this encounter [facility] 06-23-2024 History of Present illness Narrative Reason [...] or undercooked meat, and stay away from [facility]. Patient has also been advised to [...] Fisher LPN documented in this encounter [facility] 05-22-2024 History of Present illness Narrative Images from the original note were not included. [facility] [address] [id number] [phone] Subjective: Chief Complaint Asthma HPI The patient [...] this note were generated using voice recognition [employer] dictation software. Although every effort was made to ensure the accuracy of this automated custom bike builder, some errors in custom bike builder may have occurred. documented in this encounter [facility] 02-22-2024 History of Present illness Narrative Reason [...] due to pelvic pain performed at [facility] with Dr. Barraza. Patient doing well, steri strips removed, restrictions lifted Follow Up: Patient is to return to the office for annual exam unless needed otherwise. Documented by JULIANA Dubois on behalf of: JULIANA Dubois documented in this encounter [facility] 12-20-2023 History of Present illness Narrative Images from the original note were not included. [facility] [address] [id number] Subjective: Chief Complaint Shortness a breath HPI [...] this note were generated using voice recognition [employer] dictation software. Although every effort was made to ensure the accuracy of this automated custom bike builder, some errors in custom bike builder may have occurred. documented in this encounter [facility] 11-10-2023 Note XR CHEST 2 VWS Procedure: Chest x-ray performed Number of views:2 History:Shortness of breath Comparison:09/07/2012 Findings: The heart and lungs show no acute findings, and the mediastinum and fabienne are grossly negative . Impression: 1. No acute change. Finalized by Bola Dang MD on 11/10/2023 9:58 AM [facility] 04-21-2022 Evaluation note Encounter Date Diagnosis Assessment [...] we will help you get into specialist. [facility] Other 10-04-2022 Evaluation note* Encounter Date Diagnosis [...] therapy plan may need to be made. [facility] Other 11-09-2021 Evaluation note* Encounter Date Diagnosis Assessment Notes Treatment Notes Treatment Clinical Notes Apr, Tinea pedis of both feet (ICD-10 - B35.3) Use medication as directed. Shows need to be cleaned and clean socks need to be worn daily. Education handout printed on [employer] [facility] Other evalugeqza noteNo [employer] Other evaluation noteNo assessment information available [facility] Work Phone: evaluation note* Diagnosis Onset Date Resolution Status Acute bilateral otitis media acute [facility] Work Phone: evaluation note* Diagnosis Onset Date Resolution Status Acute bilateral otitis media acute Acute maxillary sinusitis, unspecified acute [facility] Work Phone: evaluation note* Diagnosis Onset Date Resolution Status Acute maxillary sinusitis, unspecified acute [facility] Work Phone: evaluvdipm note* Diagnosis Pelvic pain in female- Primary Unspecified symptom associated with female genital organs documented in this encounter [facility] HealthcareEvaluation [facility]* Diagnosis Missed menses , unspecified gestational age Encounter for supervision of normal first in first trimester Nausea and vomiting in Unspecified vomiting of , unspecified as to episode of care documented in this encounter [facility] HealthcareEvaluation note* Diagnosis First trimester state, incidental 11 weeks gestation of documented in this encounter [facility] HealthcareEvaluation note* Diagnosis Mild persistent asthma without complication- Primary Multiple pulmonary nodules Other diseases of lung, not elsewhere classified SOB (shortness of breath) Shortness of breath [facility] Diagnosis Mild persistent asthma without complication- Primary Multiple pulmonary nodules Other diseases of lung, not elsewhere classified documented in this encounter [facility]* Diagnosis Exposure to STD [...] caps on teeth when younger Hospitalization History [employer] Other History general Narrative - Reported* Type Description Date Medical History acid reflux Medical History headache Medical History seizures Surgical History caps on teeth when younger Hospitalization History [employer] Other History of Present illness Narrative* JULIANA [...] behalf of: JULIANA Dubois documented in this [facility]NOFre[facility] MedicineInstructionsNot on filedocumented in this encounterProPremier [facility] SystemInstructionsNot on filedocumented in this [facility]The [facility] Summary Purpose Family History No Family [...] content) DATE CREATED AUTHOR 04/09/2018 [facility] DATE CREATED AUTHOR AUTHOR'S ORGANIZ ATION 04/27/2022 [facility] DATE CREATED AUTHOR AUTHOR'S ORGANIZ ATION 09/30/2022 [facility] DATE CREATED AUTHOR AUTHOR'S ORGANIZ ATION 05/23/2024 [facility] DATE CREATED AUTHOR AUTHOR'S ORGANIZ ATION 10/27/2024 [facility] DATE CREATED AUTHOR AUTHOR'S ORGANIZ ATION 01/17/2025 [facility] dical Specialists EPIC REASON FOR VISIT [...] of breath) Abnormal chest CT Emelyn Robins APRN-FNP [address] [place] [id number] [facility] [address] [place] [address] Referral ID Status Reason Start Date Expiration Date Visits Requested Visits Authorized [id number] Pending Review Specialty Services Required 11/04/2023 11/03/2024 [...] April 22, 2024 End: April 22, 2024 Industrial Safety [employer] Health Technician Relationship Specialty Start Date End Date Emelyn Robins APRN-FNP [address] [place], [place] [id number] PCP - General Family Medicine 11/21/23 Industrial Safety And Health Technician Relationship Specialty Start Date End Date [facility] [address] [facility] [place] [address] PCP - General Family Medicine 11/21/23 Goals [...] BE BASED ON THE PRIMARY CLINICAL RECORDS. [email or web address] [facility]. provides no warranty or guarantee of the accuracy or completeness of information in this document.
[2025-01-23 12:02] VITALS: BP 128/83; PULSE 84; TEMP 36.7; O2SAT 97
--- NOTE | 2025-01-23 12:02 | PC.NURSE ---
Lilian and Jose ( 6 days old ) arrive for follow up visit. FOB attends as well. Parents report doing well, mom states getting sleep as FOB does care for baby that allows her to rest. Mom offers no complaints for healing for self or concerns with baby. Lilian with VSS and assessment WNL. States has lumpy area right breast. Palpated as fullness, encouraged massage during nursing or in shower to aid in release. Verbalized understanding. Jose is alert, quiet as Father holds him. VSS and assessment WNL. examined per PCP yesterday as well. No concerns voiced per peds or parents. Diaper changed for mod void, circ healing well. No concerns noted. Aware of [facility] group or to call for questions regarding breast feeding. Family leaves ambulatory for home.
== END 2025-01-23 12:06 | disposition home or self-care (01) ==
PROVIDERS: Visit Provider Obstetrics & Gynecology
DX: Z39.1 Encounter for care and examination of lactating mother (principal)